=== PATIENT | male | born 1945 | race Caucasian/White ===

== ENCOUNTER → 2017-03-26 | Outpatient (REF) | payer MEDICARE ==
[~2017-03-26] MED LIST: AMLO10TA2 PO; ASPI1TAB PO; BENA20TA6 PO; DOXA1TAB49 PO; HYDR-3713 PO; PARO20TA3 PO; PRIL20CA9 PO; TRAZ50TA11 PO; ZYLO300T4 PO
[2017-03-26 12:38] LABS: MEAN CORPUSCULAR HEMOGLOBIN 32.8 pg (27.0-33.0); MEAN CORPUSCULAR HGB CONC 34.1 g/dl (32.0-36.5); MEAN CORPUSCULAR VOLUME 96.1 fl (80.0-96.0); RED CELL DISTRIBUTION WIDTH 13.1 % (11.5-14.5); WHITE BLOOD COUNT 4.6 K/mm3 (4.0-10.0)
[2017-03-26 13:05] LABS: ALBUMIN 3.9 GM/DL (3.2-5.2); ALBUMIN/GLOBULIN RATIO 1.18 (1.00-1.93); ALKALINE PHOSPHATASE 92 U/L (45-117); ALT/SGPT 50 U/L (12-78); ANION GAP 5 MEQ/L (8-16); AST/SGOT 45 U/L (15-37); BLOOD UREA NITROGEN 10 MG/DL (7-18); CALCIUM LEVEL 9.3 MG/DL (8.8-10.2); CARBON DIOXIDE LEVEL 32 MEQ/L (21-32); CHLORIDE LEVEL 101 MEQ/L (98-107); CHOLESTEROL LEVEL 209 MG/DL (<200); CREATININE FOR GFR 0.88 MG/DL (0.70-1.30); GLOMERULAR FILTRATION RATE > 60.0 (>42); GLUCOSE, FASTING 111 MG/DL (83-110); POTASSIUM SERUM 4.5 MEQ/L (3.5-5.1); SODIUM LEVEL 138 MEQ/L (136-145); TOTAL PROTEIN 7.2 GM/DL (6.4-8.2); TRIGLYCERIDES LEVEL 60 MG/DL (<150)
== END ==
LOC: M SFHCPLAZ 09:47
PROVIDERS: ATTEND Internal Medicine
DX: Z85.46 Personal history of malignant neoplasm of prostate (principal); E78.00 Pure hypercholesterolemia, unspecified; I10 Essential (primary) hypertension; R73.01 Impaired fasting glucose

== ENCOUNTER → 2017-06-01 | Outpatient (REF) | payer MEDICARE | LOC: M LAB REF 17:02 | PROVIDERS: ATTEND Surgery | DX: D04.5 Carcinoma in situ of skin of trunk (principal) ==

== ENCOUNTER → 2017-09-21 | Outpatient (REF) | payer MEDICARE ==
[2017-09-21 12:29] LABS: ALBUMIN 3.8 GM/DL (3.2-5.2); ALBUMIN/GLOBULIN RATIO 1.36 (1.00-1.93); ALKALINE PHOSPHATASE 74 U/L (45-117); ALT/SGPT 21 U/L (12-78); ANION GAP 7 MEQ/L (8-16); AST/SGOT 15 U/L (7-37); BILIRUBIN,TOTAL 0.6 MG/DL (0.2-1.0); BLOOD UREA NITROGEN 14 MG/DL (7-18); CALCIUM LEVEL 8.9 MG/DL (8.8-10.2); CARBON DIOXIDE LEVEL 31 MEQ/L (21-32); CHLORIDE LEVEL 102 MEQ/L (98-107); CREATININE FOR GFR 0.83 MG/DL (0.70-1.30); GLOMERULAR FILTRATION RATE > 60.0 (>42); GLUCOSE, FASTING 114 MG/DL (83-110); MAGNESIUM LEVEL 1.8 MG/DL (1.8-2.4); SODIUM LEVEL 140 MEQ/L (136-145); TOTAL PROTEIN 6.6 GM/DL (6.4-8.2); URIC ACID 4.5 MG/DL (3.5-7.2)
== END ==
LOC: M SFHCPLAZ 09:11
DX: I10 Essential (primary) hypertension (principal); F34.1 Dysthymic disorder; M10.9 Gout, unspecified
CPT/HCPCS: 83735

== ENCOUNTER → 2017-09-29 | Outpatient (REF) | payer MEDICARE ==
[2017-09-29 14:38] LABS: PROSTATIC SPECIFIC AG MONITOR < 0.01 NG/ML (< 4.0)
[2017-09-29 14:45] LABS: FOLATE 8.9 NG/ML (>5.4); VITAMIN B12 LEVEL 528 PG/ML (247-911)
[2017-09-29 14:59] LABS: ESTIMATED AVERAGE GLUCOSE 105 MG/DL (60-110); HEMOGLOBIN A1c 5.3 %
== END ==
LOC: M LABDRAW1 12:39
DX: R73.01 Impaired fasting glucose (principal); R68.89 Other general symptoms and signs; Z85.46 Personal history of malignant neoplasm of prostate
CPT/HCPCS: 82746

== ENCOUNTER → 2018-03-26 | Outpatient (REF) | payer MEDICARE ==
[2018-03-26 14:05] LABS: HEMATOCRIT 44.6 % (42.0-52.0); HEMOGLOBIN 15.7 g/dl (13.5-17.5); MEAN CORPUSCULAR HEMOGLOBIN 32.4 pg (27.0-33.0); MEAN CORPUSCULAR HGB CONC 35.2 g/dl (32.0-36.5); MEAN CORPUSCULAR VOLUME 92.1 fl (80.0-96.0); PLATELET COUNT, AUTOMATED 227 10^3/uL (150-450); RED BLOOD COUNT 4.84 10^6/uL (4.30-6.10); RED CELL DISTRIBUTION WIDTH 12.7 % (11.5-14.5); WHITE BLOOD COUNT 4.6 10^3/uL (4.0-10.0)
[2018-03-26 14:24] LABS: ESTIMATED AVERAGE GLUCOSE 108 MG/DL (60-110); HEMOGLOBIN A1c 5.4 %
[2018-03-26 14:43] LABS: ALBUMIN 3.8 GM/DL (3.2-5.2); ALBUMIN/GLOBULIN RATIO 1.23 (1.00-1.93); ALKALINE PHOSPHATASE 100 U/L (45-117); ALT/SGPT 26 U/L (12-78); ANION GAP 9 MEQ/L (8-16); AST/SGOT 16 U/L (7-37); BILIRUBIN,TOTAL 0.6 MG/DL (0.2-1.0); BLOOD UREA NITROGEN 13 MG/DL (7-18); CALCIUM LEVEL 8.5 MG/DL (8.8-10.2); CARBON DIOXIDE LEVEL 29 MEQ/L (21-32); CHLORIDE LEVEL 102 MEQ/L (98-107); CHOLESTEROL LEVEL 185 MG/DL (<200); CHOLESTEROL RISK RATIO 2.102 (<5); CREATININE FOR GFR 0.75 MG/DL (0.70-1.30); GLOMERULAR FILTRATION RATE > 60.0 (>42); GLUCOSE, FASTING 101 MG/DL (70-100); HDL CHOLESTEROL 88 MG/DL (>40); LDL CHOLESTEROL 85.6 MG/DL (<100); NON-HDL-C 97 MG/DL; POTASSIUM SERUM 4.1 MEQ/L (3.5-5.1); PROSTATIC SPECIFIC AG MONITOR < 0.01 NG/ML (< 4.0); SODIUM LEVEL 140 MEQ/L (136-145); TOTAL PROTEIN 6.9 GM/DL (6.4-8.2); TRIGLYCERIDES LEVEL 57 MG/DL (<150)
[2018-03-26 14:49] LABS: CREATININE, URINE 46.6 MG/DL; MAU/CREAT RATIO 12.8 MCG/MG (0.0-30.0)
== END ==
LOC: M SFHCPLAZ 10:38
DX: Z85.820 Personal history of malignant melanoma of skin (principal); I10 Essential (primary) hypertension; R73.01 Impaired fasting glucose; E78.00 Pure hypercholesterolemia, unspecified
CPT/HCPCS: 83735

== ENCOUNTER → 2018-06-10 | Outpatient (REF) | payer MEDICARE ==
[2018-06-10 17:38] LABS: CREATININE FOR GFR 0.77 MG/DL (0.70-1.30); GLOMERULAR FILTRATION RATE > 60.0 (>42)
[2018-06-10 17:38] LABS: BLOOD UREA NITROGEN 9 MG/DL (7-18)
== END ==
LOC: M LABDRAWP 13:43
DX: R31.9 Hematuria, unspecified (principal); C61 Malignant neoplasm of prostate
CPT/HCPCS: 82565

== ENCOUNTER → 2018-06-11 | Outpatient (CLI) | payer MEDICARE ==
[~2018-06-11] MED LIST changes: -AMLO10TA2 PO; -ASPI1TAB PO; -BENA20TA6 PO; -DOXA1TAB49 PO; -HYDR-3713 PO; +ISOVUE-370 76% 100ML VIAL (Q9967) As Ordered; -PARO20TA3 PO; -PRIL20CA9 PO; -TRAZ50TA11 PO; -ZYLO300T4 PO
== END ==
LOC: M RAD 07:21
DX: C61 Malignant neoplasm of prostate (principal); R31.9 Hematuria, unspecified; N28.1 Cyst of kidney, acquired
CPT/HCPCS: Q9967

== ENCOUNTER 2018-09-27 15:22 | Emergency (ER) | payer MEDICARE ==
[~2018-09-27] VITALS: Ht 182.9 cm; Wt 90.9 kg
[~2018-09-27 15:22] MED LIST changes: +AMLO10TA5 PO; +ASPI1TAB PO; +BENA20TA6 PO; +DOXA1TAB49 PO; +HYDR-3713 PO; -ISOVUE-370 76% 100ML VIAL (Q9967) As Ordered; +PARO20TA3 PO; +PRIL20CA9 PO; +TRAZ-160 PO; +ZYLO300T6 PO
[2018-09-27] MEDS ORDERED: cefTRIAXone SOD 2 GM in D5W MINI-BAG PLUS 50 ML IV ONE (16:15)
[2018-09-27] MEDS ORDERED: MORPHINE 4 MG/ML 1ML VIAL/SYRINGE (J2270) IV ONE (16:30)
[2018-09-27 16:38] LABS: BASO # 0.1 10^3/uL (0.0-0.2); BASO % 0.9 % (0.0-1.0); EOS # 0.2 10^3/uL (0.0-0.50); EOS % 2.5 % (0.0-3.0); HEMOGLOBIN 14.5 g/dl (13.5-17.5); LYMPH % 15.4 % (24.0-44.0); MEAN CORPUSCULAR HEMOGLOBIN 31.8 pg (27.0-33.0); MEAN CORPUSCULAR HGB CONC 36.3 g/dl (32.0-36.5); MEAN CORPUSCULAR VOLUME 87.7 fl (80.0-96.0); MONO # 1.1 10^3/uL (0.0-0.8); MONO % 17.2 % (0.0-5.0); NEUTROPHILS # 4.2 10^3/uL (1.8-7.7); NEUTROPHILS % 63.8 % (36.0-66.0); PLATELET COUNT, AUTOMATED 191 10^3/uL (150-450); RED BLOOD COUNT 4.56 10^6/uL (4.30-6.10); WHITE BLOOD COUNT 6.5 10^3/uL (4.0-10.0)
[2018-09-27 16:45] LABS: INR 0.96; PROTHROMBIN TIME 12.9 SECONDS (12.1-14.4)
--- NOTE | 2018-09-27 16:53 | REP ---
LEFT FINGERS, FOUR VIEWS: HISTORY: Chain saw injury of 5th digit. There is anterior and lateral dislocation of the distal phalange of the 5th digit with respect to the intermediate phalange. There is no definite fracture. A defect is present in the overlying soft tissue consistent with a laceration. IMPRESSION: Dislocation of the 5th distal phalange. Electronically Signed by Dallin Farrell MD 09/27/2018 05:02 P
[2018-09-27 16:59] LABS: ALBUMIN 3.8 GM/DL (3.2-5.2); ALT/SGPT 21 U/L (12-78); BILIRUBIN,DIRECT 0.2 MG/DL (0.0-0.2); BILIRUBIN,TOTAL 0.5 MG/DL (0.2-1.0); BLOOD UREA NITROGEN 11 MG/DL (7-18); CALCIUM LEVEL 8.8 MG/DL (8.8-10.2); CARBON DIOXIDE LEVEL 27 MEQ/L (21-32); CHLORIDE LEVEL 91 MEQ/L (98-107); CREATININE FOR GFR 0.72 MG/DL (0.70-1.30); ETHYL ALCOHOL (ETHANOL) 0.117 % (0.000-0.010); GLOMERULAR FILTRATION RATE > 60.0 (>42); GLUCOSE, FASTING 95 MG/DL (70-100); POTASSIUM SERUM 4.1 MEQ/L (3.5-5.1); SODIUM LEVEL 129 MEQ/L (136-145); TOTAL PROTEIN 7.1 GM/DL (6.4-8.2)
[2018-09-27] MEDS ORDERED: KEFL500C17 PO (17:48)
[2018-09-27 17:58] VITALS: BP 133/68
--- NOTE | 2018-09-27 18:45 | REP ---
LEFT FINGER, FOUR VIEWS: HISTORY: Postreduction. COMPARISON: 3:30 p.m. 09/27/2018. The patient is status-post reduction of a dislocation of the distal phalange of the 5th digit. There is no acute fracture or dislocation. IMPRESSION:The patient is status-post reduction of the dislocation of the 5th distal phalange. There is anatomic alignment. Electronically Signed by Dallin Farrell MD 09/27/2018 06:46 P
== END 2018-09-27 18:07 | disposition home or self-care (01) ==
LOC: M ED 15:22
DX: S61.217A Laceration without foreign body of left little finger without damage to nail, initial encounter (principal); S66.819A Strain of other specified muscles, fascia and tendons at wrist and hand level, unspecified hand, initial encounter
CPT/HCPCS: 73140; 80048; 80076; 85025; 85610; 85730; 96365; 96374; 99284; G0480; J0696; J2270

== ENCOUNTER → 2018-09-29 | Outpatient (REF) | payer MEDICARE ==
[~2018-09-29] MED LIST changes: +KEFL500C17 PO
[2018-09-29 13:38] LABS: HEMATOCRIT 42.1 % (42.0-52.0); HEMOGLOBIN 14.6 g/dl (13.5-17.5); MEAN CORPUSCULAR HEMOGLOBIN 31.1 pg (27.0-33.0); MEAN CORPUSCULAR HGB CONC 34.7 g/dl (32.0-36.5); MEAN CORPUSCULAR VOLUME 89.6 fl (80.0-96.0); PLATELET COUNT, AUTOMATED 190 10^3/uL (150-450); WHITE BLOOD COUNT 5.6 10^3/uL (4.0-10.0)
[2018-09-29 13:56] LABS: ALBUMIN 3.6 GM/DL (3.2-5.2); ALT/SGPT 17 U/L (12-78); BLOOD UREA NITROGEN 12 MG/DL (7-18); CALCIUM LEVEL 8.9 MG/DL (8.8-10.2); CARBON DIOXIDE LEVEL 31 MEQ/L (21-32); CHLORIDE LEVEL 100 MEQ/L (98-107); CREATININE FOR GFR 0.84 MG/DL (0.70-1.30); GLOMERULAR FILTRATION RATE > 60.0 (>42); GLUCOSE, FASTING 107 MG/DL (70-100); POTASSIUM SERUM 4.6 MEQ/L (3.5-5.1); SODIUM LEVEL 137 MEQ/L (136-145); TOTAL PROTEIN 6.6 GM/DL (6.4-8.2)
[2018-09-29 13:57] LABS: BILIRUBIN,TOTAL 0.8 MG/DL (0.2-1.0)
[2018-09-29 15:00] LABS: HEMOGLOBIN A1c 5.4 %
== END ==
LOC: M SFHCPLAZ 10:51
PROVIDERS: ATTEND Internal Medicine
DX: Z85.46 Personal history of malignant neoplasm of prostate (principal); Z85.820 Personal history of malignant melanoma of skin; I10 Essential (primary) hypertension; R73.01 Impaired fasting glucose

== ENCOUNTER → 2018-09-29 | Outpatient (CLI) | payer MEDICARE ==
--- NOTE | 2018-09-30 12:14 | ECGEPIP ---
Stationary ECG Study [facility] Test Date: 2018-09-29 Pat Name: MODESTA GERMAN Department: Room: - Gender: M Health Clinician: [facility] : 1945 Requested By: Jagdish Marquez Order Number: [id number] Reading MD: Joe Reyes Measurements Intervals [place] Rate: 61 P: 53 SD: 318 QRS: -63 QRSD: 124 T: 59 QT: 406 QTc: 412 Interpretive Statements SINUS RHYTHM WITH FIRST DEGREE AV BLOCK MARKED LEFT AXIS DEVIATION LEFT BUNDLE BRANCH BLOCK Deep inferior Q waves previously noted on 09-23-13 Electronically Signed On 09-30-2018 12:01:55 EST by Joe Reyes
== END ==
LOC: M EKG 11:50
PROVIDERS: ATTEND Orthopaedic Surgery
DX: Z01.818 Encounter for other preprocedural examination (principal); I10 Essential (primary) hypertension

== ENCOUNTER → 2019-04-07 | Outpatient (REF) | payer MEDICARE ==
[~2019-04-07] MED LIST changes: -ASPI1TAB PO; +ASPI81TA26 PO; -TRAZ-160 PO; +TRAZ-252 PO
[2019-04-07 13:21] LABS: HEMATOCRIT 44.1 % (42.0-52.0); HEMOGLOBIN 15.4 g/dl (13.5-17.5); MEAN CORPUSCULAR HEMOGLOBIN 32.6 pg (27.0-33.0); MEAN CORPUSCULAR HGB CONC 34.9 g/dl (32.0-36.5); MEAN CORPUSCULAR VOLUME 93.4 fl (80.0-96.0); PLATELET COUNT, AUTOMATED 213 10^3/uL (150-450); RED BLOOD COUNT 4.72 10^6/uL (4.30-6.10); WHITE BLOOD COUNT 4.7 10^3/uL (4.0-10.0)
[2019-04-07 13:31] LABS: ALBUMIN 3.9 GM/DL (3.2-5.2); ALT/SGPT 27 U/L (12-78); BILIRUBIN,TOTAL 0.5 MG/DL (0.2-1.0); BLOOD UREA NITROGEN 7 MG/DL (7-18); C REACTIVE PROTEIN QUANTITATIV 0.33 MG/DL (0.00-0.30); CALCIUM LEVEL 9.2 MG/DL (8.8-10.2); CARBON DIOXIDE LEVEL 29 MEQ/L (21-32); CHLORIDE LEVEL 99 MEQ/L (98-107); CHOLESTEROL LEVEL 178 MG/DL (<200); CHOLESTEROL RISK RATIO 1.424 (<5); CREATININE FOR GFR 0.71 MG/DL (0.70-1.30); GLOMERULAR FILTRATION RATE > 60.0 (>42); GLUCOSE, FASTING 85 MG/DL (70-100); HDL CHOLESTEROL 125 MG/DL (>40); LDL CHOLESTEROL 45 MG/DL (<100); MAGNESIUM LEVEL 2.1 MG/DL (1.8-2.4); NON-HDL-C 53 MG/DL; PROSTATIC SPECIFIC AG MONITOR < 0.01 NG/ML (< 4.00); SODIUM LEVEL 136 MEQ/L (136-145); TOTAL PROTEIN 6.8 GM/DL (6.4-8.2); TRIGLYCERIDES LEVEL 38 MG/DL (<150); URIC ACID 3.4 MG/DL (3.5-7.2)
[2019-04-07 13:44] LABS: HEMOGLOBIN A1c 5.6 %
[2019-04-07 14:02] LABS: CREATININE, URINE 51.3 MG/DL; MALB URINE SIEMENS 17.7 MG/L; MAU/CREAT RATIO 34.5 MCG/MG (0.0-30.0)
[2019-04-07 14:07] LABS: ERYTHROCYTE SEDIMENTATION RATE 2 mm/hr (0-20)
== END ==
LOC: M SFHCPLAZ 08:27
PROVIDERS: ATTEND Internal Medicine
DX: Z85.46 Personal history of malignant neoplasm of prostate (principal); Z85.820 Personal history of malignant melanoma of skin; I10 Essential (primary) hypertension; R73.01 Impaired fasting glucose; E78.00 Pure hypercholesterolemia, unspecified; M10.9 Gout, unspecified

== ENCOUNTER → 2019-05-26 | Outpatient (CLI) | payer MEDICARE ==
[~2019-05-26] MED LIST changes: +ALEV220T22 PO; +OMEP-218 PO
--- NOTE | 2019-06-04 01:32 | ECWPNPC ---
PATIENT NAME: MODESTA GERMAN : 1945 GENDER: MALE VISIT DATE: 05/26/2019 DISCHARGE DATE: 05/26/19 1604 VISIT LOCKED DATE TIME: PHYSICIAN: BUTCH HARTMANN MD RESOURCE: BUTCH HARTMANN MD REASON FOR APPOINTMENT 1. LOW BACK PAIN HISTORY OF PRESENT ILLNESS PAIN SCREENING: PATIENT HAS A COMPLAINT OF ACUTE OR CHRONIC PAIN :YES 73 YEAR OLD MALE PATIENT WITH A HISTORY OF CHRONIC LOW BACK PAIN. THE PATIENT DESCRIBES THE PAIN ACHING, SORE, TENDER AND CONTINUOUS WITH A PAIN SCORE OF 6/10-10 DEPENDING ON PHYSICAL ACTIVITY. PATIENT STATES HE HAD A LUMBAR FUSION MANY YEARS AGO FOR HIS BACK. THE PATIENT STATES HE ALSO HAS CONCERNS ABOUT PAIN IN HIS RIGHT SHOULDER AND LEFT HIP. THE PATIENT SAYS THE PAIN IS EFFECTING HIS DAILY ACTIVITIES SUCH COOKING, CLEANING AND SHOPPING. THE PATIENT STATES HE HAS BEEN FOLLOWED IN THE PAST BY [facility] FOR HIS PAIN. PATIENT DENIES UNEXPLAINABLE WEIGHT LOSS, FEVER, CHILLS, NEW CHANGES ON HIS URINARY OR BOWEL CONTROL. FALL RISK SCREENING: SCREENING :NO FALLS REPORTED IN THE LAST YEAR CURRENT MEDICATIONS UNKNOWN ASPIRIN 81 MG TABLET DELAYED RELEASE 1 TABLET ORALLY ONCE A DAY UNKNOWN INDOMETHACIN 25 MG CAPSULE 1 CAPSULE WITH FOOD OR MILK ORALLY EVERY 6 HOURS NEEDED FOR GOUT FLARE UNKNOWN OMEPRAZOLE 20 MG CAPSULE DELAYED RELEASE 2 CAPSULE ORALLY ONCE A DAY UNKNOWN GABAPENTIN 100 MG CAPSULE 2 CAPSULE ORALLY THREE TIMES A DAY UNKNOWN ALLOPURINOL 300 MG TABLET 1 TABLET ORALLY ONCE A DAY UNKNOWN DOXAZOSIN MESYLATE 8 MG TABLET 1/2 TABLET ORALLY ONCE A DAY UNKNOWN BENAZEPRIL-HYDROCHLOROTHIAZIDE 20-12.5 MG TABLET 1 TABLET ORALLY ONCE A DAY UNKNOWN AMLODIPINE BESYLATE 10 MG TABLET 1 TAB ORALLY ONCE A DAY UNKNOWN TRAZODONE HCL 150 MG TABLET 1 TABLET ORALLY ONCE A DAY AT BEDTIME UNKNOWN PAROXETINE HCL 20 MG TABLET 1 TABLET IN THE MORNING ORALLY ONCE A DAY UNKNOWN HYDROCODONE-ACETAMINOPHEN 5-325 MG TABLET 1 TABLET ORALLY EVERY 6 HRS NEEDED FOR PAIN. MDD=4 PAST MEDICAL HISTORY HYPERTENSION GASTROESOPHAGEAL REFLUX HYPERCHOLESTEROLEMIA OSTEOARTHRITIS PERSONAL HISTORY OF PROSTATE CANCER GOUT OTHER SPECIFIED CRYSTAL ARTHROPATHIES, UNSPECIFIED SITE LESION OF LUNG DYSPHAGIA ELEVATED FASTING GLUCOSE FATTY LIVER ALCOHOL DEPENDENCE PERSONAL HISTORY OF MALIGNANT MELANOMA OF SKIN DYSTHYMIA FORGETFULNESS ALLERGIES CORGARD: PT UNABLE TO RECALL - ALLERGY CELEBREX: PT UNABLE TO RECALL - ALLERGY DOXYCYCLINE CALCIUM: PT UNABLE TO RECALL - ALLERGY SURGICAL HISTORY SPINAL FUSION AGE 21 RIGHT SHOULDER SURGERY YEARS AGO RIGHT CARPAL TUNNEL RELEASE YEARS AGO TOTAL RIGHT KNEE REPLACEMENT 1998 RIGHT INGUINAL HERNIA REPAIR 09/1999 TOTAL LEFT KNEE REPLACEMENT, AND REVISED RIGHT KNEE 02/2002 COLONOSCOPY 09/2005 ROBOTIC PROSTATECTOMY 12/2010 UMBILICAL HERNIA REPAIR 08/2011 MELANOMA EXCISION ON RIGHT CHEEK 04/2014 SCC EXCISION LEFT NECK 07/2014 COLONOSCOPY 08/2016 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 10/01/2018 VENTRAL HERNIA REPAIR ROBOTICALLY 04/2019 FAMILY HISTORY FATHER: MOTHER: SIBLINGS: 3 BROTHER(S) , 1 SISTER(S) . NEGATIVE FOR PROSTATE CANCER OR ANY OTHER UROLOGIC DISEASE.FATHER OF CEREBRAL HEMORRHAGE AGE 65. MOTHER OF SUDDEN , HAD PMR AND HYPERTENSION. A BROTHER HAD A BENIGN BRAIN TUMOR REMOVED. TWO OTHER BROTHERS, A SISTER, AND TWO CHILDREN ARE ALIVE AND WELL. SOCIAL HISTORY GENERAL: TOBACCO USE ARE YOU A:NONSMOKER NEVER SMOKER HIV / HEP-C SCREENING HIV TEST OFFERED TO PATIENT:YES DATE OFFERED:03/31/2018 TEST ACCEPTED:NO HEP-C TEST OFFERED TO PATIENT:YES DATE OFFERED:03/31/2018 REASON:PATIENT DECLINED TEST ACCEPTED:NO REASON:PATIENT DECLINED BROCHURE PROVIDED TO PATIENTYES HOUSING: OWNS HOME. LANGUAGE SYRIAC. DOMESTIC VIOLENCE STATUS: DO YOU FEEL SAFE IN YOUR ENVIRONMENT?YES NEW PATIENT PAIN DIARY PATIENT DESCRIBES PAIN :ACHING, SORE FROM 0-10, WHAT LEVEL IS YOUR PAIN TODAY?6 PRECIPITATING FACTORS PAIN INCREASES WITH ACTIVITY ALLEVIATING FACTORS REPOSITIONING, MEDICATIONS REDUCE PAIN IMPACT ON FUNCTION REDUCES ACTIVITY LEVEL NAME OF PERSON DRIVING YOU HOME SELF IS THERE A CHANCE YOU COULD BE ?NO HAVE YOU BEEN SICK IN THE LAST WEEK (COLD, COUGH, FEVER, FLU, ETC)NO DO YOU TAKE ANY BLOOD THINNERS?YES ASA 81 MG EVERY 3 DAYS DO YOU HAVE ANY RASHES OR OPEN SORES?NO ANY CHANGE IN BOWEL OR BLADDER CONTROL?NO ARE YOU ALLERGIC TO SHELLFISH OR IV DYE?NO ARE YOU DIABETIC?NO DO YOU HAVE A PACEMAKER OR DEFIBRILLATOR?NO ANY NEW PROBLEMS WITH MEDICINES OR NEW ALLERGIESNO ANY NEW PATTERNS OF PAIN OR NUMBNESS?NO ANY CHANGE IN YOUR MEDICAL CONDITION?NO HAVE YOU FALLEN IN THE LAST 6 MONTHS?YES PT STATES THAT HE FELL WHILE AT HOME, NO INJURY FROM FALL. DO YOU USE ANY TYPE OF TOBACCO (SMOKE, SMOKELESS, CHEW, ETC.)YES YES, CHEWS TOBACCO ARE YOU ABUSED, NEGLECTED, OR IN AN UNSAFE ENVIRONMENT?NO DO YOU HAVE THOUGHTS OF HURTING YOURSELF OR SOMEONE ELSE?NO DO YOU NEED ANY PRESCRIPTIONS?NO DO YOU HAVE ANY OTHER QUESTIONS OR CONCERNS?NO BMI CARE GOAL FOLLOW-UP ABOVE NORMAL BMI FOLLOW-UPWEIGHT MONITORING RECREATIONAL DRUG USE DENIES. EXERCISE: DAILY. LEARNING BARRIERS / SPECIAL NEEDS CHANGE FROM LAST VISIT?NO BARRIERS TO LEARNING?NO HEARING IMPAIRED?NO VISION IMPAIRED?YES COGNITIVELY IMPAIRED?NO :CORRECTIVE LENSES READINESS TO LEARN?YES LEARNING PREFERENCES?NO LEARNING CAPABILITIES PRESENT?YES EMOTIONAL BARRIERS?NO SPECIAL DEVICES?NO TEST ENG NEEDED?NO PAIN CLINIC PFS, CLERGY, PUBLIC HEALTH REFERRALS PFS REFERRAL NEEDED?NO CLERGY REFERRAL NEEDED?NO PUBLIC HEALTH REFERRAL NEEDED?NO WAS THE PROVIDER NOTIFIED OF ANY PERTINENT INFO?YES HAS THE PATIENT BEEN EDUCATED REGARDING HIS/HER PLAN OF CARE?YES HAS THE PATIENT BEEN EDUCATED REGARDING PAIN, THE RISK FOR PAIN, THE IMPORTANCE OF EFFECTIVE PAIN MANAGEMENT, AND THE PAIN ASSESSMENT PROCESS?YES LATEX QUESTIONNAIRE LATEX ALLERGY : HAVE YOU EVER DEVELOPED ANY TYPE OF REACTION AFTER HANDLING LATEX PRODUCTS SUCH RUBBER GLOVES, CONDOMS, DIAPHRAGMS, BALLOONS, SOCKS, OR UNDERWEAR?NO LATEX ALLERGY : HAVE YOU EVER DEVELOPED ANY TYPE OF REACTION DURING OR AFTER DENTAL APPOINTMENT, VAGINAL/RECTAL EXAMINATION, SURGICAL PROCEDURE, OR ANY OTHER EXPOSURE?NO LATEX RISK : HAVE YOU EVER HAD ANY DIFFICULTY BREATHING OR HIVES AFTER EATING OR HANDLING ANY FRUITS, OR VEGETABLES; SUCH KIWI, BANANAS, STONE FRUITS, OR CHESTNUTSNO LATEX RISK : DO YOU HAVE A PREVIOUS PERSONAL HISTORY OF MORE THAN NINE SURGERIES, SPINA BIFIDA, OR REPEATED CATHERIZATIONS? NO LATEX RISK : ARE YOU FREQUENTLY EXPOSED TO LATEX PRODUCTS IN YOUR OCCUPATION?NO DATE ASKED : 05/26/2019 CAFFEINE NONE. ADVANCE DIRECTIVE ADVANCE DIRECTIVE DISCUSSED WITH PATIENT:YES PT STATES THAT HE HAS HCP FRANCISCO GERMAN [phone], LIVING WILL AND OUT OF HOSPITAL DNR AMISH NO SYNAGOGUE BELIEFS THAT WOULD IMPACT HEALTH CARE. MARITAL STATUS: . FATHER OF 2. 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 SEXUAL HX HAD SEX IN THE LAST 12 MONTHS (VAGINAL, ORAL, OR ANAL)?YES WITHWOMEN ONLY HAVE YOU EVER HAD AN STD?NO HOSPITALIZATION/MAJOR DIAGNOSTIC PROCEDURE SURGICAL RELATED REVIEW OF SYSTEMS REVIEWED BY: PROVIDER: BUTCH HARTMANN MD . CONSTITUTIONAL: ANY CHANGE IN YOUR MEDICAL CONDITION? NO . CHILLS NO . FEVER NO . INFECTION: DO YOU HAVE NEW INFECTIONS? NO . DO YOU HAVE HISTORY OF MRSA? NO . MUSCULOSKELETAL: ANY NEW PATTERNS OF PAIN OR NUMBNESS? YES PAIN IN BACK, LEFT HAND, RIGHT SHOULDER . SYTEMIC LUPUS NO . GASTROENTEROLOGY: ANY NEW CHANGE IN BOWEL CONTROL? NO . BARRETTS ESOPHAGUS NO . CIRRHOSIS NO . HEPATITIS NO . LIVER FAILURE NO . ACID REFLUX NO . UNEXPLAINED WEIGHT LOSS NO . GENITOURINARY: ANY NEW CHANGE IN BLADDER CONTROL? NO . IS THERE A CHANCE YOU COULD BE ? NO . HEMATOLOGY/LYMPH: DO YOU TAKE ANY BLOOD THINNERS? (FOR EXAMPLE- COUMADIN, PLAVIX, AGGRENOX, PLATEL, PRADAXA, OR XARELTO) NO . WHEN WAS YOUR LAST DOSE? DATE: TIME: . LOW PLATELET COUNT NO . SICKLE CELL DISEASE NO . VON WILLIEBRANDS NO . FACTOR V LEIDEN NO . THALLASEMIA NO . ANEMIA NO . EASY BRUISING NO . NEUROLOGY: HAVE YOU FALLEN IN THE PAST 12 MONTHS? =YES, PT STATES THAT HE FELL WHILE AT HOME, NO INJURY, NO REPORT TO ED . ANY NEW EXTREMITY NUMBNESS OR WEAKNESS? NO . HEAD INJURY NO . DEMENTIA NO . CEREBRAL PALSY NO . MULTIPLE SCLEROSIS NO . DIZZINESS NO . HEADACHE NO . STROKES NO . VERTIGO NO . CARDIOLOGY: DO YOU HAVE A PACEMAKER OR DEFIBRILLATOR? NO . ANGINA NO . HEART ATTACK NO . HEART SURGERY NO . CONGESTIVE HEART FAILURE/FLUID OVERLOAD NO . CHEST PAIN NO . HIGH BLOOD PRESSURE NO . IRREGULAR HEART BEAT NO . RESPIRATORY: HAVE YOU BEEN SICK IN THE PAST WEEK? NO . FEVER NO . FLU LIKE SYMPTOMS? NO . CPAP NO . BYPAP NO . ASTHMA NO . EMPHYSEMA NO . CHRONIC LUNG DISEASES NO . SHORTNESS OF BREATH ON EXERTION NO . COUGH NO . SNORING NO . INTEGUMENTARY: DO YOU HAVE ANY RASHES OR OPEN SORES? NO . ALLERGIC/IMMUNO: ARE YOU ALLERGIC TO IV DYE? NO . ANY NEW ALLERGIES? NO . PSYCHIATRIC: DO YOU HAVE THOUGHTS OF HURTING YOURSELF OR SOMEONE ELSE? NO . ARE YOU ABUSED, NEGLECTED, OR IN AN UNSAFE ENVIRONMENT? NO . ENDOCRINOLOGY: ARE YOU DIABETIC? NO . THYROID DISORDER NO . OTHER: DO YOU NEED ANY PRESCRIPTIONS? NO . IF YES, PLEASE LIST: ____ . ANY NEW PROBLEMS WITH YOUR MEDICATIONS? NO . WHEN DID YOU LAST EAT? ____ . WHEN DID YOU LAST DRINK? ____ . WHAT DID YOU LAST DRINK? ____ . NAME OF PERSON DRIVING YOU HOME? ____ . DO YOU HAVE ANY OTHER QUESTIONS OR CONCERNS NO . VITAL SIGNS WT 186.2 LBS, HT 72 IN, BMI 25.25 INDEX, BP 129/66 MM HG, HR 82 /MIN, RR 18 /MIN, TEMP 97.2 F, OXYGEN SAT % 96%, SAFE IN ENV? (Y/N) Y, NA INITIALS SC 14:15, REVIEWED BY: RICARDA. EXAMINATION GENERAL EXAMINATION: PATIENT IS ALERT O X 3 AND COOPERATIVE. LUNGS CLEAR, TO AUSCULTATION. HEART: NO MURMURS OR GALLOPS; FACIAL CRANIAL NERVES ARE GROSSLY NORMAL. GOOD SYMMETRY OF FACIAL MUSCLE MOVEMENT. NORMAL VISUAL VAZQUEZ. PATIENT IS ALERT O X 3 AND COOPERATIVE. PRESENCE OF BANDS OF TISSUE AND TRIGGER POINTS WITH RESTRICTION OF MOVEMENT OF THE LOW BACK AND THORACIC AREA. MRI OF THE THORACIC SPINE DONE 06/11/2016 SHOWS FACET CHANGES. ASSESSMENTS MYALGIA, OTHER SITE - M79.18 (PRIMARY) LOW BACK PAIN - M54.5 OTHER CHRONIC PAIN - G89.29 TREATMENT MYALGIA, OTHER SITE CLINICAL NOTES: WE DISCUSSED SEVERAL ISSUES WITH MR. GERMAN' PAIN MANAGEMENT CASE. DUE TO THE TRIGGER POINTS, BANDS OF TISSUE AND RESTRICTION OF MOVEMENT, I WOULD LIKE TO MORE FORWARD WITH A TRIGGER POINT INJECTION AT THIS TIME. WE DISCUSSED THE BENEFITS, RISKS AND ALTERNATIVES OF THE INJECTION AND THE PATIENT WOULD LIKE TO PROCEED. I AM ORDERING PHYSICAL THERAPY FOR 6 WEEKS TO HELP WITH THE BACK PAIN. I AM ORDERING THORACIC AND LUMBAR MRI'S FOR COMPARISON. I WILL ALSO ORDER BLOOD WORK TO BE DONE PRIOR TO THE MRI'S TO DETERMINE KIDNEY FUNCTION. I DISCUSSED WITH THE PATIENT'S PRIMACRY CARE PHYSICIAN, DR. KEVYN DIAZ, AND HE STATED THAT IT IS OKAY FOR THE PATIENT TO RECEIVE CONTRAST FOR THE MRI. PATIENT TO CALL ORTHOPEDIC OFFICE TO FOLLOW UP ON SHOULDER AND HIP PAIN. DEPENDING ON MRI RESULTS, WE MAY CONSIDER MORE INVASIVE INTERVENTION IN THE FUTURE. PATIENT WILL CALL TO SCHEDULE TRIGGER POINT INJECTION WHEN READY. INSTRUCTIONS WERE GIVEN, QUESTIONS WERE ANSWERED, PATIENT REPORTS UNDERSTANDING AND AGREES WITH PLAN. I, BORA ORELLANA, DOCUMENTED THE ABOVE INFORMATION ACTING A SCRIBE FOR DR. HARTMANN. I HAVE REVIEWED THE ABOVE DOCUMENT, WRITTEN BY BORA CAMACHO AND I VERIFY THAT IT IS ACCURATE. DEAR DR. KEVYN DIAZ MD: THANK YOU FOR YOUR KIND REFERRAL OF MODESTA GERMAN. IF YOU WANT TO DISCUSS HER/HIS CASE WITH ME PLEASE CALL ME AT THE PAIN CENTER AT [phone]. SINCERELY, BUTCH HARTMANN MD PAIN MEDICINE . OTHERS NOTES: PT EDUCATED REGARDING DISCHARGE INSTRUCTIONS. MD HARTMANN ORDERED BLOOOD WORK BUN/CREAT TO BE DONE FIRST, AFTER BLOOD WORK PT TO HAVE MRI THORACIC SPINE, MRI LUMBAR SPINE. MD HARTMANN ALSO GAVE ORDERS FOR EVAL AND TREAT PHYSICAL THERAPY. PT EDUCATED REGARDING IMPORTANCE OF HAVING BLOODWORK PRIOR TO MRI'S. PT ALSO EDUCATED THAT HE SHOULD HAVE MRI'S PRIOR TO TRIGGER POINT INJECTIONS. IF PT CHOOSES TO HAVE TRIGGER POINT INJECTIONS FIRST, THE PT WILL BE REQUIRED TO WAIT ONE WEEK BEFORE HAVING MRI'S. PT AND SPOUSE ACKNOWLEDGE UNDERSTANDING REGARDING BLOODWORK, MRI'S AND TRIGGER POINT INJECTIONS. . PROCEDURE CODES FA211 ESTABILISHED PATIENT [facility] FACILITY CHARGE [id number] CURRENT MEDS W/DOSAGES DOCUMENTED G8730 PAIN ASSESS POS TOOL F/U PLAN DOC DISPOSITION & COMMUNICATION FOLLOW UP REASON: PATIENT WILL CALL ELECTRONICALLY SIGNED BY BUTCH HARTMANN MD, MD ON 06/03/2019 AT 05:25 PM EDT DISCLAIMER : THIS IS A VISIT SUMMARY EXTRACTED FROM THE [employer] CHART. IT IS NOT A COPY OF THE [employer] PROGRESS NOTE. MTDD
== END ==
LOC: M PAIN 14:00
PROVIDERS: ATTEND Anesthesiology
DX: G89.29 Other chronic pain (principal); M79.18 Myalgia, other site; M54.5 Low back pain; I10 Essential (primary) hypertension; K21.9 Gastro-esophageal reflux disease without esophagitis; E78.00 Pure hypercholesterolemia, unspecified; M19.90 Unspecified osteoarthritis, unspecified site; M10.9 Gout, unspecified; R13.10 Dysphagia, unspecified; R73.01 Impaired fasting glucose; K76.0 Fatty (change of) liver, not elsewhere classified; F10.20 Alcohol dependence, uncomplicated; Z85.820 Personal history of malignant melanoma of skin; F34.1 Dysthymic disorder; Z85.46 Personal history of malignant neoplasm of prostate; Z79.82 Long term (current) use of aspirin; Z79.891 Long term (current) use of opiate analgesic; Z79.899 Other long term (current) drug therapy; Z88.8 Allergy status to other drugs, medicaments and biological substances

== ENCOUNTER → 2019-06-20 | Outpatient (CLI) | payer MEDICARE ==
[~2019-06-20] MED LIST changes: +CBD OIL SL; +TRAZ-186 PO
[2019-06-20 14:20] LABS: BLOOD UREA NITROGEN 10 MG/DL (7-18); CREATININE FOR GFR 0.82 MG/DL (0.70-1.30); GLOMERULAR FILTRATION RATE > 60.0 (>42)
== END ==
LOC: M LAB 11:58
PROVIDERS: ATTEND Anesthesiology
DX: Z01.812 Encounter for preprocedural laboratory examination (principal)

== ENCOUNTER → 2019-06-22 | Outpatient (CLI) | payer MEDICARE ==
[~2019-06-22] MED LIST changes: +BUPIVACAINE HCL 0.25% 10 ML VIAL As Ordered ONE; +BUPIVACAINE HCL 0.25% 30 ML VIAL As Ordered ONE; +TRIAMCINOLONE ACETONIDE SUSP 40 MG/ML VIAL (J3301) As Ordered ONE
--- NOTE | 2019-07-06 01:08 | ECWPNPC ---
PATIENT NAME: MODESTA GERMAN : 1945 GENDER: MALE VISIT DATE: 06/22/2019 DISCHARGE DATE: 06/22/19 1628 VISIT LOCKED DATE TIME: PHYSICIAN: BUTCH HARTMANN MD RESOURCE: BUTCH HARTMANN MD REASON FOR APPOINTMENT 1. TPI BILAT THORACIC, BILAT LUMBAR HISTORY OF PRESENT ILLNESS HISTORY OF PRESENT ILLNESS: PAIN THE PATIENT DESCRIBES THE PAIN... FALL RISK SCREENING: SCREENING :NO FALLS REPORTED IN THE LAST YEAR CURRENT MEDICATIONS TAKING DOXAZOSIN MESYLATE 8 MG TABLET 1/2 TABLET ORALLY ONCE A DAY, NOTES: 06/21/19 @2230 TAKING ASPIRIN 81 MG TABLET DELAYED RELEASE 1 TABLET ORALLY ONCE A DAY, NOTES: 2 DAYS AGO TAKING INDOMETHACIN 25 MG CAPSULE 1 CAPSULE WITH FOOD OR MILK ORALLY EVERY 6 HOURS NEEDED FOR GOUT FLARE, NOTES: NONE RECENTLY TAKING OMEPRAZOLE 20 MG CAPSULE DELAYED RELEASE 2 CAPSULE ORALLY ONCE A DAY, NOTES: 06/21/19@223 TAKING ALLOPURINOL 300 MG TABLET 1 TABLET ORALLY ONCE A DAY, NOTES: 0815 TAKING BENAZEPRIL-HYDROCHLOROTHIAZIDE 20-12.5 MG TABLET 1 TABLET ORALLY ONCE A DAY, NOTES: 2 DAYS AGO TAKING AMLODIPINE BESYLATE 10 MG TABLET 1 TAB ORALLY ONCE A DAY, NOTES: 0815 TAKING TRAZODONE HCL 150 MG TABLET 1 TABLET ORALLY ONCE A DAY AT BEDTIME, NOTES: 06/21/19@2230 TAKING PAROXETINE HCL 20 MG TABLET 1 TABLET IN THE MORNING ORALLY ONCE A DAY, NOTES: 0815 TAKING HYDROCODONE-ACETAMINOPHEN 5-325 MG TABLET 1 TABLET ORALLY EVERY 6 HRS NEEDED FOR PAIN. 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, UNSPECIFIED SITE LESION OF LUNG DYSPHAGIA ELEVATED FASTING GLUCOSE FATTY LIVER ALCOHOL DEPENDENCE PERSONAL HISTORY OF MALIGNANT MELANOMA OF SKIN DYSTHYMIA FORGETFULNESS ARTHRITIS LEFT HIP ALLERGIES CORGARD: PT UNABLE TO RECALL - ALLERGY CELEBREX: PT UNABLE TO RECALL - ALLERGY DOXYCYCLINE CALCIUM: PT UNABLE TO RECALL - ALLERGY SURGICAL HISTORY SPINAL FUSION AGE 21 RIGHT SHOULDER SURGERY YEARS AGO RIGHT CARPAL TUNNEL RELEASE YEARS AGO TOTAL RIGHT KNEE REPLACEMENT 1998 RIGHT INGUINAL HERNIA REPAIR 09/1999 TOTAL LEFT KNEE REPLACEMENT, AND REVISED RIGHT KNEE 02/2002 COLONOSCOPY 09/2005 ROBOTIC PROSTATECTOMY 12/2010 UMBILICAL HERNIA REPAIR 08/2011 MELANOMA EXCISION ON RIGHT CHEEK 04/2014 SCC EXCISION LEFT NECK 07/2014 COLONOSCOPY 08/2016 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 10/01/2018 VENTRAL HERNIA REPAIR ROBOTICALLY 04/2019 FAMILY HISTORY FATHER: MOTHER: SIBLINGS: 3 BROTHER(S) , 1 SISTER(S) . NEGATIVE FOR PROSTATE CANCER OR ANY OTHER UROLOGIC DISEASE.FATHER OF CEREBRAL HEMORRHAGE AGE 65. MOTHER OF SUDDEN , HAD PMR AND HYPERTENSION. A BROTHER HAD A BENIGN BRAIN TUMOR REMOVED. TWO OTHER BROTHERS, A SISTER, AND TWO CHILDREN ARE ALIVE AND WELL. SOCIAL HISTORY GENERAL: TOBACCO USE ARE YOU A:NONSMOKER NEVER SMOKER HIV / HEP-C SCREENING HIV TEST OFFERED TO PATIENT:YES DATE OFFERED:03/31/2018 TEST ACCEPTED:NO HEP-C TEST OFFERED TO PATIENT:YES DATE OFFERED:03/31/2018 REASON:PATIENT DECLINED TEST ACCEPTED:NO REASON:PATIENT DECLINED BROCHURE PROVIDED TO PATIENTYES HOUSING: OWNS HOME. LANGUAGE CENTRAL AFRICAN. DOMESTIC VIOLENCE STATUS: DO YOU FEEL SAFE IN YOUR ENVIRONMENT?YES NEW PATIENT PAIN DIARY PATIENT DESCRIBES PAIN :ACHING, SORE FROM 0-10, WHAT LEVEL IS YOUR PAIN TODAY?6 PRECIPITATING FACTORS PAIN INCREASES WITH ACTIVITY ALLEVIATING FACTORS REPOSITIONING, MEDICATIONS REDUCE PAIN IMPACT ON FUNCTION REDUCES ACTIVITY LEVEL NAME OF PERSON DRIVING YOU HOME SELF IS THERE A CHANCE YOU COULD BE ?NO HAVE YOU BEEN SICK IN THE LAST WEEK (COLD, COUGH, FEVER, FLU, ETC)NO DO YOU TAKE ANY BLOOD THINNERS?YES ASA 81 MG EVERY 3 DAYS DO YOU HAVE ANY RASHES OR OPEN SORES?NO ANY CHANGE IN BOWEL OR BLADDER CONTROL?NO ARE YOU ALLERGIC TO SHELLFISH OR IV DYE?NO ARE YOU DIABETIC?NO DO YOU HAVE A PACEMAKER OR DEFIBRILLATOR?NO ANY NEW PROBLEMS WITH MEDICINES OR NEW ALLERGIESNO ANY NEW PATTERNS OF PAIN OR NUMBNESS?NO ANY CHANGE IN YOUR MEDICAL CONDITION?NO HAVE YOU FALLEN IN THE LAST 6 MONTHS?YES PT STATES THAT HE FELL WHILE AT HOME, NO INJURY FROM FALL. DO YOU USE ANY TYPE OF TOBACCO (SMOKE, SMOKELESS, CHEW, ETC.)YES YES, CHEWS TOBACCO ARE YOU ABUSED, NEGLECTED, OR IN AN UNSAFE ENVIRONMENT?NO DO YOU HAVE THOUGHTS OF HURTING YOURSELF OR SOMEONE ELSE?NO DO YOU NEED ANY PRESCRIPTIONS?NO DO YOU HAVE ANY OTHER QUESTIONS OR CONCERNS?NO BMI CARE GOAL FOLLOW-UP ABOVE NORMAL BMI FOLLOW-UPWEIGHT MONITORING RECREATIONAL DRUG USE DENIES. EXERCISE: DAILY. LEARNING BARRIERS / SPECIAL NEEDS CHANGE FROM LAST VISIT?NO BARRIERS TO LEARNING?NO HEARING IMPAIRED?NO VISION IMPAIRED?YES COGNITIVELY IMPAIRED?NO :CORRECTIVE LENSES READINESS TO LEARN?YES LEARNING PREFERENCES?NO LEARNING CAPABILITIES PRESENT?YES EMOTIONAL BARRIERS?NO SPECIAL DEVICES?NO MANAGER HOTEL NEEDED?NO PAIN CLINIC PFS, CLERGY, PUBLIC HEALTH REFERRALS PFS REFERRAL NEEDED?NO CLERGY REFERRAL NEEDED?NO PUBLIC HEALTH REFERRAL NEEDED?NO WAS THE PROVIDER NOTIFIED OF ANY PERTINENT INFO?YES HAS THE PATIENT BEEN EDUCATED REGARDING HIS/HER PLAN OF CARE?YES HAS THE PATIENT BEEN EDUCATED REGARDING PAIN, THE RISK FOR PAIN, THE IMPORTANCE OF EFFECTIVE PAIN MANAGEMENT, AND THE PAIN ASSESSMENT PROCESS?YES LATEX QUESTIONNAIRE LATEX ALLERGY : HAVE YOU EVER DEVELOPED ANY TYPE OF REACTION AFTER HANDLING LATEX PRODUCTS SUCH RUBBER GLOVES, CONDOMS, DIAPHRAGMS, BALLOONS, SOCKS, OR UNDERWEAR?NO LATEX ALLERGY : HAVE YOU EVER DEVELOPED ANY TYPE OF REACTION DURING OR AFTER DENTAL APPOINTMENT, VAGINAL/RECTAL EXAMINATION, SURGICAL PROCEDURE, OR ANY OTHER EXPOSURE?NO LATEX RISK : HAVE YOU EVER HAD ANY DIFFICULTY BREATHING OR HIVES AFTER EATING OR HANDLING ANY FRUITS, OR VEGETABLES; SUCH KIWI, BANANAS, STONE FRUITS, OR CHESTNUTSNO LATEX RISK : DO YOU HAVE A PREVIOUS PERSONAL HISTORY OF MORE THAN NINE SURGERIES, SPINA BIFIDA, OR REPEATED CATHERIZATIONS? NO LATEX RISK : ARE YOU FREQUENTLY EXPOSED TO LATEX PRODUCTS IN YOUR OCCUPATION?NO DATE ASKED : 06/22/2019 CAFFEINE NONE. ADVANCE DIRECTIVE ADVANCE DIRECTIVE DISCUSSED WITH PATIENT:YES PT STATES THAT HE HAS HCP, LIVING WILL AND OUT OF HOSPITAL DNR [employer] NO CONGREGATIONAL BELIEFS THAT WOULD IMPACT HEALTH CARE. MARITAL STATUS: . FATHER OF 2. 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 SEXUAL HX HAD SEX IN THE LAST 12 MONTHS (VAGINAL, ORAL, OR ANAL)?YES WITHWOMEN ONLY HAVE YOU EVER HAD AN STD?NO HOSPITALIZATION/MAJOR DIAGNOSTIC PROCEDURE SURGICAL RELATED REVIEW OF SYSTEMS REVIEWED BY: PROVIDER: . CONSTITUTIONAL: ANY CHANGE IN YOUR MEDICAL CONDITION? YES, LEFT HIP ARTHRITIS . CHILLS NO . FEVER NO . INFECTION: DO YOU HAVE NEW INFECTIONS? NO . DO YOU HAVE HISTORY OF MRSA? NO . MUSCULOSKELETAL: ANY NEW PATTERNS OF PAIN OR NUMBNESS? NO . GASTROENTEROLOGY: ANY NEW CHANGE IN BOWEL CONTROL? NO . GENITOURINARY: ANY NEW CHANGE IN BLADDER CONTROL? NO . IS THERE A CHANCE YOU COULD BE ? NO . HEMATOLOGY/LYMPH: DO YOU TAKE ANY BLOOD THINNERS? (FOR EXAMPLE- COUMADIN, PLAVIX, AGGRENOX, PLATEL, PRADAXA, OR XARELTO) NO . WHEN WAS YOUR LAST DOSE? DATE: TIME: . NEUROLOGY: HAVE YOU FALLEN IN THE PAST 12 MONTHS? NO . ANY NEW EXTREMITY NUMBNESS OR WEAKNESS? NO . CARDIOLOGY: DO YOU HAVE A PACEMAKER OR DEFIBRILLATOR? NO . RESPIRATORY: HAVE YOU BEEN SICK IN THE PAST WEEK? NO . FEVER NO . FLU LIKE SYMPTOMS? NO . COUGH NO . INTEGUMENTARY: DO YOU HAVE ANY RASHES OR OPEN SORES? NO . ALLERGIC/IMMUNO: ARE YOU ALLERGIC TO IV DYE? NO . ANY NEW ALLERGIES? NO . PSYCHIATRIC: DO YOU HAVE THOUGHTS OF HURTING YOURSELF OR SOMEONE ELSE? NO . ARE YOU ABUSED, NEGLECTED, OR IN AN UNSAFE ENVIRONMENT? NO . ENDOCRINOLOGY: ARE YOU DIABETIC? NO . OTHER: DO YOU NEED ANY PRESCRIPTIONS? NO . IF YES, PLEASE LIST: ____ . ANY NEW PROBLEMS WITH YOUR MEDICATIONS? NO . WHEN DID YOU LAST EAT? ____06/21/19 . WHEN DID YOU LAST DRINK? ____1400 . WHAT DID YOU LAST DRINK? ____DIET SODA . NAME OF PERSON DRIVING YOU HOME? ____FRANCISCO GERMAN . DO YOU HAVE ANY OTHER QUESTIONS OR CONCERNS NO . VITAL SIGNS WT 185.4 LBS, HT 72 IN, BMI 25.14 INDEX, BP 132/65 MM HG, HR 69 /MIN, RR 18 /MIN, TEMP 97.4 F, OXYGEN SAT % 97%, SAFE IN ENV? (Y/N) YES, NA INITIALS SC 14:53, REVIEWED BY: VD. ASSESSMENTS MYALGIA, OTHER SITE - M79.18 (PRIMARY) PROCEDURES PN TRIGGER POINT INJECTION WITH STEROIDS PRE PROCEDURE DIAGNOSIS 1. MYALGIA 2. PAIN AT BILATERAL THORACIC AREA AND BILATERAL LOWER BACK AREA POST PROCEDURE DIAGNOSIS 1. MYALGIA 2. PAIN AT BILATERAL THORACIC AREA AND BILATERAL LOWER BACK AREA. PROCEDURE TRIGGER POINT INJECTION AT RIGHT AND LEFT THORACIC AREA AND RIGHT AND LEFT LOWER BACK AREA SURGEON DR. BUTCH HARTMANN BRANCH LEAD NONE ANESTHESIA LOCAL PRE PROCEDURE NOTE THE PATIENT HAS A HISTORY OF CHRONIC PAIN AT THE RIGHT AND LEFT THORACIC AREA AND RIGHT AND LEFT LOWER BACK AREA. I EVALUATED THE PATIENT AND REVIEWED THE CHART. THERE IS EVIDENCE OF BANDS OF TISSUE WITH RESTRICTION OF MOVEMENT AND PRESENCE OF TRIGGER POINT AT THE AFFECTED AREA. I WENT OVER THE RISKS, ALTERNATIVES, AND BENEFITS ASSOCIATED WITH THIS PROCEDURE. THE PATIENT WOULD LIKE TO PROCEED AND GIVES CONSENT TO PERFORM THE PROCEDURE. THE PATIENT DENIES UNEXPLAINABLE WEIGHT LOSS, FEVER, CHILLS, OR NEW CHANGES IN URINARY OR BOWEL CONTROL DESCRIPTION OF PROCEDURE THE PATIENT WAS BROUGHT TO THE PROCEDURE ROOM AND PLACED IN THE SITTING POSITION. THE AREA WAS CLEANED WITH ALCOHOL. THE PROCEDURE WAS DONE USING ASEPTIC STERILE TECHNIQUE. I CHECKED LATERALITY AND THE LEVEL WHERE THE PROCEDURE WAS GOING TO BE PERFORMED WITH THE PATIENT AND THE SUPPORTING STAFF AT THE MOMENT OF THE TIME OUT IN THE PROCEDURE ROOM. USING A 25-GAUGE NEEDLE, TRIGGER POINTS WERE INJECTED AT THE RIGHT AND LEFT THORACIC AREA AND RIGHT AND LEFT LOWER BACK AREA WITH A TOTAL OF 40 ML OF BUPIVACAINE 0.25% AND KENALOG 40 MG. THERE WAS NO EVIDENCE OF BLOOD, PARESTHESIA OR CEREBROSPINAL FLUID DURING THE PROCEDURE. THE PATIENT WAS SENT TO THE RECOVERY ROOM. THE PATIENT WAS MOVING THE EXTREMITIES AND DOING WELL. THERE WAS NO COMPLICATION DURING THE PROCEDURE POST PROCEDURE NOTE THE PATIENT WILL BE SEEN IN A FOLLOW UP IN THE NEXT FEW WEEKS. INSTRUCTIONS WERE GIVEN, QUESTIONS WERE ANSWERED, AND THE PATIENT EXPRESSED UNDERSTANDING AND AGREES WITH THE PLAN. I, BORA ORELLANA, DOCUMENTED THE ABOVE INFORMATION ACTING A SCRIBE FOR DR. HARTMANN. I HAVE REVIEWED THE ABOVE DOCUMENT, WRITTEN BY BORA CAMACHO AND I VERIFY THAT IT IS ACCURATE. PROCEDURE CODES 33180 INJECT TRIGGER POINTS 3/> DISPOSITION & COMMUNICATION FOLLOW UP 3 WEEKS ELECTRONICALLY SIGNED BY BUTCH HARTMANN MD, MD ON 07/05/2019 AT 05:39 PM EDT DISCLAIMER : THIS IS A VISIT SUMMARY EXTRACTED FROM THE [employer] CHART. IT IS NOT A COPY OF THE [employer] PROGRESS NOTE. AZUL
== END ==
LOC: M PAIN 14:30
PROVIDERS: ATTEND Anesthesiology
DX: M79.18 Myalgia, other site (principal); I10 Essential (primary) hypertension; K21.9 Gastro-esophageal reflux disease without esophagitis; E78.00 Pure hypercholesterolemia, unspecified; M19.90 Unspecified osteoarthritis, unspecified site; Z85.46 Personal history of malignant neoplasm of prostate; M10.9 Gout, unspecified; R13.10 Dysphagia, unspecified; R73.01 Impaired fasting glucose; K76.0 Fatty (change of) liver, not elsewhere classified; F10.20 Alcohol dependence, uncomplicated; Z85.820 Personal history of malignant melanoma of skin; F34.1 Dysthymic disorder; M16.12 Unilateral primary osteoarthritis, left hip; Z98.1 Arthrodesis status; Z96.653 Presence of artificial knee joint, bilateral; Z79.891 Long term (current) use of opiate analgesic; Z79.899 Other long term (current) drug therapy; R91.8 Other nonspecific abnormal finding of lung field; Z88.8 Allergy status to other drugs, medicaments and biological substances; Z88.1 Allergy status to other antibiotic agents

== ENCOUNTER → 2019-06-22 | Outpatient (CLI) | payer MEDICARE ==
[~2019-06-22] MED LIST changes: -BUPIVACAINE HCL 0.25% 10 ML VIAL As Ordered ONE; -BUPIVACAINE HCL 0.25% 30 ML VIAL As Ordered ONE; +PROHANCE 279.3MG/ML 15ML VIAL (A9576) As Ordered ONE; +PROHANCE 279.3MG/ML 5ML VIAL (A9576) As Ordered ONE; -TRIAMCINOLONE ACETONIDE SUSP 40 MG/ML VIAL (J3301) As Ordered ONE
--- NOTE | 2019-06-22 12:41 | REP ---
MRI T-SPINE WITHOUT CONTRAST: HISTORY: Thoracic pain. No comparison study. TECHNIQUE: Sagittal and axial T1- and T2-weighted scans are acquired in the usual fashion with and without fat saturation. Sequences include spin echo, turbo spin-echo, and STIR imaging sequences. MRI FINDINGS: Thoracic vertebral body heights are preserved. Alignment is normal. There are is a moderate pattern of right anterior discogenic spurring in the mid and lower thoracic spine. No thoracic disc protrusion is appreciated. No cord compressive lesion is seen. There is diffuse disc bulging and osteophytic ridging at the C7-T1 with minimal thecal sac compression. No cord compression is seen. No cord compressive lesion is seen. Thoracic cord is normal in coarse, caliber and signal intensity on T1- and T2-weighted scans. No foraminal lesion or extra vertebral abnormality is observed. IMPRESSION: Mild degenerative disc changes throughout the mid and lower thoracic spine. Degenerative disc disease at the cervical thoracic junction. No thoracic disc herniation or cord compressive lesion seen. Electronically Signed by Nicholas Xiao MD 06/22/2019 12:58 P
--- NOTE | 2019-06-22 13:04 | REP ---
MRI thoracic spine without and with IV contrast: History: Thoracic pain. Low back pain. Technique: Sagittal and axial T1 and T2-weighted scans are acquired in the usual fashion with and without fat saturation. Sequences include spin echo, turbo spin-echo, and STIR imaging sequences. Gadolinium enhancement dose is 16.8 mL of intravenous ProHance. MRI findings: Lumbar vertebral body heights are preserved. The tip of the conus medullaris is normal in position and appearance at L1. There is mild degenerative disc bulging at T12-L1. The L1-2 disc level is unremarkable. At L2-3, there is moderate diffuse disc bulging effacing the ventral subarachnoid space. No neural foraminal narrowing or significant central canal stenosis is seen. There is some mild ligamentum flavum and facet hypertrophy at L2-3. At L3-4, there is diffuse disc bulging and narrowing of the disc. No focal disc protrusion is seen. Mild ligamentum flavum and facet hypertrophy is present. At L4-5, there is a mild degenerative grade 1, 5 mm , spondylolisthesis due to degenerative disc disease and osteoarthritic facet disease. There is moderate right-sided neural foraminal narrowing due to these factors at L4-5. Mild left-sided neural foraminal narrowing is noted. There is advanced osteoarthritic facet hypertrophy. At L5-S1, there is advanced osteoarthritic facet hypertrophy bilaterally. The patient is status post L5-S1 laminectomy. No disc protrusion or spinal stenosis is seen. Posterior elements appear fused. Postcontrast imaging shows some enhancement associated with osteoarthritic facet hypertrophy at L2-3 bilaterally. This is mild. No other significant contrast enhancement is seen. Impression: Status post laminectomy and fusion L5-S1. Grade 1 5 mm degenerative L4-5 spondylolisthesis. Bilateral foraminal narrowing at L4-5, right more prominent than left. Diffuse disc bulging L2-3. Electronically Signed by Nicholas Xiao MD 06/22/2019 03:47 P
== END ==
LOC: M RAD 09:51
PROVIDERS: ATTEND Anesthesiology
DX: Z98.1 Arthrodesis status (principal); M51.26 Other intervertebral disc displacement, lumbar region; M51.25 Other intervertebral disc displacement, thoracolumbar region; M25.78 Osteophyte, vertebrae; M51.24 Other intervertebral disc displacement, thoracic region; M79.18 Myalgia, other site; I10 Essential (primary) hypertension; K21.9 Gastro-esophageal reflux disease without esophagitis; E78.00 Pure hypercholesterolemia, unspecified; Z85.46 Personal history of malignant neoplasm of prostate; M10.9 Gout, unspecified; R13.10 Dysphagia, unspecified; R73.01 Impaired fasting glucose; K76.0 Fatty (change of) liver, not elsewhere classified; F10.20 Alcohol dependence, uncomplicated; Z85.820 Personal history of malignant melanoma of skin; M16.12 Unilateral primary osteoarthritis, left hip; Z96.653 Presence of artificial knee joint, bilateral; Z79.891 Long term (current) use of opiate analgesic; Z79.899 Other long term (current) drug therapy; R91.8 Other nonspecific abnormal finding of lung field; Z88.8 Allergy status to other drugs, medicaments and biological substances; Z88.1 Allergy status to other antibiotic agents
CPT/HCPCS: 20553; 72146; 72158; A9576; J3301

== ENCOUNTER → 2019-07-06 | Outpatient (CLI) | payer MEDICARE ==
[~2019-07-06] MED LIST changes: -PROHANCE 279.3MG/ML 15ML VIAL (A9576) As Ordered ONE; -PROHANCE 279.3MG/ML 5ML VIAL (A9576) As Ordered ONE
--- NOTE | 2019-07-08 00:59 | ECWPNPC ---
PATIENT NAME: MODESTA GERMAN : 1945 GENDER: MALE VISIT DATE: 07/06/2019 DISCHARGE DATE: 07/06/19 1426 VISIT LOCKED DATE TIME: PHYSICIAN: RADHA HICKS RESOURCE: RADHA HICKS REASON FOR APPOINTMENT 1. POST PROC/MRI REVIEW HISTORY OF PRESENT ILLNESS HISTORY OF PRESENT ILLNESS: PAIN THE PATIENT DESCRIBES THE PAIN... 73-YEAR-OLD MALE IN FOR POST TPI FOLLOW-UP. HE FEELS THE PROCEDURE WORKED WELL OVERALL HE RATES HIS PAIN PREPROCEDURE AT A 8-10 OUT OF 10 AND POSTPROCEDURE AT A 0-2 OUT OF 10 AND STATES THAT IT CONTINUES TO WORK TODAY. FALL RISK SCREENING: SCREENING :NO FALLS REPORTED IN THE LAST YEAR CURRENT MEDICATIONS TAKING DOXAZOSIN MESYLATE 8 MG TABLET 1/2 TABLET ORALLY ONCE A DAY TAKING INDOMETHACIN 25 MG CAPSULE 1 CAPSULE WITH FOOD OR MILK ORALLY EVERY 6 HOURS NEEDED FOR GOUT FLARE TAKING OMEPRAZOLE 20 MG CAPSULE DELAYED RELEASE 2 CAPSULE ORALLY ONCE A DAY TAKING ALLOPURINOL 300 MG TABLET 1 TABLET ORALLY ONCE A DAY TAKING BENAZEPRIL-HYDROCHLOROTHIAZIDE 20-12.5 MG TABLET 1 TABLET ORALLY ONCE A DAY TAKING AMLODIPINE BESYLATE 10 MG TABLET 1 TAB ORALLY ONCE A DAY TAKING TRAZODONE HCL 150 MG TABLET 1 TABLET ORALLY ONCE A DAY AT BEDTIME TAKING PAROXETINE HCL 20 MG TABLET 1 TABLET IN THE MORNING ORALLY ONCE A DAY TAKING HYDROCODONE-ACETAMINOPHEN 5-325 MG TABLET 1 TABLET ORALLY EVERY 6 HRS NEEDED FOR PAIN. 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, UNSPECIFIED SITE LESION OF LUNG DYSPHAGIA ELEVATED FASTING GLUCOSE FATTY LIVER ALCOHOL DEPENDENCE PERSONAL HISTORY OF MALIGNANT MELANOMA OF SKIN DYSTHYMIA FORGETFULNESS ARTHRITIS LEFT HIP ALLERGIES CORGARD: PT UNABLE TO RECALL - ALLERGY CELEBREX: PT UNABLE TO RECALL - ALLERGY DOXYCYCLINE CALCIUM: PT UNABLE TO RECALL - ALLERGY SURGICAL HISTORY SPINAL FUSION AGE 21 RIGHT SHOULDER SURGERY YEARS AGO RIGHT CARPAL TUNNEL RELEASE YEARS AGO TOTAL RIGHT KNEE REPLACEMENT 1998 RIGHT INGUINAL HERNIA REPAIR 09/1999 TOTAL LEFT KNEE REPLACEMENT, AND REVISED RIGHT KNEE 02/2002 COLONOSCOPY 09/2005 ROBOTIC PROSTATECTOMY 12/2010 UMBILICAL HERNIA REPAIR 08/2011 MELANOMA EXCISION ON RIGHT CHEEK 04/2014 SCC EXCISION LEFT NECK 07/2014 COLONOSCOPY 08/2016 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 10/01/2018 VENTRAL HERNIA REPAIR ROBOTICALLY 04/2019 FAMILY HISTORY FATHER: MOTHER: SIBLINGS: 3 BROTHER(S) , 1 SISTER(S) . NEGATIVE FOR PROSTATE CANCER OR ANY OTHER UROLOGIC DISEASE.FATHER OF CEREBRAL HEMORRHAGE AGE 65. MOTHER OF SUDDEN , HAD PMR AND HYPERTENSION. A BROTHER HAD A BENIGN BRAIN TUMOR REMOVED. TWO OTHER BROTHERS, A SISTER, AND TWO CHILDREN ARE ALIVE AND WELL. SOCIAL HISTORY GENERAL: TOBACCO USE ARE YOU A:NONSMOKER NEVER SMOKER HIV / HEP-C SCREENING HIV TEST OFFERED TO PATIENT:YES DATE OFFERED:03/31/2018 TEST ACCEPTED:NO HEP-C TEST OFFERED TO PATIENT:YES DATE OFFERED:03/31/2018 REASON:PATIENT DECLINED TEST ACCEPTED:NO REASON:PATIENT DECLINED BROCHURE PROVIDED TO PATIENTYES HOUSING: OWNS HOME. LANGUAGE MONEGASQUE. DOMESTIC VIOLENCE STATUS: DO YOU FEEL SAFE IN YOUR ENVIRONMENT?YES NEW PATIENT PAIN DIARY PATIENT DESCRIBES PAIN :ACHING, SORE FROM 0-10, WHAT LEVEL IS YOUR PAIN TODAY?6 PRECIPITATING FACTORS PAIN INCREASES WITH ACTIVITY ALLEVIATING FACTORS REPOSITIONING, MEDICATIONS REDUCE PAIN IMPACT ON FUNCTION REDUCES ACTIVITY LEVEL NAME OF PERSON DRIVING YOU HOME SELF IS THERE A CHANCE YOU COULD BE ?NO HAVE YOU BEEN SICK IN THE LAST WEEK (COLD, COUGH, FEVER, FLU, ETC)NO DO YOU TAKE ANY BLOOD THINNERS?YES ASA 81 MG EVERY 3 DAYS DO YOU HAVE ANY RASHES OR OPEN SORES?NO ANY CHANGE IN BOWEL OR BLADDER CONTROL?NO ARE YOU ALLERGIC TO SHELLFISH OR IV DYE?NO ARE YOU DIABETIC?NO DO YOU HAVE A PACEMAKER OR DEFIBRILLATOR?NO ANY NEW PROBLEMS WITH MEDICINES OR NEW ALLERGIESNO ANY NEW PATTERNS OF PAIN OR NUMBNESS?NO ANY CHANGE IN YOUR MEDICAL CONDITION?NO HAVE YOU FALLEN IN THE LAST 6 MONTHS?YES PT STATES THAT HE FELL WHILE AT HOME, NO INJURY FROM FALL. DO YOU USE ANY TYPE OF TOBACCO (SMOKE, SMOKELESS, CHEW, ETC.)YES YES, CHEWS TOBACCO ARE YOU ABUSED, NEGLECTED, OR IN AN UNSAFE ENVIRONMENT?NO DO YOU HAVE THOUGHTS OF HURTING YOURSELF OR SOMEONE ELSE?NO DO YOU NEED ANY PRESCRIPTIONS?NO DO YOU HAVE ANY OTHER QUESTIONS OR CONCERNS?NO BMI CARE GOAL FOLLOW-UP ABOVE NORMAL BMI FOLLOW-UPWEIGHT MONITORING RECREATIONAL DRUG USE DENIES. EXERCISE: DAILY. 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 NEEDED?NO PAIN CLINIC PFS, CLERGY, PUBLIC HEALTH REFERRALS PFS REFERRAL NEEDED?NO CLERGY REFERRAL NEEDED?NO PUBLIC HEALTH REFERRAL NEEDED?NO WAS THE PROVIDER NOTIFIED OF ANY PERTINENT INFO?YES HAS THE PATIENT BEEN EDUCATED REGARDING HIS/HER PLAN OF CARE?YES HAS THE PATIENT BEEN EDUCATED REGARDING PAIN, THE RISK FOR PAIN, THE IMPORTANCE OF EFFECTIVE PAIN MANAGEMENT, AND THE PAIN ASSESSMENT PROCESS?YES LATEX QUESTIONNAIRE LATEX ALLERGY : HAVE YOU EVER DEVELOPED ANY TYPE OF REACTION AFTER HANDLING LATEX PRODUCTS SUCH RUBBER GLOVES, CONDOMS, DIAPHRAGMS, BALLOONS, SOCKS, OR UNDERWEAR?NO LATEX ALLERGY : HAVE YOU EVER DEVELOPED ANY TYPE OF REACTION DURING OR AFTER DENTAL APPOINTMENT, VAGINAL/RECTAL EXAMINATION, SURGICAL PROCEDURE, OR ANY OTHER EXPOSURE?NO DATE ASKED : 06/22/2019 LATEX RISK : HAVE YOU EVER HAD ANY DIFFICULTY BREATHING OR HIVES AFTER EATING OR HANDLING ANY FRUITS, OR VEGETABLES; SUCH KIWI, BANANAS, STONE FRUITS, OR CHESTNUTSNO LATEX RISK : DO YOU HAVE A PREVIOUS PERSONAL HISTORY OF MORE THAN NINE SURGERIES, SPINA BIFIDA, OR REPEATED CATHERIZATIONS? NO LATEX RISK : ARE YOU FREQUENTLY EXPOSED TO LATEX PRODUCTS IN YOUR OCCUPATION?NO CAFFEINE NONE. ADVANCE DIRECTIVE ADVANCE DIRECTIVE DISCUSSED WITH PATIENT:YES PT STATES THAT HE HAS HCP, LIVING WILL AND OUT OF HOSPITAL DNR [employer] NO YARSANI BELIEFS THAT WOULD IMPACT HEALTH CARE. MARITAL STATUS: . FATHER OF 2. 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 SEXUAL HX HAD SEX IN THE LAST 12 MONTHS (VAGINAL, ORAL, OR ANAL)?YES WITHWOMEN ONLY HAVE YOU EVER HAD AN STD?NO REVIEWED WITH PATIENT 07/06/19 1345 NLJ. HOSPITALIZATION/MAJOR DIAGNOSTIC PROCEDURE SURGICAL RELATED REVIEW OF SYSTEMS REVIEWED BY: PROVIDER: ANNA ROBLEDO . CONSTITUTIONAL: ANY CHANGE IN YOUR MEDICAL CONDITION? NO . CHILLS NO . FEVER NO . INFECTION: DO YOU HAVE NEW INFECTIONS? NO . DO YOU HAVE HISTORY OF MRSA? NO . MUSCULOSKELETAL: ANY NEW PATTERNS OF PAIN OR NUMBNESS? NO- STATES PAIN IN THE THORACIC PAIN AND LOWER BACK IS BETTER SINCE TPI, STATES HE CONTINUES TO FEEL RELIEF FROM PAIN . GASTROENTEROLOGY: ANY NEW CHANGE IN BOWEL CONTROL? NO . GENITOURINARY: ANY NEW CHANGE IN BLADDER CONTROL? NO . IS THERE A CHANCE YOU COULD BE ? NO . HEMATOLOGY/LYMPH: DO YOU TAKE ANY BLOOD THINNERS? (FOR EXAMPLE- COUMADIN, PLAVIX, AGGRENOX, PLATEL, PRADAXA, OR XARELTO) NO . WHEN WAS YOUR LAST DOSE? DATE: TIME: . NEUROLOGY: HAVE YOU FALLEN IN THE PAST 12 MONTHS? NO . ANY NEW EXTREMITY NUMBNESS OR WEAKNESS? NO . CARDIOLOGY: DO YOU HAVE A PACEMAKER OR DEFIBRILLATOR? NO . RESPIRATORY: HAVE YOU BEEN SICK IN THE PAST WEEK? NO . FEVER NO . FLU LIKE SYMPTOMS? NO . COUGH NO . INTEGUMENTARY: DO YOU HAVE ANY RASHES OR OPEN SORES? NO . ALLERGIC/IMMUNO: ARE YOU ALLERGIC TO IV DYE? NO . ANY NEW ALLERGIES? NO . PSYCHIATRIC: DO YOU HAVE THOUGHTS OF HURTING YOURSELF OR SOMEONE ELSE? NO . ARE YOU ABUSED, NEGLECTED, OR IN AN UNSAFE ENVIRONMENT? NO . ENDOCRINOLOGY: ARE YOU DIABETIC? NO . OTHER: DO YOU NEED ANY PRESCRIPTIONS? NO . IF YES, PLEASE LIST: ____ . ANY NEW PROBLEMS WITH YOUR MEDICATIONS? NO . WHEN DID YOU LAST EAT? ____ . WHEN DID YOU LAST DRINK? ____ . WHAT DID YOU LAST DRINK? ____ . NAME OF PERSON DRIVING YOU HOME? ____ . DO YOU HAVE ANY OTHER QUESTIONS OR CONCERNS NO . VITAL SIGNS WT 182 LBS, HT 72 IN, BMI 24.68 INDEX, BP 127/67 MM HG, HR 66 /MIN, RR 18 /MIN, TEMP 96.9 F, OXYGEN SAT % 97%, SAFE IN ENV? (Y/N) YES, NA INITIALS KS 13:49, REVIEWED BY: TANISHA. EXAMINATION GENERAL EXAMINATION: GENERALNO ACUTE DISTRESS, WELL NOURISHED AND HYDRATED. PSYCHAPPROPRIATE MOOD AND AFFECT . LUNGS:CLEAR TO AUSCULTATION BILATERALLY, NO WHEEZES, RHONCHI, RALES. HEART:NO MURMURS, REGULAR RATE AND RHYTHM. ASSESSMENTS MYALGIA, OTHER SITE - M79.18 (PRIMARY) TREATMENT MYALGIA, OTHER SITE CLINICAL NOTES: 73-YEAR-OLD MALE IN FOR POST TPI FOLLOW-UP. GIVEN PRESENTING SYMPTOMS AND RESULTS OF PHYSICAL EXAMINATION RECOMMENDED FOLLOW-UP IN 2 MONTHS. PATIENT HAS EXPRESSED UNDERSTANDING OF AND WAS IN AGREEMENT WITH TREATMENT PLAN. GIVEN TIME TO ASK QUESTIONS AND EXPRESS CONCERNS.. PROCEDURE CODES FA211 ESTABILISHED PATIENT [facility] CHAR[facility] DISPOSITION & COMMUNICATION FOLLOW UP 2 MONTHS (REASON: CHRONIC PAIN) ELECTRONICALLY SIGNED BY YUMIKO LINK ON 07/07/2019 AT 08:59 AM EDT DISCLAIMER : THIS IS A VISIT SUMMARY EXTRACTED FROM THE [employer] CHART. IT IS NOT A COPY OF THE [employer] PROGRESS NOTE. AZUL
== END ==
LOC: M PAIN 13:30
PROVIDERS: ATTEND Family Medicine
DX: M79.18 Myalgia, other site (principal); I10 Essential (primary) hypertension; K21.9 Gastro-esophageal reflux disease without esophagitis; E78.00 Pure hypercholesterolemia, unspecified; R73.01 Impaired fasting glucose; Z96.653 Presence of artificial knee joint, bilateral; Z88.1 Allergy status to other antibiotic agents; Z88.8 Allergy status to other drugs, medicaments and biological substances; Z79.899 Other long term (current) drug therapy

== ENCOUNTER 2019-07-12 05:37 | Day surgery (SDC) | payer MEDICARE ==
[~2019-07-12] VITALS: Ht 180.3 cm; Wt 81.2 kg
[2019-07-12] MEDS ORDERED: LR 1,000 ML IV ONE (06:00)
[2019-07-12] MEDS ORDERED: BUPIVACAINE HCL 0.25% 30 ML VIAL As Ordered ONE (06:59)
[2019-07-12] MEDS ORDERED: BUPIVACAINE LIPOSOME/PF 1.3% 20ML VIAL (13.3MG/ML)(EXPAREL)(C9290 PER1MG) As Ordered ONE (06:59)
[2019-07-12] MEDS ORDERED: PROPOFOL 200 MG/20 ML VIAL As Ordered ONE (07:17)
[2019-07-12] MEDS ORDERED: ROCURONIUM BROMIDE 50 MG/5 ML VIAL As Ordered ONE (07:17)
[2019-07-12] MEDS ORDERED: LIDOCAINE 2% INJ 100 MG/5 ML SDV (FOR ANES.) As Ordered ONE (07:17)
[2019-07-12] MEDS ORDERED: fentaNYL 250 MCG/5 ML INJECTION (J3010) As Ordered ONE (07:17)
[2019-07-12] MEDS ORDERED: MIDAZOLAM INJ 2 MG/2 ML VIAL (J2250) As Ordered ONE (07:18)
[2019-07-12] MEDS ORDERED: LACRILUBE (AKWA TEARS) OPHTH OINT 3.5 GM As Ordered ONE (07:51)
[2019-07-12] MEDS ORDERED: KETOROLAC 60 MG/2 ML VIAL (J1885) As Ordered ONE (08:39)
[2019-07-12] MEDS ORDERED: dexameTHASONE 4 MG/ML 1ML VIAL (J1100) As Ordered ONE (08:39)
[2019-07-12] MEDS ORDERED: ONDANSETRON 4MG/2ML VIAL (J2405) As Ordered ONE (08:39)
[2019-07-12] MEDS ORDERED: METOCLOPRAMIDE INJ 10MG/2ML VIAL (J2765) As Ordered ONE (08:39)
[2019-07-12] MEDS ORDERED: ACETAMINOPHEN 1000MG 100ML IV BTL (OFIRMEV) (J0131 PER 10MG) As Ordered ONE (08:51)
[2019-07-12] MEDS ORDERED: SUGAMMADEX SODIUM 500 MG/5 ML VIAL (BRIDION) As Ordered ONE (09:22)
[2019-07-12] MEDS ORDERED: LR 1,000 ML IV SCH (10:00)
[2019-07-12] MEDS ORDERED: fentaNYL 100 MCG/2 ML INJECTION (J3010) IV PRN (10:00)
[2019-07-12] MEDS ORDERED: METOCLOPRAMIDE INJ 10MG/2ML VIAL (J2765) IV PRN (10:00)
[2019-07-12] MEDS ORDERED: oxyCODONE 5MG TAB PO PRN (10:00)
[2019-07-12] MEDS ORDERED: ONDANSETRON 4MG/2ML VIAL (J2405) IV PRN (10:00)
[2019-07-12] MEDS ORDERED: MEPERIDINE INJ 25 MG/ML VIAL (J2175) IV PRN (10:00)
--- NOTE | 2019-07-12 10:51 | RO ---
DATE OF PROCEDURE: 07/12/2019 PREOPERATIVE DIAGNOSIS Incarcerated ventral incisional hernia. POSTOPERATIVE DIAGNOSES: 1. Incarcerated ventral incisional hernia. 2. Adhesions secondary to prior surgery. PROCEDURE PERFORMED: Robotic-assisted laparoscopic repair of incarcerated ventral incisional hernia with 9 cm Parietex patch and lysis of adhesions. SURGEON: Dr. Nelson Edwards OPTO MECHANICAL TECHNICIAN: ANESTHESIA: General. INDICATIONS FOR THE PROCEDURE: The patient is a 73-year-old man who has undergone several prior abdominal procedures. He had an umbilical hernia repaired with mesh. He had another epigastric hernia repaired with mesh as well. He has had a robotic prostatectomy. He has now developed an incarcerated hernia in the epigastrium just to the right of the midline. He is now for a robotic-assisted laparoscopic repair of this hernia. OPERATIVE PROCEDURE: The patient was brought to the operating room and placed on the table in a supine position. He was placed under general endotracheal anesthesia. The patient's abdomen was prepped and draped in a sterile fashion. 0.25% Marcaine was infiltrated at the trocar sites as needed. A short transverse left lateral mid abdominal incision was made. A Veress needle was inserted and after positive hanging drop test the abdomen was inflated with carbon dioxide gas. A 5 mm scope was placed through an 8 mm robotic port and this was advanced through the abdominal wall without difficulty. Inspection showed adhesions of the omentum to the anterior abdominal wall. There were two pieces of previously placed mesh that were identified on the anterior abdominal wall. Slightly lower in the abdomen surrounding the umbilical region was a piece of what appeared to be PROCEED mesh. Higher in the epigastrium was a smaller piece of mesh that had some bands of bluer fibers which appeared consistent with ULTRAPRO. The hernia for today's repair appeared to lie between these two pieces of mesh. Two additional 8 mm robotic ports were placed in the left upper quadrant and left lower quadrant. The patient was tilted slightly to a Trendelenburg position to level the abdomen. The robot was then brought into position and docked to the camera port. Targeting took place and the additional ports were then docked as well. Scissors were inserted through the left upper quadrant port and a bipolar cautery through the left lower quadrant port. I then moved to the control console to proceed with the robotic portion of the procedure. The adhesions were dissected off of the anterior abdominal wall primarily using cautery dissection. Several small bleeding points were controlled with the cautery. The patient was found to have a frond of omentum protruding up into the abdominal wall through his fascial defect. This was placed under tension and adhesions were lysed and the omentum was reduced back into the abdomen. The fascial defect was no more than 2 cm in diameter. Again, this seemed to lie between the PROCEED and the ULTRAPRO mesh superiorly. There appeared to be some fairly generalized weakening of the area around the umbilicus which was covered by the PROCEED. The new defect was slightly above this. I selected a 9 cm Parietex patch which would cover the current defect as well as extend inferiorly to cover the area of weakening at the prior repair. A 1-0 Stratafix suture was used to close the fascial defect transversely. The 9 cm mesh was then inserted and a 2-0 V-Loc suture was used to tack this over the center of the sutured fascial defects. This was placed eccentrically so that the mesh extended much further inferiorly to cover the weakened area of his prior repair and less so up above the new sutured defect. The V-Loc suture was then carried to the patient's left, tacking the mesh down and then worked circumferentially approximately half way around the mesh patch. A second suture was then placed and this was used to complete the circumferential suturing of the mesh and also across the mesh to tack this over the abdominal wall more securely. Inspection showed no evidence of any bleeding. I would note that the abdominal pressure was reduced to 8 mmHg prior to beginning the suturing of the fascial defect. The omentum was reinspected where it had been reduced and no significant bleeding points were identified. The robotic instruments were removed and the robot undocked. Moraima Buckner, who was serving as pier master assistant, then vented the abdomen and removed the ports and proceeded with closure of the skin incisions with buried Vicryl sutures. Small dressings were placed after Steri-Strips. The patient was awakened in the operating room, extubated and moved to the recovery room in stable condition. The mesh utilized was a 9 cm Parietex patch. This was reference code [id number] and lot number [id number].
[2019-07-12] MEDS ORDERED: NORCO, ANEXSIA 5/325MG TABLET (HYDROcodone/ACETAMINOPHEN) PO PRN (11:01)
[2019-07-12] MEDS ORDERED: ACETAMINOPHEN TAB 650MG DOSE (2X325MG) PO PRN (11:01)
[2019-07-12 11:50] VITALS: BP 135/62
--- NOTE | 2019-07-12 21:46 | ECGEPIP ---
[facility] Test Date: 2019-07-12 Pat Name: MODESTA GERMAN Department: Room: - Gender: Male Single Resource Boss: [facility] : 1945 Requested By: Darren Perez Order Number: [id number] Reading MD: Joe Mcrae Measurements Intervals [place] Rate: 57 P: VT: 0 QRS: -63 QRSD: 129 T: 55 QT: 491 QTc: 480 Interpretive Statements SINUS BRADYCARDIA WITH 2ND DEGREE AV BLOCK, MOBITZ TYPE I (WENCKEBACH) MARKED LEFT AXIS DEVIATION LEFT BUNDLE BRANCH BLOCK Second-degree AV block new compared with 09/29/2018 Clinical correlation advised Electronically Signed on 07-12-2019 21:46:39 EDT by Joe Mcrae
== END 2019-07-12 12:27 | disposition home or self-care (01) ==
LOC: M SDC 05:37
PROVIDERS: ATTEND Surgery
DX: K43.6 Other and unspecified ventral hernia with obstruction, without gangrene (principal); I10 Essential (primary) hypertension; K21.9 Gastro-esophageal reflux disease without esophagitis; M10.9 Gout, unspecified; M12.9 Arthropathy, unspecified; M54.9 Dorsalgia, unspecified; F32.9 Major depressive disorder, single episode, unspecified; G47.00 Insomnia, unspecified; R06.83 Snoring; T88.59XD Other complications of anesthesia, subsequent encounter; Z79.899 Other long term (current) drug therapy; Z72.0 Tobacco use; Z85.46 Personal history of malignant neoplasm of prostate; Z82.3 Family history of stroke; Z96.653 Presence of artificial knee joint, bilateral
CPT/HCPCS: 49653; 93005; C1781; J0131; J1100; J1885; J2250; J2405; J2765; J3010

== ENCOUNTER → 2019-10-11 | Outpatient (REF) | payer MEDICARE ==
[2019-10-11 13:01] LABS: HEMATOCRIT 41.4 % (42.0-52.0); HEMOGLOBIN 14.5 g/dl (13.5-17.5); MEAN CORPUSCULAR HEMOGLOBIN 32.3 pg (27.0-33.0); MEAN CORPUSCULAR VOLUME 92.2 fl (80.0-96.0); PLATELET COUNT, AUTOMATED 216 10^3/uL (150-450); RED BLOOD COUNT 4.49 10^6/uL (4.30-6.10); WHITE BLOOD COUNT 4.5 10^3/uL (4.0-10.0)
[2019-10-11 13:31] LABS: ALT/SGPT 20 U/L (12-78); BILIRUBIN,TOTAL 0.7 MG/DL (0.2-1.0); BLOOD UREA NITROGEN 12 MG/DL (7-18); CALCIUM LEVEL 8.9 MG/DL (8.8-10.2); CARBON DIOXIDE LEVEL 31 MEQ/L (21-32); CHLORIDE LEVEL 102 MEQ/L (98-107); CREATININE FOR GFR 0.78 MG/DL (0.70-1.30); GLOMERULAR FILTRATION RATE > 60.0 (>42); GLUCOSE, FASTING 108 MG/DL (70-100); POTASSIUM SERUM 4.1 MEQ/L (3.5-5.1); PROSTATIC SPECIFIC AG MONITOR < 0.01 NG/ML (< 4.00); SODIUM LEVEL 139 MEQ/L (136-145); TOTAL PROTEIN 6.9 GM/DL (6.4-8.2)
== END ==
LOC: M SFHCPLAZ 11:07
PROVIDERS: ATTEND Internal Medicine
DX: K21.9 Gastro-esophageal reflux disease without esophagitis (principal); I10 Essential (primary) hypertension; Z85.46 Personal history of malignant neoplasm of prostate

== ENCOUNTER → 2020-01-19 | Outpatient (CLI) | payer MEDICARE | LOC: M LABSMTC 12:48 | PROVIDERS: ATTEND Family Medicine | DX: Z20.828 Contact with and (suspected) exposure to other viral communicable diseases (principal) ==

== ENCOUNTER → 2020-06-14 | Outpatient (CLI) | payer MEDICARE ==
[~2020-06-14] MED LIST changes: -AMLO10TA5 PO; +AMLO1TAB25 PO
== END ==
LOC: M PLALAB 12:26
PROVIDERS: ATTEND Urology
DX: Z12.5 Encounter for screening for malignant neoplasm of prostate (principal); Z85.46 Personal history of malignant neoplasm of prostate
CPT/HCPCS: 36415; G0103

== ENCOUNTER → 2020-07-10 | Outpatient (CLI) | payer SELFPAY | LOC: M LABSMTC 09:50 | PROVIDERS: ATTEND Pediatrics | DX: Z20.828 Contact with and (suspected) exposure to other viral communicable diseases (principal) ==

== ENCOUNTER → 2020-08-04 | Outpatient (CLI) | payer SELFPAY | LOC: M LABSMTC 10:06 | PROVIDERS: ATTEND Pediatrics | DX: Z20.828 Contact with and (suspected) exposure to other viral communicable diseases (principal) ==

== ENCOUNTER → 2020-10-05 | Outpatient (CLI) | payer MEDICARE ==
[2020-10-05 13:18] LABS: BASO # 0.1 10^3/uL (0.0-0.2); BASO % 1.1 % (0.0-1.0); EOS # 0.2 10^3/uL (0.0-0.5); HEMATOCRIT 37.4 % (42.0-52.0); HEMOGLOBIN 12.8 g/dl (13.5-17.5); LYMPH # 1.3 10^3/uL (1.5-5.0); LYMPH % 16.8 % (24.0-44.0); MEAN CORPUSCULAR HEMOGLOBIN 31.3 pg (27.0-33.0); MEAN CORPUSCULAR HGB CONC 34.2 g/dl (32.0-36.5); MEAN CORPUSCULAR VOLUME 91.4 fl (80.0-96.0); MONO # 1.4 10^3/uL (0.0-0.8); MONO % 18.9 % (0.0-5.0); NEUTROPHILS # 4.6 10^3/uL (1.5-8.5); NEUTROPHILS % 60.9 % (36.0-66.0); PLATELET COUNT, AUTOMATED 259 10^3/uL (150-450); RED BLOOD COUNT 4.09 10^6/uL (4.30-6.10); WHITE BLOOD COUNT 7.6 10^3/uL (4.0-10.0)
[2020-10-05 13:34] LABS: ALBUMIN 3.3 GM/DL (3.2-5.2); ALT/SGPT 25 U/L (12-78); BILIRUBIN,TOTAL 0.4 MG/DL (0.2-1.0); BLOOD UREA NITROGEN 14 MG/DL (7-18); CALCIUM LEVEL 9.1 MG/DL (8.8-10.2); CARBON DIOXIDE LEVEL 30 MEQ/L (21-32); CHLORIDE LEVEL 101 MEQ/L (98-107); CHOLESTEROL LEVEL 158 MG/DL (<200); CHOLESTEROL RISK RATIO 1.595 (<5); CREATININE FOR GFR 0.84 MG/DL (0.70-1.30); GLOMERULAR FILTRATION RATE > 60.0 (>42); GLUCOSE, FASTING 138 MG/DL (70-100); HDL CHOLESTEROL 99 MG/DL (>40); LDL CHOLESTEROL 52 MG/DL (<100); MAGNESIUM LEVEL 1.9 MG/DL (1.8-2.4); NON-HDL-C 59 MG/DL; POTASSIUM SERUM 4.4 MEQ/L (3.5-5.1); PROSTATIC SPECIFIC AG MONITOR < 0.01 NG/ML (< 4.00); SODIUM LEVEL 139 MEQ/L (136-145); TOTAL PROTEIN 6.1 GM/DL (6.4-8.2); TRIGLYCERIDES LEVEL 36 MG/DL (<150)
== END ==
LOC: M LAB 12:15
PROVIDERS: ATTEND Internal Medicine
DX: I10 Essential (primary) hypertension (principal); Z85.46 Personal history of malignant neoplasm of prostate

== ENCOUNTER 2020-11-07 23:52 | Inpatient (IN) | payer MEDICARE ==
[~2020-11-07] VITALS: Ht 182.9 cm; Wt 88.0 kg
--- OUTSIDE RECORDS SUMMARY | 2020-11-07 23:59 | CCD ---
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 Sees dermatology provider every 6 months. Problem Hypertension I10 Active confirmed [id number] 3 On losartan, amlodipine and. He saw a rock splitter in Fall 2018. His benazepril and hydrochlorothiazide were replaced by losartan and his Cardura dose was reduced. Hydrochlorothiazide was stopped because of his history of gout. Has no endorgan complications. BP control today is acceptable. Amlodipine dose was increased to 10 mg daily as of 09/2016. He does monitor home readings also. Problem Lesion of lung R91.1 Active confirmed [address] of chest abnormal since 03/2010 has revealed multiple nodules. A CT was remarkable for nodules in 11/2010. Dr. Villegas reviewed and a PET scan was ordered. His insurance refused and should there be a problem, insurance company should be made responsible. Last CT scan in March 2012 and 03/2013 and showed stable lung lesions. He has been discharged from pulmonology followup. Problem Hard of hearing H91.90 Active confirmed 1513 8001 Referred to livestock yard attendant in September 2015 and he does have hearing loss. He has not been interested in obtaining hearing aids. Problem Elevated fasting glucose R73.01 Active confirmed 939200128 His fasting glucose was 85 with a hemoglobin A1c of 5.6% in March 2019, and FBS was 109 in 03/2020 with unavailable HgbA1c. His fasting glucose has been higher in the past, and a nonfasting glucose (he had soda an hour or 2 before the test) was 108 in September 2019 and 138 in September 2020. Problem Personal history of prostate cancer Z85.46 Acti ve confirmed [id number] Prostate cancer, diagnosed on basis of e levated PSA in October 2010, Rita score 6, treated with robotic prostatectomy and radiation therapy, with a PSA that was essentially undetectable in September 2020. Problem Alcohol dependence F10.20 Active confirmed 6 2833797 He was again advised to reduce his alcohol intake. Problem Fatty liver K76.0 Active confirmed [id number] 7 Has a history of liver function test abnormalities consistent with fatty liver. LFT's were elevated in February 2015, improved somewhat in August 2015 and February 2016, normal in August 2016, minimally elevated in March 2017, normal in September 2017, March 2018, September 2018, March 2019, September 2019, 03/2020, September 2020. He consumes a fair amount of beer and was told to reduce alcohol intake. Hepatitis serologies were negative in the past. Problem Dysphagia R13.10 Active confirmed 64336677 H ad a Schatzki's ring in 1998, 2009. Last EGD 2009. He has been on a PPI since. Problem Dysthymia F34.1 Active confirmed 42563316 H e has had a history of irritability and sleep disruption and now duloxetine (as of 03/2020) instead of Paxil, and trazodone have been of some benefit. Problem Hypercholesterolemia E78.00 Active confirmed 78516612 He has an elevated cholesterol but his HDL is very high. I suspect this is because he drinks too much alcohol. LDL is at target as of February 2015, February 2016, March 2017, March 2018, March 2019, 03/2020, September 2020. Problem Other chronic pain G89.29 Active confirmed 8 6671867 Problem Osteoarthritis M19.90 Active confirmed 39080 5001 Had bilateral TKR's. Walk or bicycle to tolerance. Has back issues also. On Vicodin occasionally, and [id number]-vuyvyhc NSAID therapy. He has taken gabapentin in the past. He has had pain clinic interventions for his back pain in Fall 2018, preceded by thoracic and lumbar MRI studies, and he only found transient benefit but also found the cost of these interventions to be prohibitive. He has seen the orthopedic back surgeon in April 2020 and of course of physical therapy was of marginal benefit. 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 He has seen cardiology, had an echocardiogram and has had medication adjustments but no pacemaker has been recommended. He has scheduled follow-ups with cardiology; he was most rcently seen in 09/2020 and another Holter monitor is scheduled for 11/2020. Problem Gastroesophageal reflux K21.9 Active confirmed 010103351 On Omeprazole therapy. Patient has controlled heartburn. Last endoscopy done Summer 2009. Problem Gout M10.9 Active confirmed 28306117 Uric acid controlled on medication (last uric acid level was less than 4 in March 2020). Takes Allopurinol. No flares on medication. Problem Forgetfulness R68.89 Active confirmed 725053 09 TSH was normal in September 2017. A B12 and folate level were normal in 2018. He has no overt evidence of dementia. Problem History of Lyme disease Z86.19 Active confirmed [id number] Lyme titers and followup were pursued in late 2011 to 09/2012. See note from ID specialist. Problem Gross hematuria R31.0 Active confirmed 1978 55395 Occurs intermittently and has been evaluated by urologist. Had a prior cystoscopy and most recently a CT in 05/2018. 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 Problem Myalgia, other site M79.18 Active confirmed 03250943 ALLERGIES Allergen (clinical drug ingredient) Drug/Non Drug Allergy do cumented on EMR Reaction Allergy Type Onset Date Status Doxycycline Calcium pt unable to recall Drug Allergy Active nadolol Corgard([facility] Code:[address]-79) pt unable to recall Drug A llergy Active celecoxib Celebrex([facility] Code:[address]-24) pt unable to recall Drug Allergy Active ENCOUNTERS from 1945 to 2020-10-17 Encounter Location Date Provider Diagnosis [address] [id number] [address] [place], 2021 Frank [place] Medicare annual wellness visit, subseque nt Z00.00 ; Hypertension I10 ; Gastroesophageal reflux K21.9 ; Hypercholesterolemia E78.00 ; Osteoarthritis M19.90 ; Personal history of prostate cancer Z85.46 ; Gout M10.9 ; Other specified crystal arthropathies, unspecified site M11.80 ; Elevated fasting glucose R73.01 ; Fatty liver K76.0 ; Alcohol dependence F10.20 ; Personal history of malignant melanoma of skin Z85.820 ; Dysthymia F34.1 ; Forgetfulness R68.89 ; 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 and Mild anemia D64.9 IMMUNIZATIONS Vaccine Route Administration Date Status Influenza (Pharmacy Given) Unknown Jun 20, 2019 Admin istered Influenza (Pharmacy Given) Unknown Jul 01, 2018 Admin istered Influenza (High Dose 65 & up) Unknown Jun 25, 2017 Ad ministered Influenza (High Dose 65 & up) Unknown Jul 03, 2016 Ad ministered Influenza (High Dose 65 & up) Unknown Jun 20, 2015 Ad ministered Zoster 0.65mL (Zostavax) Unknown Aug 30, 2012 Adminis tered Influenza (Pharmacy Given) Unknown Jun 25, 2020 Admin istered Pneumococcal Adult 0.5mL (Pneumovax 23) Unknown Sep 14, 2009 Administered TDAP Unknown Sep 14, 2009 Administered Pneumococcal 0.5mL (Prevnar 13) IM Intramuscular Sep 17, 2016 Administered SOCIAL HISTORY Tobacco Use: Social History Observation Description Date Details (start date - stop date) Never Smoker Sex Assigned At : Social History Observation Description Sex Assigned At Unknown Audit Question Answer Notes Interpretation: Alcohol Education Total Score: 6 Domestic Violence: Question Answer Notes Status: Sexual Hx: Question Answer Notes Had sex in the last 12 months (vaginal, oral, or anal)? No Have you ever had an STD? No Drug and Alcohol Question Answer Notes Total Score: 0 Interpretation: No problems reported BMI Care Goal Follow-Up Question Answer Notes Above Normal BMI Follow-Up Weight monitoring Tobacco Use: Question Answer Notes Are you a: never smoker never smoker REASON FOR REFERRAL No Information VITAL SIGNS Weight 199.0 lbs Sep, Height 72 in Sep, BMI 26.99 kg/m2 Sep, Heart Rate 79 /min Sep, Respiratory Rate 18 /min Sep, Temperature 97.8 degrees Fahrenheit Sep, Oximetry 97% Sep, Blood pressure systolic 112 mm Hg Sep, Blood pressure diastolic 62 mm Hg Sep, MEDICATIONS Medication SIG (Take, Route, Frequency, Duration) Notes Start Da te End Date Status TraZODone HCl 150 MG 1 tablet Orally Once a day at bedtime for 90 Active Indomethacin 25 mg 1 capsule with food or milk Orally Every 6 hours as needed for gout flare for 30 day(s) Sep, Act kaylan Allopurinol 300 MG 1 tablet Orally Once a day for 90 Active Doxazosin Mesylate 4 MG 1/2 tablet Orally Once a day for 90 days Active AmLODIPine Besylate 10 mg 1 tab Orally Once a day for 90 days Active Hydrocodone-Acetaminophen 5-325 MG 1 tablet Orally, I- Stop #[id number] every 6 hrs as needed for pain. MDD=4 for 30 day(s) Aug, Active Omeprazole 20 mg 2 capsule Orally Once a day for 90 Active Duloxetine HCl 30 MG 1 capsule Orally Once a day for 90 days Active Losartan Potassium 100 MG 1 tablet Orally Once a day for 90 days Active PROCEDURES No Information RESULTS No Results REASON FOR VISIT Annual wellness exam with labs to review MEDICAL (GENERAL) HISTORY Type Description Date Medical History Hypertension Medical History Gastroesophageal reflux Medical History Hypercholesterolemia Medical History Osteoarthritis Medical History Personal history of prostate cancer Medical History Gout Medical History Other specified crystal arthropathies, u nspecified site Medical History Lesion of lung Medical History Dysphagia Medical History Elevated fasting glucose Medical History Fatty liver Medical History Alcohol dependence Medical History Personal history of malignant melanoma o f skin Medical History Dysthymia Medical History Forgetfulness Medical History arthritis left hip Surgical History spinal fusion age 21 Surgical History right shoulder surgery Years ago Surgical History right carpal tunnel release Years ago Surgical History total right knee replacement 1998 Surgical History right inguinal hernia repair 09/1999 Surgical History total left knee replacement, and revised right knee 02/2002 Surgical History colonoscopy 09/2005 Surgical History robotic prostatectomy 12/2010 Surgical History umbilical hernia repair 08/2011 Surgical History melanoma excision on right cheek 04/2014 Surgical History SCC excision left neck 07/2014 Surgical History Colonoscopy 08/2016 Surgical History 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 10/01/2018 Surgical History Ventral hernia repair robotically 04/2019 Hospitalization History surgical related Goals Section No Information Health Concerns No Information MEDICAL EQUIPMENT No Information MENTAL STATUS No Information FUNCTIONAL STATUS No Information ASSESSMENTS Encounter Date Diagnosis Assessment Notes Treatment Notes Treatm ent Clinical Notes Sep, Medicare annual wellness visit, subsequent (ICD- 10 - Z00.00) Sep, Hypertension (ICD-10 - I10) On losartan, amlodipine and. He saw a rock splitter in Fall 2018. His benazepril and hydrochlorothiazide were replaced by losartan and his Cardura dose was reduced. Hydrochlorothiazide was stopped because of his history of gout. Has no endorgan complications. BP control today is acceptable. Amlodipine dose was increased to 10 mg daily as of 09/2016. He does monitor home readings also. Sep, Gastroesophageal reflux (ICD-10 - K21.9) On Omeprazole therapy. Patient has controlled heartburn. Last endoscopy done Summer 2009. Sep, Hypercholesterolemia (ICD-10 - E78.00) H e has an elevated cholesterol but his HDL is very high. I suspect this is because he drinks too much alcohol. LDL is at target as of February 2015, February 2016, March 2017, March 2018, March 2019, 03/2020, September 2020. Sep, Osteoarthritis (ICD-10 - M19.90) Had monica ateral TKR's. Walk or bicycle to tolerance. Has back issues also. On Vicodin occasionally, and havh-crk-uonxtpn NSAID therapy. He has taken gabapentin in the past. He has had pain clinic interventions for his back pain in Fall 2018, preceded by thoracic and lumbar MRI studies, and he only found transient benefit but also found the cost of these interventions to be prohibitive. He has seen the orthopedic back surgeon in April 2020 and of course of physical therapy was of marginal benefit. Sep, Personal history of prostate cancer (ICD -10 - Z85.46) Prostate cancer, diagnosed on basis of elevated PSA in October 2010, Rita score 6, treated with robotic prostatectomy and radiation therapy, with a PSA that was essentially undetectable in September 2020. Sep, Gout (ICD-10 - M10.9) Uric acid controll ed on medication (last uric acid level was less than 4 in March 2020). Takes Allopurinol. No flares on medication. Sep, Other specified crystal arth ropathies, unspecified site (ICD-10 - M11.80) He has calcium pyrophosphate deposition disease. Sep, Elevated fasting glucose (ICD-10 - R73.0 1) His fasting glucose was 85 with a hemoglobin A1c of 5.6% in March 2019, and FBS was 109 in 03/2020 with unavailable HgbA1c. His fasting glucose has been higher in the past, and a nonfasting glucose (he had soda an hour or 2 before the test) was 108 in September 2019 and 138 in September 2020. Sep, Fatty liver (ICD-10 - K76.0) Has a histo ry of liver function test abnormalities consistent with fatty liver. LFT's were elevated in February 2015, improved somewhat in August 2015 and February 2016, normal in August 2016, minimally elevated in March 2017, normal in September 2017, March 2018, September 2018, March 2019, September 2019, 03/2020, September 2020. He consumes a fair amount of beer and was told to reduce alcohol intake. Hepatitis serologies were negative in the past. Sep, Alcohol dependence (ICD-10 - F10.20) He was again advised to reduce his alcohol intake. Sep, Personal history of malignant melanoma o f skin (ICD-10 - Z85.820) Malignant melanoma in situ of the right cheek was resected in 04/2014. Sees dermatology provider every 6 months. Sep, Dysthymia (ICD-10 - F34.1) He has had a history of irritability and sleep disruption and now duloxetine (as of 03/2020) instead of Paxil, and trazodone have been of some benefit. Sep, Forgetfulness (ICD-10 - R68.89) TSH was normal in September 2017. A B12 and folate level were normal in 2018. He has no overt evidence of dementia. Sep, Wenckebach phenomenon (ICD-10 - I44.1) A s part of this preoperative evaluation for his ventral hernia repair in Fall 2018, he had Wenckebach phenomenon noted on EKG, as well as some 2:1 second-degree AV block on a 48 hour Holter monitor subsequently, July 2018. He has seen cardiology, had an echocardiogram and has had medication adjustments but no pacemaker has been recommended. He has scheduled follow-ups with cardiology; he was most rcently seen in 09/2020 and another Holter monitor is scheduled for 11/2020. Sep, Mild anemia (ICD-10 - D64.9) He has a mi ld anemia because he donated blood recently. He had an elevated monocyte count on an automated differential which does not concern me by concerns his significantly. He will have another CBC in a month. PLAN OF TREATMENT Medication Medication Name Sig Start Date Stop Date TraZODone HCl 150 MG 1 tablet Orally Once a day at bedtime for 9 0 Omeprazole 20 mg 2 capsule Orally Once a day for 90 Doxazosin Mesylate 4 MG 1/2 tablet Orally Once a day for 90 days Duloxetine HCl 30 MG 1 capsule Orally Once a day for 90 days Losartan Potassium 100 MG 1 tablet Orally Once a day for 90 days Allopurinol 300 MG 1 tablet Orally Once a day for 90 AmLODIPine Besylate 10 mg 1 tab Orally Once a day for 90 days Future Test Test Name Order Date TSH [id number] Comprehensive Metabolic Profile (CMP) [id number] MAGNESIUM LEVEL [id number] CBC with Differential [id number] CBC with Differential [id number] Next Appt Details 6 Months Reason: Provider Name:Sergio Cortez, 2021-04-10 10 :30:00 AM, [address] [place], [address], Insurance Providers Payer Name Payer Address Payer Phone Insured Name Patient Relati onship to Insured Coverage Start Date Coverage End Date MEDICARE COMPLETE [facility] [address] [address] [facility] [phone] MODESTA GERMAN self
--- OUTSIDE RECORDS SUMMARY | 2020-11-07 23:59 | CCD | Continuity of Care Document ---
Author Author Darrell [facility] Organization Unknown Address [address] [place] [address], [address] [place] [address] Phone [phone] Care Team Providers Care Commercial Loan Specialist Name Role Phone Sergio Cortez MD AUTM [phone] LIZETH Otoole MD AUTM [phone] Ag Villareal MD AUTM [phone] Nelson Edwards MD AUTM [phone] Problems Active Problems Provider Date Electrocardiogram abnormal Joe Mcrae MD Onset: 07/25 Left bundle branch block Joe Mcrae MD Onset: 019 Atrioventricular block, second degree Joe Mcrae MD O nset: 07/25/2019 Essential hypertension Joe Mcrae MD Onset: 9 Preoperative cardiovascular examination Joe Mcrae MD Onset: 07/25/2019 Heart murmur Joe Mcrae MD Onset: 07/25/2019 Social History Type Date Description Comments Sex Unknown Smokeless Tobacco Current Smokeless Tobacco User , Uses Occasionally ETOH Use consumes 4-5 beers per day Tobacco Use Start: Unknown Patient has never smoked Smoking Status Reviewed: 10/10/20 Patient has never smoked Exercise Type/Frequency Does yardwork 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 Exercise Type/Frequency Does gardening 3 times a week Exercise Type/Frequency Plays golf sporadically Exercise Limitations Joint Pain Exercise Limitations Back Pain Allergies, Adverse Reactions, Alerts Description No Known Drug Allergies Medications Active Medications SIG Qnty Indications Ordering Provide r Date Duloxetine HCL 30mg Caps DR Jimenez 1 by mouth every day Unknown 10/09/2020 Doxazosin Mesylate 2mg Tablets 1 tab by mouth every day every night 90tabs I10 Joe Mcrae MD 09/02/2019 Losartan Potassium 100mg Tablets Take 1 Tablet By Mouth AT Bedtime 30tabs I10 Joe Mcrae MD 07/25/[address] 1 by mouth every day Unknown 07/24/2019 Allopurinol 300mg Tablets 1 by mouth every day Unknown 07/24/2019 Trazodone HCL 50mg Tablets 1 by mouth every night at bedtime Unknown 9 Amlodipine Besylate 10mg Tablets Take One Tablet By Mouth Every Day 90tabs I10 Joe Mcrae MD 1 09/23/2018 Paroxetine HCL 20mg Tablets 1 by mouth every day Unknown 07/24/2019 Hydrocodone-Acetaminophen 5-325mg Tablets 1/2 by mouth every 6 hours as needed Unknown 07/24/2019 Aleve 220mg Capsules 1 tab po twice a day Unknown 07/24/2019 Immunizations Description No Information Available Vital Signs Date Vital Result Comment 10/10/2020 9:04am Weight 196.00 lb Height 71.5 inches 5'11.50" BMI (Body Mass Index) 27.0 kg/m2 Heart Rate 81 /min BP Systolic Sitting 146 mmHg Omron, adult cuff/Ra BP Diastolic Sitting 66 mmHg Omron, adult cuff/R a 09/02/2019 9:42am Weight 191.00 lb Height 71.5 inches 5'11.50" BMI (Body Mass Index) 26.3 kg/m2 Heart Rate 67 /min BP Systolic Sitting 152 mmHg omron adult cuff,LA BP Diastolic Sitting 69 mmHg omron adult cuff,LA Results Test Acquired Date Facility Test Result H/L Range Note CMP 10/05/2020 [facility] Albumin Serum/Plasma 3.3 Alt - SGPT 25 Calcium Ser/Plasma Mass/Vol 9.1 Carbon Dioxide Ser/Plasm 30 Chloride Serum/Plasma 101 Alkaline Phosphatase 83 Potassium 4.4 Protein Total 6.1 Sodium 139 Ast - Sgot 14 BUN - Urea Nitrogen 14 Glucose 138 Creatinine For GFR 0.84 Laboratory test finding 10/05/2020 [facility] Magnesium Level 1.9 CBC without Differential 10/05/2020 [facility] White Blood Count 7.6 Red Blood Count 4.09 Platelets 259 Hemoglobin 12.8 Hematocrit 37.4 Lipid Profile/Cardiac Risk Pro 10/05/2020 [facility] Triglycerides 36 Cholesterol 158 HDL 99 LDL Cholesterol 52 Chol/HDL Ratio 1.595 Procedures Date Code Description Status 10/10/2020 76679 ECG 12-Lead Completed Medical Devices Description No Information Available Encounters Type Date Location Provider Dx Diagnosis Office Visit 10/10/2020 9:00a Main Office Joe Mcrae MD I44.1 Atrioventricular block, second degree R94.31 Abnormal electrocardiogram [ ECG] [EKG] I44.7 Left bundle-branch block, un specified I10 Essential (primary) hyperten anna Assessments Date Code Description Provider 10/10/2020 I44.1 Atrioventricular block, second d egree Joe Mcrae MD 10/10/2020 R94.31 Abnormal electrocardiogram [ECG] [EKG] Joe Mcrae MD 10/10/2020 I44.7 Left bundle-branch block, unspec ified Joe Mcrae MD 10/10/2020 I10 Essential (primary) hypertension Joe Mcrae MD Plan of Treatment Future Appointment(s):* 04/10/2021 9:30 am - Joe Mcrae MD at Main Office * 11/21/2020 2:30 pm - Holter/Event/Telemetry at Main Office 10/10/2020 - Joe Mcrae MD* I44.1 Atrioventricular block, second degree* New Orders:* Holter Monitor, Scheduled: 11/21/20 * Recommendations:* Further evaluation with a 24-hour Holter monitor. Avoid use of negative dromotropic agents. * R94.31 Abnormal electrocardiogram [ECG] [EKG] * I44.7 Left bundle-branch block, unspecified * I10 Essential (primary) hypertension* Recommendations:* Avoid Alcohol: The association between excess alcohol intake and systemic hypertension was brought to the patient's attention. Furthermore, alcohol is associated with an increased risk of cancer. Patient was strongly encouraged to avoid c onsuming alcohol. Continue losartan, amlodipine, doxazosin at the current dosages. * All * Follow up:* Follow-up in [address] Mcrae. Functional Status Functional Condition Comment Date Status Independent with all ADL's Activ e Mental Status Description No Information Available Referrals Description No Information Available
--- OUTSIDE RECORDS SUMMARY | 2020-11-07 23:59 | CCD | Continuity of Care Document ---
Author Author Darrell MCRAE MD Organization Unknown Address [address] [place] [address], [place] [address] Phone [phone] Care Team Providers Care Paralegal Legal Secretary Name Role Phone Sergio Cortez MD AUTM [phone] LIZETH Otoole MD AUTM [phone] Ag Villareal MD AUTM [phone] Nelson Edwards MD AUTM [phone] Problems Active Problems Provider Date Electrocardiogram abnormal [...] r Date Duloxetine HCL 30mg Caps DR Part 1 by mouth every day Unknown 10/09/2020 [...] 1.595 Procedures Date Code Description Status 10/10/2020 51730 ECG 12-Lead Completed Medical Devices Description No [...] bundle-branch block, unspecified * I10 Essential (primary) hypertension * All * Follow up:* Follow-up in [address] Mcrae. Functional Status Functional Condition Comment Date Status Independent with all ADL's Activ e Mental Status Description No Information Available Referrals Description No Information Available
--- OUTSIDE RECORDS SUMMARY | 2020-11-08 | CCD ---
Author Author [facility] Organization [facility] Address Unknown Phone Unavailable Care Team Providers Care Coal Handling Supervisor Name Role Phone NAYANOL, Karson HERNANDEZ MD Unavailable Unavailable ANTECOL, Karson HERNANDEZ MD Unavailable Unavailable ANTECOL, Karson HERNANDEZ MD Unavailable Unavailable ANTECOL, Karson HERNANDEZ MD Unavailable Unavailable ANTECOL, Karson HERNANDEZ MD Unavailable Unavailable ANTECOL, Karson EHRNANDEZ MD Unavailable Unavailable ANTECOL, Karson HERNANDEZ MD Unavailable Unavailable ANTECOL, Karson HERNANDEZ MD Unavailable Unavailable ANTECOL, Karson HERNANDEZ MD Unavailable Unavailable ANTECOL, Kasron HERNANDEZ MD Unavailable Unavailable ANTECOL, Karson HERNANDEZ MD Unavailable Unavailable ANTECOL, Karson HERNANDEZ MD Unavailable Unavailable ANTECOL, Karson HERNANDEZ MD Unavailable Unavailable ANTECOL, Karson HERNANDEZ MD Unavailable Unavailable ANTECOL, Karson HERNANDEZ MD Unavailable Unavailable ANTECOL, Karson HERNANDEZ MD Unavailable Unavailable ANTECOL, Karson HERNANDEZ MD Unavailable Unavailable ANTECOL, Karson HERNANDEZ MD Unavailable Unavailable ANTECOL, Karson HERNANDEZ MD Unavailable Unavailable ANTECOLKarson MD Unavailable Unavailable ANTECOL, Karson HERNANDEZ MD Unavailable Unavailable ANTECOL, Karson HERNANDEZ MD Unavailable Unavailable ANTECOL, Karson HERNANDEZ MD Unavailable Unavailable ANTECOL, Karson HERNANDEZ MD Unavailable Unavailable ANTECOLKarson MD Unavailable Unavailable ANTECOLKarson MD Unavailable Unavailable ANTECOLKarson MD Unavailable Unavailable ANTECOLKarson MD Unavailable Unavailable ANTECOLKarson MD Unavailable Unavailable ANTECOL, Karson HERNANDEZ MD Unavailable Unavailable ANTECOL, Karson HERNANDEZ MD Unavailable Unavailable ANTECOL, Karson HERNANDEZ MD Unavailable Unavailable ANTECOL, Karson HERNANDEZ MD Unavailable Unavailable ANTECOLKarson MD Unavailable Unavailable ANTECOL, Karson HERNANDEZ MD Unavailable Unavailable ANTECOL, Karson HERNANDEZ MD Unavailable Unavailable ANTECOLKarson MD Unavailable Unavailable ANTECOL, Karson HERNANDEZ MD Unavailable Unavailable ANTECOL, Karson HERNANDEZ MD Unavailable Unavailable ANTECOL, Karson HERNANDEZ MD Unavailable Unavailable ANTECOL, Karson HERNANDEZ MD Unavailable Unavailable ANTECOLKarson MD Unavailable Unavailable ANTECOL, Karson HERNANDEZ MD Unavailable Unavailable ANTECOLKarson MD Unavailable Unavailable ANTECOL, Karson HERNANDEZ MD Unavailable Unavailable ANTECOLKarson MD Unavailable Unavailable ANTECOLKarson MD Unavailable Unavailable ANTECOL, Karson HERNANDEZ MD Unavailable Unavailable ANTECOLKarson MD Unavailable Unavailable ANTECOLKarson MD Unavailable Unavailable ANTECOL, Karson HERNANDEZ MD Unavailable Unavailable ANTECOL, Karson HERNANDEZ MD Unavailable Unavailable ANTECOL, Karson HERNANDEZ MD Unavailable Unavailable ANTECOL, Karson HERNANDEZ MD Unavailable Unavailable ANTECOLKarson MD Unavailable Unavailable ANTECOLKarson MD Unavailable Unavailable Otoole, N Po MD Unavailable Unavailable Otoole, N Po MD Unavailable Unavailable Otoole, N Po MD Unavailable Unavailable Otoole, N Po MD Unavailable Unavailable Otoole, N Po MD Unavailable Unavailable Otoole, N Po MD Unavailable Unavailable Otoole, N Po MD Unavailable Unavailable Otoole, N Po MD Unavailable Unavailable Otoole, N Po MD Unavailable Unavailable Otoole, N Po MD Unavailable Unavailable Otoole, N Po MD Unavailable Unavailable Otoole, N Po MD Unavailable Unavailable Otoole, N Po MD Unavailable Unavailable Otoole, N Po MD Unavailable Unavailable Otoole, N Po MD Unavailable Unavailable Otoole, N Po MD Unavailable Unavailable Otoole, N Po MD Unavailable Unavailable Otoole, N Po MD Unavailable Unavailable Otoole, N Po MD Unavailable Unavailable Otoole, N Po MD Unavailable Unavailable Otoole, N Po MD Unavailable Unavailable Otoole, N Po MD Unavailable Unavailable Otoole, N Po MD Unavailable Unavailable Otoole, N Po MD Unavailable Unavailable Otoole, N Po MD Unavailable Unavailable Otoole, N Po MD Unavailable Unavailable Otoole, N Po MD Unavailable Unavailable Otoole, N Po MD Unavailable Unavailable Otoole, N Po MD Unavailable Unavailable Otoole, N Po MD Unavailable Unavailable Otoole, N Po MD Unavailable Unavailable Otoole, N Po MD Unavailable Unavailable Otoole, N Po MD Unavailable Unavailable Otoole, N Po MD Unavailable Unavailable Otoole, N Po MD Unavailable Unavailable Otoole, N Po MD Unavailable Unavailable Otoole, N Po MD Unavailable Unavailable Otoole, N Po MD Unavailable Unavailable Otoole, N Po MD Unavailable Unavailable Otoole, N Po MD Unavailable Unavailable Otoole, N Po MD Unavailable Unavailable Otoole, N Po MD Unavailable Unavailable Otoole, N Po MD Unavailable Unavailable Otoole, N Po MD Unavailable Unavailable Otoole, N Po MD Unavailable Unavailable Otoole, N Po MD Unavailable Unavailable Otoole, N Po MD Unavailable Unavailable Otoole, N Po MD Unavailable Unavailable Otoole, N Po MD Unavailable Unavailable Otoole, N Po MD Unavailable Unavailable Otoole, N Po MD Unavailable Unavailable Otoole, N Po MD Unavailable Unavailable Otoole, N Po MD Unavailable Unavailable Otoole, N Po MD Unavailable Unavailable Otoole, N Po MD Unavailable Unavailable Otoole, N Po MD Unavailable Unavailable Otoole, N Po MD Unavailable Unavailable Otoole, N Po MD Unavailable Unavailable Otoole, N Po MD Unavailable Unavailable Otoole, N Po MD Unavailable Unavailable Otoole, N Po MD Unavailable Unavailable Otoole, N Po MD Unavailable Unavailable Otoole, N Po MD Unavailable Unavailable Otoole, N Po MD Unavailable Unavailable Otoole, N Po MD Unavailable Unavailable Otoole, N Po MD Unavailable Unavailable Otoole, N Po MD Unavailable Unavailable Otoole, N Po MD Unavailable Unavailable Otoole, N Po MD Unavailable Unavailable Otoole, N Po MD Unavailable Unavailable Otoole, N Po MD Unavailable Unavailable Otoole, N Po MD Unavailable Unavailable Otoole, N Po MD Unavailable Unavailable Otoole, N Po MD Unavailable Unavailable Otoole, N Po MD Unavailable Unavailable Otoole, N Po MD Unavailable Unavailable Otoole, N Po MD Unavailable Unavailable Otoole, N Po MD Unavailable Unavailable Otoole, N Po MD Unavailable Unavailable Otoole, N Po MD Unavailable Unavailable Otoole, N Po MD Unavailable Unavailable Otoole, N Po MD Unavailable Unavailable Otoole, N Po MD Unavailable Unavailable Otoole, N Po MD Unavailable Unavailable Otoole, N Po MD Unavailable Unavailable Otoole, N Po MD Unavailable Unavailable Otoole, N Po MD Unavailable Unavailable Otoole, N Po MD Unavailable Unavailable Otoole, N Po MD Unavailable Unavailable Otoole, N Po MD Unavailable Unavailable Otoole, N Po MD Unavailable Unavailable Otoole, N Po MD Unavailable Unavailable Otoole, N Po MD Unavailable Unavailable Otoole, N Po MD Unavailable Unavailable Otoole, N Po MD Unavailable Unavailable Otoole, N Po MD Unavailable Unavailable Otoole, N Po MD Unavailable Unavailable Tosha Villareal MD Unavailable Unavailable Tosha Villareal MD Unavailable Unavailable Tosha Villareal MD Unavailable Unavailable Tosha Villareal MD Unavailable Unavailable Tosha Villareal MD Unavailable Unavailable Tosha Villareal MD Unavailable Unavailable Tosha Villareal MD Unavailable Unavailable Tosha Villareal MD Unavailable Unavailable Tosha Villareal MD Unavailable Unavailable Tosha Villareal MD Unavailable Unavailable Tosha Villareal MD Unavailable Unavailable Tosha Villareal MD Unavailable Unavailable Tosha Villareal MD Unavailable Unavailable Tosha Villareal MD Unavailable Unavailable Tosha Villareal MD Unavailable Unavailable Tosha Villareal MD Unavailable Unavailable Tosha Villareal MD Unavailable Unavailable Tosha Villareal MD Unavailable Unavailable Tosha Villareal MD Unavailable Unavailable Tosha Villareal MD Unavailable Unavailable Tosha Villareal MD Unavailable Unavailable Tosha Villareal MD Unavailable Unavailable Tosha Villareal MD Unavailable Unavailable Tosha Villareal MD Unavailable Unavailable Tosha Villareal MD Unavailable Unavailable Tosha Villareal MD Unavailable Unavailable Tosha Villareal MD Unavailable Unavailable Dionna, Tosha Luong MD Unavailable Unavailable Nikam, Tosha Luong MD Unavailable Unavailable Dionna, Tosha Luong MD Unavailable Unavailable Tosha Villareal MD Unavailable Unavailable Dionna, Tosha Luong MD Unavailable Unavailable NikamTosha MD Unavailable Unavailable Dionna, Tosha Luong MD Unavailable Unavailable Dionna, Tosha Luong MD Unavailable Unavailable Dionna, Tosha Luong MD Unavailable Unavailable Dionna, Tosha Luong MD Unavailable Unavailable Dionna, Tosha Luong MD Unavailable Unavailable Dionna, Tosha Luong MD Unavailable Unavailable Tosha Villareal MD Unavailable Unavailable Vanjhonam, Tosha Luong MD Unavailable Unavailable NikamTosha MD Unavailable Unavailable Otoole, N Po MD Unavailable Unavailable Otoole, N Po MD Unavailable Unavailable Otoole, N Po MD Unavailable Unavailable Otoole, N Po MD Unavailable Unavailable Otoole, N Po MD Unavailable Unavailable Otoole, N Po MD Unavailable Unavailable Otoole, N Po MD Unavailable Unavailable Otoole, N Po MD Unavailable Unavailable Otoole, N Po MD Unavailable Unavailable Otoole, N Po MD Unavailable Unavailable Otoole, N Po MD Unavailable Unavailable Otoole, N Po MD Unavailable Unavailable Otoole, N Po MD Unavailable Unavailable Otoole, N Po MD Unavailable Unavailable Otoole, N Po MD Unavailable Unavailable Otoole, N Po MD Unavailable Unavailable Otoole, N Po MD Unavailable Unavailable Otoole, N Po MD Unavailable Unavailable Otoole, N Po MD Unavailable Unavailable Otoole, N Po MD Unavailable Unavailable Otoole, N Po MD Unavailable Unavailable Otoole, N Po MD Unavailable Unavailable Otoole, N Po MD Unavailable Unavailable Otoole, N Po MD Unavailable Unavailable Otoole, N Po MD Unavailable Unavailable Otoole, N Po MD Unavailable Unavailable Otoole, N Po MD Unavailable Unavailable Otoole, N Po MD Unavailable Unavailable Otoole, N Po MD Unavailable Unavailable Otoole, N Po MD Unavailable Unavailable Otoole, N Po MD Unavailable Unavailable Otoole, N Po MD Unavailable Unavailable Otoole, N Po MD Unavailable Unavailable Otoole, N Po MD Unavailable Unavailable Otoole, N Po MD Unavailable Unavailable Otoole, N Po MD Unavailable Unavailable Otoole, N Po MD Unavailable Unavailable Otoole, N Po MD Unavailable Unavailable Otoole, N Po MD Unavailable Unavailable Otoole, N Po MD Unavailable Unavailable Otoole, N Po MD Unavailable Unavailable Otoole, N Po MD Unavailable Unavailable Otoole, N Po MD Unavailable Unavailable Otoole, N Po MD Unavailable Unavailable Otoole, N Po MD Unavailable Unavailable Otoole, N Po MD Unavailable Unavailable Otoole, N Po MD Unavailable Unavailable Otoole, N Po MD Unavailable Unavailable Otoole, N Po MD Unavailable Unavailable Otoole, N Po MD Unavailable Unavailable Otoole, N Po MD Unavailable Unavailable Otoole, N Po MD Unavailable Unavailable Otoole, N Po MD Unavailable Unavailable Otoole, N Po MD Unavailable Unavailable Otoole, N Po MD Unavailable Unavailable Otoole, N Po MD Unavailable Unavailable Otoole, N Po MD Unavailable Unavailable Otoole, N Po MD Unavailable Unavailable Otoole, N Po MD Unavailable Unavailable Otoole, N Po MD Unavailable Unavailable Otoole, N Po MD Unavailable Unavailable Otoole, N Po MD Unavailable Unavailable Otoole, N Po MD Unavailable Unavailable Otoole, N Po MD Unavailable Unavailable Otoole, N Po MD Unavailable Unavailable Otoole, N Po MD Unavailable Unavailable Otoole, N Po MD Unavailable Unavailable Otoole, N Po MD Unavailable Unavailable Otoole, N Po MD Unavailable Unavailable Otoole, N Po MD Unavailable Unavailable Otoole, N Po MD Unavailable Unavailable Otoole, N Po MD Unavailable Unavailable Otoole, N Po MD Unavailable Unavailable Otoole, N Po MD Unavailable Unavailable Otoole, N Po MD Unavailable Unavailable Otoole, N Po MD Unavailable Unavailable Otoole, N Po MD Unavailable Unavailable Otoole, N Po MD Unavailable Unavailable Otoole, N Po MD Unavailable Unavailable Otoole, N Po MD Unavailable Unavailable Otoole, N Po MD Unavailable Unavailable Otoole, N Po MD Unavailable Unavailable Otoole, N Po MD Unavailable Unavailable Otoole, N Po MD Unavailable Unavailable Otoole, N Po MD Unavailable Unavailable Otoole, N Po MD Unavailable Unavailable Otoole, N Po MD Unavailable Unavailable Otoole, N Po MD Unavailable Unavailable Otoole, N Po MD Unavailable Unavailable Otoole, N Po MD Unavailable Unavailable Otoole, N Po MD Unavailable Unavailable Otoole, N Po MD Unavailable Unavailable Otoole, N Po MD Unavailable Unavailable Otoole, N Po MD Unavailable Unavailable Otoole, N Po MD Unavailable Unavailable Otoole, N Po MD Unavailable Unavailable Otoole, N Po MD Unavailable Unavailable Roby Potts MD Unavailable Unavailable Roby Potts MD Unavailable Unavailable Roby Potts MD Unavailable Unavailable Roby Potts MD Unavailable Unavailable Roby Potts MD Unavailable Unavailable Roby Potts MD Unavailable Unavailable Roby Potts MD Unavailable Unavailable Roby Potts MD Unavailable Unavailable Roby Potts MD Unavailable Unavailable Roby Potts MD Unavailable Unavailable Roby Potts MD Unavailable Unavailable Potts, L Ryan MD Unavailable Unavailable Potts, L Ryan MD Unavailable Unavailable Potts, L Ryan MD Unavailable Unavailable Potts, L Ryan MD Unavailable Unavailable Potts, L Ryan MD Unavailable Unavailable Potts, L Ryan MD Unavailable Unavailable Potts, L Ryan MD Unavailable Unavailable Potts, L Ryan MD Unavailable Unavailable Potts, L Ryan MD Unavailable Unavailable Potts, L Ryan MD Unavailable Unavailable Potts, L Ryan MD Unavailable Unavailable Potts, L Ryan MD Unavailable Unavailable Potts, L Ryan MD Unavailable Unavailable Potts, L Ryan MD Unavailable Unavailable Potts, L Ryan MD Unavailable Unavailable Potts, L Ryan MD Unavailable Unavailable Potts, L Ryan MD Unavailable Unavailable Potts, L Ryan MD Unavailable Unavailable Potts, L Ryan MD Unavailable Unavailable Potts, L Ryan MD Unavailable Unavailable Potts, L Ryan MD Unavailable Unavailable Potts, L Ryan MD Unavailable Unavailable Potts, L Ryan MD Unavailable Unavailable Potts, L Ryan MD Unavailable Unavailable Potts, L Ryan MD Unavailable Unavailable Potts, L Ryan MD Unavailable Unavailable Potts, L Ryan MD Unavailable Unavailable Potts, L Ryan MD Unavailable Unavailable Potts, L Ryan MD Unavailable Unavailable Potts, L Ryan MD Unavailable Unavailable Potts, L Ryan MD Unavailable Unavailable Potts, L Ryan MD Unavailable Unavailable Potts, L Ryan MD Unavailable Unavailable Potts, L Ryan MD Unavailable Unavailable Potts, L Ryan MD Unavailable Unavailable Potts, L Ryan MD Unavailable Unavailable Potts, L Ryan MD Unavailable Unavailable Re-disclosure Warning The records that you are about to access may contain information from federally-assisted alcohol or drug abuse programs. If such information is present, then the following federally mandated warning applies: This information has been disclosed to you from records protected by federal confidentiality rules (42 CFR part 2). The federal rules prohibit you from making any further disclosure of this information unless further disclosure is expressly permitted by the written consent of the person to whom it pertains or as otherwise permitted by 42 CFR part 2. A general authorization for the release of medical or other information is NOT sufficient for this purpose. The Federal rules restrict any use of the information to criminally investigate or prosecute any alcohol or drug abuse patient.The records that you are about to access may contain highly sensitive health information, the redisclosure of which is protected by Article 27-F of the [facility] Public Health law. If you continue you may have access to information: Regarding HIV / AIDS; Provided by facilities licensed or operated by the [facility] Office of Mental Health; or Provided by the [facility] Office for People With Developmental Disabilities. If such information is present, then the following [facility] mandated warning applies: This information has been disclosed to you from confidential records which are protected by state law. State law prohibits you from making any further disclosure of this information without the specific written consent of the person to whom it pertains, or as otherwise permitted by law. Any unauthorized further disclosure in violation of state law may result in a fine or correction sentence or both. A general authorization for the release of medical or other information is NOT sufficient authorization for further disc losure. Family History Family Member Name Family Member Gender Family Member Status Date o f Status Description Data Source(s) Unknown Unknown Problem [facility] ([facility]) 3 BROTHERS Unknown Male Problem [facility] ([facility]) Unknown Male Problem [facility] ([facility]) Unknown Male Problem [facility] ([facility]) Unknown Male Problem [facility] ([facility] ) Encounters Encounter Providers Location Date Indications Data Source(s ) Outpatient Attender: DAVID SANCHEZ MD Main Office 10/10/2020 08:00:00 AM EST [facility] ([facility]) [place] [address] [facility] [address] 10/10/2020 12:00:00 AM EST eCW1 ([facility]) Unknown [address] [facility] [place] [address] 08/28/2020 12:00:00 AM EST eCW1 ([facility]) [place] [address] [facility] [place] [address] 08/27/2020 12:00:00 AM EST eCW1 ([facility]) Outpatient Attender: Tosha Villareal MD Physical Therap y 08/16/2020 07:30:00 AM EST [facility] ([facility]) [place] [address] [facility] [place] [address] 06/25/2020 12:00:00 AM EDT eCW1 ([facility]) Outpatient Attender: Robert Otoole MD [facility] 06/20 10:40:00 AM EDT [facility] [place] [address] [facility] [address] 06/13/2020 12:00:00 AM EDT eCW1 ([facility]) Outpatient Attender: Ryan Potts MD Physical Therapy 04/24/2020 1 0:30:00 AM EDT [facility] ([facility] ) [place] [address] [facility] [address] 03/27/2020 12:00:00 AM EDT eCW1 ([facility]) Outpatient Attender: Robert [facility] 03/02 11:50:00 AM EDT [facility] Outpatient Referrer: Robert Otoole MD 02/28/2020 09:50:00 AM EDT [facility] Outpatient Referrer: Robert Otoole MD 02/28/2020 09:50:00 AM EDT [facility] Outpatient Referrer: Robert Otoole MD 02/17/2020 10:28:00 AM EDT [facility] Outpatient Referrer: Robert Otoole MD 02/15/2020 04:02:00 PM EDT [facility] Outpatient Attender: Robert Coleman/ [facility] 02/14 02:30:00 PM EDT [facility] ([facility] [place] [address] [facility] [address] 10/11/2019 12:00:00 AM EST eCW1 ([facility]) Immunizations Vaccine Date Status Description Data Source(s) INFLUENZA VIRUS VACCINE QUADRIVAL SPLIT 2020-(65 YR UP)/PF 06/28/2020 12:00:00 AM EDT completed [facility] IIV3. This is one of two codes replacing CVX 15, which is being retired. 06/25/2020 03:39:00 PM EDT completed eCW1 ([facility]) Medications Medication Brand Name Start Date Product Form Dose Route Admi nistrative Instructions Pharmacy Instructions Status Indications Reaction Description Data Source(s) 100 mg 10/11/2020 12:00:00 AM EST tablet 90 TAKE ONE TABLET BY MOUTH EVERY DAY TAKE ONE TABLET BY MOUTH EVERY DAY SOLD: 10/16/2020 [facility] 30 mg 10/11/2020 12:00:00 AM EST capsule,delayed release (DR/EC) 90 TAKE ONE CAPSULE BY MOUTH EVERY DAY TAKE ONE CAPSULE BY MOUTH EVERY DAY SOLD: 10/16/2020 [facility] 4 mg 10/11/2020 12:00:00 AM EST tablet 45 TAKE 1/2 TABLET BY MOUTH ONCE DAILY TAKE 1/2 TABLET BY MOUTH ONCE DAILY SOLD: 10/16/2020 [facility] duloxetine 30 MG Delayed Release Oral Capsule Duloxetine HCL 10/09/2020 12:00:00 AM EST ORAL active [facility] 10 mg 09/10/2020 12:00:00 AM EST tablet 90 TAKE ONE TABLET BY MOUTH EVERY DAY TAKE ONE TABLET BY MOUTH EVERY DAY SOLD: 09/10/2020 [facility] 5-325 mg 08/28/2020 12:00:00 AM EST tablet 120 TAKE ONE TABLET BY MOUTH EVERY 6 HOURS NEEDED FOR PAIN , MAXIMUM DAILY DOSE = 4 TABLETS TAKE ONE TABLET BY MOUTH EVERY 6 HOURS NEEDED FOR PAIN , MAXIMUM DAILY DOSE = 4 TABLETS SOLD: 08/29/2020 [facility] Acetaminophen 325 MG / Hydrocodone Coleman trate 5 MG Oral Tablet Hydrocodone- Acetaminophen 5-325 MG Hydrocodone-Acetaminophen 5-325 MG 08/27/2020 12:00:00 AM EST 1.0 {tablet} active Hydrocodone -Acetaminophen 5-325 MG eCW1 ([facility]) Acetaminophen 325 MG / Hydrocodone Coleman trate 5 MG Oral Tablet Hydrocodone- Acetaminophen 5-325 MG Hydrocodone-Acetaminophen 5-325 MG 08/27/2020 12:00:00 AM EST 1.0 {tablet} active Hydrocodone -Acetaminophen 5-325 MG eCW1 ([facility]) Acetaminophen 325 MG / Hydrocodone Coleman trate 5 MG Oral Tablet Hydrocodone- Acetaminophen 5-325 MG Hydrocodone-Acetaminophen 5-325 MG 08/27/2020 12:00:00 AM EST 1.0 {tablet} active Hydrocodone -Acetaminophen 5-325 MG eCW1 ([facility]) 100 mg 08/01/2020 12:00:00 AM EST tablet 90 TAKE ONE TABLET BY MOUTH EVERY DAY AT BEDTIME TAKE ONE TABLET BY MOUTH EVERY DAY AT BEDTIME SOLD: 08/02/2020 [facility] 150 mg 07/09/2020 12:00:00 AM EDT tablet 90 TAKE ONE TABLET BY MOUTH EVERY DAY AT BEDTIME TAKE ONE TABLET BY MOUTH EVERY DAY AT BEDTIME SOLD: 07/10/2020 [facility] 150 mg 07/09/2020 12:00:00 AM EDT tablet 90 TAKE ONE TABLET BY MOUTH EVERY DAY AT BEDTIME TAKE ONE TABLET BY MOUTH EVERY DAY AT BEDTIME SOLD: 10/10/2020 [facility] 20 mg 06/14/2020 12:00:00 AM EDT capsule,delayed release (DR/EC) 180 TAKE TWO CAPSULES BY MOUTH EVERY DAY TAKE TWO CAPSULES BY MOUTH EVERY DAY SOLD: 09/10/2020 [facility] 20 mg 06/14/2020 12:00:00 AM EDT capsule,delayed release (DR/EC) 180 TAKE TWO CAPSULES BY MOUTH EVERY DAY TAKE TWO CAPSULES BY MOUTH EVERY DAY SOLD: 06/17/2020 [facility] 300 mg 06/05/2020 12:00:00 AM EDT tablet 90 TAKE ONE TABLET BY MOUTH EVERY DAY TAKE ONE TABLET BY MOUTH EVERY DAY SOLD: 08/24/2020 [facility] 300 mg 06/05/2020 12:00:00 AM EDT tablet 90 TAKE ONE TABLET BY MOUTH EVERY DAY TAKE ONE TABLET BY MOUTH EVERY DAY SOLD: 06/06/2020 [facility] 30 mg 04/12/2020 12:00:00 AM EDT capsule,delayed release (DR/EC) 30 TAKE ONE CAPSULE BY MOUTH EVERY DAY TAKE ONE CAPSULE BY MOUTH EVERY DAY SOLD: 08/13/2020 [facility] 30 mg 04/12/2020 12:00:00 AM EDT capsule,delayed release (DR/EC) 30 TAKE ONE CAPSULE BY MOUTH EVERY DAY TAKE ONE CAPSULE BY MOUTH EVERY DAY SOLD: 09/10/2020 [facility] 30 mg 04/12/2020 12:00:00 AM EDT capsule,delayed release (DR/EC) 30 TAKE ONE CAPSULE BY MOUTH EVERY DAY TAKE ONE CAPSULE BY MOUTH EVERY DAY SOLD: 07/10/2020 [facility] 30 mg 04/12/2020 12:00:00 AM EDT capsule,delayed release (DR/EC) 30 TAKE ONE CAPSULE BY MOUTH EVERY DAY TAKE ONE CAPSULE BY MOUTH EVERY DAY SOLD: 04/16/2020 [facility] 30 mg 04/12/2020 12:00:00 AM EDT capsule,delayed release (DR/EC) 30 TAKE ONE CAPSULE BY MOUTH EVERY DAY TAKE ONE CAPSULE BY MOUTH EVERY DAY SOLD: 05/17/2020 [facility] 30 mg 04/12/2020 12:00:00 AM EDT capsule,delayed release (DR/EC) 30 TAKE ONE CAPSULE BY MOUTH EVERY DAY TAKE ONE CAPSULE BY MOUTH EVERY DAY SOLD: 06/13/2020 [facility] Acetaminophen 325 MG / Hydrocodone Coleman trate 5 MG Oral Tablet Hydrocodone- Acetaminophen 5-325 MG Hydrocodone-Acetaminophen 5-325 MG 03/27/2020 12:00:00 AM EDT 1.0 {tablet} active Hydrocodone -Acetaminophen 5-325 MG [facility]CW1 ([facility] [place]) 5-325 mg 03/27/2020 12:00:00 AM EDT tablet 120 TAKE ONE TABLET BY MOUTH EVERY 6 HOURS NEEDED FOR PAIN , MAXIMUM DAILY DOSE = 4 TABLETS TAKE ONE TABLET BY MOUTH EVERY 6 HOURS NEEDED FOR PAIN , MAXIMUM DAILY DOSE = 4 TABLETS SOLD: 03/29/2020 [facility] Acetaminophen 325 MG / Hydrocodone Coleman trate 5 MG Oral Tablet Hydrocodone- Acetaminophen 5-325 MG Hydrocodone-Acetaminophen 5-325 MG 03/27/2020 12:00:00 AM EDT 1.0 {tablet} active Hydrocodone -Acetaminophen 5-325 MG eCW1 ([facility] [place]) Acetaminophen 325 MG / Hydrocodone Coleman trate 5 MG Oral Tablet Hydrocodone- Acetaminophen 5-325 MG Hydrocodone-Acetaminophen 5-325 MG 03/27/2020 12:00:00 AM EDT 1.0 {tablet} active Hydrocodone -Acetaminophen 5-325 MG eCW1 ([facility] [place]) 5-325 mg 03/20/2020 12:00:00 AM EDT tablet 28 TAKE ONE TABLET BY MOUTH EVERY 6 HOURS NEEDED FOR PAIN , MAXIMUM DAILY DOSE = 4 TABLETS TAKE ONE TABLET BY MOUTH EVERY 6 HOURS NEEDED FOR PAIN , MAXIMUM DAILY DOSE = 4 TABLETS SOLD: 03/22/2020 [facility] C[facility]floxacin 250 MG Oral Tablet [Cipro] Cipro 03/02/2020 12:00: 00 AM EDT ORAL completed [facility] ([facility] [place]) 300 mg 03/01/2020 12:00:00 AM EDT tablet 90 TAKE ONE TABLET BY MOUTH ONCE DAILY TAKE ONE TABLET BY MOUTH ONCE DAILY SOLD: 03/01/2020 [facility] Doxazosin 2 MG Oral Tablet DOXAZOSIN MESYLATE 09/08/2019 12:00:00 A M EST tablet 90 TAKE ONE TABLET BY MOUTH EVERY NIGHT TAKE ONE TA BLET BY MOUTH EVERY NIGHT SOLD: 09/12/2019 [facility] 2 mg 09/08/2019 12:00:00 AM EST tablet 90 TAKE ONE TABLET BY MOUTH EVERY NIGHT TAKE ONE TABLET BY MOUTH EVERY NIGHT SOLD: 07/10/2020 [facility] 2 mg 09/08/2019 12:00:00 AM EST tablet 90 TAKE ONE TABLET BY MOUTH EVERY NIGHT TAKE ONE TABLET BY MOUTH EVERY NIGHT SOLD: 03/29/2020 [facility] 2 mg 09/08/2019 12:00:00 AM EST tablet 90 TAKE ONE TABLET BY MOUTH EVERY NIGHT TAKE ONE TABLET BY MOUTH EVERY NIGHT SOLD: 01/21/2020 [facility] 10 mg 09/02/2019 12:00:00 AM EST tablet 90 TAKE ONE TABLET BY MOUTH EVERY DAY TAKE ONE TABLET BY MOUTH EVERY DAY SOLD: 09/12/2019 [facility] 10 mg 09/02/2019 12:00:00 AM EST tablet 90 TAKE ONE TABLET BY MOUTH EVERY DAY TAKE ONE TABLET BY MOUTH EVERY DAY SOLD: 07/02/2020 [facility] 10 mg 09/02/2019 12:00:00 AM EST tablet 90 TAKE ONE TABLET BY MOUTH EVERY DAY TAKE ONE TABLET BY MOUTH EVERY DAY SOLD: 03/22/2020 [facility] 100 mg 07/25/2019 12:00:00 AM EST tablet 30 TAKE ONE TABLET BY MOUTH AT BEDTIME TAKE ONE TABLET BY MOUTH AT BEDTIME SOLD: 03/01/2020 [facility] 100 mg 07/25/2019 12:00:00 AM EST tablet 30 TAKE ONE TABLET BY MOUTH AT BEDTIME TAKE ONE TABLET BY MOUTH AT BEDTIME SOLD: 10/03/2019 [facility] 100 mg 07/25/2019 12:00:00 AM EST tablet 30 TAKE ONE TABLET BY MOUTH AT BEDTIME TAKE ONE TABLET BY MOUTH AT BEDTIME SOLD: 07/02/2020 [facility] 100 mg 07/25/2019 12:00:00 AM EST tablet 30 TAKE ONE TABLET BY MOUTH AT BEDTIME TAKE ONE TABLET BY MOUTH AT BEDTIME SOLD: 05/06/2020 [facility] 100 mg 07/25/2019 12:00:00 AM EST tablet 30 TAKE ONE TABLET BY MOUTH AT BEDTIME TAKE ONE TABLET BY MOUTH AT BEDTIME SOLD: 03/22/2020 [facility] 100 mg 07/25/2019 12:00:00 AM EST tablet 30 TAKE ONE TABLET BY MOUTH AT BEDTIME TAKE ONE TABLET BY MOUTH AT BEDTIME SOLD: 06/02/2020 [facility] 20 mg 06/20/2019 12:00:00 AM EDT capsule,delayed release (DR/EC) 180 TAKE TWO CAPSULES BY MOUTH EVERY DAY TAKE TWO CAPSULES BY MOUTH EVERY DAY SOLD: 09/17/2019 [facility] 20 mg 06/20/2019 12:00:00 AM EDT capsule,delayed release (DR/EC) 180 TAKE TWO CAPSULES BY MOUTH EVERY DAY TAKE TWO CAPSULES BY MOUTH EVERY DAY SOLD: 03/22/2020 [facility] 20 mg 05/28/2019 12:00:00 AM EDT tablet 90 TAKE ONE TABLET BY MOUTH EVERY MORNING TAKE ONE TABLET BY MOUTH EVERY MORNING SOLD: 03/01/2020 [facility] 150 mg 04/14/2019 12:00:00 AM EDT tablet 90 TAKE ONE TABLET BY MOUTH AT BEDTIME TAKE ONE TABLET BY MOUTH AT BEDTIME SOLD: 03/01/2020 [facility] Insurance Providers Payer name Policy type / Coverage type Policy ID Covered green party ID Covered green party's relationship to toribio Policy [place] Plan Information MEDICARE COMPLETE [id number] SP [id number] MEDICARE COMPLETE [id number] SP [id number] SELF PAY ONLY [id number] SP [id number] SELF PAY ONLY [id number] SP [id number] MEDICARE COMPLETE-UHC O [id number] S [id number] MEDICARE COMPLETE [id number] SP [id number] MEDICARE COMPLETE-UHC O [id number] S [id number] MEDICARE COMPLETE [id number] SP [id number] ANS-Medicare Part B [id number] ANSI-Medicare Part B [id number] Unitedhealthcare Medicare Commercial [id number] Self [id number] ANS-Medicare Part B [id number] ANSI-Medicare Part B [id number] MEDICARE COMPLETE G [id number] Self [id number] ANSI-Medicare Part B [id number] ANSI-Medicare Part B [id number] ANSI-Medicare Part B [id number] UHC UNITED MEDICARE COMPLETE G [id number] Self [id number] ANSI-Medicare Part B [id number] ANSI-Medicare Part B [id number] Secure Horizon Commercial [id number] Self [id number] [facility] Medicare Solutions Commercial [id number] Self [id number] [employer] Medigap Part B [id number] Self [id number] [employer] [place] Workers Compensation [id number] Self [id number] [employer] Insurance Medigap Part B [id number] Self [id number] [facility] ([facility]) Medigap Part B [id number] Self [id number] [employer] ([place]) Workers Compensation [id number] Self [id number] [employer] Medigap Part B [id number] Self [id number] [employer] Ins ([place]) Workers Compensation Self MEDICARE COMPLETE [id number] SP [id number] [facility] [employer] Commercial Self Secure Horizon Commercial Self Unitedhealthcare Medicare Commercial [id number] Self [id number] Aetna Insurance Medigap Part B Self [employer] Medigap Part B Self [employer] ([facility]) Commercial [id number] Self [id number] MEDICARE COMPLETE-[facility] O [id number] S [id number] [facility] Medicare Solutions Commercial Self [facility] P [id number] S [id number] Problems, Conditions, and Diagnoses Code Display Name Description Problem Type Effective Dates Data Source(s) 326956468 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 Problem 06/20/2020 12:00:00 AM EDT [facility] ([facility]) [id number] Urge incontinence of urine Urge incontinence of urine Problem 06/20/2020 12:00:00 AM EDT [facility] ([facility]) Ventral hernia without obstruction or ga ngrene Ventral hernia without obstruction or gangrene Problem 02/15/2020 12:00:00 AM EDT [facility] ([facility] [place]) I44.1 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: 00:00 AM EST eCW1 ([facility] [place]) Surgeries/Procedures Procedure Description Date Indications Data Source(s) ECG ROUTINE ECG W/LEAST 12 LDS W/I&R 10/10/2020 12:00: 00 AM EST [facility] ([facility]) RADIOLOGIC EXAMINATION KNEE 3 VIEWS 08/16/2020 12:00:0 0 AM EST [facility] ([facility] ) RADIOLOGIC EXAMINATION KNEE 3 VIEWS 08/16/2020 12:00:0 0 AM EST [facility] ([facility] ) THERAPEUTIC PX 1/> AREAS EACH 15 MIN EXERCISES 12:00:00 AM EDT [facility] ([facility] ) MANUAL THERAPY TQS 1/> REGIONS EACH 15 MINUTES 12:00:00 AM EDT [facility] ([facility]) THERAPEUTIC PX 1/> AREAS EACH 15 MIN EXERCISES 12:00:00 AM EDT [facility] ([facility] ) MANUAL THERAPY TQS 1/> REGIONS EACH 15 MINUTES 12:00:00 AM EDT [facility] ([facility]) THERAPEUTIC PX 1/> AREAS EACH 15 MIN EXERCISES 12:00:00 AM EDT [facility] ([facility] ) MANUAL THERAPY TQS 1/> REGIONS EACH 15 MINUTES 12:00:00 AM EDT [facility] ([facility] ) THERAPEUTIC PX 1/> AREAS EACH 15 MIN EXERCISES 12:00:00 AM EDT [facility] ([facility]) THERAPEUTIC PX 1/> AREAS EACH 15 MIN EXERCISES 12:00:00 AM EDT [facility] ([facility] ) THERAPEUTIC PX 1/> AREAS EACH 15 MIN EXERCISES 12:00:00 AM EDT [facility] ([facility] ) MANUAL THERAPY TQS 1/> REGIONS EACH 15 MINUTES 12:00:00 AM EDT [facility] ([facility] ) THERAPEUTIC PX 1/> AREAS EACH 15 MIN EXERCISES 12:00:00 AM EDT [facility] ([facility]) THERAPEUTIC PX 1/> AREAS EACH 15 MIN EXERCISES 12:00:00 AM EDT [facility] ([facility] ) MANUAL THERAPY TQS 1/> REGIONS EACH 15 MINUTES 12:00:00 AM EDT [facility] ([facility] ) THERAPEUTIC PX 1/> AREAS EACH 15 MIN EXERCISES 12:00:00 AM EDT [facility] ([facility] ) Physical Therapy Eval - Low Complexity 05/04/2020 12:0 0:00 AM EDT [facility] ([facility] ) X-Ray Spine Lumbosacral Complete Inc Bending Views Min Of 6 04/24/2020 12:00:00 AM EDT [facility] ([facility] ) CYSTOURETHROSCOPY 03/02/2020 12:00:00 AM EDT [facility] ([facility]) ELIZABET POST-VOIDING RESIDUAL URINE&/BLDR CAP 02/15/2020 12:00:00 AM EDT [facility] ([facility]) Results ID Date Data Source [id number] 10/05/2020 09:24:00 AM EST [facility] ([facility]) Name Value Range Interpretation Code Description Data Mariel rce(s) Supporting Document(s) Cholesterol 158 [facility] ([facility]) Triglycerides 36 [facility] ([facility]) HDL 99 [facility] ([facility]) Cholesterol in LDL [Mass/volume] in Serum or Plasma by calculation 52 [facility] ([facility]) Chol/HDL Ratio 1.595 [facility] ([facility]) ID Date Data Source [id number] 10/05/2020 09:24:00 AM EST [facility] ([facility]) Name Value Range Interpretation Code Description Data Mariel rce(s) Supporting Document(s) White Blood Count 7.6 [facility] ([facility]) Hemoglobin 12.8 [facility] ([facility]) Red Blood Count 4.09 [facility] ([facility]) Platelets 259 [facility] Hematocrit 37.4 [facility] ([facility]) ID Date Data Source [id number] 10/05/2020 09:24:00 AM EST [facility] ([facility]) Name Value Range Interpretation Code Description Data Mariel rce(s) Supporting Document(s) Magnesium Level 1.9 [facility] ([facility]) ID Date Data Source [id number] 10/05/2020 09:24:00 AM EST [facility] ([facility]) Name Value Range Interpretation Code Description Data Mariel rce(s) Supporting Document(s) Albumin [Mass/volume] in Serum or Plasma 3.3 [facility] ([facility]) Calcium [Mass/volume] in Serum or Plasma 9.1 [facility] ([facility]) Alanine aminotransferase [Enzymatic activity/volume] in Serum or Pl asma 25 [facility] ([facility]) Chloride [Moles/volume] in Serum or Plasma 101 [facility] ([facility]) Alkaline phosphatase [Enzymatic activity/volume] in Serum or Plasma 8 3 [facility] ([facility]) Carbon dioxide, total [Moles/volume] in Serum or Plasma 30 [facility] ([facility]) Sodium 139 [facility] Potassium [Moles/volume] in Serum or Plasma 4.4 [facility] ([facility]) Protein [Mass/volume] in Serum or Plasma 6.1 [facility] ([facility]) Aspartate aminotransferase [Enzymatic activity/volume] in Serum or Plasma 14 [facility] ([facility]) Urea nitrogen [Mass/volume] in Serum or Plasma 14 [facility] ([facility]) Glucose 138 [facility] ([facility]) Creatinine For GFR 0.84 [facility] ([facility]) ID Date Data Source [id number] 08/04/2020 12:00:00 AM EST [facility] Name Value Range Interpretation Code Description Data Mariel rce(s) Supporting Document(s) nCoV RNA XXX CYNTHIA+probe-Imp [facility] This lab was ordered by [facility] and reported by [employer] ID Date Data Source [id number] 07/10/2020 12:00:00 AM EDT [facility] Name Value Range Interpretation Code Description Data Mariel rce(s) Supporting Document(s) nCoV RNA XXX CYNTHIA+probe-Imp [facility] and reported by [employer] ID Date Data Source [id number] 06/20/2020 10:53:00 AM EDT [facility] ([facility]) Name Value Range Interpretation Code Description Data Mariel rce(s) Supporting Document(s) Protein [Presence] in Urine by Test strip Laboratory test result [facility] ([facility]) Glucose [Presence] in Urine Laboratory test result [facility] ([facility]) Ua Nitrite Laboratory test result [facility] ([facility]) Ua Leuko Laboratory test result [facility] ([facility]) Blood [Presence] in Urine by Visual Laboratory test result [facility] ([facility]) Ketones [Presence] in Urine by Test strip Laboratory test result [facility] ([facility]) Clarity of Urine Laboratory test result [facility] ([facility]) Color of Urine Laboratory test result [facility] ([facility]) Bilirubin.total [Presence] in Urine by Test strip Laboratory test res ult [facility] ([facility]) Ua Specific [place] 1.025 1.003-1.030 [facility] ([facility]) pH of Urine by Test strip 6.5 5.0-7.5 [facility] ([facility]) Urobilinogen [Mass/volume] in Urine by Test strip 0.2 E.U./dL 0.0-1.0 [facility] ([facility]) ID Date Data Source [id number] 06/14/2020 09:08:00 AM EDT [facility] ([facility]) Name Value Range Interpretation Code Description Data Mariel rce(s) Supporting Document(s) Prostate specific Ag [Mass/volume] in Serum or Plasma Laboratory test result [facility] ([facility]) ID Date Data Source [id number] 03/02/2020 02:46:00 PM EDT [facility] ([facility]) Name Value Range Interpretation Code Description Data Mariel rce(s) Supporting Document(s) Specimen Adequacy Laboratory test result [facility] ([facility]) Satisfactory for evaluation. Clinical History Laboratory test result [facility] ([facility]) R31.0 Gross Description Laboratory test result [facility] ([facility]) Received in a specimen container, labele d with the patients name and , is Clear Yellow fluid consistent with urine, measuring approximately 80 ml. Microscopic Description Laboratory test result [facility] ([facility]) BodySite Laboratory test result [facility] ([facility]) Voided - Clean Catch CPTCode 04340 [facility] ([facility]) [id number] Laboratory test result [facility] ([facility]) Final Diagnosis Laboratory test result [facility] ([facility]) NEGATIVE FOR HIGH-GRADE UROTHELIAL CARCI NOMA. PDF Report Laboratory test result [facility] ([facility]) ID Date Data Source [id number] 03/02/2020 02:46:00 PM EDT [facility] ([facility]) Name Value Range Interpretation Code Description Data Mariel rce(s) Supporting Document(s) Cytology report of Urine Cyto stain Laboratory test result [facility] ([facility]) ID Date Data Source [id number] 03/02/2020 12:03:00 PM EDT [facility] ([facility]) Name Value Range Interpretation Code Description Data Mariel rce(s) Supporting Document(s) Glucose [Presence] in Urine Laboratory test result [facility] ([facility]) Protein [Presence] in Urine by Test strip Laboratory test result [facility] ([facility]) Ua Leuko Laboratory test result [facility] ([facility]) Ua Nitrite Laboratory test result [facility] ([facility]) Ketones [Presence] in Urine by Test strip Laboratory test result [facility] ([facility]) Blood [Presence] in Urine by Visual Laboratory test result [facility] ([facility]) Color of Urine Laboratory test result [facility] ([facility] [place]) Clarity of Urine Laboratory test result [facility] ([facility] [place]) Ua Specific [place] 1.025 1.003-1.030 [facility] NT ([facility]) Urobilinogen [Mass/volume] in Urine by Test strip 0.2 E.U./dL 0.0-1.0 [facility] ([facility]) pH of Urine by Test strip 5.5 5.0-7.5 [facility] ([facility]) Bilirubin.total [Presence] in Urine by Test strip Laboratory test res ult [facility] ([facility]) ID Date Data Source [id number] 02/28/2020 12:00:00 AM EDT [facility] Robert Otoole MD Patient Name: MODESTA [id number] Date of : 1945[place] [id number] Date of Exam: 02/28/2020PH#: Fax: [phone] EXAM: CT ABDOMEN & PELVIS WITHOUT&WITH CONTRASTCLINICAL INFORMATION: Gross hematuria.Low dose [address] scanning of the abdomen and pelvis wasobtained before and after the administration of intravenous contrast using3 mm increments and reconstructed in both sagittal and coronal scan planes. Immediate and delayed post contrast enhanced imaging was obtained throughthe abdomen. 75 cc of Optiray 350 was administered intravenously.Priors, multiples, the latest 06/11/2018.There are chronic lung base changes, status quo. There are no pleural orpericardial effusions.The pre-contrast enhanced portion of the examination shows hepatic andsplenic densities to be within normal limits. In the left kidney, there isan unchanged round low density structure; again, having water density HUreadings. No choleliths have developed. There are no nephroliths. Thereare no urinary bladder calcifications. The urinary bladder is incompletelydistended.The contrast enhanced portion of the examination shows the liver,gallbladder, spleen, pancreas, adrenal glands, and kidneys to be unchanged. The abdominal aorta and paraaortic regions are unchanged. Theintraabdominal and intrapelvic bowel loops and the mesenteries areessentially unchanged. There is mild sigmoid colon diverticulosis. Nofree fluid or free air is seen in the abdomen or pelvis. There is noevidence of an intraabdominal or intrapelvic mass or adenopathy. Note isagain made of potential diffuse thickening of the presley of the urinarybladder which is incompletely distended. Delayed through the pelvis showssome opacification of the urinary bladder without a perceptible luminalfilling defect.Further delayed imaging with CT urography with further delayed imagingthrough the urinary bladder shows complete contrast opacification of theurinary bladder with evidence of diffuse wall thickening. Areas ofincomplete opacification is seen involving both ureters without evidence ofa perceptible filling defect. There is no evidence of hydronephrosis.Bone window technique throughout the exam shows no significant change inthe appearance of the osseous structures. Chronic, hip, spinal andsacroiliac joint degenerative changes are noted, status quo.IMPRESSION:1. There is diffuse urinary bladder wall thickening, the etiology of whichis uncertain.2. Unchanged Bosniak Class I simple left renal cyst.Accredited by the [employer] [employer] in [place].LIZ Montiel/Meenakshi russell for referring MODESTA GERMAN to our office.Electronically Signed - LANDON LEGGETT DO 02/29/20 13:25 Name Value Range Interpretation Code Description Data Mariel rce(s) Supporting Document(s) ID Date Data Source [id number] 02/15/2020 03:49:00 PM EDT [facility] ([facility] Name Value Range Interpretation Code Description Data Mariel rce(s) Supporting Document(s) Clinical History Laboratory test result [facility] ([facility]) R31.0 Specimen Adequacy Laboratory test result [facility] ([facility]) Satisfactory for evaluation. BodySite Laboratory test result [facility] ([facility]) Voided - Clean Catch Final Diagnosis Laboratory test result [facility] ([facility]) NEGATIVE FOR HIGH-GRADE UROTHELIAL CARCI NOMA. Gross Description Laboratory test result [facility] ([facility]) Received in a specimen container, labele d with the patients name and , is Cloudy Yellow fluid consistent with urine, measuring approximately 60 ml. Microscopic Description Laboratory test result [facility] ([facility]) PDF Report Laboratory test result [facility] ([facility]) [id number] Laboratory test result [facility] ([facility]) CPTCode 75045 [facility] ([facility] [place] ID Date Data Source [id number] 02/15/2020 03:06:00 PM EDT [facility] ([facility]) Name Value Range Interpretation Code Description Data Mariel rce(s) Supporting Document(s) Glucose [Mass/volume] in Serum or Plasma 91.0 mg/dL 70.0-99.0 [facility] ([facility]) Creatinine [Mass/volume] in Serum or Plasma 0.96 mg/dL 0.72-1.25 [facility] ([facility]) Carbon dioxide, total [Moles/volume] in Serum or Plasma 26.0 mmol/L 22.0-31.0 [facility] ([facility]) BUN/Creat Ratio 10.4 [facility] ([facility]) Calcium [Mass/volume] in Serum or Plasma 9.1 mg/dL 8.4-10.2 [facility] ([facility]) Urea nitrogen [Mass/volume] in Serum or Plasma 10.0 mg/dL 7.0-24.0 [facility] ([facility]) K 4.4 mmol/L 3.6-5.2 [facility] ([facility]) Sodium [Moles/volume] in Serum or Plasma 140.0 mmol/L 136.0-145.0 [facility] ([facility]) Anion gap in Serum or Plasma 16.4 [facility] ([facility]) Chloride [Moles/volume] in Serum or Plasma 102.0 mmol/L 98.0-108.0 [facility] ([facility]) eGFR - Descent 90.1 [facility] ([facility]) eGFR -- Non- Descent 74.4 [facility] ([facility]) ID Date Data Source [id number] 02/15/2020 03:06:00 PM EDT [facility] ([facility]) Name Value Range Interpretation Code Description Data Mariel rce(s) Supporting Document(s) WBC 7.3 X10*3/uL 4.1-11.0 [facility] ([facility] [facility]) RBC 4.4 x10*6/Ul 4.6-6.1 MEDENT (Associate d Lan Manager [facility]) Hemoglobin [Mass/volume] in Blood 14.0 g/dL 13.5-18.0 MEDENT (Associated Lan Manager [facility]) Hematocrit [Volume Fraction] of Blood by Automated count 42.7 % 4 1.0-53.0 MEDENT (Associated [employer] [facility]) MCV 96.9 fL 79.9-95.1 MEDENT (Associated edical Professionals [facility]) MCHC 32.9 g/dL 32.0-36.0 MEDENT ([facility]ated [facility] [employer]ession[employer] [facility]) RDW 13.4 % 10.5-14.5 MEDENT ([facility] edical Professionals [facility]) MCH 31.8 pg 27.0-32.0 MEDENT ([facility]ated ed[employer]ession[employer] [facility]) %N 64.1 % 35.0-75.0 MEDENT (Associated ed[employer]ession[employer] [facility]) MPV 6.7 fL 7.1-10.7 MEDENT ([facility]ated [facility] [employer]ession[employer] [facility]) PLT 221.4 10*3/uL 150.0-450.0 MEDENT ([facility] [place]) %L 18.7 % 16.0-52.0 MEDENT ([facility]ated [facility] [employer]ession[facility]) %E 1.8 % 0.0-5.0 MEDENT ([facility] [employer] [facility]) %M 13.8 % 0.0-8.0 MEDENT ([facility] [employer] [facility]) [place] 4.7 10*3/uL 1.8-7.7 MEDENT (Associated [employer] [facility]) %B 1.6 % 0.0-4.0 MEDENT ([facility]ated [facility] [employer] [facility]) Lym 1.4 10*3/uL 1.2-4.8 MEDENT ([facility]ated [employer] [facility]) Eos 0.1 10*3/uL 0.0-0.4 MEDENT (Associated [employer] [facility]) [place] 1.0 10*3/uL 0.0-0.8 MEDENT (Associated [employer] [facility]) Baso 0.1 10*3/uL 0.0-0.2 MEDENT (Associated [employer] [facility]) ID Date Data Source [id number] 02/15/2020 02:35:00 PM EDT MEDENT (Assoc iated Lan [facility]) Name Value Range Interpretation Code Description Data Mariel rce(s) Supporting Document(s) Protein [Presence] in Urine by Test strip Laboratory test result MEDENT ([facility] [employer] [facility]) Glucose [Presence] in Urine Laboratory test result MEDENT ([facility] [employer] [facility]) Ua Nitrite Laboratory test result ME DENT ([facility]ated [facility] [employer] [facility]) Color of Urine Laboratory test result MEDENT ([facility]ated [employer] [facility]) Blood [Presence] in Urine by Visual Laboratory test result MEDENT (Associated [employer] [facility]) Ua Leuko Laboratory test result ME DENT ([facility]ated [employer] [facility]) Ketones [Presence] in Urine by Test strip Laboratory test result MEDENT (Associated [employer] [facility]) Clarity of Urine Laboratory test result MEDENT (Associated [employer] [facility]) Ua Specific [place] 1.020 1.003-1.030 MEDE NT (Associated [employer] [facility]) Bilirubin.total [Presence] in Urine by Test strip Laboratory test res ult [facility] ([facility] [place]) pH of Urine by Test strip 5.5 5.0-7.5 MED[facility] ([facility] [place]) Urobilinogen [Mass/volume] in Urine by Test strip 0.2 E.U./dL 0.0-1.0 [facility] ([facility] [place]) ID Date Data Source [id number] 01/19/2020 12:55:00 PM EDT [facility] Name Value Range Interpretation Code Description Data Mariel rce(s) Supporting Document(s) SARS CORONAVIRUS 2 RNA [facility] This lab was ordered by [facility] and reported by [facility]. Procedure Social History Code Duration Value Status Description Data Source(s ) Smoking 10/10/2020 12:00:00 AM EST Never Smoker completed Never S moker eCW1 ([facility]) Smoking 10/10/2020 12:00:00 AM EST Patient has never smoked co mpleted Patient has never smoked MEDENT ([facility]) Smoking 06/20/2020 12:00:00 AM EDT chewed for 5-6 years/quit 2 005 completed chewed for 5-6 years/quit 2004 [facility] ([facility] [place]) Smoking 06/20/2020 12:00:00 AM EDT Former Cigarette Smoker com pleted Former Cigarette Smoker [facility] ([facility] [place]) Smoking 10/11/2019 12:00:00 AM EST Never Smoker completed Never S moker eCW1 ([facility]) Smoking 10/11/2019 12:00:00 AM EST Never Smoker completed Never S moker eCW1 ([facility]) Smoking 10/11/2019 12:00:00 AM EST Never Smoker completed Never S moker eCW1 ([facility]) Smoking 10/11/2019 12:00:00 AM EST Never Smoker completed Never S moker eCW1 ([facility]) Smoking 10/11/2019 12:00:00 AM EST Never Smoker completed Never S moker eCW1 ([facility]) Vital Signs ID Date Data Source UNK Name Value Range Interpretation Code Description Data Source(s) Diastolic blood pressure 62 mm[Hg] 62 mm[Hg] eCW1 ([facility]) Systolic blood pressure 112 mm[Hg] 112 mm[Hg] e CW1 ([facility]) Body temperature 97.8 [degF] 97.8 [degF] eCW1 ( [facility]) Respiratory rate 18 /min 18 /min eCW1 ([facility]) Heart rate 79 /min 79 /min eCW1 ([facility]) Body mass index (BMI) [Ratio] 26.99 kg/m2 26.99 kg/m2 eCW1 ([facility]) Body height 72 [in_i] 72 [in_i] eCW1 ([facility]) Body weight 199.0 [lb_av] 199.0 [lb_av] eCW1 ([facility]) Diastolic blood pressure--sitting 66 mm[Hg] 66 mm[Hg] MEDENT ([facility]) [place], adult cuff/Ra Systolic blood pressure--sitting 146 mm[Hg] 146 mm[Hg] MEDENT ([facility]) [place], adult cuff/Ra Heart rate 81 /min 81 /min MED[facility] ([facility]) Body mass index (BMI) [Ratio] 27.0 kg/m2 27.0 k g/m2 MEDENT ([facility]) Body height 71.5 [in_i] 71.5 [in_i] [facility] ([facility]) 5'11.50" Body weight 196.00 [lb_av] 196.00 [lb_av] MEDEN T ([facility]) Body mass index (BMI) [Ratio] 27.1 kg/m2 27.1 k g/m2 MEDENT ([facility] ) Body weight 194.19 [lb_av] 194.19 [lb_av] MEDEN T ([facility]) Body height 71 [in_i] 71 [in_i] MEDENT ([facility]) 5'11" Body temperature 96.8 [degF] 96.8 [degF] MEDENT ([facility] ) Body mass index (BMI) [Ratio] 26.2 kg/m2 26.2 k g/m2 MEDENT ([facility]) Body weight 185.00 [lb_av] 185.00 [lb_av] MEDEN T ([facility]) Body height 70.5 [in_i] 70.5 [in_i] MEDENT ([facility]) 5'10.50" Body temperature 97.5 [degF] 97.5 [degF] MEDENT ([facility]) Body temperature 97.8 [degF] 97.8 [degF] [facility] ([facility] [place]) Heart rate 73 /min 73 /min [facility] ([facility] [place]) Diastolic blood pressure 86 mm[Hg] 86 mm[Hg] [facility] ([facility] [place]) Systolic blood pressure 169 mm[Hg] 169 mm[Hg] M EDANTON ([facility] [place]) Body mass index (BMI) [Ratio] 27.1 kg/m2 27.1 k g/m2 MED[facility] ([facility] [place]) Body weight 90.720 kg 90.720 kg MED[facility] ([facility] [place]) Body weight 200.00 [lb_av] 200.00 [lb_av] MEDEN T ([facility] [place]) Body height 72 [in_i] 72 [in_i] MEDENT ([facility] [place]) 6'0" Body height 72 [in_i] 72 [in_i] MEDENT ([facility] [place]) 6'0" Body temperature 97.7 [degF] 97.7 [degF] MEDENT ([facility] [place]) Heart rate 72 /min 72 /min MED[facility] ([facility] [place]) Diastolic blood pressure 84 mm[Hg] 84 mm[Hg] [facility] ([facility] [place]) Systolic blood pressure 141 mm[Hg] 141 mm[Hg] M EDENT ([facility] [place]) Patient Treatment Plan of Care Planned Activity Planned Date Details Description Data Source (s) Acetaminophen 325 MG / Hydrocodone Bitartrate 5 MG Ora l Tablet 08/27/2020 12:00:00 AM EST eCW1 ([facility]) Acetaminophen 325 MG / Hydrocodone Bitartrate 5 MG Ora l Tablet 08/27/2020 12:00:00 AM EST eCW1 ([facility]) Acetaminophen 325 MG / Hydrocodone Bitartrate 5 MG Ora l Tablet 03/27/2020 12:00:00 AM EDT eCW1 ([facility]) Acetaminophen 325 MG / Hydrocodone Bitartrate 5 MG Ora l Tablet 03/27/2020 12:00:00 AM EDT eCW1 ([facility]) Acetaminophen 325 MG / Hydrocodone Bitartrate 5 MG Ora l Tablet 03/27/2020 12:00:00 AM EDT eCW1 ([facility])
--- OUTSIDE RECORDS SUMMARY | 2020-11-08 | CCD ---
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 Sees dermatology provider every 6 months. Problem Hypertension I10 Active 20971589 On benazep ril, amlodipine, HCTZ and Cardura (Lotrel was refused by his insurance company despite the fact that it is generic) until he saw a server developer in Fall 2018. His benazepril and hydrochlorothiazide were replaced by losartan and his Cardura dose was reduced. Hydrochlorothiazide was stopped because of his history of gout. Has no endorgan complications. BP control today is acceptable. Amlodipine dose was increased to 10 mg daily as of 09/2016. He does monitor home readings also. Problem Lesion of lung R91.[address] of c hest abnormal since 03/2010 has revealed multiple nodules. [...] followup. 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 He has not been interested in obtaining hearing aids. Problem Elevated fasting glucose R73.01 Active 0159580 07 His fasting glucose was 85 with a hemoglobin A1c of 5.6% in March 2019, and FBS was 109 in 03/2020 with unavailable HgbA1c. His fasting glucose has been higher in the past, and a nonfasting glucose (he had soda an hour or 2 before the test) was 108 in September 2019. Problem Personal history of prostate cancer Z85.46 Acti ve 738688001 Prostate cancer, diagnosed on basis of elevated PSA in October 2010, Rita score 6, treated with robotic prostatectomy and radiation therapy, with a PSA that was essentially undetectable in March 2020. Problem Alcohol dependence F10.20 Active 21060143 He w as again advised to reduce his alcohol intake. Problem Fatty liver K76.0 Active 715191176 Has a hist ory of liver function test abnormalities consistent with fatty liver. LFT's were elevated in February 2015, improved somewhat in August 2015 and February 2016, normal in August 2016, minimally elevated in March 2017, normal in September 2017, March 2018, September 2018, March 2019, September 2019, 03/2020. He consumes a fair amount of beer and was told to reduce alcohol intake. Hepatitis serologies were negative in the past. Problem Dysphagia R13.10 Active 13971762 Had a Schatzk i's ring in 1998, 2009. Last EGD 2009. He has been on a PPI since. Problem Dysthymia F34.1 Active 14003099 He has had a history of irritability and sleep disruption and Paxil and trazodone have been of some benefit. I did increase his dose of trazodone as of September 2016 to improve his sleep pattern. Problem Hypercholesterolemia E78.00 Active 59527765 He has an elevated cholesterol but his HDL is very high. I suspect this is because he drinks too much alcohol. LDL is at target as of February 2015, February 2016, March 2017, March 2018, March 2019, 03/2020. Problem Other chronic pain G89.29 Active 57716321 Problem Osteoarthritis M19.90 Active 028938699 Had monica ateral TKR's. Walk or bicycle to tolerance. Has back issues also. On Vicodin occasionally, and [id number] NSAID therapy. He has taken gabapentin in the past. He has had pain clinic interventions for his back pain in Fall 2018, proceeded by thoracic and lumbar MRI studies, and he only found transient benefit but also found the cost of these interventions to be prohibitive. 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 He has seen cardiology, had an echocardiogram and has had medication adjustments but no pacemaker has been recommended. He has scheduled follow-ups with cardiology. Problem Gastroesophageal reflux K21.9 Active 40854785 4 On Omeprazole therapy. Patient has controlled heartburn. Last endoscopy done Summer 2009. Problem Gout M10.9 Active 01963988 Uric acid contr olled on medication (last uric acid level was less than 4 in March 2020). Takes Allopurinol. No flares on medication. Problem Forgetfulness R68.89 Active 15504770 TSH was n ormal in September 2017. A B12 and folate level were normal in 2017. He has no overt evidence of dementia. Problem History of Lyme disease Z86.19 Active 90853459 7 Lyme titers and followup were pursued in late 2011 to 09/2012. See note from ID specialist. Problem Gross hematuria R31.0 Active 166487607 Occurs intermittently and has been evaluated by urologist. Had a prior cystoscopy and most recently a CT in 05/2018. 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 Problem Myalgia, other site M79.18 Active 46201147 ALLERGIES Allergen (clinical drug ingredient) Drug/Non Drug Allergy do cumented on EMR Reaction Allergy Type Onset Date Status Doxycycline Calcium pt unable to recall Drug Allergy Active nadolol Corgard([facility] Code:[address]-68) pt unable to recall Drug A llergy Active celecoxib Celebrex([place] Code:[address]-39) pt unable to recall Drug Allergy Active ENCOUNTERS from 1945 to 2020-08-27 Encounter Location Date Provider Diagnosis [address] [address] Aug, Sergio Diego Osteoarthritis M19.90 IMMUNIZATIONS Vaccine Route Administration Date Status Influenza [...] (Zostavax) Unknown Aug 30, 2012 Adminis tered Pneumococcal Adult 0.5mL (Pneumovax 23) Unknown Sep 14, 2009 Administered TDAP Unknown Sep 14, 2009 Administered Pneumococcal 0.5mL (Prevnar 13) IM Intramuscular Sep 17, 2016 Administered SOCIAL HISTORY Tobacco Use: Social History Observation Description Date Details (start date - stop date) Never Smoker Sex Assigned At : Social History Observation Description Sex Assigned At Unknown Audit Question Answer Notes Total Score: 6 Interpretation: Alcohol Education Domestic Violence: Question Answer Notes Status: Sexual Hx: Question Answer Notes Had sex in the last 12 months (vaginal, oral, or anal)? Yes Have you ever had an STD? No with Women only Drug and Alcohol Question Answer Notes Total Score: 0 Interpretation: No problems reported BMI Care Goal Follow-Up Question Answer Notes Above Normal BMI Follow-Up Weight monitoring Tobacco Use: Question Answer Notes Are you a: never smoker never smoker REASON FOR REFERRAL No Information VITAL SIGNS No information MEDICATIONS Medication SIG (Take, Route, Frequency, Duration) Notes Start Da te End Date Status Indomethacin 25 mg 1 capsule with food or milk Orally Every 6 hours as needed for gout flare for 30 day(s) Sep, Act kaylan Doxazosin Mesylate 4 MG 1/2 tablet Orally Once a day Active Aspirin 81 MG 1 tablet Orally Once a day for 30 day(s) Active Losartan Potassium 100 MG 1 tablet Orally Once a day for 30 day(s) Active Hydrocodone-Acetaminophen 5-325 MG 1 tablet Orally, I- Stop #[id number] every 6 hrs as needed for pain. MDD=4 for 30 day(s) Aug, Active TraZODone HCl 150 MG 1 tablet Orally Once a day at bedtime for 90 Active Allopurinol 300 MG 1 tablet Orally Once a day for 90 Active AmLODIPine Besylate 10 mg 1 tab Orally Once a day for 90 days Active Omeprazole 20 mg 2 capsule Orally Once a day for 90 Active Paroxetine HCl 20 mg 1 tablet in the morning Orally Once a day for 90 days Active PROCEDURES No Information RESULTS No Results REASON FOR VISIT refill-hydrocodone MEDICAL (GENERAL) HISTORY Type Description Date Medical [...] Notes Treatment Notes Treatm ent Clinical Notes Aug, Osteoarthritis (ICD-10 - M19.90) PLAN OF TREATMENT Medication Medication Name Sig Start Date Stop Date Omeprazole 20 mg 2 capsule Orally Once a day for 90 Allopurinol 300 MG 1 tablet Orally Once a day for 90 TraZODone HCl 150 MG 1 tablet Orally Once a day at bedtime for 9 0 Hydrocodone-Acetaminophen 5-325 MG 1 tablet Orally, I- Stop #[id number] every 6 hrs as needed for pain. MDD=4 for 30 day(s) Aug, Next Appt Details Provider Name:Sergio Cortez, 2020-10-10 03 :30:00 PM, [address] [place], [address], Insurance Providers Payer Name Payer Address Payer Phone Insured Name Patient Relati onship to Insured Coverage Start Date Coverage End Date MEDICARE COMPLETE [facility] [address] [address] [facility] [id number] MODESTA GERMAN self
--- OUTSIDE RECORDS SUMMARY | 2020-11-08 | CCD | Continuity of Care Document ---
Author Author Darrell VILLAREAL MD Organization Unknown Address [address] [facility], [address] [address] Phone [phone] Problems Active Problems Provider Date Electrocardiogram abnormal Onset: 2018 Essential hypertension Onset: 07/25/2019 Heart murmur Onset: 07/25/2019 Left bundle branch block Onset: 07/25/20 19 Preoperative cardiovascular examination Onset: 07/25/2019 Social History Type Date Description Comments Sex Unknown ETOH Use Currently consumes alcohol daily ETOH Use Currently consumes alcohol daily Tobacco Use Start: Unknown End: Unknown Patient is a former smoker Tobacco Use Start: Unknown End: Unknown Patient is a former smoker Allergies, Adverse Reactions, Alerts Description No Known Drug Allergies Medications Active Medications SIG Qnty Indications Ordering Provide r Date Doxazosin Mesylate 2mg Tablets 1 tab by mouth every day every night 90tabs I10 Joe Mcrae MD 09/02/2019 Doxazosin Mesylate 4mg Tablets 0.5 by mouth every day 30tabs I10 Joe Mcrae MD 07/25/2019 Losartan Potassium 100mg Tablets 1 by mouth every night at bedtime 30tabs I10 Joe Mcrae M D 07/25/[address] 1 by mouth every day Unknown 07/24/2019 Allopurinol 300mg Tablets 1 by mouth every day Unknown 07/24/2019 Trazodone HCL 50mg Tablets 1 by mouth every night at bedtime Unknown 9 Amlodipine Besylate 10mg Tablets 1 by mouth every day Unknown 07/24/2019 Paroxetine HCL 20mg Tablets 1 by mouth every day Unknown 07/24/2019 Hydrocodone-Acetaminophen 5-325mg Tablets 1/2 by mouth every 6 hours as needed Unknown 07/24/2019 Aleve 220mg Capsules 1 tab po twice a day Unknown 07/24/2019 Lidocaine 5% Ointment apply quarter size ointment to back up to three times a day 1units Wes Santiago MD 04/29/2016 Keflex 500mg Capsules 4 tabs 1 hour prior to dental procedure 4caps Tino Reid MD 02/10/20 Allopurinol 100mg Tablets 1 by mouth every day Unknown Aspirin 81mg Chewtabs Unknown Lotrel Capsules Unknown Trazodone HCL Tablets at at bedtime Unknown Vicodin Tablets 1/2 pill as needed Unknown Doxazosin Mesylate Tablets Unknown Hydrocodone 5-300mg Tablets sig 1 by mouth q4-6hrs prn/pain Unknown Aspir-[address] ever y day Unknown Paroxetine HCL 20mg Tablets Unknown Benazepril HCL 20mg Tablets Unknown Amlodipine Besylate 10mg Tablets 1 by mouth every day Unknown Immunizations Description No Information Available Vital Signs Date Vital Result Comment 08/16/2020 9:01am Body Temperature 96.8 F Height 71 inches 5'11" Weight 194.19 lb BMI (Body Mass Index) 27.1 kg/m2 04/24/2020 12:21pm Body Temperature 97.5 F Height 70.5 inches 5'10.50" Weight 185.00 lb BMI (Body Mass Index) 26.2 kg/m2 Results Description No Information Available Procedures Date Code Description Status 08/16/2020 20020 X-Ray Knee Ap & Lateral W/Obliqu es Three Views Completed 08/16/2020 28876 X-Ray Knee Ap & Lateral W/Obliqu es Three Views Completed 06/19/2020 53607 Manual Therapy Each 15 Minutes C ompleted 06/19/2020 26777 Therapeutic Procedure, Each 15 M inutes Completed 06/14/2020 51315 Manual Therapy Each 15 Minutes C ompleted 06/14/2020 56981 Therapeutic Procedure, Each 15 M inutes Completed 06/11/2020 66243 Manual Therapy Each 15 Minutes C ompleted 06/11/2020 02424 Therapeutic Procedure, Each 15 M inutes Completed 06/07/2020 21723 Therapeutic Procedure, Each 15 M inutes Completed 06/04/2020 78621 Therapeutic Procedure, Each 15 M inutes Completed 05/28/2020 27369 Manual Therapy Each 15 Minutes C ompleted 05/28/2020 20902 Therapeutic Procedure, Each 15 M inutes Completed 05/23/2020 82594 Therapeutic Procedure, Each 15 M inutes Completed 05/14/2020 85044 Manual Therapy Each 15 Minutes C ompleted 05/14/2020 63824 Therapeutic Procedure, Each 15 M inutes Completed 05/09/2020 14706 Therapeutic Procedure, Each 15 M inutes Completed 05/04/2020 31039 Physical Therapy Eval - Low Comp lexity Completed 04/24/2020 29470 X-Ray Spine Lumbosacral Complete Inc Bending Views Min Of 6 Completed Medical Devices Description No Information Available Encounters Type Date Location Provider Dx Diagnosis Office Visit 08/16/2020 8:30a Anca Villareal MD Z4 7.1 Aftercare following joint replacement surgery Z96.653 Presence of artificial knee joint, bilateral Office Visit 04/24/2020 10:30a Anca Potts MD M43.16 Spondylolisthesis, lumbar region M51.36 Other intervertebral disc de generation, lumbar region 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 06/19/2020 M54.5 Low back pain Kvngdanii Guardado P .T. 06/14/2020 M43.16 Spondylolisthesis, lumbar region Kvng Guardado P.T. 06/14/2020 M54.5 Low back pain Kvng Guardado P .T. 06/11/2020 M43.16 Spondylolisthesis, lumbar region Kvng Guardado P.T. 06/11/2020 M54.5 Low back pain Kvng Rae Guardado P .T. 06/07/2020 M43.16 Spondylolisthesis, lumbar region Shauna Nava, DIRECTOR OF OUTREACH 06/07/2020 M54.5 Low back pain Shauna Nava, DIRECTOR OF OUTREACH 06/04/2020 M43.16 Spondylolisthesis, lumbar region Shauna Nava, DIRECTOR OF OUTREACH 06/04/2020 M54.5 Low back pain Shauna Nava, DIRECTOR OF OUTREACH 05/28/2020 M43.16 Spondylolisthesis, lumbar region Anai Scee P.T.A. 05/28/2020 M54.5 Low back pain Anai Scee P.T .A. 05/23/2020 M43.16 Spondylolisthesis, lumbar region Shauna Nava, DIRECTOR OF OUTREACH 05/23/2020 M54.5 Low back pain Shauna Nava, DIRECTOR OF OUTREACH 05/14/2020 M43.16 Spondylolisthesis, lumbar region Kvng MarquezCruz Cook P.T. 05/14/2020 M54.5 Low back pain Kvng MarquezCruz Cook P .T. 05/09/2020 M43.16 Spondylolisthesis, lumbar region Anai Scee P.T.A. 05/09/2020 M54.5 Low back pain Anai Scee P.T .A. 05/04/2020 M43.16 Spondylolisthesis, lumbar region Kvng MarquezCruz Cook P.T. 05/04/2020 M54.5 Low back pain Kvng MarquezCruz Cook P .T. 04/24/2020 M43.16 Spondylolisthesis, lumbar region Ryan Potts MD 04/24/2020 M51.36 Other intervertebral disc degene ration, lumbar region Ryan Potts MD 04/24/2020 M16.0 Bilateral primary osteoarthritis of hip Ryan Potts MD Plan of Treatment 08/16/2020 - Bianca Villareal MD* Z47.1 Aftercare following joint replacement surgery * Z96.653 Presence of artificial knee joint, bilateral* Follow up:* 2 years monica knee recheck with [facility] Functional Status Description No Information Available Mental Status Description No Information Available Referrals Refer to Dr Reason for Referral Status Appt Date Tony العلي Pac PT - 39 ADDITIONAL VISITS FO R LS TO TOTAL MAX OF 40 PER YR. SS Created [address] [place] [address] [address] [place] [address] [phone] Tony العلي Pac Physical therapy evaluation authorization [id number] [facility] 07/18/20 FOR Low back. Patient coming here, passed to PT Dept. AC Created [address] [facility] [address] [place] [address] [phone]
--- OUTSIDE RECORDS SUMMARY | 2020-11-08 | CCD ---
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 Sees dermatology provider every 6 months. Problem Hypertension I10 Active 83858349 On benazep ril, amlodipine, HCTZ and Cardura (Lotrel was refused by his insurance company despite the fact that it is generic) until he saw a pulmonary nurse practitioner in Fall 2018. His benazepril and hydrochlorothiazide were replaced by losartan and his Cardura dose was reduced. Hydrochlorothiazide was stopped because of his history of gout. Has no endorgan complications. BP control today is acceptable. Amlodipine dose was increased to 10 mg daily as of 09/2016. He does monitor home readings also. Problem Lesion of lung R91.[address] of c hest abnormal since 03/2010 [...] followup. 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 He has not been interested in obtaining hearing aids. Problem Elevated fasting glucose R73.01 Active 2120494 07 His fasting glucose was 85 with a hemoglobin A1c of 5.6% in March 2019, and FBS was 109 in 03/2020 with unavailable HgbA1c. His fasting glucose has been higher in the past, and a nonfasting glucose (he had soda an hour or 2 before the test) was 108 in September 2019. Problem Personal history of prostate cancer Z85.46 Acti ve 454257838 Prostate cancer, diagnosed on basis of elevated PSA in October 2010, Rita score 6, treated with robotic prostatectomy and radiation therapy, with a PSA that was essentially undetectable in March 2020. Problem Alcohol dependence F10.20 Active 13978583 He w as again advised to reduce his alcohol intake. Problem Fatty liver K76.0 Active 910119166 Has a hist ory of liver function [...] in the past. Problem Dysphagia R13.10 Active 45423302 Had a Schatzk i's ring in 1998, 2009. Last EGD 2009. He has been on a PPI since. Problem Dysthymia F34.1 Active 56980358 He has had a history of irritability and sleep disruption and Paxil and trazodone have been of some benefit. I did increase his dose of trazodone as of September 2016 to improve his sleep pattern. Problem Hypercholesterolemia E78.00 Active 59123690 He has an elevated cholesterol but his HDL is very high. I suspect this is because he drinks too much alcohol. LDL is at target as of February 2015, February 2016, March 2017, March 2018, March 2019, 03/2020. Problem Other chronic pain G89.29 Active 18970547 Problem Osteoarthritis M19.90 Active 214687813 Had monica ateral TKR's. Walk or bicycle to tolerance. Has back issues also. On Vicodin occasionally, and [id number] NSAID therapy. He has taken gabapentin in the past. He has had pain clinic interventions for his back pain in Fall 2018, proceeded by thoracic and lumbar MRI studies, and he only found transient benefit but also found the cost of these interventions to be prohibitive. 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 Problem Gastroesophageal reflux K21.9 Active 35787417 4 On Omeprazole therapy. Patient has controlled heartburn. Last endoscopy done Summer 2009. Problem Gout M10.9 Active 78035570 Uric acid contr olled on medication (last uric acid level was less than 4 in March 2020). Takes Allopurinol. No flares on medication. Problem Forgetfulness R68.89 Active 30655272 TSH was n ormal in September 2017. A B12 and folate level were normal in 2017. He has no overt evidence of dementia. Problem History of Lyme disease Z86.19 Active 35796299 7 Lyme titers and followup were pursued in late 2011 to 09/2012. See note from ID specialist. Problem Gross hematuria R31.0 Active 862528445 Occurs intermittently and has been evaluated by urologist. Had a prior cystoscopy and most recently a CT in 05/2018. 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 Problem Myalgia, other site M79.18 Active 16952685 ALLERGIES Allergen (clinical drug ingredient) Drug/Non Drug Allergy do cumented on EMR Reaction Allergy Type Onset Date Status Doxycycline Calcium pt unable to recall Drug Allergy Active nadolol Corgard([facility] Code:[address]-54) pt unable to recall Drug A llergy Active celecoxib Celebrex([place] Code:[address]-47) pt unable to recall Drug Allergy Active ENCOUNTERS from 1945 to 2020-08-28 Encounter Location Date Provider Diagnosis [address] [address] [facility]ine Route Administration Date Status Influenza (Pharmacy [...] 5-325 MG 1 tablet Orally, I- Stop #[id number] every 6 hrs as needed for pain. [...] Information RESULTS No Results REASON FOR VISIT PA hydrocodone-acetaminohen 5-325mg tab MEDICAL (GENERAL) HISTORY Type Description Date Medical [...] No Information FUNCTIONAL STATUS No Information ASSESSMENTS No Information PLAN OF TREATMENT Medication Medication Name Sig Start Date Stop Date Omeprazole 20 mg 2 capsule Orally Once a day for 90 Allopurinol 300 MG 1 tablet Orally Once a day for 90 TraZODone HCl 150 MG 1 tablet Orally Once a day at bedtime for 9 0 Hydrocodone-Acetaminophen 5-325 MG 1 tablet Orally, I- Stop #[id number] every 6 hrs as needed for pain. MDD=4 for 30 day(s) Aug, Next Appt Details Provider Name:Sergio Cortez, 2020-10-10 03 :30:00 PM, [address] [place], [address], Insurance Providers Payer Name Payer Address Payer Phone Insured Name Patient Relati onship to Insured Coverage Start Date Coverage End Date MEDICARE COMPLETE [facility] [address] [address] [facility] [id number] MODESTA GERMAN
[2020-11-08] MEDS ORDERED: DULO1CAP5 (00:06)
[2020-11-08] MEDS ORDERED: LOSA100T50 (00:06)
[2020-11-08] MEDS ORDERED: MORPHINE 4 MG/ML 1ML VIAL/SYRINGE (J2270) IV ONE (01:00)
[2020-11-08] MEDS ORDERED: ONDANSETRON 4MG/2ML VIAL IV ONE (01:00)
[2020-11-08 01:08] LABS: BASO % 0.2 % (0.0-1.0); HEMATOCRIT 42.1 % (42.0-52.0); HEMOGLOBIN 13.9 g/dl (13.5-17.5); LYMPH # 0.4 10^3/uL (1.5-5.0); LYMPH % 2.4 % (24.0-44.0); MEAN CORPUSCULAR HEMOGLOBIN 29.6 pg (27.0-33.0); MEAN CORPUSCULAR VOLUME 89.8 fl (80.0-96.0); MONO # 1.4 10^3/uL (0.0-0.8); MONO % 8.2 % (2.0-8.0); NEUTROPHILS # 14.8 10^3/uL (1.5-8.5); NEUTROPHILS % 88.7 % (36.0-66.0); PLATELET COUNT, AUTOMATED 297 10^3/uL (150-450); RED BLOOD COUNT 4.69 10^6/uL (4.30-6.10); WHITE BLOOD COUNT 16.6 10^3/uL (4.0-10.0)
[2020-11-08 01:17] LABS: INR 0.94; PROTHROMBIN TIME 12.8 SECONDS (12.5-14.3)
[2020-11-08 01:18] LABS: PARTIAL THROMBOPLASTIN TIME 29.2 SECONDS (24.2-38.5)
--- NOTE | 2020-11-08 01:18 | REPVR ---
PROCEDURE INFORMATION: Exam: XR Chest, 1 View Exam date and time: 11/08/2020 12:18 AM Age: 75 years old Clinical indication: Other: Ap; Additional info: Abdominal pain TECHNIQUE: Imaging protocol: XR of the chest Views: 1 view. COMPARISON: No relevant prior studies available. FINDINGS: Lungs: Unremarkable. No consolidation. Pleural spaces: Unremarkable. No pleural effusion. No pneumothorax. Heart/Mediastinum: Unremarkable. No cardiomegaly. Bones/joints: Unremarkable. IMPRESSION: No acute findings. Electronically signed by: Konrad Krishna On 11/08/2020 01:19:29 AM
[2020-11-08] MEDS ORDERED: ISOVUE-370 76% 100ML VIAL As Ordered ONE (01:25)
--- OUTSIDE RECORDS SUMMARY | 2020-11-08 01:25 | CCD ---
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 If you continue you may have access to information: Regarding HIV / AIDS; Provided by facilities licensed or operated by the [facility] Office of Mental Health; or Provided by the [facility] Office for People With Developmental Disabilities. If such information is present, then the following [facility] mandated warning applies: This information has [...] Description Data Source(s) Unknown Unknown Problem MEDENT ([facility]) 3 BROTHERS Unknown Male Problem MEDENT ([facility]) Unknown Male Problem MEDENT ([facility]) Unknown Male Problem MED[facility] ([facility]) Unknown Male Problem MEDENT ([facility] ) Encounters Encounter Providers Location Date Indications Data Source(s ) Outpatient Attender: DAVID SANCHEZ MD Main Office 10/10/2020 08:00:00 AM EST [facility] ([facility]) Out[place] [address] [facility] [address] 10/10/2020 12:00:00 AM EST eCW1 ([facility]) Unknown [address] [facility] [place] [address] 08/28/2020 12:00:00 AM EST eCW1 ([facility]) Unknown [address] [facility] [place] [address] 08/27/2020 12:00:00 AM EST eCW1 ([facility]) Outpatient Attender: Tosha Villareal MD Physical Therap y 08/16/2020 07:30:00 AM EST MEDENT ([facility]) Unknown [address] [facility] [place] [address] 06/25/2020 12:00:00 AM EDT eCW1 ([facility]) Outpatient Attender: Robert Otoole MD [place] 06/20 10:40:00 AM EDT [facility] Unknown [address] [facility] [address] 06/13/2020 12:00:00 AM EDT eCW1 ([facility]) Outpatient Attender: Ryan Potts MD Physical Therapy 04/24/2020 1 0:30:00 AM EDT MED[facility] ([facility] ) [place] [address] [facility] [address] 03/27/2020 12:00:00 AM EDT eCW1 ([facility]) Outpatient Attender: Robert Coleman[facility] 03/02 11:50:00 AM EDT MED[facility] ([facility]) Outpatient Referrer: Robert Otoole MD 02/28/2020 09:50:00 AM EDT [facility] Outpatient Referrer: Robert Otoole MD 02/28/2020 09:50:00 AM EDT [facility] Outpatient Referrer: Robert Otoole MD 02/17/2020 10:28:00 AM EDT [facility] Outpatient Referrer: Robert Otoole MD 02/15/2020 04:02:00 PM EDT [facility] Outpatient Attender: Robert Coleman/ [facility] 02/14 02:30:00 PM EDT MEDENT ([facility] [place] [address] [facility] [address] 10/11/2019 12:00:00 AM EST eCW1 ([facility]) Immunizations Vaccine Date Status Description Data Source(s) INFLUENZA VIRUS VACCINE QUADRIVAL SPLIT 2020-(65 YR UP)/PF 06/28/2020 12:00:00 AM EDT completed [facility] IIV3. This is one of two codes replacing CVX 15, which is being retired. 06/25/2020 03:39:00 PM EDT completed eCW1 ([facility]) Medications Medication Brand Name Start Date Product [...] 12:00:00 AM EST ORAL active [facility] ([facility]) 10 mg 09/10/2020 12:00:00 AM EST tablet [...] {tablet} active Hydrocodone -Acetaminophen 5-325 MG eCW1 ([facility]) Acetaminophen 325 MG / Hydrocodone Coleman trate 5 MG Oral Tablet Hydrocodone- Acetaminophen 5-325 MG Hydrocodone-Acetaminophen 5-325 MG 08/27/2020 12:00:00 AM EST 1.0 {tablet} active Hydrocodone -Acetaminophen 5-325 MG eCW1 ([facility]) Acetaminophen 325 MG / Hydrocodone Coleman trate 5 MG Oral Tablet Hydrocodone- Acetaminophen 5-325 MG Hydrocodone-Acetaminophen 5-325 MG 08/27/2020 12:00:00 AM EST 1.0 {tablet} active Hydrocodone -Acetaminophen 5-325 MG eCW1 ([facility]) 100 mg 08/01/2020 12:00:00 AM EST tablet [...] {tablet} active Hydrocodone -Acetaminophen 5-325 MG eCW1 ([facility]) 5-325 mg 03/27/2020 12:00:00 AM EDT tablet [...] {tablet} active Hydrocodone -Acetaminophen 5-325 MG eCW1 ([facility]) Acetaminophen 325 MG / Hydrocodone Coleman trate 5 MG Oral Tablet Hydrocodone- Acetaminophen 5-325 MG Hydrocodone-Acetaminophen 5-325 MG 03/27/2020 12:00:00 AM EDT 1.0 {tablet} active Hydrocodone -Acetaminophen 5-325 MG eCW1 ([facility]) 5-325 mg 03/20/2020 12:00:00 AM EDT tablet 28 TAKE ONE TABLET BY MOUTH EVERY 6 HOURS NEEDED FOR PAIN , MAXIMUM DAILY DOSE = 4 TABLETS TAKE ONE TABLET BY MOUTH EVERY 6 HOURS NEEDED FOR PAIN , MAXIMUM DAILY DOSE = 4 TABLETS SOLD: 03/22/2020 [facility] Ciprofloxacin 250 MG Oral Tablet [Cipro] Cipro 03/02/2020 12:00: 00 AM EDT ORAL completed [facility] ([facility] [place]) 300 mg 03/01/2020 12:00:00 AM EDT tablet [...] type / Coverage type Policy ID Covered democrat ID Covered democrat's relationship to toribio Policy Tor[place]io Plan Information MEDICARE COMPLETE [id number] SP [id number] MEDICARE COMPLETE [id number] SP [id number] SELF PAY ONLY [id number] SP [id number] SELF PAY ONLY [id number] SP [id number] MEDICARE COMPLETE-UHC O [id number] S [id number] MEDICARE COMPLETE [id number] SP [id number] MEDICARE COMPLETE-UHC O [id number] S [id number] MEDICARE COMPLETE [id number] SP [id number] ANS-Medicare Part B [id number] ANSI-Medicare Part B [id number] Unitedhealthcare Medicare Commercial [id number] Self [id number] ANS-Medicare Part B [id number] ANSI-Medicare Part B [id number] [facility] MEDICARE COMPLETE G [id number] Self [id number] ANSI-Medicare Part B [id number] ANSI-Medicare Part B [id number] ANSI-Medicare Part B [id number] UNITED MEDICARE COMPLETE G [id number] Self [id number] ANSI-Medicare Part B [id number] ANSI-Medicare Part B [id number] Secure Horizon Commercial [id number] Self [id number] [facility] Medicare Solutions Commercial [id number] Self [id number] Tod[employer] Medigap Part B [id number] Self [id number] Travelers ([place]) Workers Compensation [id number] Self [id number] Aetna Insurance Medigap Part B [id number] Self [id number] [facility] ([facility]) Medigap Part B [id number] Self [id number] Travelers Ins ([place]) Workers Compensation [id number] Self [id number] [employer] Medigap Part B [id number] Self [id number] Travelers Ins ([place]) Workers Compensation Self MEDICARE COMPLETE [id number] SP [id number] [facility] MCR Solutions-Advant[employer] Commercial Self Secure Horizon Commercial Self Unitedhealthcare Medicare Commercial [id number] Self [id number] Aetna Insurance Medigap Part B Self Todays Options Medigap Part B Self [employer] ([facility]) Commercial [id number] Self [id number] MEDICARE COMPLETE-[facility] O [id number] S [id number] 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 Problem 06/20/2020 12:00:00 AM EDT [facility] ([facility]) [id number] Urge incontinence of urine Urge incontinence of urine Problem 06/20/2020 12:00:00 AM EDT [facility] ([facility]) Ventral hernia without obstruction or ga ngrene Ventral hernia without obstruction or gangrene Problem 02/15/2020 12:00:00 AM EDT [facility] ([facility] [place]) I44.1 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) RADIOLOGIC EXAMINATION KNEE 3 VIEWS 08/16/2020 12:00:0 0 AM EST MEDENT ([facility] ) RADIOLOGIC EXAMINATION KNEE 3 VIEWS 08/16/2020 12:00:0 0 AM EST MEDENT ([facility] ) THERAPEUTIC PX 1/> AREAS EACH 15 MIN EXERCISES 12:00:00 AM EDT MEDENT ([facility] ) MANUAL THERAPY TQS 1/> REGIONS EACH 15 MINUTES 12:00:00 AM EDT MEDENT ([facility]) THERAPEUTIC PX 1/> AREAS EACH 15 MIN EXERCISES 12:00:00 AM EDT MEDENT ([facility] ) MANUAL THERAPY TQS 1/> REGIONS EACH 15 MINUTES 12:00:00 AM EDT [facility] ([facility]) THERAPEUTIC PX 1/> AREAS EACH 15 MIN EXERCISES 12:00:00 AM EDT MED[facility] ([facility] ) MANUAL THERAPY TQS 1/> REGIONS EACH 15 MINUTES 12:00:00 AM EDT MED[facility] ([facility] ) THERAPEUTIC PX 1/> AREAS EACH 15 MIN EXERCISES 12:00:00 AM EDT [facility] ([facility]) THERAPEUTIC PX 1/> AREAS EACH 15 MIN EXERCISES 12:00:00 AM EDT MED[facility] ([facility] ) THERAPEUTIC PX 1/> AREAS EACH 15 MIN EXERCISES 12:00:00 AM EDT MED[facility] ([facility] ) MANUAL THERAPY TQS 1/> REGIONS EACH 15 MINUTES 12:00:00 AM EDT MED[facility] ([facility] ) THERAPEUTIC PX 1/> AREAS EACH 15 MIN EXERCISES 12:00:00 AM EDT MED[facility] ([facility]) THERAPEUTIC PX 1/> AREAS EACH 15 MIN EXERCISES 12:00:00 AM EDT MED[facility] ([facility] ) MANUAL THERAPY TQS 1/> REGIONS EACH 15 MINUTES 12:00:00 AM EDT MED[facility] ([facility] ) THERAPEUTIC PX 1/> AREAS EACH 15 MIN EXERCISES 12:00:00 AM EDT MEDENT ([facility] ) Physical Therapy Eval - Low Complexity 05/04/2020 12:0 0:00 AM EDT MEDENT ([facility] ) X-Ray Spine Lumbosacral Complete Inc Bending Views Min Of 6 04/24/2020 12:00:00 AM EDT MED[facility] ([facility] ) CYSTOURETHROSCOPY 03/02/2020 12:00:00 AM EDT [facility] ([facility]) ELIZABET POST-VOIDING RESIDUAL URINE&/BLDR CAP 02/15/2020 12:00:00 AM EDT MEDENT ([facility]) Results ID Date Data Source [id number] 10/05/2020 09:24:00 AM EST MEDENT ([facility]) Name Value Range Interpretation Code Description Data Mariel rce(s) Supporting Document(s) Cholesterol 158 MEDENT ([facility]) Triglycerides 36 [facility] ([facility]) HDL 99 MEDENT ([facility]) Cholesterol in LDL [Mass/volume] in Serum or Plasma by calculation 52 MEDENT ([facility]) Chol/HDL Ratio 1.595 MEDENT ([facility]) ID Date Data Source [id number] 10/05/2020 09:24:00 AM EST MEDENT ([facility]) Name Value Range Interpretation Code Description Data Mariel rce(s) Supporting Document(s) White Blood Count 7.6 MED[facility] ([facility]) Hemoglobin 12.8 MED[facility] ([facility]) Red Blood Count 4.09 MEDENT ([facility]io [facility]) Platelets 259 [facility] Hematocrit 37.4 MEDENT ([facility]) ID Date Data Source [id number] 10/05/2020 09:24:00 AM EST MEDENT ([facility]) Name Value Range Interpretation Code Description Data Mariel rce(s) Supporting Document(s) Magnesium Level 1.9 MEDENT ([facility]) ID Date Data Source [id number] 10/05/2020 09:24:00 AM EST MEDENT ([facility]) Name Value Range Interpretation Code Description Data Mariel rce(s) Supporting Document(s) Albumin [Mass/volume] in Serum or Plasma 3.3 MEDENT ([facility]) Calcium [Mass/volume] in Serum or Plasma 9.1 MED[facility] ([facility]) Alanine aminotransferase [Enzymatic activity/volume] in Serum or Pl asma 25 MEDENT ([facility]) Chloride [Moles/volume] in Serum or Plasma 101 MEDENT ([facility]) Alkaline phosphatase [Enzymatic activity/volume] in Serum or Plasma 8 3 MED[facility] ([facility]) Carbon dioxide, total [Moles/volume] in Serum or Plasma 30 MED[facility] ([facility]) Sodium 139 [facility] ([facility]) Potassium [Moles/volume] in Serum or Plasma 4.4 MEDENT ([facility]) Protein [Mass/volume] in Serum or Plasma 6.1 MED[facility] ([facility]) Aspartate aminotransferase [Enzymatic activity/volume] in Serum or Plasma 14 MED[facility] ([facility]) Urea nitrogen [Mass/volume] in Serum or Plasma 14 MEDENT ([facility]) Glucose 138 MED[facility] ([facility]) Creatinine For GFR 0.84 MEDENT (Car [facility]) ID Date Data Source [id number] 08/04/2020 12:00:00 AM EST [facility] Name Value Range Interpretation Code Description Data Mariel rce(s) Supporting Document(s) nCoV RNA XXX CYNTHIA+probe-Imp [facility] This lab was ordered by [facility] and reported by [employer] ID Date Data Source [id number] 07/10/2020 12:00:00 AM EDT [facility] Name Value Range Interpretation Code Description Data Mariel rce(s) Supporting Document(s) nCoV RNA XXX CYNTHIA+probe-Imp [facility] and reported by [employer] ID Date Data Source [id number] 06/20/2020 10:53:00 AM EDT [facility] ([facility]) Name Value Range Interpretation Code Description Data Mariel rce(s) Supporting Document(s) Protein [Presence] in Urine by Test strip Laboratory test result [facility] ([facility]) Glucose [Presence] in Urine Laboratory test result [facility] ([facility]) Ua Nitrite Laboratory test result [facility] ([facility]) Ua Leuko Laboratory test result [facility] ([facility]) Blood [Presence] in Urine by Visual Laboratory test result [facility] ([facility]) Ketones [Presence] in Urine by Test strip Laboratory test result [facility] ([facility]) Clarity of Urine Laboratory test result [facility] ([facility]) Color of Urine Laboratory test result [facility] ([facility]) Bilirubin.total [Presence] in Urine by Test strip Laboratory test res ult [facility] ([facility]) Ua Specific [place] 1.025 1.003-1.030 MEDE NT ([facility]) pH of Urine by Test strip 6.5 5.0-7.5 [facility] ([facility]) Urobilinogen [Mass/volume] in Urine by Test strip 0.2 E.U./dL 0.0-1.0 [facility] ([facility]) ID Date Data Source [id number] 06/14/2020 09:08:00 AM EDT [facility] ([facility]) Name Value Range Interpretation Code Description Data Mariel rce(s) Supporting Document(s) Prostate specific Ag [Mass/volume] in Serum or Plasma Laboratory test result [facility] ([facility]) ID Date Data Source [id number] 03/02/2020 02:46:00 PM EDT MED[facility] ([facility]) Name Value Range Interpretation Code Description Data Mariel rce(s) Supporting Document(s) Specimen Adequacy Laboratory test result [facility] ([facility]) Satisfactory for evaluation. Clinical History Laboratory test result [facility] ([facility]) R31.0 Gross Description Laboratory test result [facility] ([facility]) Received in a specimen container, labele d with the patients name and , is Clear Yellow fluid consistent with urine, measuring approximately 80 ml. Microscopic Description Laboratory test result [facility] ([facility]) BodySite Laboratory test result [facility] ([facility]) Voided - Clean Catch CPTCode 15695 [facility] ([facility]) [id number] Laboratory test result [facility] ([facility]) Final Diagnosis Laboratory test result [facility] ([facility]) NEGATIVE FOR HIGH-GRADE UROTHELIAL CARCI NOMA. PDF Report Laboratory test result [facility] ([facility]) ID Date Data Source [id number] 03/02/2020 02:46:00 PM EDT MED[facility] ([facility]) Name Value Range Interpretation Code Description Data Mariel rce(s) Supporting Document(s) Cytology report of Urine Cyto stain Laboratory test result [facility] ([facility]) ID Date Data Source [id number] 03/02/2020 12:03:00 PM EDT [facility] ([facility]) Name Value Range Interpretation Code Description Data Mariel rce(s) Supporting Document(s) Glucose [Presence] in Urine Laboratory test result [facility] ([facility]) Protein [Presence] in Urine by Test strip Laboratory test result [facility] ([facility]) Ua Leuko Laboratory test result [facility] ([facility]) Ua Nitrite Laboratory test result [facility] ([facility]) Ketones [Presence] in Urine by Test strip Laboratory test result [facility] ([facility]) Blood [Presence] in Urine by Visual Laboratory test result [facility] ([facility]) Color of Urine Laboratory test result [facility] ([facility] [place]) Clarity of Urine Laboratory test result [facility] ([facility]) Ua Specific [place] 1.025 1.003-1.030 MEDE NT ([facility]) Urobilinogen [Mass/volume] in Urine by Test strip 0.2 E.U./dL 0.0-1.0 [facility] ([facility]) pH of Urine by Test strip 5.5 5.0-7.5 [facility] ([facility] [place]) Bilirubin.total [Presence] in Urine by Test strip Laboratory test res ult [facility] ([facility]) ID Date Data Source [id number] 02/28/2020 12:00:00 AM EDT [facility] Robert Otoole MD Patient Name: MODESTA [id number] Date of : 1945[place] [id number] Date of Exam: 02/28/2020PH#: Fax: [phone] EXAM: [...] I simple left renal cyst.Accredited by the [employer] in [place].LIZ Montiel/Meenakshi russell for referring MODESTA GERMAN to our office.Electronically Signed - LANDON LEGGETT DO 02/29/20 13:25 Name Value Range Interpretation Code Description Data Mariel rce(s) Supporting Document(s) ID Date Data Source [id number] 02/15/2020 03:49:00 PM EDT [facility] ([facility]) Name Value Range Interpretation Code Description Data Mariel rce(s) Supporting Document(s) Clinical History Laboratory test result [facility] ([facility]) R31.0 Specimen Adequacy Laboratory test result [facility] ([facility]) Satisfactory for evaluation. BodySite Laboratory test result [facility] ([facility]) Voided - Clean Catch Final Diagnosis Laboratory test result [facility] ([facility]) NEGATIVE FOR HIGH-GRADE UROTHELIAL CARCI NOMA. Gross Description Laboratory test result [facility] ([facility]) Received in a specimen container, labele d with the patients name and , is Cloudy Yellow fluid consistent with urine, measuring approximately 60 ml. Microscopic Description Laboratory test result [facility] ([facility]) PDF Report Laboratory test result [facility] ([facility]) [id number] Laboratory test result [facility] ([facility]) CPTCode 64435 [facility] [place]) ID Date Data Source [id number] 02/15/2020 03:06:00 PM EDT [facility] ([facility]) Name Value Range Interpretation Code Description Data Mariel rce(s) Supporting Document(s) Glucose [Mass/volume] in Serum or Plasma 91.0 mg/dL 70.0-99.0 [facility] ([facility]) Creatinine [Mass/volume] in Serum or Plasma 0.96 mg/dL 0.72-1.25 [facility] ([facility]) Carbon dioxide, total [Moles/volume] in Serum or Plasma 26.0 mmol/L 22.0-31.0 [facility] ([facility]) BUN/Creat Ratio 10.4 MEDENT (Associ [facility]ed [facility]) Calcium [Mass/volume] in Serum or Plasma 9.1 mg/dL 8.4-10.2 [facility] ([facility]) Urea nitrogen [Mass/volume] in Serum or Plasma 10.0 mg/dL 7.0-24.0 [facility] ([facility]) K 4.4 mmol/L 3.6-5.2 [facility] ([facility]) Sodium [Moles/volume] in Serum or Plasma 140.0 mmol/L 136.0-145.0 [facility] ([facility]) Anion gap in Serum or Plasma 16.4 [facility] ([facility]) Chloride [Moles/volume] in Serum or Plasma 102.0 mmol/L 98.0-108.0 [facility] ([facility]) eGFR - Descent 90.1 [facility] ([facility]) eGFR -- Non- Descent 74.4 [facility] ([facility]) ID Date Data Source [id number] 02/15/2020 03:06:00 PM EDT [facility] ([facility]) Name Value Range Interpretation Code Description Data Mariel rce(s) Supporting Document(s) WBC 7.3 X10*3/uL 4.1-11.0 [facility] ([facility] d [facility]) RBC 4.4 x10*6/Ul 4.6-6.1 [facility] ([facility]) Hemoglobin [Mass/volume] in Blood 14.0 g/dL 13.5-18.0 [facility] ([facility]) Hematocrit [Volume Fraction] of Blood by Automated count 42.7 % 4 1.0-53.0 [facility] ([facility]) MCV 96.9 fL 79.9-95.1 [facility] ([facility]) MCHC 32.9 g/dL 32.0-36.0 [facility] ([facility]) RDW 13.4 % 10.5-14.5 [facility] ([place] [facility]) MCH 31.8 pg 27.0-32.0 [facility] ([facility]) %N 64.1 % 35.0-75.0 [facility] ([facility]) MPV 6.7 fL 7.1-10.7 [facility] ([facility]) PLT 221.4 10*3/uL 150.0-450.0 [facility] ([facility] [place]) %L 18.7 % 16.0-52.0 [facility] ([facility]) %E 1.8 % 0.0-5.0 [facility] ([facility]) %M 13.8 % 0.0-8.0 [facility] ([facility]) Siddharth 4.7 10*3/uL 1.8-7.7 [facility] ([facility]) %B 1.6 % 0.0-4.0 [facility] ([facility]) Lym 1.4 10*3/uL 1.2-4.8 [facility] ([facility]) Eos 0.1 10*3/uL 0.0-0.4 [facility] ([facility]) [place] 1.0 10*3/uL 0.0-0.8 [facility] ([facility]) Baso 0.1 10*3/uL 0.0-0.2 [facility] ([facility]) ID Date Data Source [id number] 02/15/2020 02:35:00 PM EDT [facility] ([facility]) Name Value Range Interpretation Code Description Data Mariel rce(s) Supporting Document(s) Protein [Presence] in Urine by Test strip Laboratory test result [facility] ([facility]) Glucose [Presence] in Urine Laboratory test result [facility] ([facility]) Ua Nitrite Laboratory test result ME DENT ([facility]) Color of Urine Laboratory test result [facility] ([facility]) Blood [Presence] in Urine by Visual Laboratory test result [facility] ([facility]) Ua Leuko Laboratory test result ME DENT ([facility]) Ketones [Presence] in Urine by Test strip Laboratory test result [facility] ([facility]) Clarity of Urine Laboratory test result [facility] ([facility]) Ua Specific [place] 1.020 1.003-1.030 MEDE NT ([facility]) Bilirubin.total [Presence] in Urine by Test strip Laboratory test res ult [facility] ([facility] [place]) pH of Urine by Test strip 5.5 5.0-7.5 [facility] ([facility] [place]) Urobilinogen [Mass/volume] in Urine by Test strip 0.2 E.U./dL 0.0-1.0 [facility] ([facility] [place]) ID Date Data Source [id number] 01/19/2020 12:55:00 PM EDT [facility] Name Value Range Interpretation Code Description Data Mariel rce(s) Supporting Document(s) SARS CORONAVIRUS 2 RNA [facility] This lab was ordered by [facility] and reported by [facility]. Procedure Social History Code Duration Value Status Description Data Source(s ) Smoking 10/10/2020 12:00:00 AM EST Never Smoker completed Never S moker eCW1 (Formerly [facility]) Smoking 10/10/2020 12:00:00 AM EST Patient has never smoked co mpleted Patient has never smoked [facility] ([facility]) Smoking 06/20/2020 12:00:00 AM EDT chewed for 5-6 years/quit 2 005 completed chewed for 5-6 years/quit 2004 [facility] ([facility]) Smoking 06/20/2020 12:00:00 AM EDT Former Cigarette Smoker com pleted Former Cigarette Smoker [facility] ([facility]) Smoking 10/11/2019 12:00:00 AM EST Never Smoker completed Never S moker eCW1 (Formerly [facility]) Smoking 10/11/2019 12:00:00 AM EST Never Smoker completed Never S moker eCW1 (Formerly [facility]) Smoking 10/11/2019 12:00:00 AM EST Never Smoker completed Never S moker eCW1 (Formerly [facility]) Smoking 10/11/2019 12:00:00 AM EST Never Smoker completed Never S moker eCW1 (Formerly [facility]) Smoking 10/11/2019 12:00:00 AM EST Never Smoker completed Never S moker eCW1 (Formerly [facility]) Vital Signs ID Date Data Source [id number] Name Value Range Interpretation Code Description Data Source(s) Diastolic blood pressure 62 mm[Hg] 62 mm[Hg] eCW1 (Formerly [facility]) Systolic blood pressure 112 mm[Hg] 112 mm[Hg] e CW1 (Formerly [facility]) Body temperature 97.8 [degF] 97.8 [degF] eCW1 ( Formerly [facility]) Respiratory rate 18 /min 18 /min eCW1 (Count includes the [facility]) Heart rate 79 /min 79 /min eCW1 ([facility]) Body mass index (BMI) [Ratio] 26.99 kg/m2 26.99 kg/m2 eCW1 (Formerly [facility]) Body height 72 [in_i] 72 [in_i] eCW1 ([facility]) Body weight 199.0 [lb_av] 199.0 [lb_av] eCW1 ([facility]) Diastolic blood pressure--sitting 66 mm[Hg] 66 mm[Hg] [facility] ([facility]) [place], adult cuff/Ra Systolic blood pressure--sitting 146 mm[Hg] 146 mm[Hg] MED[facility] ([facility]) [place], adult cuff/Ra Heart rate 81 /min 81 /min [facility] ([facility]) Body mass index (BMI) [Ratio] 27.0 kg/m2 27.0 k g/m2 [facility] ([facility]) Body height 71.5 [in_i] 71.5 [in_i] [facility] ([facility]) 5'11.50" Body weight 196.00 [lb_av] 196.00 [lb_av] MEDEN T ([facility]) Body mass index (BMI) [Ratio] 27.1 kg/m2 27.1 k g/m2 MED[facility] ([facility] ) Body weight 194.19 [lb_av] 194.19 [lb_av] MEDEN T ([facility]) Body height 71 [in_i] 71 [in_i] [facility] ([facility]) 5'11" Body temperature 96.8 [degF] 96.8 [degF] [facility] ([facility] ) Body mass index (BMI) [Ratio] 26.2 kg/m2 26.2 k g/m2 [facility] ([facility]) Body weight 185.00 [lb_av] 185.00 [lb_av] MEDEN T ([facility]) Body height 70.5 [in_i] 70.5 [in_i] [facility] ([facility]) 5'10.50" Body temperature 97.5 [degF] 97.5 [degF] [facility] ([facility]) Body temperature 97.8 [degF] 97.8 [degF] [facility] ([facility]) Heart rate 73 /min 73 /min [facility] ([facility] [place]) Diastolic blood pressure 86 mm[Hg] 86 mm[Hg] [facility] ([facility] [place]) Systolic blood pressure 169 mm[Hg] 169 mm[Hg] M EDANTON ([facility] [place]) Body mass index (BMI) [Ratio] 27.1 kg/m2 27.1 k g/m2 [facility] ([facility] [place]) Body weight 90.720 kg 90.720 kg [facility] ([facility] [place]) Body weight 200.00 [lb_av] 200.00 [lb_av] MEDEN T ([facility] [place]) Body height 72 [in_i] 72 [in_i] [facility] ([facility] [place]) 6'0" Body height 72 [in_i] 72 [in_i] [facility] ([facility] [place]) 6'0" Body temperature 97.7 [degF] 97.7 [degF] [facility] ([facility] [place]) Heart rate 72 /min 72 /min [facility] ([facility] [place]) Diastolic blood pressure 84 mm[Hg] 84 mm[Hg] [facility] ([facility] [place]) Systolic blood pressure 141 mm[Hg] 141 mm[Hg] M EDENT ([facility] [place]) Patient Treatment Plan of Care Planned Activity Planned Date Details Description Data Source (s) Acetaminophen 325 MG / Hydrocodone Bitartrate 5 MG Ora l Tablet 08/27/2020 12:00:00 AM EST eCW1 ([facility]) Acetaminophen 325 MG / Hydrocodone Bitartrate 5 MG Ora l Tablet 08/27/2020 12:00:00 AM EST eCW1 ([facility]) Acetaminophen 325 MG / Hydrocodone Bitartrate 5 MG Ora l Tablet 03/27/2020 12:00:00 AM EDT eCW1 ([facility]) Acetaminophen 325 MG / Hydrocodone Bitartrate 5 MG Ora l Tablet 03/27/2020 12:00:00 AM EDT eCW1 ([facility]) Acetaminophen 325 MG / Hydrocodone Bitartrate 5 MG Ora l Tablet 03/27/2020 12:00:00 AM EDT eCW1 ([facility])
[2020-11-08 01:34] LABS: ALBUMIN 3.5 GM/DL (3.2-5.2); ALT/SGPT 29 U/L (12-78); BILIRUBIN,DIRECT 0.3 MG/DL (0.0-0.2); BILIRUBIN,TOTAL 0.8 MG/DL (0.2-1.0); BLOOD UREA NITROGEN 21 MG/DL (7-18); CALCIUM LEVEL 9.3 MG/DL (8.8-10.2); CARBON DIOXIDE LEVEL 27 MEQ/L (21-32); CHLORIDE LEVEL 98 MEQ/L (98-107); CK-MB VALUE MASS 2.6 NG/ML (<3.6); CPK CREATINE PHOSPHOKINASE 78 U/L (39-308); CREATININE FOR GFR 1.05 MG/DL (0.70-1.30); GLOMERULAR FILTRATION RATE > 60.0 (>42); GLUCOSE, FASTING 225 MG/DL (70-100); LIPASE 91 U/L (73-393); MB/CK RELATIVE INDEX 3.33 (< OR =4); POTASSIUM SERUM 3.9 MEQ/L (3.5-5.1); SODIUM LEVEL 134 MEQ/L (136-145); TOTAL PROTEIN 6.8 GM/DL (6.4-8.2); TROPONIN I < 0.02 NG/ML (< 0.10)
--- NOTE | 2020-11-08 01:58 | REPVR ---
PROCEDURE INFORMATION: Exam: CT Abdomen And Pelvis With Contrast Exam date and time: 11/08/2020 12:56 AM Age: 75 years old Clinical indication: Abdominal pain; Generalized; Additional info: Rule out small bowel obstruction TECHNIQUE: Imaging protocol: Computed tomography of the abdomen and pelvis with contrast. Radiation optimization: All CT scans at this facility use at least one of these dose optimization techniques: automated exposure control; mA and/or kV adjustment per patient size (includes targeted exams where dose is matched to clinical indication); or iterative reconstruction. Contrast material: ISO; Contrast volume: 100 ml; Contrast route: INTRAVENOUS (IV); COMPARISON: CT ABD PELVIS W/O FOL BY WIT 06/11/2018 7:46 AM FINDINGS: Mediastinal space: Small hiatal hernia. The esophagus is dilated. Liver: Hepatic steatosis. No liver masses. Gallbladder and bile ducts: Normal. No calcified stones. No ductal dilation. Pancreas: Normal. No ductal dilation. Spleen: Normal. No splenomegaly. Adrenal glands: Normal. No mass. Kidneys and ureters: Normal. No hydronephrosis. Stomach and bowel: The stomach is dilated with fluid. There are multiple enhancing polyps in the gastric lumen. The largest in the gastric cardia measure up to 3.0 cm. At least 8 polyps are visualized in the stomach. No gastric perforation or ulcers. The duodenum and small bowel are diffusely dilated with fluid with an abrupt transition point in the left upper quadrant (images 60-66 of series 201 and images 29-31 of series 202). There is twisting of small bowel with 2 adjacent points of narrowing concerning for a closed loop obstruction. Mild mesenteric edema in the region of the obstruction. Small bowel distal to this point is completely decompressed. The colon is nondilated. No pneumatosis or portal venous gas. Appendix: No evidence of appendicitis. Intraperitoneal space: Mild free fluid in the pelvis. Vasculature: Unremarkable. No abdominal aortic aneurysm. Lymph nodes: Unremarkable. No enlarged lymph nodes. Urinary bladder: Unremarkable as visualized. Reproductive: Unremarkable as visualized. Bones/joints: There are advanced degenerative changes in the spine and pelvis. Soft tissues: Unremarkable. IMPRESSION: 1. Small-bowel obstruction with suspected closed loop obstruction and transition point in the left upper quadrant. 2. Multiple enhancing polyps in the stomach. 3. Hepatic steatosis. Electronically signed by: Konrad Krishna On 11/08/2020 01:58:18 AM
[2020-11-08] MEDS ORDERED: DOXA4TAB2 PO (02:29)
[2020-11-08] MEDS ORDERED: TRAZ150T90 PO (02:30)
[2020-11-08] MEDS ORDERED: NS 1,000 ML IV SCH (02:30)
[2020-11-08] MEDS ORDERED: DULO1CAP5 PO (02:30)
[2020-11-08] MEDS ORDERED: LOSA100T50 PO (02:30)
[2020-11-08 03:22] LABS: RSV AMPLIFICATION NEGATIVE (NEGATIVE)
--- NOTE | 2020-11-08 03:41 | HPEPDOC ---
[facility] Medical History & Physical Date of Admission Nov 08, 2020 Date of Service: Nov 08, 2020 Primary Care Physician: Sergio Cortez Attending Physician: STARLA REES MD History and Physical CHIEF COMPLAINT: Abdominal pain, Nausea, Vomiting HISTORY OF PRESENT ILLNESS: Patient is a 75-year-old male, past medical history significant for HTN, GERD, OA, HLD, alcohol dependence who presented to the emergency department the evening of 11/07/20 with chief complaints of 24 history of abdominal pain. Patient reports that he awoke at approximately 0300 the morning of 11/08/20. At that time, patient reported 8 out of 10 generalized abdominal pain. He states that he dealt with the pain until approximately 7:00 in the morning at which time he did have a single bowel movement, well formed. Reports that his pain persisted throughout the day. He did have a another well-formed bowel movement at approximately 1500. Thereafter, patient reports being unable to pass gas, increasing abdominal pain, and a single episode of coffee-ground emesis carlos mated to be approximately 300 mL in volume. Patient reports that he did attempt to drink water but continued to vomit. Denies previous episode of SBO or similar symptoms. Upon presentation to the emergency department, patient was found to be afebrile, tachycardic at 109, blood pressure 145/88 and oxygen saturation 96% on room air. CBC significant for a leukocytosis of 16.6, neutrophil predominance. Patient is on a treatment with a sodium of 134, BUN/CR 21/1.05, lactic of 2.4, mild elevation in indirect bilirubin, 0.3. Remaining liver enzymes, card shannon, coags and lipase within normal limits. x did not indicate any acute findings, abdomen/pelvis CT did show small bowel obstruction in the upper left quadrant. Patient was given morphine for his pain, Zofran for his nausea. An NG tube was i nserted and attached to LIS. S/P removal of roughly 1500 cc of dark-colored fluid. General surgery was consulted from the emergency department, scans were reviewed. Per their recommendation, patient to be admitted to the medicine service. Surgery to follow along closely. PAST MEDICAL HISTORY: Hypertension GERD Hypercholesterolemia Osteoarthritis Prostate cancer S/P prostatectomy Fatty liver Alcohol dependence History of malignant melanoma, SCC, BCC Right hip arthritis PAST SURGICAL HISTORY: Spinal fusion, age 21 Right shoulder surgery Carpal tunnel release Right total knee replacement, 1998 Right inguinal hernia repair, 2000 Total left knee replacement and revised right knee, 2001 Robotic prostatectomy, 2010 Umbilical hernia repair, 2010 [place] excision of right cheek, 2014 Excision of basal cell carcinoma and squamous cell carcinoma from back, 2018 ventral hernia repair, 2019 SOCIAL HISTORY: Marital status: 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 REVIEW OF SYSTEMS: CONSTITUTIONAL: As any recent fevers or chills, no changes in weight or appetite. Denies generalized fatigue HEENT: As any headaches, changes in vision, changes in hearing. Patient does use corrective lenses. No difficulty swallowing. CARDIOVASCULAR: Denies any chest pain, palpitations or inappropriate tachycardia RESPIRATORY: Denies any shortness of breath, new cough or wheeze. GASTROINTESTINAL: As mentioned in the HPI, patient reports a 24-hour history of generalized abdominal pain, worsening until presentation. Reports coffee-ground emesis, 1, proximately 2-300 mL. Denies any recent constipation or diarrhea. No history of bloody or dark tarry stools. GENITOURINARY: Ports frequent urination secondary to prostatectomy, no hematuria SKIN: Has any new changing skin lesions, no bruising, rashes MUSCULOSKELETAL: Patient has chronic bilateral knee pain, sometimes requiring narcotics for sleep. Reports pain is poorly controlled. NEUROLOGICAL: Patient does report a history of memory problems, denies any numbness or tingling in his hands and feet or legs, denies weakness or unsteady gait PSYCHIATRIC: No history of anxiety or depression HOME MEDICATIONS: Please see below. PHYSICAL EXAMINATION: VITAL SIGNS: Please see below GENERAL APPEARANCE: Patient was interviewed and examined in the emergency department. Patient was found to be lying flat in bed, resting comfortably. He did not appear to be in any acute distress. Patient was a fair historian, cooperative with examination. HEENT: Normocephalic, atraumatic, bearded, sclera nonicteric, EOMI, NG tube in left nare air, right nare patent, poor oral hygiene, mucous membranes are moist, no JVD or cervical lymphadenopathy, scar noted on left neck CARDIOVASCULAR: Regular rate and rhythm without any murmur appreciated LUNGS: Clear to auscultation, fair air movement ABDOMEN: Soft, nontender, nondistended, multiple hernia repair scars appreciated without any protrusion. No masses. No bowel sounds. MUSCULOSKELETAL: Patient is able to move his upper and lower extremities without any difficulty. Strength 5 out of 5 EXTREMITIES: Scars representing patient's prior knee replacements appreciated bilaterally, no lower extremity edema or calf tenderness bilaterally. Bilateral radial and posterior tibial pulses 2+ NEUROLOGICAL: No focal weakness, sensation intact, no aphasia or dysarthria, no facial droop. PSYCHIATRIC: Affect are appropriate LABORATORY DATA: See below. IMAGING: Chest x-ray (11/08/20): No acute findings. Abdomen/pelvis CT (11/08/20): Small bowel obstruction with suspected closed loop obstruction and transition point in the upper left quadrant. Multiple enhancing polyps in the stomach. Hepatic steatosis. MICROBIOLOGY: Please see below. ASSESSMENT: Patient is a 75-year-old male with a fairly extensive medical history who presented to the emergency department the evening of 11/07/20 with approximately 24 hours of worsening generalized abdominal pain. Patient reports he was able to have 2 bowel movements earlier in the day but since 1500, has been unable to pass gas. Also reported single bout of coffee-ground emesis of approximately 200 mL. In the emergency department, patient was noted to have an SBO per abdomen pelvis CT. Case was discussed with surgery who felt a candidate did not need immediate surgical intervention. NG tube was placed to LIS with removal of approximately 1500 mL of dark-colored fluid. Patient will be admitted for further monitoring. PLAN: #Small bowel obstruction with coffee-ground emesis -NG, LIS, NPO, IVF, Morphine for pain control. Zofran for nausea. -Protonix for CGE, type and screen, suspect PUD. Vitals stable, FOB, monitoring of H/H, endoscopic evaluation. -Close monitoring for flatus and/or BM. Careful monitoring of NG output -Follow am labs, ltyes, replete as necessary -Surgery to follow and we appreciate their assistance in caring for this patient. #Alcohol dependence -5-6 12 oz cans of light beer per day, no history of withdrawl -CIWA protocol #Isolated T.bili elevation -possible Gilbert's, continue to monitor. DVT PROPHYLAXIS: Mechanical CODE STATUS: Full code Vital Signs Vital Signs Date Time Temp Pulse Resp B/P (MAP) Pulse Ox O2 Delivery O2 Flow Rate FiO2 11/08/20 02:59 11/08/20 01:27 20 97 Nasal Cannula 2.0 11/07/20 23:53 97.5 117 Laboratory Data Labs 24H Laboratory Tests 2 11/08/20 00:41: Immature Granulocyte % (Auto) 0.5, Neutrophils (%) (Auto) 88.7H, Lymphocytes (%) (Auto) 2.4L, Monocytes (%) (Auto) 8.2H, Eosinophils (%) (Auto) 0.0, Basophils (%) (Auto) 0.2, Neutrophils # (Auto) 14.8H, Lymphocytes # (Auto) 0.4L, Monocytes # (Auto) 1.4H, Eosinophils # (Auto) 0.0, Basophils # (Auto) 0.0, Nucleated Red Blood Cells % (auto) 0.0, Prothrombin Time 12.8, Prothromb Time International Ratio 0.94, Activated Partial Thromboplast Time 29.2, Anion Gap 9, Glomerular Filtration Rate > 60.0, Lactic Acid Level 2.4*H, Calcium Level 9.3, Total Bilirubin 0.8, Direct Bilirubin 0.3H, Aspartate Amino Transf (AST/SGOT) 15, Alanine Aminotransferase (ALT/SGPT) 29, Alkaline Phosphatase 96, Total Creatine Kinase 78, Creatine Kinase MB 2.6, Creatine Kinase MB Relative Index 3.33, Troponin I < 0.02, Total Protein 6.8, Albumin 3.5, Albumin/Globulin Ratio 1.1, Lipase 91 11/08/20 01:00: POC Glucose (Misc Panel) 226H, POC Sodium (Misc Panel) 134L, POC Potassium (Misc Panel) 3.9, POC Chloride (Misc Panel) 97L, POC Total CO2 (Misc Panel) 25.0, POC Blood Urea Nitrogen (Misc Panel 21, POC Ionized Calcium (Misc Panel) 4.6, POC Creatinine (Misc Panel) 0.8, POC Hematocrit (Misc Panel) 46.0 11/08/20 02:29: Coronavirus (COVID-19)(PCR) NEGATIVE, Influenza Type A (RT-PCR) NEGATIVE, Influe nza Type B (RT-PCR) NEGATIVE, Respiratory Syncytial Virus (PCR) NEGATIVE CBC/BMP Laboratory Tests 11/08/20 00:41 Home Medications Scheduled Allopurinol (Zyloprim) 300 Mg Tab, 300 MG PO DAILY Amlodipine Besylate (Amlodipine Besylate) 10 Mg Tab, 10 MG PO DAILY Doxazosin Mesylate (Doxazosin Mesylate) 4 Mg Tablet, 2 MG PO DAILY Duloxetine Hcl (Duloxetine HCl) 30 Mg Capsule.dr, 30 MG PO DAILY Losartan Potassium (Losartan Potassium) 100 Mg Tablet, 100 MG PO QHS Omeprazole (Omeprazole) 20 Mg Capsule.dr, 40 MG PO QHS Paroxetine HCl (Paroxetine HCl) 20 Mg Tab, 20 MG PO DAILY Trazodone HCl (Trazodone HCl) 150 Mg Tablet, 150 MG PO QHS Scheduled PRN Hydrocodone/Acetaminophen (Hydrocodone-Acetamin 5-325 mg) 1 Tab Tab, 0.5 TAB PO Q6H PRN for PAIN Allergies Coded Allergies: No Known Allergies (Unverified , 06/28/19) A-FIB/CHADSVASC A-FIB History Current/History of A-Fib/PAF?: No Current PO Anticoag Therapy: No GME ATTESTATION GME ATTESTATION My faculty preceptor for this patient encounter was physically present during t he encounter and was fully available. All aspects of the patient interview, examination, medical decision making process, and medical care plan development were reviewed and approved by the faculty preceptor. The faculty preceptor is aware and concurs with the plan as stated in the body of this note and will attest to such by his/her cosignature. ATTENDING NOTE time of service 400am is a 75 yr old M w a hx of abdominal surgeries, gout and HTN who presented w c/o abdominal pain, obstipation and coffee ground emesis; CT showed SBO. He will be admitted for #Sepsis likely GI source - Zosyn & IVF / f/u blood cx # SBO - NPO, IVF, c/w 's evaluation # Upper GI bleed - IV PPI, f/u serial Hg and iron studies rest per 's H&P CHARLEY RAMOS DO Nov 08, 2020 03:41 STARLA REES MD Nov 08, 2020 07:14
[2020-11-08] MEDS: NS 1,000 ML IV SCH ×3 (03:48→23:30)
[2020-11-08] MEDS: PANTOPRAZOLE SODIUM 40 MG in D5W 50 ML IV SCH ×5 (03:48→23:30)
--- OUTSIDE RECORDS SUMMARY | 2020-11-08 04:10 | CCD ---
Author Author [facility] Organization [facility] Address Unknown Phone Unavailable Care Team Providers Care Salt Miner Name Role Phone NAYANOL, Karson HERNANDEZ MD [...] is protected by Article 27-F of the [facility] Public Health law. If you continue you may have access to information: Regarding HIV / AIDS; Provided by facilities licensed or operated by the [facility] Office of Mental Health; or Provided by the [facility] Office for People With Developmental Disabilities. If such information is present, then the following [facility] mandated warning applies: This information has [...] law may result in a fine or group home sentence or both. A general authorization for the release of medical or other information is NOT sufficient authorization for further disc losure. Family History Family Member Name Family Member Gender Family Member Status Date o f Status Description Data Source(s) Unknown Unknown Problem [facility]ENT ([facility]) 3 BROTHERS Unknown Male Problem MEDENT ([facility]) Unknown Male Problem [facility] ([facility]) Unknown Male Problem [facility] ([facility]) Unknown Male Problem MED[facility] ([facility] ) Encounters Encounter Providers Location Date Indications Data Source(s ) Outpatient Attender: DAVID SANCHEZ MD Main Office 10/10/2020 08:00:00 AM EST [facility] ([facility]) [place] [address] [facility] [address] 10/10/2020 12:00:00 AM EST eCW1 ([facility]) Unknown [address] [place] [address] 08/28/2020 12:00:00 AM EST eCW1 ([facility]) Unknown [address] [place] [address] 08/27/2020 12:00:00 AM EST eCW1 ([facility]) Outpatient Attender: Tosha Villareal MD Physical Therap y 08/16/2020 07:30:00 AM EST MEDENT ([facility]) Unknown [address] [place] [address] 06/25/2020 12:00:00 AM EDT eCW1 ([facility]) Outpatient Attender: Robert Otoole MD [facility] 06/20 10:40:00 AM EDT [facility] [place] [address] [facility] [facility] [address] 06/13/2020 12:00:00 AM EDT eCW1 ([facility]) Outpatient Attender: Ryan Potts MD Physical Therapy 04/24/2020 1 0:30:00 AM EDT MED[facility] ([facility] ) [place] [address] [facility] [address] 03/27/2020 12:00:00 AM EDT eCW1 ([facility]) Outpatient Attender: Robert Coleman/ [facility] 03/02 11:50:00 AM EDT MED[facility] ([facility]) Outpatient Referrer: Robert Otoole MD 02/28/2020 09:50:00 AM EDT [facility] Outpatient Referrer: Robetr Otoole MD 02/28/2020 09:50:00 AM EDT [facility] Outpatient Referrer: Robert Otoole MD 02/17/2020 10:28:00 AM EDT [facility] Outpatient Referrer: Robert Otoole MD 02/15/2020 04:02:00 PM EDT [facility] Outpatient Attender: Robert Coleman/ [facility] 02/14 02:30:00 PM EDT MEDENT ([facility] [place] [address] [facility] [address] 10/11/2019 12:00:00 AM EST eCW1 ([facility]) Immunizations Vaccine Date Status Description Data Source(s) INFLUENZA VIRUS VACCINE QUADRIVAL SPLIT 2020-(65 YR UP)/PF 06/28/2020 12:00:00 AM EDT completed [facility] IIV3. This is one of two codes replacing CVX 15, which is being retired. 06/25/2020 03:39:00 PM EDT completed eCW1 (Count includes the [facility]) Medications Medication Brand Name Start Date [...] 12:00:00 AM EST ORAL active [facility]) 10 mg 09/10/2020 12:00:00 AM EST [...] active Hydrocodone -Acetaminophen 5-325 MG eCW1 ([facility]) Acetaminophen 325 MG / Hydrocodone Coleman trate 5 MG Oral Tablet Hydrocodone- Acetaminophen 5-325 MG Hydrocodone-Acetaminophen 5-325 MG 08/27/2020 12:00:00 AM EST 1.0 {tablet} active Hydrocodone -Acetaminophen 5-325 MG eCW1 ([facility]) Acetaminophen 325 MG / Hydrocodone Coleman trate 5 MG Oral Tablet Hydrocodone- Acetaminophen 5-325 MG Hydrocodone-Acetaminophen 5-325 MG 08/27/2020 12:00:00 AM EST 1.0 {tablet} active Hydrocodone -Acetaminophen 5-325 MG eCW1 ([facility]) 100 mg 08/01/2020 12:00:00 AM EST tablet [...] active Hydrocodone -Acetaminophen 5-325 MG eCW1 ([facility]) 5-325 mg 03/27/2020 12:00:00 AM EDT tablet [...] active Hydrocodone -Acetaminophen 5-325 MG eCW1 ([facility]) Acetaminophen 325 MG / Hydrocodone Coleman trate 5 MG Oral Tablet Hydrocodone- Acetaminophen 5-325 MG Hydrocodone-Acetaminophen 5-325 MG 03/27/2020 12:00:00 AM EDT 1.0 {tablet} active Hydrocodone -Acetaminophen 5-325 MG eCW1 ([facility]) 5-325 mg 03/20/2020 12:00:00 AM EDT tablet 28 TAKE ONE TABLET BY MOUTH EVERY 6 HOURS NEEDED FOR PAIN , MAXIMUM DAILY DOSE = 4 TABLETS TAKE ONE TABLET BY MOUTH EVERY 6 HOURS NEEDED FOR PAIN , MAXIMUM DAILY DOSE = 4 TABLETS SOLD: 03/22/2020 [facility] Ciprofloxacin 250 MG Oral Tablet [Cipro] Cipro 03/02/2020 12:00: 00 AM EDT ORAL completed [facility] ([facility]) 300 mg 03/01/2020 12:00:00 AM EDT tablet [...] toribio Policy Toribio Plan Information MEDICARE COMPLETE [id number] SP [id number] MEDICARE COMPLETE [id number] SP [id number] SELF PAY ONLY [id number] SP [id number] SELF PAY ONLY [id number] SP [id number] MEDICARE COMPLETE-UHC O [id number] S [id number] MEDICARE COMPLETE [id number] SP [id number] MEDICARE COMPLETE-UHC O [id number] S [id number] MEDICARE COMPLETE [id number] SP [id number] ANS-Medicare Part B [id number] ANSI-Medicare Part B [id number] Unitedhealthcare Medicare Commercial [id number] Self [id number] ANS-Medicare Part B [id number] ANSI-Medicare Part B [id number] [facility] MEDICARE COMPLETE G [id number] Self [id number] ANSI-Medicare Part B [id number] ANSI-Medicare Part B [id number] ANSI-Medicare Part B [id number] UHC UNITED MEDICARE COMPLETE G [id number] Self [id number] ANSI-Medicare Part B [id number] ANSI-Medicare Part B [id number] Secure Horizon Commercial [id number] Self [id number] [facility] Medicare Solutions Commercial [id number] Self [id number] Todays Options Medigap Part B [id number] Self [id number] Travelers ([place]) Workers Compensation [id number] Self [id number] Aetna Insurance Medigap Part B [id number] Self [id number] [facility] ([facility]) Medigap Part B [id number] Self [id number] Travelers Ins (WC) Workers Compensation [id number] Self [id number] Todays Options Medigap Part B [id number] Self [id number] Travelers Ins ([place]) Workers Compensation Self MEDICARE COMPLETE [id number] SP [id number] [facility] M[employer] Commercial Self Secure Horizon Commercial Self Unitedhealthcare Medicare Commercial [id number] Self [id number] Aetna Insurance Medigap Part B Self Todays Options Medigap Part B Self United [employer] ([facility]) Commercial [id number] Self [id number] MEDICARE COMPLETE-[facility] O [id number] S [id number] [facility] Medicare Solutions Commercial Self [facility] P [id number] S [id number] Problems, Conditions, and Diagnoses Code Display Name Description Problem Type Effective Dates Data Source(s) 977466348 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 Problem 06/20/2020 12:00:00 AM EDT [facility] ([facility]) [id number] Urge incontinence of urine Urge incontinence of urine Problem 06/20/2020 12:00:00 AM EDT MED[facility] ([facility]) Ventral hernia without obstruction or ga ngrene Ventral hernia without obstruction or gangrene Problem 02/15/2020 12:00:00 AM EDT MED[facility] ([facility]) 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 12: 00:00 AM EST eCW1 ([facility]) Surgeries/Procedures Procedure Description Date Indications Data Source(s) ECG ROUTINE ECG W/LEAST 12 LDS W/I&R 10/10/2020 12:00: 00 AM EST MEDENT ([facility]) RADIOLOGIC EXAMINATION KNEE 3 VIEWS 08/16/2020 12:00:0 0 AM EST MEDENT ([facility] RADIOLOGIC EXAMINATION KNEE 3 VIEWS 08/16/2020 12:00:0 0 AM EST MEDENT ([facility] ) THERAPEUTIC PX 1/> AREAS EACH 15 MIN EXERCISES 12:00:00 AM EDT MEDENT ([facility] ) MANUAL THERAPY TQS 1/> REGIONS EACH 15 MINUTES 12:00:00 AM EDT MEDENT ([facility]) THERAPEUTIC PX 1/> AREAS EACH 15 MIN EXERCISES 12:00:00 AM EDT MEDENT ([facility] ) MANUAL THERAPY TQS 1/> REGIONS EACH 15 MINUTES 12:00:00 AM EDT MEDENT ([facility]) THERAPEUTIC PX 1/> AREAS EACH 15 MIN EXERCISES 12:00:00 AM EDT MEDENT ([facility] ) MANUAL THERAPY TQS 1/> REGIONS EACH 15 MINUTES 12:00:00 AM EDT MEDENT ([facility] ) THERAPEUTIC PX 1/> AREAS EACH 15 MIN EXERCISES 12:00:00 AM EDT MED[facility] ([facility]) THERAPEUTIC PX 1/> AREAS EACH 15 MIN EXERCISES 12:00:00 AM EDT MEDENT ([facility] ) THERAPEUTIC PX 1/> AREAS EACH 15 MIN EXERCISES 12:00:00 AM EDT MEDENT ([facility] ) MANUAL THERAPY TQS 1/> REGIONS EACH 15 MINUTES 12:00:00 AM EDT MEDENT ([facility] ) THERAPEUTIC PX 1/> AREAS EACH 15 MIN EXERCISES 12:00:00 AM EDT MED[facility] ([facility]) THERAPEUTIC PX 1/> AREAS EACH 15 MIN EXERCISES 12:00:00 AM EDT MED[facility] ([facility] ) MANUAL THERAPY TQS 1/> REGIONS EACH 15 MINUTES 12:00:00 AM EDT MED[facility] ([facility] ) THERAPEUTIC PX 1/> AREAS EACH 15 MIN EXERCISES 12:00:00 AM EDT MEDENT ([facility] ) Physical Therapy Eval - Low Complexity 05/04/2020 12:0 0:00 AM EDT MEDENT ([facility] ) X-Ray Spine Lumbosacral Complete Inc Bending Views Min Of 6 04/24/2020 12:00:00 AM EDT MED[facility] ([facility] CYSTOURETHROSCOPY 03/02/2020 12:00:00 AM EDT [facility] ([facility]) ELIZABET POST-VOIDING RESIDUAL URINE&/BLDR CAP 02/15/2020 12:00:00 AM EDT [facility] ([facility]) Results ID Date Data Source [id number] 10/05/2020 09:24:00 AM EST MEDENT ([facility]) Name Value Range Interpretation Code Description Data Mariel rce(s) Supporting Document(s) Cholesterol 158 MEDENT ([facility]) Triglycerides 36 [facility] ([facility]) HDL 99 MED[facility] ([facility]) Cholesterol in LDL [Mass/volume] in Serum or Plasma by calculation 52 MEDENT ([facility]) Chol/HDL Ratio 1.595 MEDENT ([facility]) ID Date Data Source [id number] 10/05/2020 09:24:00 AM EST MEDENT ([facility]) Name Value Range Interpretation Code Description Data Mariel rce(s) Supporting Document(s) White Blood Count 7.6 MEDENT ([facility]) Hemoglobin 12.8 MEDENT ([facility]) Red Blood Count 4.09 MEDENT ([facility]) Platelets 259 [facility] Hematocrit 37.4 MEDENT ([facility]) ID Date Data Source [id number] 10/05/2020 09:24:00 AM EST MEDENT ([facility]) Name Value Range Interpretation Code Description Data Mariel rce(s) Supporting Document(s) Magnesium Level 1.9 MEDENT ([facility]) ID Date Data Source [id number] 10/05/2020 09:24:00 AM EST MEDENT ([facility]) Name Value Range Interpretation Code Description Data Mariel rce(s) Supporting Document(s) Albumin [Mass/volume] in Serum or Plasma 3.3 MEDENT ([facility]) Calcium [Mass/volume] in Serum or Plasma 9.1 MEDENT ([facility]) Alanine aminotransferase [Enzymatic activity/volume] in Serum or Pl asma 25 MEDENT ([facility]) Chloride [Moles/volume] in Serum or Plasma 101 MEDENT ([facility]) Alkaline phosphatase [Enzymatic activity/volume] in Serum or Plasma 8 3 MEDENT ([facility]) Carbon dioxide, total [Moles/volume] in Serum or Plasma 30 MEDENT ([facility]) Sodium 139 [facility] Potassium [Moles/volume] in Serum or Plasma 4.4 MEDENT ([facility]) Protein [Mass/volume] in Serum or Plasma 6.1 MEDENT ([facility]) Aspartate aminotransferase [Enzymatic activity/volume] in Serum or Plasma 14 MEDENT ([facility]) Urea nitrogen [Mass/volume] in Serum or Plasma 14 MEDENT ([facility]) Glucose 138 MEDENT ([facility]) Creatinine For GFR 0.84 MEDENT ([facility]) ID Date Data Source [id number] 08/04/2020 12:00:00 AM EST [facility] Name Value Range Interpretation Code Description Data Mariel rce(s) Supporting Document(s) nCoV RNA XXX CYNTHIA+probe-Imp [facility] This lab was ordered by [facility] and reported by [employer] ID Date Data Source [id number] 07/10/2020 12:00:00 AM EDT [facility] Name Value Range Interpretation Code Description Data Mariel rce(s) Supporting Document(s) nCoV RNA XXX CYNTHIA+probe-Imp [facility] and reported by [employer] ID Date Data Source [id number] 06/20/2020 10:53:00 AM EDT [facility] ([facility]) Name Value Range Interpretation Code Description Data Mariel rce(s) Supporting Document(s) Protein [Presence] in Urine by Test strip Laboratory test result [facility] ([facility]) Glucose [Presence] in Urine Laboratory test result [facility] ([facility]) Ua Nitrite Laboratory test result ME DENT ([facility]) Ua Leuko Laboratory test result [facility] ([facility]) Blood [Presence] in Urine by Visual Laboratory test result [facility] ([facility]) Ketones [Presence] in Urine by Test strip Laboratory test result [facility] ([facility]) Clarity of Urine Laboratory test result [facility] ([facility]) Color of Urine Laboratory test result [facility] ([facility]) Bilirubin.total [Presence] in Urine by Test strip Laboratory test res ult MEDENT ([facility]) Ua Specific Erin 1.025 1.003-1.030 MEDE NT ([facility]) pH of Urine by Test strip 6.5 5.0-7.5 [facility] ([facility]) Urobilinogen [Mass/volume] in Urine by Test strip 0.2 E.U./dL 0.0-1.0 [facility] ([facility]) ID Date Data Source [id number] 06/14/2020 09:08:00 AM EDT [facility] ([facility]) Name Value Range Interpretation Code Description Data Mariel rce(s) Supporting Document(s) Prostate specific Ag [Mass/volume] in Serum or Plasma Laboratory test result [facility] ([facility]) ID Date Data Source [id number] 03/02/2020 02:46:00 PM EDT [facility] ([facility]) Name Value Range Interpretation Code Description Data Mariel rce(s) Supporting Document(s) Specimen Adequacy Laboratory test result [facility] ([facility]) Satisfactory for evaluation. Clinical History Laboratory test result [facility] ([facility]) R31.0 Gross Description Laboratory test result [facility] ([facility]) Received in a specimen container, labele d with the patients name and , is Clear Yellow fluid consistent with urine, measuring approximately 80 ml. Microscopic Description Laboratory test result [facility] ([facility]) BodySite Laboratory test result [facility] ([facility]) Voided - Clean Catch CPTCode 17321 MEDENT ([facility]) [id number] Laboratory test result [facility] ([facility] Final Diagnosis Laboratory test result [facility] ([facility]) NEGATIVE FOR HIGH-GRADE UROTHELIAL CARCI NOMA. PDF Report Laboratory test result ME D[facility] ([facility]) ID Date Data Source [id number] 03/02/2020 02:46:00 PM EDT [facility] ([facility]) Name Value Range Interpretation Code Description Data Mariel rce(s) Supporting Document(s) Cytology report of Urine Cyto stain Laboratory test result [facility] ([facility]) ID Date Data Source [id number] 03/02/2020 12:03:00 PM EDT [facility] ([facility]) Name Value Range Interpretation Code Description Data Mariel rce(s) Supporting Document(s) Glucose [Presence] in Urine Laboratory test result [facility] ([facility]) Protein [Presence] in Urine by Test strip Laboratory test result [facility] ([facility]) Ua Leuko Laboratory test result ME [facility] ([facility]) Ua Nitrite Laboratory test result [facility] ([facility]) Ketones [Presence] in Urine by Test strip Laboratory test result [facility] ([facility]) Blood [Presence] in Urine by Visual Laboratory test result [facility] ([facility]) Color of Urine Laboratory test result [facility] ([facility]) Clarity of Urine Laboratory test result [facility] ([facility]) Ua Specific Erin 1.025 1.003-1.030 MEDE NT ([facility]) Urobilinogen [Mass/volume] in Urine by Test strip 0.2 E.U./dL 0.0-1.0 [facility] ([facility]) pH of Urine by Test strip 5.5 5.0-7.5 [facility] ([facility]) Bilirubin.total [Presence] in Urine by Test strip Laboratory test res ult MED[facility] ([facility]) ID Date Data Source [id number] 02/28/2020 12:00:00 AM EDT [facility] Robert Otoole MD Patient Name: MODESTA [id number] Date of : 1945[place] [id number] Date of Exam: 02/28/2020PH#: Fax: [phone] EXAM: [...] I simple left renal cyst.Accredited by the [employer] in [place].LIZ Montiel/Meenakshi russell for referring MODESTA GERMAN to our office.Electronically Signed - LANDON LEGGETT DO 02/29/20 13:25 Name Value Range Interpretation Code Description Data Mariel rce(s) Supporting Document(s) ID Date Data Source [id number] 02/15/2020 03:49:00 PM EDT [facility] ([facility]) Name Value Range Interpretation Code Description Data Mariel rce(s) Supporting Document(s) Clinical History Laboratory test result [facility] ([facility]) R31.0 Specimen Adequacy Laboratory test result [facility] ([facility]) Satisfactory for evaluation. BodySite Laboratory test result [facility] ([facility]) Voided - Clean Catch Final Diagnosis Laboratory test result [facility] ([facility]) NEGATIVE FOR HIGH-GRADE UROTHELIAL CARCI NOMA. Gross Description Laboratory test result [facility] ([facility]) Received in a specimen container, labele d with the patients name and , is Cloudy Yellow fluid consistent with urine, measuring approximately 60 ml. Microscopic Description Laboratory test result [facility] ([facility]) PDF Report Laboratory test result [facility] ([facility]) [id number] Laboratory test result [facility] ([facility]) CPTCode 75289 [facility] ID Date Data Source [id number] 02/15/2020 03:06:00 PM EDT [facility] ([facility]) Name Value Range Interpretation Code Description Data Mariel rce(s) Supporting Document(s) Glucose [Mass/volume] in Serum or Plasma 91.0 mg/dL 70.0-99.0 [facility] ([facility]) Creatinine [Mass/volume] in Serum or Plasma 0.96 mg/dL 0.72-1.25 [facility] ([facility]) Carbon dioxide, total [Moles/volume] in Serum or Plasma 26.0 mmol/L 22.0-31.0 [facility] ([facility]) BUN/Creat Ratio 10.4 MEDENT ([facility]) Calcium [Mass/volume] in Serum or Plasma 9.1 mg/dL 8.4-10.2 [facility] ([facility]) Urea nitrogen [Mass/volume] in Serum or Plasma 10.0 mg/dL 7.0-24.0 [facility] ([facility]) K 4.4 mmol/L 3.6-5.2 [facility] ([facility]) Sodium [Moles/volume] in Serum or Plasma 140.0 mmol/L 136.0-145.0 [facility] ([facility]) Anion gap in Serum or Plasma 16.4 [facility] ([facility]) Chloride [Moles/volume] in Serum or Plasma 102.0 mmol/L 98.0-108.0 [facility] ([facility]) eGFR - Descent 90.1 [facility] ([facility]) eGFR -- Non- Descent 74.4 [facility] ([facility]) ID Date Data Source [id number] 02/15/2020 03:06:00 PM EDT [facility] ([facility]) Name Value Range Interpretation Code Description Data Mariel rce(s) Supporting Document(s) WBC 7.3 X10*3/uL 4.1-11.0 [facility] ([facility]) RBC 4.4 x10*6/Ul 4.6-6.1 MED[facility] ([facility]ate d [facility]) Hemoglobin [Mass/volume] in Blood 14.0 g/dL 13.5-18.0 [facility] ([facility]) Hematocrit [Volume Fraction] of Blood by Automated count 42.7 % 4 1.0-53.0 [facility] ([facility]) MCV 96.9 fL 79.9-95.1 [facility] ([facility]) MCHC 32.9 g/dL 32.0-36.0 [facility] ([facility]) RDW 13.4 % 10.5-14.5 [facility] ([facility]) MCH 31.8 pg 27.0-32.0 [facility] ([facility]) %N 64.1 % 35.0-75.0 [facility] ([facility]) MPV 6.7 fL 7.1-10.7 [facility] ([facility]) PLT 221.4 10*3/uL 150.0-450.0 [facility] ([facility] [place]) %L 18.7 % 16.0-52.0 [facility] ([facility]) %E 1.8 % 0.0-5.0 [facility] ([facility]) %M 13.8 % 0.0-8.0 [facility] ([facility]) Siddharth 4.7 10*3/uL 1.8-7.7 [facility] ([facility]) %B 1.6 % 0.0-4.0 [facility] ([facility]) Lym 1.4 10*3/uL 1.2-4.8 [facility] ([facility]) Eos 0.1 10*3/uL 0.0-0.4 [facility] ([facility]) Pender 1.0 10*3/uL 0.0-0.8 [facility] ([facility]) Baso 0.1 10*3/uL 0.0-0.2 [facility] ([facility]) ID Date Data Source [id number] 02/15/2020 02:35:00 PM EDT [facility] ([facility]) Name Value Range Interpretation Code Description Data Mariel rce(s) Supporting Document(s) Protein [Presence] in Urine by Test strip Laboratory test result [facility] ([facility]) Glucose [Presence] in Urine Laboratory test result [facility] ([facility]) Ua Nitrite Laboratory test result ME DENT ([facility]) Color of Urine Laboratory test result [facility] ([facility]) Blood [Presence] in Urine by Visual Laboratory test result [facility] ([facility]) Ua Leuko Laboratory test result ME DENT ([facility]) Ketones [Presence] in Urine by Test strip Laboratory test result [facility] ([facility]) Clarity of Urine Laboratory test result [facility] ([facility]) Ua Specific Erin 1.020 1.003-1.030 MEDE NT ([facility]) Bilirubin.total [Presence] in Urine by Test strip Laboratory test res ult [facility] ([facility] [place]) pH of Urine by Test strip 5.5 5.0-7.5 [facility] ([facility] [place]) Urobilinogen [Mass/volume] in Urine by Test strip 0.2 E.U./dL 0.0-1.0 [facility] ([facility] [place]) ID Date Data Source [id number] 01/19/2020 12:55:00 PM EDT [facility] Name Value Range Interpretation Code Description Data Mariel rce(s) Supporting Document(s) SARS CORONAVIRUS 2 RNA [facility] This lab was ordered by [facility] and reported by [facility]. Procedure Social History Code Duration Value Status Description Data Source(s ) Smoking 10/10/2020 12:00:00 AM EST Never Smoker completed Never S moker eCW1 (Formerly [facility]) Smoking 10/10/2020 12:00:00 AM EST Patient has never smoked co mpleted Patient has never smoked [facility] ([facility]) Smoking 06/20/2020 12:00:00 AM EDT chewed for 5-6 years/quit 2 005 completed chewed for 5-6 years/quit 2004 [facility] ([facility]) Smoking 06/20/2020 12:00:00 AM EDT Former Cigarette Smoker com pleted Former Cigarette Smoker [facility] ([facility]) Smoking 10/11/2019 12:00:00 AM EST Never Smoker completed Never S moker eCW1 (Formerly [facility]) Smoking 10/11/2019 12:00:00 AM EST Never Smoker completed Never S moker eCW1 (Formerly [facility]) Smoking 10/11/2019 12:00:00 AM EST Never Smoker completed Never S moker eCW1 (Formerly [facility]) Smoking 10/11/2019 12:00:00 AM EST Never Smoker completed Never S moker eCW1 (Formerly [facility]) Smoking 10/11/2019 12:00:00 AM EST Never Smoker completed Never S moker eCW1 (Formerly [facility]) Vital Signs ID Date Data Source UNK Name Value Range Interpretation Code Description Data Source(s) Diastolic blood pressure 62 mm[Hg] 62 mm[Hg] eCW1 (Formerly [facility]) Systolic blood pressure 112 mm[Hg] 112 mm[Hg] e CW1 (Formerly [facility]) Body temperature 97.8 [degF] 97.8 [degF] eCW1 ( Formerly [facility]) Respiratory rate 18 /min 18 /min eCW1 ([facility]) Heart rate 79 /min 79 /min eCW1 ([facility]) Body mass index (BMI) [Ratio] 26.99 kg/m2 26.99 kg/m2 eCW1 (Formerly [facility]) Body height 72 [in_i] 72 [in_i] eCW1 (Count includes the [facility]) Body weight 199.0 [lb_av] 199.0 [lb_av] eCW1 ([facility]) Diastolic blood pressure--sitting 66 mm[Hg] 66 mm[Hg] MED[facility] ([facility]) Omron, adult cuff/Ra Systolic blood pressure--sitting 146 mm[Hg] 146 mm[Hg] [facility] ([facility]) Omron, adult cuff/Ra Heart rate 81 /min 81 /min [facility] ([facility]) Body mass index (BMI) [Ratio] 27.0 kg/m2 27.0 k g/m2 [facility] ([facility]) Body height 71.5 [in_i] 71.5 [in_i] [facility] ([facility]) 5'11.50" Body weight 196.00 [lb_av] 196.00 [lb_av] MEDEN T ([facility]) Body mass index (BMI) [Ratio] 27.1 kg/m2 27.1 k g/m2 [facility] ([facility] ) Body weight 194.19 [lb_av] 194.19 [lb_av] MEDEN T ([facility]) Body height 71 [in_i] 71 [in_i] [facility] ([facility]) 5'11" Body temperature 96.8 [degF] 96.8 [degF] [facility] ([facility] ) Body mass index (BMI) [Ratio] 26.2 kg/m2 26.2 k g/m2 [facility] ([facility]) Body weight 185.00 [lb_av] 185.00 [lb_av] MEDEN T ([facility]) Body height 70.5 [in_i] 70.5 [in_i] [facility] ([facility]) 5'10.50" Body temperature 97.5 [degF] 97.5 [degF] [facility] ([facility]) Body temperature 97.8 [degF] 97.8 [degF] [facility] ([facility]) Heart rate 73 /min 73 /min [facility] ([facility]) Diastolic blood pressure 86 mm[Hg] 86 mm[Hg] [facility] ([facility]) Systolic blood pressure 169 mm[Hg] 169 mm[Hg] M EDANTON ([facility]) Body mass index (BMI) [Ratio] 27.1 kg/m2 27.1 k g/m2 [facility] ([facility]) Body weight 90.720 kg 90.720 kg [facility] ([facility]) Body weight 200.00 [lb_av] 200.00 [lb_av] MEDEN T ([facility]) Body height 72 [in_i] 72 [in_i] [facility] ([facility] [place]) 6'0" Body height 72 [in_i] 72 [in_i] [facility] ([facility]) 6'0" Body temperature 97.7 [degF] 97.7 [degF] [facility] ([facility]) Heart rate 72 /min 72 /min [facility] ([facility]) Diastolic blood pressure 84 mm[Hg] 84 mm[Hg] [facility] ([facility]) Systolic blood pressure 141 mm[Hg] 141 mm[Hg] M EDENT ([facility]) Patient Treatment Plan of Care Planned Activity Planned Date Details Description Data Source (s) Acetaminophen 325 MG / Hydrocodone Bitartrate 5 MG Ora l Tablet 08/27/2020 12:00:00 AM EST eCW1 ([facility]) Acetaminophen 325 MG / Hydrocodone Bitartrate 5 MG Ora l Tablet 08/27/2020 12:00:00 AM EST eCW1 ([facility]) Acetaminophen 325 MG / Hydrocodone Bitartrate 5 MG Ora l Tablet 03/27/2020 12:00:00 AM EDT eCW1 ([facility]) Acetaminophen 325 MG / Hydrocodone Bitartrate 5 MG Ora l Tablet 03/27/2020 12:00:00 AM EDT eCW1 ([facility]) Acetaminophen 325 MG / Hydrocodone Bitartrate 5 MG Ora l Tablet 03/27/2020 12:00:00 AM EDT eCW1 ([facility])
[2020-11-08] MEDS ORDERED: LORazepam 2 MG/ML VIAL IV PRN (04:50)
[2020-11-08 05:33] VITALS: BP 151/78
[2020-11-08] MEDS: MORPHINE 2 MG/ML 1ML VIAL (J2270) IV PRN ×4 (06:11→20:38)
[2020-11-08 06:14] LABS: HEMATOCRIT 38.5 % (42.0-52.0); HEMOGLOBIN 13.1 g/dl (13.5-17.5); MEAN CORPUSCULAR HEMOGLOBIN 30.3 pg (27.0-33.0); MEAN CORPUSCULAR VOLUME 88.9 fl (80.0-96.0); PLATELET COUNT, AUTOMATED 284 10^3/uL (150-450); RED BLOOD COUNT 4.33 10^6/uL (4.30-6.10); WHITE BLOOD COUNT 17.5 10^3/uL (4.0-10.0)
[2020-11-08 06:33] LABS: ALBUMIN 3.2 GM/DL (3.2-5.2); ALT/SGPT 28 U/L (12-78); BILIRUBIN,TOTAL 0.8 MG/DL (0.2-1.0); BLOOD UREA NITROGEN 25 MG/DL (7-18); CALCIUM LEVEL 8.6 MG/DL (8.8-10.2); CARBON DIOXIDE LEVEL 28 MEQ/L (21-32); CHLORIDE LEVEL 101 MEQ/L (98-107); CREATININE FOR GFR 1.01 MG/DL (0.70-1.30); GLOMERULAR FILTRATION RATE > 60.0 (>42); GLUCOSE, FASTING 170 MG/DL (70-100); POTASSIUM SERUM 4.6 MEQ/L (3.5-5.1); SODIUM LEVEL 136 MEQ/L (136-145); TOTAL PROTEIN 6.1 GM/DL (6.4-8.2)
[2020-11-08 07:15] VITALS: BP 155/73
[2020-11-08] MEDS: PIPERACILLIN/TAZOBACTAM SOD 3.375 GM in D5W MINI-BAG PLUS 50 ML IV SCH ×3 (08:56→18:50)
[2020-11-08 09:00] VITALS: BP 154/71
--- NOTE | 2020-11-08 09:04 | IPNPDOC ---
Text Note Date of Service The patient was seen on 11/08/20. NOTE Patient seen and examined this morning. Full consult to follow. Essentially [age]-year-old male presenting with 1 day history of abdominal pain and vomiting. He has 3 midline abdominal hernia repairs that was done through the years as well as prior laparoscopic/robotic prostatectomy as well as radiation for prostate cancer. He reports this is his first bout of small bowel obstruction. He was seen in the emergency room at midnight had an NG tube placed and reports feeling much better this morning. Essentially he told me that the pain started abruptly at about 3 in the morning, cramping nature about the mid abdomen though through this he was able to have 2 normal bowel movements though he reports that he is not passing flatus in between. He tried to drink liquids but would throw them up throughout the day and thus he went to the emergency room during the evening. On placement of nasogastric tube looks to be maroon/coffee-ground output and discontinuous overnight. He feels much better this morning. He has passed some flatus, reports no crampy abdominal discomfort just mild soreness. He denies any nausea at this time. On examination his abdomen is mildly distended but relatively decompressed. Hypoactive bowel sounds, minimal discomfort over the midline without any rebound or guarding. He has several midline incisions as well as laparoscopic port sites laterally. There is some weakness/bulging the right about the umbilicus unclear if this is bowing of the mesh that was placed or a hernia recurrence I favor the former on examination. Impression and plan Small bowel obstruction on a patient with prior intra-abdominal surgeries seems to be the transition point is at the left lower quadrant area. The radiologist read this as a closed loop obstruction or possible closed loop obstruction though clearly the proximal small intestine and stomach is dilated and distended which argues against that. I think he is probably referred to a possible complete obstruction though clinically he is not. He seems to be better and the nasogastric tube has adequately decompressed him though it is not clear why he has coffee-ground output. We will continue to monitor the NG tube output today. I'll repeat an abdominal x-ray for follow-up. If he continues to get better then he may not need surgical intervention at this time. I suspect the area of obstruction is close to the margin of the mesh in the left side or were the ports are. No signs of bowel ischemia or threatened bowel at this time. I encouraged the patient to ambulate the hallways. VS,Sumanbone, I+O VS, Sumanbone, I+O Laboratory Tests 11/08/20 00:41 11/08/20 05:52 Vital Signs Date Time Temp Pulse Resp B/P (MAP) Pulse Ox O2 Delivery O2 Flow Rate FiO2 11/08/20 06:21 16 Room Air 11/08/20 06:00 98.8 101 96 11/08/20 05:33 151/78 11/08/20 04:40 2.0 I&O- Last 24 Hours up to 6 AM 11/08/20 06:00 Intake Total 360 ml Output Total 175 ml Balance 185 ml JASSI MATTHEWS MD Nov 08, 2020 08:57
[2020-11-08 14:00] VITALS: BP 154/71
[2020-11-08] MEDS: ONDANSETRON 4MG/2ML VIAL IV PRN (14:06)
[2020-11-08 14:15] VITALS: BP 153/69
--- NOTE | 2020-11-08 14:30 | REP ---
INDICATION: ffup sbo. COMPARISON: CT abdomen pelvis at 1:36 AM today TECHNIQUE: Supine abdomen, two views FINDINGS: Distended small bowel loops in the upper abdomen to mid lower pelvis with some stool and gas in the transverse colon and splenic flexure in the left upper quadrant. Stool in the hepatic flexure is well. A nasogastric tube is coiled in the fundus of the stomach. The huge distended stomach on the CT is the greatly reduced in overall size. IMPRESSION: The dilated small bowel loops are in a pattern consistent with persistent obstruction. The nasogastric tube has a largely emptied the previously distended stomach but the diameter of the small bowel loops and their appearance is largely unchanged compared to CT 12 hours ago. <Electronically signed by Orlando Sapp > 11/08/20 [id number]
--- NOTE | 2020-11-08 17:50 | IPNPDOC ---
Date Seen The patient was seen on 11/08/20. Progress Note SUBJECTIVE: Minimal o/p from NG tube, encouraging ambulation today. Surgery following, holding off on surgery currently. Not passing gas or bowel movement since admission. Denies worsening abdominal pain, fevers, chills, n/v, shortness of breath, chest pain. OBJECTIVE: PHYSICAL EXAMINATION: VITAL SIGNS: Please see below GENERAL APPEARANCE: resting in bed, NAD. AAOx3 HEENT: AT/NC, EOMI, NG tube in in place Neck: No JVD CARDIOVASCULAR: Regular rate and rhythm without any murmur appreciated LUNGS: Clear to auscultation, fair air movement ABDOMEN: Slightly distended, tympanic, nontender, multiple hernia repair scars appreciated without any protrusion. No masses. Hyperactive bowel sounds MUSCULOSKELETAL: ROM wnl in all ext. no cyanosis or clubbing EXTREMITIES: Scars representing patient's prior knee replacements appreciated bilaterally, no lower extremity edema or calf tenderness bilaterally. Bilateral radial and posterior tibial pulses 2+ NEUROLOGICAL: No focal weakness, sensation intact, no aphasia or dysarthria, no facial droop. PSYCHIATRIC: Mood and affect appropriate LABORATORY DATA: See below. IMAGING: F/u repeat AbXR today Chest x-ray (11/08/20): No acute findings. Abdomen/pelvis CT (11/08/20): Small bowel obstruction with suspected closed loop obstruction and transition point in the upper left quadrant. Multiple enhancing polyps in the stomach. Hepatic steatosis. MICROBIOLOGY: Please see below. ASSESSMENT: Patient is a 75-year-old male with history of multiple abdominal surgeries, hx of SBO in past, alcohol abuse, HLD, osteoarthritis, GERD admitted for SBO, r/o GI bleed. PLAN: Small bowel obstruction -Pain slightly improved, WBC still elevatd at 17K, afebrile, LA now wnl -NG to LIS, NPO with sips/ice chips, IVF, Morphine for pain control. Zofran for nausea. -Follow am labs, ltyes, replete as necessary -F/u ab XR today -General surgery following closely ? GI bleed, coffee ground emesis -HD stable -Type and screen -Monitor closely, H/H Q8H -Protonix gtt, NPO Alcohol dependence -No s/s of withdrawl -5-6 12 oz cans of light beer per day -CIWA protocol DVT Px -heparin SC DISPOSITION: General surgery following closely. Will need PT/OT when further medically improved. VS, I&O, 24H, Fishbone Vital Signs/I&O Vital Signs Date Time Temp Pulse Resp B/P (MAP) Pulse Ox O2 Delivery O2 Flow Rate FiO2 11/08/20 16:19 18 Room Air 11/08/20 14:15 97.9 89 153/69 (97) 91 11/08/20 04:40 2.0 I&O- Last 24 Hours up to 6 AM 11/08/20 06:00 Intake Total 360 ml Output Total 175 ml Balance 185 ml Laboratory Data 24H LABS Laboratory Tests 2 11/08/20 00:41: Immature Granulocyte % (Auto) 0.5, Neutrophils (%) (Auto) 88.7H, Lymphocytes (%) (Auto) 2.4L, Monocytes (%) (Auto) 8.2H, Eosinophils (%) (Auto) 0.0, Basophils (%) (Auto) 0.2, Neutrophils # (Auto) 14.8H, Lymphocytes # (Auto) 0.4L, Monocytes # (Auto) 1.4H, Eosinophils # (Auto) 0.0, Basophils # (Auto) 0.0, Nucleated Red Blood Cells % (auto) 0.0, Prothrombin Time 12.8, Prothromb Time International Ratio 0.94, Activated Partial Thromboplast Time 29.2, Anion Gap 9, Glomerular Filtration Rate > 60.0, Lactic Acid Level 2.4*H, Calcium Level 9.3, Total Bilirubin 0.8, Direct Bilirubin 0.3H, Aspartate Amino Transf (AST/SGOT) 15, Alanine Aminotransferase (ALT/SGPT) 29, Alkaline Phosphatase 96, Total Creatine Kinase 78, Creatine Kinase MB 2.6, Creatine Kinase MB Relative Index 3.33, Troponin I < 0.02, Total Protein 6.8, Albumin 3.5, Albumin/Globulin Ratio 1.1, Lipase 91 11/08/20 01:00: POC Glucose (Misc Panel) 226H, POC Sodium (Misc Panel) 134L, POC Potassium (Misc Panel) 3.9, POC Chloride (Misc Panel) 97L, POC Total CO2 (Misc Panel) 25.0, POC Blood Urea Nitrogen (Misc Panel 21, POC Ionized Calcium (Misc Panel) 4.6, POC Creatinine (Misc Panel) 0.8, POC Hematocrit (Misc Panel) 46.0 11/08/20 02:29: Coronavirus (COVID-19)(PCR) NEGATIVE, Influenza Type A (RT-PCR) NEGATIVE, Influenza Type B (RT-PCR) NEGATIVE, Respiratory Syncytial Virus (PCR) NEGATIVE 11/08/20 05:52: Nucleated Red Blood Cells % (auto) 0.0, Anion Gap 7L, Glomerular Filtration Rate > 60.0, Calcium Level 8.6L, Total Bilirubin 0.8, Aspartate Amino Transf (AST/SGOT) 11, Alanine Aminotransferase (ALT/SGPT) 28, Alkaline Phosphatase 83, Total Protein 6.1L, Albumin 3.2, Albumin/Globulin Ratio 1.1, Lactic Acid Followup at 4 Hours 1.4 11/08/20 14:21: Urine Color YELLOW, Urine Appearance CLEAR, Urine pH 5.0, Urine Specific [place] 1.045, Urine Protein NEGATIVE, Urine Glucose (UA) NEGATIVE, Urine Ketones TRACEH, Urine Blood NEGATIVE, Urine Nitrite NEGATIVE, Urine Bilirubin NEGATIVE, Urine Urobilinogen 0.2, Urine Leukocyte Esterase NEGATIVE, Urine WBC (Auto) 0, Urine RBC (Auto) 0, Urine Hyaline Casts (Auto) 0, Urine Bacteria (Auto) NEGATIVE, Urine Squamous Epithelial Cells 0, Urine Sperm (Auto) CBC/BMP Laboratory Tests 11/08/20 00:41 11/08/20 05:52 11/08/20 11:50 Current Medications Current Medications Medications (Trade) Dose Ordered Sig/Kelechi Route PRN Reason Start Time Stop Time Status Last Admin Dose Admin Home Med (Med Rec Complete!) ASDIRECTED XX 11/08/20 02:30 11/08/20 02:32 DC Lorazepam (Ativan) 1 mg ASDIRECTED PRN IV SEE PROTOCOL 11/08/20 04:50 Morphine Sulfate (Morphine Sulfate Inj) 2 mg Q4H PRN IV MODERATE PAIN (PS 5-7) 11/08/20 04:55 11/08/20 16:19 Ondansetron HCl (ZOFRAN INJection) 4 mg Q8HP PRN IV NAUSEA OR VOMITING 11/08/20 05:00 11/08/20 14:06 Pantoprazole Sodium 40 mg/ Dextrose 50 ml @ 10 mls/hr Q5H IV 11/08/20 03:20 11/08/20 14:06 Piperacillin Sod/ Tazobactam Sod 3.375 gm/Dextrose 50 ml @ 50 mls/hr Q6H IV 11/08/20 07:00 11/08/20 14:06 Sodium Chloride 1,000 ml @ 100 mls/hr Q10H IV 11/08/20 02:30 11/08/20 04:05 DC 11/08/20 02:30 Sodium Chloride 1,000 ml @ 120 mls/hr Q8H20M IV 11/08/20 03:31 11/08/20 11:51 Allergies Coded Allergies: No Known Allergies (Unverified , 06/28/19) Clara Lovett MD Nov 08, 2020 17:50
[2020-11-08] MEDS: HEPARIN SOD (PORCINE) 5000UNITS/ML 1ML VIAL/SYRINGE SQ SCH (20:01)
[2020-11-08 20:28] LABS: HEMATOCRIT 35.8 % (42.0-52.0); HEMOGLOBIN 11.8 g/dl (13.5-17.5); MEAN CORPUSCULAR HEMOGLOBIN 29.9 pg (27.0-33.0); MEAN CORPUSCULAR VOLUME 90.9 fl (80.0-96.0); PLATELET COUNT, AUTOMATED 232 10^3/uL (150-450); RED BLOOD COUNT 3.94 10^6/uL (4.30-6.10); WHITE BLOOD COUNT 13.3 10^3/uL (4.0-10.0)
[2020-11-08 22:00] VITALS: BP 158/82
[2020-11-09] VITALS (7 sets, daily range): BP systolic 133–160; BP diastolic 72–82
[2020-11-09] MEDS: PIPERACILLIN/TAZOBACTAM SOD 3.375 GM in D5W MINI-BAG PLUS 50 ML IV SCH ×4 (00:46→18:27)
[2020-11-09] MEDS: MORPHINE 2 MG/ML 1ML VIAL (J2270) IV PRN ×4 (00:47→21:56)
--- NOTE | 2020-11-09 02:22 | ECGEPIP ---
[facility] - ED Test Date: 2020-11-08 Pat Name: MODESTA GERMAN Department: Room: [place] [address] Gender: Male Internal Medicine Doctor: ED : 1945 Requested By: JOE Mcbride Order Number: [id number] Reading MD: Joe Reyes Measurements Intervals [place] Rate: 110 P: HI: 174 QRS: -58 QRSD: 116 T: 70 QT: 314 QTc: 424 Interpretive Statements Sinus tachycardia LAD INCOMPLETE LEFT BUNDLE BRANCH BLOCK Consistent with pulmonary disease Similar to tracing done 09-29-18 but with increased rate Electronically Signed on 11-09-2020 2:22:17 EST by Joe Reyes
[2020-11-09 04:05] LABS: HEMATOCRIT 34.7 % (42.0-52.0); HEMOGLOBIN 11.6 g/dl (13.5-17.5); MEAN CORPUSCULAR HEMOGLOBIN 30.4 pg (27.0-33.0); MEAN CORPUSCULAR HGB CONC 33.4 g/dl (32.0-36.5); MEAN CORPUSCULAR VOLUME 91.1 fl (80.0-96.0); PLATELET COUNT, AUTOMATED 215 10^3/uL (150-450); RED BLOOD COUNT 3.81 10^6/uL (4.30-6.10); WHITE BLOOD COUNT 9.4 10^3/uL (4.0-10.0)
[2020-11-09] MEDS: ONDANSETRON 4MG/2ML VIAL IV PRN ×3 (04:25→21:55)
[2020-11-09] MEDS: PANTOPRAZOLE SODIUM 40 MG in D5W 50 ML IV SCH ×2 (04:26→08:14)
[2020-11-09 04:28] LABS: ALT/SGPT 24 U/L (12-78); BILIRUBIN,TOTAL 0.5 MG/DL (0.2-1.0); BLOOD UREA NITROGEN 23 MG/DL (7-18); CALCIUM LEVEL 8.7 MG/DL (8.8-10.2); CARBON DIOXIDE LEVEL 31 MEQ/L (21-32); CHLORIDE LEVEL 106 MEQ/L (98-107); CREATININE FOR GFR 1.03 MG/DL (0.70-1.30); GLOMERULAR FILTRATION RATE > 60.0 (>42); GLUCOSE, FASTING 147 MG/DL (70-100); SODIUM LEVEL 139 MEQ/L (136-145)
[2020-11-09 05:10] LABS: PERCENT SATURATION 16.9 % (19.7-50.0)
[2020-11-09 08:08] LABS: FOLATE 6.8 NG/ML (>5.4)
[2020-11-09] MEDS: HEPARIN SOD (PORCINE) 5000UNITS/ML 1ML VIAL/SYRINGE SQ SCH ×2 (08:14→21:50)
[2020-11-09] MEDS: NS 1,000 ML IV SCH (08:14)
[2020-11-09] MEDS ORDERED: KETOROLAC 60MG 2ML VIAL As Ordered ONE (12:38)
[2020-11-09] MEDS ORDERED: SUGAMMADEX SODIUM 500 MG/5 ML VIAL (BRIDION) As Ordered ONE (12:38)
[2020-11-09] MEDS ORDERED: propofoL 200 MG/20 ML VIAL As Ordered ONE (12:38)
[2020-11-09] MEDS ORDERED: ACETAMINOPHEN 1000MG 100ML IV BTL (OFIRMEV) (J0131 PER 10MG) As Ordered ONE (12:38)
[2020-11-09] MEDS ORDERED: ONDANSETRON 4MG/2ML VIAL As Ordered ONE (12:38)
[2020-11-09] MEDS ORDERED: dexameTHASONE 4 MG/ML 1ML VIAL (J1100 PER 1MG) As Ordered ONE (12:38)
[2020-11-09] MEDS ORDERED: LIDOCAINE 2% 100MG/5ML SDV (FOR ANES.) As Ordered ONE (12:38)
[2020-11-09] MEDS ORDERED: ROCURONIUM BROMIDE 50 MG/5 ML VIAL As Ordered ONE ×2 (12:38→14:47)
[2020-11-09] MEDS ORDERED: HYDROmorphone HCL 2 MG/ML 1ML VIAL (J1170) As Ordered ONE (12:38)
[2020-11-09] MEDS ORDERED: fentaNYL 100 MCG/2 ML INJECTION (J3010) As Ordered ONE ×2 (12:39→16:03)
[2020-11-09] MEDS ORDERED: MIDAZOLAM INJ 2MG/2ML VIAL (J2250 PER 1MG) As Ordered ONE (12:39)
[2020-11-09] MEDS ORDERED: LIDOCAINE 1% SDV 30ML VIAL As Ordered ONE (12:44)
[2020-11-09] MEDS ORDERED: BUPIVACAINE HCL 0.25% 30ML VIAL As Ordered ONE (12:44)
--- NOTE | 2020-11-09 12:46 | IPNPDOC ---
Text Note Date of Service The patient was seen on 11/09/20. NOTE Patient continues to have bowel obstruction. He transiently improved yesterday morning, but again got distended and had emesis x 3 last night. He says he is passing flatus once in awhile but still feels distended. mild abdominal discomfort, cramping VS stable He is afebrile nontachycardic Examination Awake, alert, oriented lungs clear regular heart rate and rhythm abdomen moderately distended, soft, mild periumbilical tenderness without rebound or guarding. Impression and plan small bowel obstruction Patient will be brought to the OR today for diagnostic laparoscopy and attempt to release the bowel obstruction I spoke to his on the phone to explain to her the need for surgery. He remains on antibiotics per the hospitalist service, his leukocytosis as well as MARY JO has improved. VS,Fishbone, I+O VS, Fishbone, I+O Laboratory Tests 11/08/20 19:54 11/09/20 03:51 Vital Signs Date Time Temp Pulse Resp B/P (MAP) Pulse Ox O2 Delivery O2 Flow Rate FiO2 11/09/20 10:00 160/82 (108) 11/09/20 10:00 97.5 82 18 94 Room Air 11/08/20 04:40 2.0 I&O- Last 24 Hours up to 6 AM 11/09/20 06:00 Intake Total 1730 ml Output Total 1225 ml Balance 505 ml JASSI MATTHEWS MD Nov 09, 2020 12:46
[2020-11-09] MEDS ORDERED: ZOSYN 3.375GM VIAL (J2543) As Ordered ONE (13:13)
--- NOTE | 2020-11-09 14:04 | REP ---
INDICATION: ffup sbo. COMPARISON: 11/08/2020. TECHNIQUE: AP views abdomen and pelvis. FINDINGS: There is a nasogastric tube with side port in the fundus of the stomach. Multiple moderately dilated small bowel loops persist unchanged. Phleboliths are seen in the left pelvis. There are degenerative changes of the spine and hips. IMPRESSION: Persistent moderate small bowel dilatation and small-bowel obstruction. <Electronically signed by Percy Sheppard > 11/09/20 1400
[2020-11-09] MEDS ORDERED: METOCLOPRAMIDE INJ 10MG/2ML VIAL (J2765 PER 1) IV PRN (16:10)
[2020-11-09] MEDS ORDERED: ONDANSETRON 4MG/2ML VIAL IV PRN (16:10)
[2020-11-09] MEDS ORDERED: fentaNYL 100 MCG/2 ML INJECTION (J3010) IV PRN (16:10)
[2020-11-09] MEDS ORDERED: PERCOCET 5MG/325MG TAB PO PRN (16:10)
[2020-11-09] MEDS ORDERED: LR 1,000 ML IV SCH (16:10)
--- NOTE | 2020-11-09 16:45 | IPNPDOC ---
Date Seen The patient was seen on 11/09/20. Progress Note SUBJECTIVE: N/V several times over the evening despite NG tube, antinausea meds. Still coffee ground colored fluid in NG tube to intermittent suction to bedside cannister. Abd remains distended, tender to palpation, not passing gas or bowel movement. OR today per surgey for diagnostic laproscopy and attempt to release bowel obstruction. OBJECTIVE: PHYSICAL EXAMINATION: VITAL SIGNS: Please see below GENERAL APPEARANCE: resting in bed, appears slightly uncomfortable. AAOx3 HEENT: AT/NC, EOMI, NG tube in in place Neck: No JVD CARDIOVASCULAR: Regular rate and rhythm without any murmur appreciated LUNGS: Clear to auscultation, fair air movement ABDOMEN: distended, tympanic, nontender, multiple hernia repair scars appreciated without any protrusion. No masses. hypoactive bowel sounds MUSCULOSKELETAL: ROM wnl in all ext. no cyanosis or clubbing EXTREMITIES: Scars representing patient's prior knee replacements appreciated bilaterally, no lower extremity edema or calf tenderness bilaterally. Bilateral radial and posterior tibial pulses 2+ NEUROLOGICAL: No focal weakness, sensation intact, no aphasia or dysarthria, no facial droop. PSYCHIATRIC: Mood and affect appropriate LABORATORY DATA: See below. IMAGING: AbXR 11/09/20: Persistent moderate small bowel dilatation and small-bowel obstruction. Chest x-ray (11/08/20): No acute findings. Abdomen/pelvis CT (11/08/20): Small bowel obstruction with suspected closed loop obstruction and transition point in the upper left quadrant. Multiple enhancing polyps in the stomach. Hepatic steatosis. MICROBIOLOGY: Please see below. ASSESSMENT: Patient is a 75-year-old male with history of multiple abdominal surgeries, hx of SBO in past, alcohol abuse, HLD, osteoarthritis, GERD admitted for SBO, r/o GI bleed. PLAN: Small bowel obstruction -Persistent on abxr, distended abd, no gas or having BM since admission despite bowel rest -WBC wnl, afebrile, LA wnl -NG to LIS, NPO with sips/ice chips, IVF, Morphine for pain control. Zofran for nausea. -Follow am labs, ltyes, replete as necessary -OR today -General surgery following closely ? GI bleed, coffee ground emesis -HD stable -Type and screen -Monitor closely, H/H Q8H -Protonix gtt, NPO Alcohol dependence -No s/s of withdrawl -5-6 12 oz cans of light beer per day -[facility] protocol DVT Px -heparin SC DISPOSITION: OR today. Will need PT/OT when further medically improved. VS, I&O, 24H, Fishbone Vital Signs/I&O Vital Signs Date Time Temp Pulse Resp B/P (MAP) Pulse Ox O2 Delivery O2 Flow Rate FiO2 11/09/20 16:20 98.3 91 16 135/67 (89) 95 Nasal Cannula 2 11/09/20 15:35 100 I&O- Last 24 Hours up to 6 AM 11/09/20 05:59 Intake Total 1200 ml Output Total 1400 ml Balance -200 ml Laboratory Data 24H LABS Laboratory Tests 2 11/08/20 19:54: Nucleated Red Blood Cells % (auto) 0.0 11/09/20 03:51: Nucleated Red Blood Cells % (auto) 0.0, Anion Gap 2L, Glomerular Filtration Rate > 60.0, Calcium Level 8.7L, Iron Level 55L, Total Iron Binding Capacity 325, Transferrin % Saturation 16.9L, Ferritin 32, Total Bilirubin 0.5, Aspartate Amino Transf (AST/SGOT) 15, Alanine Aminotransferase (ALT/SGPT) 24, Alkaline Phosphatase 68, Total Protein 6.0L, Albumin 3.0L, Albumin/Globulin Ratio 1.0, Vitamin B12 Level 960H, Folate 6.8 CBC/BMP Laboratory Tests 11/08/20 19:54 11/09/20 03:51 Current Medications Current Medications Medications (Trade) Dose Ordered Sig/Kelechi Route PRN Reason Start Time Stop Time Status Last Admin Dose Admin Alvimopan (Entereg) 12 mg BID PO 11/09/20 21:00 11/16/20 20:59 Fentanyl Citrate (Sublimaze) 25 mcg Q5MP PRN IV PAIN LEVEL 5-10 11/09/20 16:10 11/09/20 17:10 11/09/20 16:05 Heparin Sodium (Porcine) (Heparin) 5,000 units Q12H SQ 11/08/20 21:00 11/08/20 20:01 Home Med (Med Rec Complete!) ASDIRECTED XX 11/08/20 02:30 11/08/20 02:32 DC Lactated Ringer's 1,000 ml @ 100 mls/hr Q10H IV 11/09/20 16:10 11/09/20 17:10 Lorazepam (Ativan) 1 mg ASDIRECTED PRN IV SEE PROTOCOL 11/08/20 04:50 Metoclopramide HCl (REGLAN INJection) 10 mg Q6HP PRN IV NAUSEA OR VOMITING 11/09/20 16:10 11/09/20 17:10 Morphine Sulfate (Morphine Sulfate Inj) 2 mg Q2H PRN IV BREAKTHROUGH PAIN 11/09/20 04:25 11/09/20 08:15 Morphine Sulfate (Morphine Sulfate Inj) 2 mg Q4H PRN IV MODERATE PAIN (PS 5-7) 11/08/20 04:55 11/09/20 04:27 DC 11/09/20 00:47 Ondansetron HCl (ZOFRAN INJection) 4 mg Q4HP PRN IV NAUSEA OR VOMITING 11/09/20 04:25 11/09/20 08:14 Ondansetron HCl (ZOFRAN INJection) 4 mg Q4HP PRN IV NAUSEA OR VOMITING 11/09/20 16:10 11/09/20 17:10 Ondansetron HCl (ZOFRAN INJection) 4 mg Q8HP PRN IV NAUSEA OR VOMITING 11/08/20 05:00 11/09/20 04:27 DC 11/09/20 04:25 Oxycodone/ Acetaminophen (Percocet 5mg/ 325mg Tablet) 1 tab ASDIRECTED PRN PO PAIN LEVEL 1-4 11/09/20 16:10 11/09/20 17:10 Pantoprazole Sodium 40 mg/ Dextrose 50 ml @ 10 mls/hr Q5H IV 11/08/20 03:20 11/09/20 15:42 DC 11/09/20 08:14 Piperacillin Sod/ Tazobactam Sod 3.375 gm/Dextrose 50 ml @ 50 mls/hr Q6H IV 11/08/20 07:00 11/09/20 06:03 Potassium Chloride/Dextrose/ Sod Cl 1,000 ml @ 100 mls/hr Q10H IV 11/09/20 15:35 Sodium Chloride 1,000 ml @ 100 mls/hr Q10H IV 11/08/20 02:30 11/08/20 04:05 DC 11/08/20 02:30 Sodium Chloride 1,000 ml @ 120 mls/hr Q8H20M IV 11/08/20 03:31 11/09/20 15:42 DC 11/09/20 08:14 Allergies Coded Allergies: No Known Allergies (Unverified , 06/28/19) Clara Lovett MD Nov 09, 2020 16:45
[2020-11-09 17:18] LABS: HEMATOCRIT 31.8 % (42.0-52.0); HEMOGLOBIN 10.5 g/dl (13.5-17.5); MEAN CORPUSCULAR HEMOGLOBIN 30.3 pg (27.0-33.0); MEAN CORPUSCULAR VOLUME 91.9 fl (80.0-96.0); PLATELET COUNT, AUTOMATED 189 10^3/uL (150-450); RED BLOOD COUNT 3.46 10^6/uL (4.30-6.10); WHITE BLOOD COUNT 7.1 10^3/uL (4.0-10.0)
[2020-11-09] MEDS: KCL 20MEQ IN D5/0.45NS 1000ML 1,000 ML IV SCH (18:27)
[2020-11-09] MEDS: ALVIMOPAN 12 MG CAPSULE (ENTEREG) PO SCH (21:50)
[2020-11-10] MEDS: PIPERACILLIN/TAZOBACTAM SOD 3.375 GM in D5W MINI-BAG PLUS 50 ML IV SCH ×4 (01:16→18:14)
[2020-11-10 02:00] VITALS: BP 150/70
[2020-11-10 05:25] LABS: HEMATOCRIT 31.8 % (42.0-52.0); HEMOGLOBIN 10.4 g/dl (13.5-17.5); MEAN CORPUSCULAR HEMOGLOBIN 30.1 pg (27.0-33.0); MEAN CORPUSCULAR HGB CONC 32.7 g/dl (32.0-36.5); MEAN CORPUSCULAR VOLUME 92.2 fl (80.0-96.0); PLATELET COUNT, AUTOMATED 204 10^3/uL (150-450); RED BLOOD COUNT 3.45 10^6/uL (4.30-6.10); WHITE BLOOD COUNT 6.8 10^3/uL (4.0-10.0)
[2020-11-10 05:35] LABS: ALBUMIN 2.7 GM/DL (3.2-5.2); ALT/SGPT 35 U/L (12-78); BILIRUBIN,TOTAL 0.3 MG/DL (0.2-1.0); BLOOD UREA NITROGEN 21 MG/DL (7-18); CALCIUM LEVEL 8.2 MG/DL (8.8-10.2); CARBON DIOXIDE LEVEL 28 MEQ/L (21-32); CHLORIDE LEVEL 110 MEQ/L (98-107); CREATININE FOR GFR 0.82 MG/DL (0.70-1.30); GLOMERULAR FILTRATION RATE > 60.0 (>42); GLUCOSE, FASTING 135 MG/DL (70-100); POTASSIUM SERUM 4.3 MEQ/L (3.5-5.1); SODIUM LEVEL 142 MEQ/L (136-145); TOTAL PROTEIN 5.3 GM/DL (6.4-8.2)
[2020-11-10 06:00] VITALS: BP 157/81
[2020-11-10] MEDS: MORPHINE 2 MG/ML 1ML VIAL (J2270) IV PRN (06:40)
[2020-11-10] MEDS: KCL 20MEQ IN D5/0.45NS 1000ML 1,000 ML IV SCH ×2 (06:56→11:35)
[2020-11-10] MEDS: ALVIMOPAN 12 MG CAPSULE (ENTEREG) PO SCH ×2 (09:15→20:25)
[2020-11-10] MEDS: HEPARIN SOD (PORCINE) 5000UNITS/ML 1ML VIAL/SYRINGE SQ SCH ×2 (09:15→20:25)
--- NOTE | 2020-11-10 13:29 | IPN ---
PROGRESS NOTE DATE: 11/10/2020 SUBJECTIVE: The patient is status post lysis of adhesions for a small bowel obstruction and was found to have an internal hernia and this was reduced and the patient has been doing well overnight. He did state that he had some flatus, has not had the same pain or discomfort as he had preoperatively and overall no vomiting. However, still has a significant amount of bilious output. He has been afebrile overnight. I and O's reveal still a significant amount of bilious drainage, this morning 300 ml and it is dark bile. His abdomen is softly distended but tympanitic throughout without guarding, without rebound and his incisions are clean and dry without erythema, drainage or discharge. IMPRESSION/PLAN: The patient is status post operative intervention for small bowel obstruction and seems to be making some slow but progressive improvement. However, he is not ready for the NG-tube to be removed at this time. He can have some ice chips and sips of water but otherwise I would not recommend discontinuing his NG-tube and progressing his diet until we see a little bit further activity from a GI standpoint. Patient understands our plan. I have discussed this with Dr. Lovett and we will see how he does overnight with continued supportive care.
[2020-11-10 14:00] VITALS: BP 160/81
[2020-11-10 14:01] LABS: HEMATOCRIT 31.7 % (42.0-52.0); HEMOGLOBIN 10.3 g/dl (13.5-17.5); MEAN CORPUSCULAR HEMOGLOBIN 29.9 pg (27.0-33.0); MEAN CORPUSCULAR HGB CONC 32.5 g/dl (32.0-36.5); MEAN CORPUSCULAR VOLUME 92.2 fl (80.0-96.0); PLATELET COUNT, AUTOMATED 188 10^3/uL (150-450); RED BLOOD COUNT 3.44 10^6/uL (4.30-6.10)
--- NOTE | 2020-11-10 16:29 | IPNPDOC ---
Date Seen The patient was seen on 11/10/20. Progress Note SUBJECTIVE: POD 1 lysis of adhesion for SBO, reduction of internal hernia. Passing gas but no BM, abd still distended with dark green bile coming for NG tube. Keeping NG tube, ice chips and sips of water per surgery, encouraging ambulation. Denies chest pain, sob, fevers, chills. OBJECTIVE: PHYSICAL EXAMINATION: VITAL SIGNS: Please see below GENERAL APPEARANCE: resting in bed, appears slightly uncomfortable. AAOx3 HEENT: AT/NC, EOMI, NG tube in in place Neck: No JVD CARDIOVASCULAR: Regular rate and rhythm without any murmur appreciated LUNGS: Clear to auscultation, fair air movement ABDOMEN: abdomen mildly tender to palpation, mildly distended, tympanic, new incisions appear clean, nonsuppurative. Decreased BS. multiple hernia repair scars appreciated without any protrusion. No masses. hypoactive bowel sounds MUSCULOSKELETAL: ROM wnl in all ext. no cyanosis or clubbing EXTREMITIES: Scars representing patient's prior knee replacements appreciated bilaterally, no lower extremity edema or calf tenderness bilaterally. Bilateral radial and posterior tibial pulses 2+ NEUROLOGICAL: No focal weakness, sensation intact, no aphasia or dysarthria, no facial droop. PSYCHIATRIC: Mood and affect appropriate LABORATORY DATA: See below. IMAGING: AbXR 11/09/20: Persistent moderate small bowel dilatation and small-bowel obstruction. Chest x-ray (11/08/20): No acute findings. Abdomen/pelvis CT (11/08/20): Small bowel obstruction with suspected closed loop obstruction and transition point in the upper left quadrant. Multiple enhancing polyps in the stomach. Hepatic steatosis. MICROBIOLOGY: Please see below. ASSESSMENT: Patient is a 75-year-old male with history of multiple abdominal surgeries, hx of SBO in past, alcohol abuse, HLD, osteoarthritis, GERD admitted for SBO, POD 1 lysis of adhesion for SBO, reduction of internal hernia. PLAN: Small bowel obstruction likely 2/2 to adhesions, internal hernia -POD 1 lysis of adhesion for SBO, reduction of internal hernia -Persistent mildly distended abd, passing gas, no BM -WBC wnl, afebrile, LA wnl -Keeping NG to LIS, NPO with sips/ice chips, IVF, Morphine for pain control. Zofran for nausea. -Follow am labs, ltyes, replete as necessary -Encourage ambulation -General surgery following closely Dark green/black colored bile in NG tube -No necrosis seen during surgery, unlikely GI bleed -HD stable -Monitor closely, cbc -Protonix daily, NPO Alcohol dependence -No s/s of withdrawl -5-6 12 oz cans of light beer per day -[facility] protocol DVT Px -heparin SC DISPOSITION: General surgery following closely . Will need PT/OT when further medically improved. VS, I&O, 24H, Fishbone Vital Signs/I&O Vital Signs Date Time Temp Pulse Resp B/P (MAP) Pulse Ox O2 Delivery O2 Flow Rate FiO2 11/10/20 14:00 99.1 76 18 160/81 (107) 97 Nasal Cannula 2.0 11/09/20 15:35 100 I&O- Last 24 Hours up to 6 AM 11/10/20 06:00 Intake Total 3440 ml Output Total 1880 ml Balance 1560 ml Laboratory Data 24H LABS Laboratory Tests 2 11/09/20 17:05: Nucleated Red Blood Cells % (auto) 0.0 11/10/20 04:38: Nucleated Red Blood Cells % (auto) 0.0, Anion Gap 4L, Glomerular Filtration Rate > 60.0, Calcium Level 8.2L, Total Bilirubin 0.3, Aspartate Amino Transf (AST/SGOT) 23, Alanine Aminotransferase (ALT/SGPT) 35, Alkaline Phosphatase 55, Total Protein 5.3L, Albumin 2.7L, Albumin/Globulin Ratio 1.0 11/10/20 12:00: Nucleated Red Blood Cells % (auto) 0.0 CBC/BMP Laboratory Tests 11/09/20 17:05 11/10/20 04:38 11/10/20 12:00 Current Medications Current Medications Medications (Trade) Dose Ordered Sig/Kelechi Route PRN Reason Start Time Stop Time Status Last Admin Dose Admin Alvimopan (Entereg) 12 mg BID PO 11/09/20 21:00 11/16/20 20:59 11/10/20 09:15 Fentanyl Citrate (Sublimaze) 25 mcg Q5MP PRN IV PAIN LEVEL 5-10 11/09/20 16:10 11/09/20 17:10 DC 11/09/20 16:05 Heparin Sodium (Porcine) (Heparin) 5,000 units Q12H SQ 11/08/20 21:00 11/10/20 09:15 Home Med (Med Rec Complete!) ASDIRECTED XX 11/08/20 02:30 11/08/20 02:32 DC Lactated Ringer's 1,000 ml @ 100 mls/hr Q10H IV 11/09/20 16:10 11/09/20 17:10 DC Lorazepam (Ativan) 1 mg ASDIRECTED PRN IV SEE PROTOCOL 11/08/20 04:50 11/10/20 03:44 DC Metoclopramide HCl (REGLAN INJection) 10 mg Q6HP PRN IV NAUSEA OR VOMITING 11/09/20 16:10 11/09/20 17:10 DC Morphine Sulfate (Morphine Sulfate Inj) 2 mg Q2H PRN IV BREAKTHROUGH PAIN 11/09/20 04:25 11/10/20 06:40 Morphine Sulfate (Morphine Sulfate Inj) 2 mg Q4H PRN IV MODERATE PAIN (PS 5-7) 11/08/20 04:55 11/09/20 04:27 DC 11/09/20 00:47 Ondansetron HCl (ZOFRAN INJection) 4 mg Q4HP PRN IV NAUSEA OR VOMITING 11/09/20 04:25 11/09/20 21:55 Ondansetron HCl (ZOFRAN INJection) 4 mg Q4HP PRN IV NAUSEA OR VOMITING 11/09/20 16:10 11/09/20 17:10 DC Ondansetron HCl (ZOFRAN INJection) 4 mg Q8HP PRN IV NAUSEA OR VOMITING 11/08/20 05:00 11/09/20 04:27 DC 11/09/20 04:25 Oxycodone/ Acetaminophen (Percocet 5mg/ 325mg Tablet) 1 tab ASDIRECTED PRN PO PAIN LEVEL 1-4 11/09/20 16:10 11/09/20 17:10 DC Pantoprazole Sodium 40 mg/ Dextrose 50 ml @ 10 mls/hr Q5H IV 11/08/20 03:20 11/09/20 15:42 DC 11/09/20 08:14 Piperacillin Sod/ Tazobactam Sod 3.375 gm/Dextrose 50 ml @ 50 mls/hr Q6H IV 11/08/20 07:00 11/10/20 13:00 Potassium Chloride/Dextrose/ Sod Cl 1,000 ml @ 100 mls/hr Q10H IV 11/09/20 15:35 11/10/20 11:35 Sodium Chloride 1,000 ml @ 100 mls/hr Q10H IV 11/08/20 02:30 11/08/20 04:05 DC 11/08/20 02:30 Sodium Chloride 1,000 ml @ 120 mls/hr Q8H20M IV 11/08/20 03:31 11/09/20 15:42 DC 11/09/20 08:14 Allergies Coded Allergies: No Known Allergies (Unverified , 06/28/19) Clara Lovett MD Nov 10, 2020 16:29
[2020-11-10] MEDS: PANTOPRAZOLE 40MG VIAL (C9113 PER 1) IV SCH (17:40)
[2020-11-10 20:05] LABS: HEMATOCRIT 31.4 % (42.0-52.0); HEMOGLOBIN 10.2 g/dl (13.5-17.5); MEAN CORPUSCULAR HEMOGLOBIN 29.9 pg (27.0-33.0); MEAN CORPUSCULAR HGB CONC 32.5 g/dl (32.0-36.5); MEAN CORPUSCULAR VOLUME 92.1 fl (80.0-96.0); PLATELET COUNT, AUTOMATED 205 10^3/uL (150-450); RED BLOOD COUNT 3.41 10^6/uL (4.30-6.10); WHITE BLOOD COUNT 5.8 10^3/uL (4.0-10.0)
[2020-11-10 22:00] VITALS: BP 152/90
[2020-11-11] MEDS: KCL 20MEQ IN D5/0.45NS 1000ML 1,000 ML IV SCH ×3 (00:20→17:29)
[2020-11-11] MEDS ORDERED: RAMELTEON 8 MG TAB (ROZEREM) PO ONE (00:25)
[2020-11-11] MEDS: PIPERACILLIN/TAZOBACTAM SOD 3.375 GM in D5W MINI-BAG PLUS 50 ML IV SCH ×4 (01:21→18:16)
[2020-11-11 02:00] VITALS: BP 150/88
[2020-11-11 06:00] VITALS: BP 154/82
[2020-11-11 07:03] LABS: HEMATOCRIT 30.9 % (42.0-52.0); HEMOGLOBIN 10.1 g/dl (13.5-17.5); MEAN CORPUSCULAR HEMOGLOBIN 30.1 pg (27.0-33.0); MEAN CORPUSCULAR HGB CONC 32.7 g/dl (32.0-36.5); PLATELET COUNT, AUTOMATED 203 10^3/uL (150-450); RED BLOOD COUNT 3.36 10^6/uL (4.30-6.10); WHITE BLOOD COUNT 6.2 10^3/uL (4.0-10.0)
[2020-11-11 07:33] LABS: ALBUMIN 2.7 GM/DL (3.2-5.2); ALT/SGPT 35 U/L (12-78); BILIRUBIN,TOTAL 0.3 MG/DL (0.2-1.0); BLOOD UREA NITROGEN 16 MG/DL (7-18); CALCIUM LEVEL 8.4 MG/DL (8.8-10.2); CARBON DIOXIDE LEVEL 29 MEQ/L (21-32); CHLORIDE LEVEL 106 MEQ/L (98-107); CREATININE FOR GFR 0.81 MG/DL (0.70-1.30); GLOMERULAR FILTRATION RATE > 60.0 (>42); GLUCOSE, FASTING 139 MG/DL (70-100); POTASSIUM SERUM 3.9 MEQ/L (3.5-5.1); SODIUM LEVEL 140 MEQ/L (136-145); TOTAL PROTEIN 5.2 GM/DL (6.4-8.2)
[2020-11-11] MEDS: ALVIMOPAN 12 MG CAPSULE (ENTEREG) PO SCH ×2 (08:46→21:00)
[2020-11-11] MEDS: HEPARIN SOD (PORCINE) 5000UNITS/ML 1ML VIAL/SYRINGE SQ SCH ×2 (08:47→21:22)
[2020-11-11] MEDS: DOCUSATE SODIUM 100MG CAPSULE PO SCH ×2 (09:00→21:00)
[2020-11-11] MEDS: FERROUS SULFATE 325MG TAB PO SCH ×2 (09:00→21:00)
--- NOTE | 2020-11-11 11:32 | IPN ---
PROGRESS NOTE DATE: 11/11/2020 SUBJECTIVE: Patient overall has been doing better, had a couple of bowel movements yesterday and actually one bowel movement this morning, but it is very liquid. He still feels distended, but much better than he did yesterday. His nasogastric (NG) tube, though, is still putting out a significant amount of bilious fluid. He has had no nausea, no vomiting. He has been afebrile this morning and his white count is within normal limits. His abdomen is less distended, but still significantly tympanitic. No guarding, no rebound is appreciated. IMPRESSION/PLAN: Patient seems to be making some progress; however, he still has not completely resolved his small bowel obstruction at this time. My recommendation is that we clamp his NG tube, we see how he does with this over the next several hours and, if he tolerates this without any nausea and no significant residual, then we will discontinue his NG tube. I still would like to slowly go forward with his diet, just given that he is relatively significantly distended compared to normal. However, once again, he has made significant improvement since yesterday.
--- NOTE | 2020-11-11 12:36 | IPNPDOC ---
Date Seen The patient was seen on 11/11/20. Progress Note SUBJECTIVE: Several bowel movements since 11/10/20, NG tube clamped and to see how he does with this over first part of today. If does well per surgery, then likely can d/c NG tube. No abdominal pain on exam and also denies chest pain, sob, fevers, chills. OBJECTIVE: PHYSICAL EXAMINATION: VITAL SIGNS: Please see below GENERAL APPEARANCE: resting in bed, appears slightly uncomfortable. AAOx3 HEENT: AT/NC, EOMI, NG tube in in place Neck: No JVD CARDIOVASCULAR: Regular rate and rhythm without any murmur appreciated LUNGS: Clear to auscultation, fair air movement ABDOMEN: abdomen nontender to palpation, mildly distended, tympanic, new incisions appear clean and healing, nonsuppurative. Decreased BS. multiple hernia repair scars appreciated without any protrusion. No masses. hypoactive bowel sounds MUSCULOSKELETAL: ROM wnl in all ext. no cyanosis or clubbing EXTREMITIES: Scars representing patient's prior knee replacements appreciated bilaterally, no lower extremity edema or calf tenderness bilaterally. Bilateral radial and posterior tibial pulses 2+ NEUROLOGICAL: No focal weakness, sensation intact, no aphasia or dysarthria, no facial droop. PSYCHIATRIC: Mood and affect appropriate LABORATORY DATA: See below. IMAGING: AbXR 11/09/20: Persistent moderate small bowel dilatation and small-bowel obstruction. Chest x-ray (11/08/20): No acute findings. Abdomen/pelvis CT (11/08/20): Small bowel obstruction with suspected closed loop obstruction and transition point in the upper left quadrant. Multiple enhancing polyps in the stomach. Hepatic steatosis. MICROBIOLOGY: Please see below. ASSESSMENT: Patient is a 75-year-old male with history of multiple abdominal surgeries, hx of SBO in past, alcohol abuse, HLD, osteoarthritis, GERD admitted for SBO, POD 2 lysis of adhesion for SBO, reduction of internal hernia. PLAN: Small bowel obstruction likely 2/2 to adhesions, internal hernia- improving slowly -POD 2 lysis of adhesion for SBO, reduction of internal hernia -Persistent mildly distended abd, passing gas, with several BM since 11/10/20 -WBC wnl, afebrile, LA wnl -Clamping NG today, NPO with sips/ice chips, IVF, Morphine for pain control. Zofran for nausea. -If no issues with clamping NG, can likely d/c later today -Follow am labs, lytes, replete as necessary -Encourage ambulation -General surgery following closely Alcohol dependence -No s/s of withdrawl -[facility] protocol Iron deficiency anemia -Occult blood neg -H/H stable at 10./30 -Iron low -Starting on ferrous sulfate BID, colace BID, miralax PRN -Daily CBC GI px -PPI DVT Px -Heparin SC DISPOSITION: General surgery following closely. Will need PT/OT when further medically improved. VS, I&O, 24H, Fishbone Vital Signs/I&O Vital Signs Date Time Temp Pulse Resp B/P (MAP) Pulse Ox O2 Delivery O2 Flow Rate FiO2 11/11/20 06:00 97.9 81 18 154/82 (106) 95 Room Air 11/10/20 22:00 11/09/20 15:35 100 I&O- Last 24 Hours up to 6 AM 11/11/20 06:00 Intake Total 2540 ml Output Total 2545 ml Balance -5 ml Laboratory Data 24H LABS Laboratory Tests 2 11/10/20 19:54: Nucleated Red Blood Cells % (auto) 0.0 11/11/20 06:22: Nucleated Red Blood Cells % (auto) 0.0, Anion Gap 5L, Glomerular Filtration Rate > 60.0, Calcium Level 8.4L, Total Bilirubin 0.3, Aspartate Amino Transf (AST/SGOT) 22, Alanine Aminotransferase (ALT/SGPT) 35, Alkaline Phosphatase 52, Total Protein 5.2L, Albumin 2.7L, Albumin/Globulin Ratio 1.1 CBC/BMP Laboratory Tests 11/10/20 19:54 11/11/20 06:22 Microbiology Microbiology 11/10/20 Stool Occult Blood (ALVIN) - Final, Complete Current Medications Current Medications Medications (Trade) Dose Ordered Sig/Kelechi Route PRN Reason Start Time Stop Time Status Last Admin Dose Admin Alvimopan (Entereg) 12 mg BID PO 11/09/20 21:00 11/16/20 20:59 11/11/20 08:46 Fentanyl Citrate (Sublimaze) 25 mcg Q5MP PRN IV PAIN LEVEL 5-10 11/09/20 16:10 11/09/20 17:10 DC 11/09/20 16:05 Heparin Sodium (Porcine) (Heparin) 5,000 units Q12H SQ 11/08/20 21:00 11/11/20 08:47 Home Med (Med Rec Complete!) ASDIRECTED XX 11/08/20 02:30 11/08/20 02:32 DC Lactated Ringer's 1,000 ml @ 100 mls/hr Q10H IV 11/09/20 16:10 11/09/20 17:10 DC Lorazepam (Ativan) 1 mg ASDIRECTED PRN IV SEE PROTOCOL 11/08/20 04:50 11/10/20 03:44 DC Metoclopramide HCl (REGLAN INJection) 10 mg Q6HP PRN IV NAUSEA OR VOMITING 11/09/20 16:10 11/09/20 17:10 DC Morphine Sulfate (Morphine Sulfate Inj) 2 mg Q2H PRN IV BREAKTHROUGH PAIN 11/09/20 04:25 11/10/20 06:40 Morphine Sulfate (Morphine Sulfate Inj) 2 mg Q4H PRN IV MODERATE PAIN (PS 5-7) 11/08/20 04:55 11/09/20 04:27 DC 11/09/20 00:47 Ondansetron HCl (ZOFRAN INJection) 4 mg Q4HP PRN IV NAUSEA OR VOMITING 11/09/20 04:25 11/09/20 21:55 Ondansetron HCl (ZOFRAN INJection) 4 mg Q4HP PRN IV NAUSEA OR VOMITING 11/09/20 16:10 11/09/20 17:10 DC Ondansetron HCl (ZOFRAN INJection) 4 mg Q8HP PRN IV NAUSEA OR VOMITING 11/08/20 05:00 11/09/20 04:27 DC 11/09/20 04:25 Oxycodone/ Acetaminophen (Percocet 5mg/ 325mg Tablet) 1 tab ASDIRECTED PRN PO PAIN LEVEL 1-4 11/09/20 16:10 11/09/20 17:10 DC Pantoprazole Sodium (Protonix) 40 mg Q24H IV 11/10/20 18:00 11/10/20 17:40 Pantoprazole Sodium 40 mg/ Dextrose 50 ml @ 10 mls/hr Q5H IV 11/08/20 03:20 11/09/20 15:42 DC 11/09/20 08:14 Piperacillin Sod/ Tazobactam Sod 3.375 gm/Dextrose 50 ml @ 50 mls/hr Q6H IV 11/08/20 07:00 11/11/20 08:47 Potassium Chloride/Dextrose/ Sod Cl 1,000 ml @ 100 mls/hr Q10H IV 11/09/20 15:35 11/11/20 08:47 Sodium Chloride 1,000 ml @ 100 mls/hr Q10H IV 11/08/20 02:30 11/08/20 04:05 DC 11/08/20 02:30 Sodium Chloride 1,000 ml @ 120 mls/hr Q8H20M IV 11/08/20 03:31 11/09/20 15:42 DC 11/09/20 08:14 Allergies Coded Allergies: No Known Allergies (Unverified , 06/28/19) Clara Lovett MD Nov 11, 2020 12:36
[2020-11-11] MEDS ORDERED: MIRALAX *UNIT DOSE* 17GM PACKET PO PRN (12:40)
[2020-11-11] MEDS: ONDANSETRON 4MG/2ML VIAL IV PRN ×2 (12:43→19:43)
[2020-11-11 14:00] VITALS: BP 162/81
[2020-11-11] MEDS: PANTOPRAZOLE 40MG VIAL (C9113 PER 1) IV SCH (17:28)
[2020-11-11 22:00] VITALS: BP 151/80
--- NOTE | 2020-11-12 00:16 | REPVR ---
PROCEDURE INFORMATION: Exam: XR Chest Exam date and time: 11/11/2020 11:54 PM Age: 75 years old Clinical indication: Ng tube placement TECHNIQUE: Imaging protocol: XR of the chest Views: 1 view. COMPARISON: 1. CR PORTABLE CHEST X-RAY 11/08/2020 12:[address] ABD/PEL W/IV CONTRAST ONLY 11/08/2020 1:32:48 AM FINDINGS: Limitations: The lung apices were not fully imaged. Tubes, catheters and devices: A nasogastric tube is seen terminating in the proximal body of the stomach. Lungs: There are linear densities in the right lung base that are similar in appearance compared to the prior chest x-ray on 11/08/2020, which may represent atelectasis or scarring. Pleural spaces: No pleural effusion or pneumothorax is identified. Heart/Mediastinum: Unremarkable. No cardiomegaly. Bones/joints: Endplate spurs are noted in the thoracic spine. Gastrointestinal tract: There are dilated loops of small bowel in the upper abdomen measuring up to 3.9 cm in diameter. IMPRESSION: 1. Nasogastric tube terminating in the proximal body of the stomach. 2. Dilated loops of small bowel in the upper abdomen, which can be seen with a small bowel obstruction. Electronically signed by: Galindo Arnett On 11/12/2020 00:16:24 AM
[2020-11-12] MEDS: PIPERACILLIN/TAZOBACTAM SOD 3.375 GM in D5W MINI-BAG PLUS 50 ML IV SCH ×2 (01:08→07:01)
[2020-11-12] MEDS: KCL 20MEQ IN D5/0.45NS 1000ML 1,000 ML IV SCH ×2 (04:46→15:50)
[2020-11-12 06:00] VITALS: BP 163/80
[2020-11-12 06:22] LABS: HEMATOCRIT 31.7 % (42.0-52.0); HEMOGLOBIN 10.3 g/dl (13.5-17.5); MEAN CORPUSCULAR HEMOGLOBIN 29.6 pg (27.0-33.0); MEAN CORPUSCULAR HGB CONC 32.5 g/dl (32.0-36.5); MEAN CORPUSCULAR VOLUME 91.1 fl (80.0-96.0); PLATELET COUNT, AUTOMATED 221 10^3/uL (150-450); RED BLOOD COUNT 3.48 10^6/uL (4.30-6.10); WHITE BLOOD COUNT 8.6 10^3/uL (4.0-10.0)
[2020-11-12 06:49] LABS: BLOOD UREA NITROGEN 15 MG/DL (7-18); CALCIUM LEVEL 8.4 MG/DL (8.8-10.2); CARBON DIOXIDE LEVEL 26 MEQ/L (21-32); CHLORIDE LEVEL 108 MEQ/L (98-107); CREATININE FOR GFR 0.88 MG/DL (0.70-1.30); GLOMERULAR FILTRATION RATE > 60.0 (>42); GLUCOSE, FASTING 114 MG/DL (70-100); POTASSIUM SERUM 3.7 MEQ/L (3.5-5.1); SODIUM LEVEL 142 MEQ/L (136-145)
[2020-11-12] MEDS: FERROUS SULFATE 325MG TAB PO SCH (09:00)
[2020-11-12] MEDS: DOCUSATE SODIUM 100MG CAPSULE PO SCH ×2 (09:00→20:22)
[2020-11-12] MEDS: ALVIMOPAN 12 MG CAPSULE (ENTEREG) PO SCH ×2 (09:19→20:22)
[2020-11-12] MEDS: HEPARIN SOD (PORCINE) 5000UNITS/ML 1ML VIAL/SYRINGE SQ SCH ×2 (09:19→20:22)
--- NOTE | 2020-11-12 10:02 | REP ---
INDICATION: ffup sbo, postop COMPARISON: 11/09/2020 TECHNIQUE: Supine view of the abdomen and pelvis. FINDINGS: Current examination demonstrates dilated air-filled loops of small and large bowel suggesting ileus with relatively improved appearance to the previous small-bowel obstruction. IMPRESSION: Ileus pattern without definite evidence for small bowel obstruction. <Electronically signed by Jorge Alberto Malone > 11/12/20 [id number]
--- NOTE | 2020-11-12 12:30 | IPNPDOC ---
Text Note Date of Service The patient was seen on 11/12/20. NOTE General Surgery Dr Manzano. The patient is a 75-year-old male with small bowel obstruction status post laparoscopy with lysis of adhesions 11/09/[address] Matthews. The patient did have emesis yesterday with trial of clamping the NG tube. The patient states he has had flatus and a small bowel movement today. Still with some abdominal distention, but the pt reports this is improved. He has been up out of bed walking in the halls. Denies nausea or vomiting today, denies abdominal pain. Afebrile, VSS. Comfortably resting in bed lungs CTA. S1S2 RRR Abdomen noted to still have some distention, tympanic with percussion, nontender, no guarding or rebound. Extremities well-perfused, no edema. 1920,2575, -635. NGT 1800cc past 24 hrs. No leukocytosis. AXR this am with dilated air-filled loops of small and large bowel suggesting ileus, relatively improved appearance compared with previous. A/P. SBO status post laparoscopy with lysis of adhesions. Patient is reviewed and examined as per Dr. Matthews. The patient's abdominal x-ray this morning is reviewed, there does appear to be some slow improvement. Plan to reduce IV fluids to 60 mL per hour. Continue NPO. Discontinue IV antibiotics. Discontinue iron supplement for now. Plan to retry clamping the NG tube every 4 hours and monitor if the patient is able to tolerate. Continue to encourage out of bed and ambulation. VS,Fishbone, I+O VS, Fishbone, I+O Laboratory Tests 11/12/20 05:26 Vital Signs Date Time Temp Pulse Resp B/P (MAP) Pulse Ox O2 Delivery O2 Flow Rate FiO2 11/12/20 06:00 97.8 73 20 163/80 (107) 94 11/11/20 14:00 Room Air 11/10/20 22:00 11/09/20 15:35 100 I&O- Last 24 Hours up to 6 AM 11/12/20 06:00 Intake Total 1220 ml Output Total 2125 ml Balance -905 ml Briana Laws Nov 12, 2020 12:30 JASSI MATTHEWS MD Dec 09, 2020 16:00
[2020-11-12 14:00] VITALS: BP 158/86
--- NOTE | 2020-11-12 15:50 | IPNPDOC ---
Date Seen The patient was seen on 11/12/20. Progress Note SUBJECTIVE: Patient states to have had BM this AM. Per surgery, abxr shows slow improvements so will continue with intermittent clamping to see how he tolerates it. D/cing Abx. Still denies chest pain, sob, fevers, chills. OBJECTIVE: PHYSICAL EXAMINATION: VITAL SIGNS: Please see below GENERAL APPEARANCE: resting in bed, NAD. AAOx3 HEENT: AT/NC, EOMI, NG tube in in place Neck: No JVD CARDIOVASCULAR: Regular rate and rhythm , No M/r/g LUNGS: Clear to auscultation, fair air movement ABDOMEN: abdomen nontender to palpation, mildly distended, incisions appear clean and healing/scabbed over. Decreased BS. multiple hernia repair scars appreciated without any protrusion. No masses. MUSCULOSKELETAL: ROM wnl in all ext. no cyanosis or clubbing EXTREMITIES: Scars representing patient's prior knee replacements appreciated bilaterally, no lower extremity edema or calf tenderness bilaterally. Bilateral radial and posterior tibial pulses 2+ NEUROLOGICAL: No focal weakness, sensation intact, no aphasia or dysarthria, no facial droop. PSYCHIATRIC: Mood and affect appropriate LABORATORY DATA: See below. IMAGING: AbdXR 11/12/20: Ileus pattern without definite evidence for small bowel obstruction. AbXR 11/09/20: Persistent moderate small bowel dilatation and small-bowel obstruction. Chest x-ray (11/08/20): No acute findings. Abdomen/pelvis CT (11/08/20): Small bowel obstruction with suspected closed loop obstruction and transition point in the upper left quadrant. Multiple enhancing polyps in the stomach. Hepatic steatosis. MICROBIOLOGY: Please see below. ASSESSMENT: Patient is a 75-year-old male with history of multiple abdominal surgeries, hx of SBO in past, alcohol abuse, HLD, osteoarthritis, GERD admitted for SBO, POD 3 lysis of adhesion for SBO, reduction of internal hernia. PLAN: Small bowel obstruction likely 2/2 to adhesions, internal hernia- improving slowly -POD 3 lysis of adhesion for SBO, reduction of internal hernia -Repeat Abd XR shows ileus pattern, slowly improving. -Passing gas, with several BM since 11/10/20 -WBC wnl, afebrile, LA wnl -Intermittent clamping NG , NPO with sips/ice chips, IVF decreased, Morphine for pain control. Zofran for nausea. -Follow am labs, lytes, replete as necessary -Encourage ambulation -General surgery following closely Alcohol dependence -No s/s of withdrawl -CIWA protocol Iron deficiency anemia -Occult blood neg -H/H stable -Holding PO ferrous sulfate BID per surgery. C/w Bowel regimen -Daily CBC GI px -PPI DVT Px -Heparin SC DISPOSITION: General surgery following closely. Plan is home when medically improved. Updated patient's Tejal over the phone today at approx 3:50 PM VS, I&O, 24H, Fishbone Vital Signs/I&O Vital Signs Date Time Temp Pulse Resp B/P (MAP) Pulse Ox O2 Delivery O2 Flow Rate FiO2 11/12/20 14:00 96.2 75 18 158/86 (110) 97 Room Air 11/10/20 22:00 11/09/20 15:35 100 I&O- Last 24 Hours up to 6 AM 11/12/20 06:00 Intake Total 1220 ml Output Total 2125 ml Balance -905 ml Laboratory Data 24H LABS Laboratory Tests 2 11/12/20 05:26: Nucleated Red Blood Cells % (auto) 0.0, Anion Gap 8, Glomerular Filtration Rate > 60.0, Calcium Level 8.4L CBC/BMP Laboratory Tests 11/12/20 05:26 Microbiology Microbiology 11/10/20 Stool Occult Blood (ALVIN) - Final, Complete Current Medications Current Medications Medications (Trade) Dose Ordered Sig/Kelechi Route PRN Reason Start Time Stop Time Status Last Admin Dose Admin Alvimopan (Entereg) 12 mg BID PO 11/09/20 21:00 11/16/20 20:59 11/12/20 09:19 Docusate Sodium (Colace) 100 mg BID PO 11/11/20 09:00 Fentanyl Citrate (Sublimaze) 25 mcg Q5MP PRN IV PAIN LEVEL 5-10 11/09/20 16:10 11/09/20 17:10 DC 11/09/20 16:05 Ferrous Sulfate (Ferrous Sulfate) 325 mg BID PO 11/11/20 09:00 11/12/20 09:51 DC Heparin Sodium (Porcine) (Heparin) 5,000 units Q12H SQ 11/08/20 21:00 11/12/20 09:19 Home Med (Med Rec Complete!) ASDIRECTED XX 11/08/20 02:30 11/08/20 02:32 DC Lactated Ringer's 1,000 ml @ 100 mls/hr Q10H IV 11/09/20 16:10 11/09/20 17:10 DC Lorazepam (Ativan) 1 mg ASDIRECTED PRN IV SEE PROTOCOL 11/08/20 04:50 11/10/20 03:44 DC Metoclopramide HCl (REGLAN INJection) 10 mg Q6HP PRN IV NAUSEA OR VOMITING 11/09/20 16:10 11/09/20 17:10 DC Morphine Sulfate (Morphine Sulfate Inj) 2 mg Q2H PRN IV BREAKTHROUGH PAIN 11/09/20 04:25 11/10/20 06:40 Morphine Sulfate (Morphine Sulfate Inj) 2 mg Q4H PRN IV MODERATE PAIN (PS 5-7) 11/08/20 04:55 11/09/20 04:27 DC 11/09/20 00:47 Ondansetron HCl (ZOFRAN INJection) 4 mg Q4HP PRN IV NAUSEA OR VOMITING 11/09/20 04:25 11/11/20 19:43 Ondansetron HCl (ZOFRAN INJection) 4 mg Q4HP PRN IV NAUSEA OR VOMITING 11/09/20 16:10 11/09/20 17:10 DC Ondansetron HCl (ZOFRAN INJection) 4 mg Q8HP PRN IV NAUSEA OR VOMITING 11/08/20 05:00 11/09/20 04:27 DC 11/09/20 04:25 Oxycodone/ Acetaminophen (Percocet 5mg/ 325mg Tablet) 1 tab ASDIRECTED PRN PO PAIN LEVEL 1-4 11/09/20 16:10 11/09/20 17:10 DC Pantoprazole Sodium (Protonix) 40 mg Q24H IV 11/10/20 18:00 11/11/20 17:28 Pantoprazole Sodium 40 mg/ Dextrose 50 ml @ 10 mls/hr Q5H IV 11/08/20 03:20 11/09/20 15:42 DC 11/09/20 08:14 Piperacillin Sod/ Tazobactam Sod 3.375 gm/Dextrose 50 ml @ 50 mls/hr Q6H IV 11/08/20 07:00 11/12/20 09:51 DC 11/12/20 07:01 Polyethylene Glycol (Miralax) 1 pkt DAILYPRN PRN PO CONSTIPATION 11/11/20 12:40 Potassium Chloride/Dextrose/ Sod Cl 1,000 ml @ 60 mls/hr [id number] IV 11/09/20 15:35 11/12/20 15:50 Sodium Chloride 1,000 ml @ 100 mls/hr Q10H IV 11/08/20 02:30 11/08/20 04:05 DC 11/08/20 02:30 Sodium Chloride 1,000 ml @ 120 mls/hr Q8H20M IV 11/08/20 03:31 11/09/20 15:42 DC 11/09/20 08:14 Allergies Coded Allergies: No Known Allergies (Unverified , 06/28/19) Clara Lovett MD Nov 12, 2020 15:50
[2020-11-12] MEDS: PANTOPRAZOLE 40MG VIAL (C9113 PER 1) IV SCH (18:11)
[2020-11-12 22:00] VITALS: BP 196/70
[2020-11-13 06:00] VITALS: BP 174/84
[2020-11-13 06:21] LABS: MEAN CORPUSCULAR HEMOGLOBIN 30.1 pg (27.0-33.0); MEAN CORPUSCULAR HGB CONC 33.3 g/dl (32.0-36.5); MEAN CORPUSCULAR VOLUME 90.4 fl (80.0-96.0); PLATELET COUNT, AUTOMATED 200 10^3/uL (150-450); RED BLOOD COUNT 3.32 10^6/uL (4.30-6.10); WHITE BLOOD COUNT 9.1 10^3/uL (4.0-10.0)
[2020-11-13 06:48] LABS: BLOOD UREA NITROGEN 10 MG/DL (7-18); CALCIUM LEVEL 7.9 MG/DL (8.8-10.2); CARBON DIOXIDE LEVEL 28 MEQ/L (21-32); CHLORIDE LEVEL 105 MEQ/L (98-107); CREATININE FOR GFR 0.73 MG/DL (0.70-1.30); GLOMERULAR FILTRATION RATE > 60.0 (>42); GLUCOSE, FASTING 108 MG/DL (70-100); POTASSIUM SERUM 3.6 MEQ/L (3.5-5.1); SODIUM LEVEL 140 MEQ/L (136-145)
[2020-11-13] MEDS: ALVIMOPAN 12 MG CAPSULE (ENTEREG) PO SCH ×2 (08:43→21:23)
[2020-11-13] MEDS: DOCUSATE SODIUM 100MG CAPSULE PO SCH ×2 (08:43→21:23)
[2020-11-13] MEDS: HEPARIN SOD (PORCINE) 5000UNITS/ML 1ML VIAL/SYRINGE SQ SCH ×2 (08:44→21:23)
--- NOTE | 2020-11-13 09:00 | IPNPDOC ---
Text Note Date of Service The patient was seen on 11/13/20. NOTE General Surgery Dr Manzano. The patient is a 75-year-old male with small bowel obstruction status post laparoscopy with lysis of adhesions 11/09/[address] Matthews. The patient eats he tolerated clamping of the NG tube yesterday. Overnight, the patient inadvertently removed the NG tube. The patient states he has had flatus and a few small bowel movements. Still with some abdominal distention, but the pt reports this has continued to improve. He has been up out of bed walking in the halls. Denies nausea or vomiting today, denies abdominal pain. The patient is sitting up in bed and tolerating full liquid diet for breakfast this morning. Afebrile, VSS. Comfortably resting in bed lungs CTA. S1S2 RRR Abdomen noted to still have some distention, but nontender, BS present, less tympanic, no guarding or rebound. Extremities well-perfused, no edema. 540/1400 No leukocytosis. AXR 11/12 with dilated air-filled loops of small and large bowel suggesting ileus, relatively improved appearance compared with previous. A/P. SBO status post laparoscopy with lysis of adhesions. Patient is reviewed and examined as per Dr. Matthews. The patient's abdominal x-ray 11/[address] Matthews and there did appear to be some slow improvement. Trial of full liquids, the patient is tolerating this morning at breakfast. Protonix IV Colace, MiraLAX as needed. Continue to encourage out of bed and ambulation. Continue to monitor. VS,Fishbone, I+O VS, Fishbone, I+O Laboratory Tests 11/13/20 06:02 Vital Signs Date Time Temp Pulse Resp B/P (MAP) Pulse Ox O2 Delivery O2 Flow Rate FiO2 11/13/20 06:00 98.2 73 20 174/84 (114) 96 11/12/20 14:00 Room Air 11/10/20 22:00 11/09/20 15:35 100 I&O- Last 24 Hours up to 6 AM 11/13/20 05:59 Intake Total 840 ml Output Total 1400 ml Balance -560 ml Briana Laws Nov 13, 2020 09:00 JASSI MATTHEWS MD Dec 09, 2020 16:00
--- NOTE | 2020-11-13 13:05 | ROOPDOC ---
[facility] Report Of Operation Report of Operation DATE OF PROCEDURE: 11/09/20 PREPROCEDURE DIAGNOSES: small bowel obstruction. POSTPROCEDURE DIAGNOSES: small bowel obstruction, adhesive band with incarcerated internal hernia. PROCEDURE: Robotic assisted laparoscopic lysis of adhesion. SURGEON: Jamshid Graham MD INTRAOPERATIVE NEURO TECH: ANESTHESIA: General Anesthesia. ESTIMATED BLOOD LOSS: Approximately 30 mL. COMPLICATIONS: none. REMARKS: 75 M presenting to the ER with a sudden onset severe left sided abdominal pain and vomiting, was found to have small bowel obstruction with features suggestive of complete obstruction/closed loop obstruction thus even though his pain is getting better, I decided to bring him to the operating room for laparoscopic evaluation.. . PROCEDURE NOTE: Patient is noted to have a closed loop obstruction secondary to a part of the omentum that has encased in loop of the mid jejunal small bowel over the left upper quadrant area quite tightly causing some venous congestion of the small bowel. After release of small bowel I observed the bowel for a while and noted this to have some improvement in its color, active peristalsis as well as adequate opacification on ICG with firefly. DESCRIPTION OF PROCEDURE: Patient received a dose of Zosyn 3.375 g IV which was started in the emergency room. He was promptly brought to the operating room, placed supine on the table. TEDs and bilateral sequential compression devices were placed for DVT prophylaxis. He already has a nasogastric tube placed in the emergency room to decompress his abdomen. Gen. endotracheal anesthesia was started. A Perez catheter was placed for urine output monitoring. She remained hemodynamically stable both pre-and post intubation. Both arms were tucked. His abdomen widely prepped and draped in the usual sterile fashion. We paused for a surgical timeout using both pre-incision safety checklist to verify correct patient, procedure site and additional clinical information prior to beginning the pro cedure Entered the abdomen through the right upper quadrant area. A Veress needle was inserted. Intra-abdominal placement confirmed with saline drop technique. CO2 insufflation started to pressure 15 mmHg. Using the same incision an 8 mm robotic optical trocar was placed under direct vision of laparoscope. Insertion site and underneath was inspected for injury and none was found. He was placed on the mild Trendelenburg tilted towards the right side as the CT scan was suggesting obstruction over at the left upper quadrant area. 2 other working ports were established was along the same line at the right midclavicular about 10 cm apart under direct vision. The robot was then positioned in place over the patient's left side and the trochars duct to the robotic arms. I used a 8 mm 30 robotic, with a combination of a small grasping retractor, reports bipolar forceps and robotic scissors during the surgery. I then scrubbed in to control of the robotic camera and instruments at the surgeon's console. On diagnostic laparoscopy, there is normal to mildly decompressed loops of small bowel over the right lower quadrant area. I identified the insertion of the terminal ileum to the cecum, as well as of the appendix which appears normal. The cecum is rotated more medially with a very floppy lateral attachments. The cecum itself appears normal. I followed the course of the ascending colon and transverse colon and they appear normal in caliber. The omentum was tacked to the upper abdomen to review the small bowel over the left upper quadrant area. There is a fairly long well-defined loop of bowel that appears mildly purplish separate from all the rest of the healthy pink bowel laterally over the left upper quadrant area. I followed its course and found the site stricture created by a piece of the omentum that seems to encase this piece of bowel. This was lifted off the bowel and trimmed with a robotic similar releasing the bowel. I continued to run the bowel to define the extent of its involvement tenderness relatively well a 30 cm loop of bowel that was like this. I asked anesthesia to give the patient ICG (1 mg with 10 mL normal saline flush) to visualize its perfusion under firefly. Initially there was sluggish appearance of the green opacification of the vessels. I waited for another 15-20 minutes to see if this will improve. For the meantime I ran the rest of the bowel from the ligament of Treitz back to the terminal ileum and no other pieces of bowel seems to be involved in all the small bowel is free and not adhered to anything. There is a small amount of hemorrhagic ascites over the liver which I suctioned off also in the pelvis. I then returned to again look at the affected loop of bowel. I could see active peristalsis at this time with the initial purplish appearance turning into more erythematous appearance. There is no clear full thickness necrotic perforation. I again asked anesthesia to give the patient ICG and this time around there is a more brisk appearance of the green dye in the arterial face with persistence of the green dye at the venous face. Thus I was more confident that the affected loop of bowel may be able to recover fully without need for resection. At this point I terminated the procedure. Abdomen was deflated, all ports were removed. The incisions were closed with 4-0 Monocryl in subcuticular fashion and Dermabond was then used for dressing. Patient remained stable throughout the procedure. He was promptly awakened, extubated and brought to recovery room in stable condition. JAMSHID GRAHAM MD Nov 13, 2020 13:05
--- NOTE | 2020-11-13 13:18 | IPNPDOC ---
Text Note Date of Service The patient was seen on 11/13/20. NOTE SUBJECTIVE: -No chest pain, sob, fevers, chills. dc'd, now having BMs, latest was this AM, improving post-op ileus OBJECTIVE: PHYSICAL EXAMINATION: VITAL SIGNS: Please see below GENERAL APPEARANCE: resting in bed, NAD. AAOx3 HEENT: AT/NC, EOMI, NG tube now out Neck: No JVD CARDIOVASCULAR: Regular rate and rhythm , No M/r/g LUNGS: Clear to auscultation, fair air movement ABDOMEN: abdomen nontender to palpation, no distention, incisions appear clean and healing/scabbed over. multiple hernia repair scars appreciated without any protrusion. No masses. MUSCULOSKELETAL: ROM wnl in all ext. no cyanosis or clubbing EXTREMITIES: Scars representing patient's prior knee replacements appreciated bilaterally, no lower extremity edema or calf tenderness bilaterally. Bilateral radial and posterior tibial pulses 2+ NEUROLOGICAL: No focal weakness, sensation intact, no aphasia or dysarthria, no facial droop. PSYCHIATRIC: Mood and affect appropriate LABORATORY DATA: Reviewed IMAGING: AbdXR 11/12/20: Ileus pattern without definite evidence for small bowel obstruction. AbXR 11/09/20: Persistent moderate small bowel dilatation and small-bowel obstruction. Chest x-ray (11/08/20): No acute findings. Abdomen/pelvis CT (11/08/20): Small bowel obstruction with suspected closed loop obstruction and transition point in the upper left quadrant. Multiple enhancing polyps in the stomach. Hepatic steatosis. MICROBIOLOGY: Please see below. ASSESSMENT: Patient is a 75-year-old M with history of multiple abdominal surgeries, hx of SBO in past, alcohol abuse, HLD, osteoarthritis, GERD admitted for SBO, POD 4 lysis of adhesion for SBO, reduction of internal hernia. PLAN: Small bowel obstruction likely 2/2 to adhesions, internal hernia- improving -POD 4 lysis of adhesion for SBO, reduction of internal hernia -Passing gas and having BMs -WBC wnl, afebrile -Now on full liquid diet. Morphine for pain control. Zofran for nausea. -Follow am labs, lytes, replete as necessary -Encourage ambulation -General surgery following closely Alcohol dependence -No s/s of withdrawl -CIWA protocol Iron deficiency anemia -Occult blood neg -H/H stable -Holding PO ferrous sulfate BID per surgery. C/w Bowel regimen -Daily CBC GI px -PPI DVT Px -Heparin SC DISPOSITION: General surgery following closely. Plan is home when medically improved. VS,Fishbone, I+O VS, Fishbone, I+O Laboratory Tests 11/13/20 06:02 Vital Signs Date Time Temp Pulse Resp B/P (MAP) Pulse Ox O2 Delivery O2 Flow Rate FiO2 11/13/20 08:44 87 158/84 11/13/20 06:00 98.2 20 96 11/12/20 14:00 Room Air 11/10/20 22:00 11/09/20 15:35 100 I&O- Last 24 Hours up to 6 AM 11/13/20 06:00 Intake Total 1200 ml Output Total 1700 ml Balance -500 ml ANITA SERVIN MD Nov 13, 2020 09:00
[2020-11-13 14:00] VITALS: BP 169/79
[2020-11-13] MEDS: PANTOPRAZOLE 40MG VIAL (C9113 PER 1) IV SCH (18:03)
[2020-11-13] MEDS: ACETAMINOPHEN TAB 650MG DOSE (2X325MG) PO PRN (18:03)
[2020-11-13] MEDS: traZODone 50 MG TAB PO PRN (21:24)
[2020-11-13 22:00] VITALS: BP 170/81
--- NOTE | 2020-11-13 22:58 | REPVR ---
PROCEDURE INFORMATION: Exam: US Duplex Left Upper Extremity Veins, Limited Exam date and time: 11/13/2020 10:26 PM Age: 75 years old Clinical indication: Edema, localized; Upper extremity, left; Additional info: Lue swelling and erythema TECHNIQUE: Imaging protocol: Real-time Duplex ultrasound of the Left Upper Extremity with 2-D león scale, color Doppler flow and spectral waveform analysis with image documentation. Limited exam focused on the left upper extremity veins. COMPARISON: No relevant prior studies available. FINDINGS: Left deep veins: Unremarkable. Axillary and brachial veins are patent throughout without thrombus. Normal Doppler waveforms. Normal compressibility and/or augmentation response. Visualized internal jugular and subclavian veins are patent. Left superficial veins: There is thrombosis of the left basilic vein in the left arm, which partially occludes this vessel and this vein is not fully compressible. The left cephalic vein is patent as visualized. IMPRESSION: Thrombosis of the left basilic vein, which is a superficial vein that is partially occluded. Electronically signed by: Galindo Arnett On 11/13/2020 22:58:23 PM
[2020-11-14 06:00] VITALS: BP 166/72
[2020-11-14] MEDS: DOCUSATE SODIUM 100MG CAPSULE PO SCH ×2 (09:00→20:01)
[2020-11-14] MEDS: HEPARIN SOD (PORCINE) 5000UNITS/ML 1ML VIAL/SYRINGE SQ SCH ×2 (09:11→20:02)
[2020-11-14] MEDS: DULoxetine 30 MG CAP (CYMBALTA) PO SCH (09:11)
[2020-11-14] MEDS: ALVIMOPAN 12 MG CAPSULE (ENTEREG) PO SCH (09:11)
[2020-11-14] MEDS: ACETAMINOPHEN TAB 650MG DOSE (2X325MG) PO PRN (09:15)
--- NOTE | 2020-11-14 10:36 | IPNPDOC ---
Text Note Date of Service The patient was seen on 11/14/20. NOTE General Surgery Dr Manzano. The patient is a 75-year-old male with small bowel obstruction status post laparoscopy with lysis of adhesions 11/09/[address] Matthews. The patient states he has had flatus and 2 formed bowel movements yesterday and diarrhea x 2 thus far today. He has been up out of bed walking in the halls. Reports abdominal distention has been improved. Denies nausea or vomiting today, denies abdominal pain. The patient is sitting up in bed and tolerating soft diet for breakfast this morning. Tmax 99.7, VSS. Comfortably resting in bed lungs CTA. S1S2 RRR Abdomen noted to still have some distention, but is soft and nontender, BS present, less tympanic, no guarding or rebound. Extremities well-perfused, no edema. 2460/1400, +1060 No leukocytosis. Hemoglobin is 10.0 A/P. SBO status post laparoscopy with lysis of adhesions. Patient is reviewed and examined as per Dr. Matthews. The patient is currently tolerating soft diet. Protonix IV Colace, held today related to diarrhea. Continue to encourage out of bed and ambulation. Continue to monitor. Possibly consider D/C tomorrow if pt continues to tolerate diet. VS,Fishbone, I+O VS, Fishbone, I+O Vital Signs Date Time Temp Pulse Resp B/P (MAP) Pulse Ox O2 Delivery O2 Flow Rate FiO2 11/14/20 09:12 109 142/70 11/14/20 06:00 99.6 20 96 11/13/20 14:00 Room Air 11/10/20 22:00 11/09/20 15:35 100 I&O- Last 24 Hours up to 6 AM 11/14/20 06:00 Intake Total 1980 ml Output Total 1150 ml Balance 830 ml Briana Laws Nov 14, 2020 10:36 JASSI MATTHEWS MD Dec 09, 2020 16:01
[2020-11-14] MEDS: PANTOPRAZOLE 40MG TAB (PROTONIX) PO SCH (11:31)
--- NOTE | 2020-11-14 12:26 | IPNPDOC ---
Text Note Date of Service The patient was seen on 11/14/20. NOTE SUBJECTIVE: -No chest pain, sob, fevers, chills. Having daily BMs, now on a soft diet -Swollen LUE --> Had LUE doppler venous US OBJECTIVE: VITAL SIGNS: Please see below GENERAL APPEARANCE: resting in bed, NAD. AAOx3 HEENT: NCAT, EOMI, MMM, poor dentition Neck: No JVD CARDIOVASCULAR: Regular rate and rhythm , No M/r/g LUNGS: Clear to auscultation, fair air movement ABDOMEN: abdomen nontender to palpation, no distention, incisions appear clean and healing/scabbed over. multiple hernia repair scars appreciated without any protrusion. No masses. MUSCULOSKELETAL: ROM wnl in all ext. no cyanosis or clubbing EXTREMITIES: Scars representing patient's prior knee replacements appreciated bilaterally, no lower extremity edema or calf tenderness bilaterally. Bilateral radial and posterior tibial pulses 2+. LUE is swollen, no erythema or warmth NEUROLOGICAL: No focal weakness, sensation intact, no aphasia or dysarthria, no facial droop. PSYCHIATRIC: Mood and affect appropriate LABORATORY DATA: Reviewed IMAGING: AbdXR 11/12/20: Ileus pattern without definite evidence for small bowel obstruction. AbXR 11/09/20: Persistent moderate small bowel dilatation and small-bowel obstruction. Chest x-ray (11/08/20): No acute findings. Abdomen/pelvis CT (11/08/20): Small bowel obstruction with suspected closed loop obstruction and transition point in the upper left quadrant. Multiple enhancing polyps in the stomach. Hepatic steatosis. LUE doppler venous US: Left deep veins: Unremarkable. Axillary and brachial veins are patent throughout without thrombus. Normal Doppler waveforms. Normal compressibility and/or augmentation response. Visualized internal jugular and subclavian veins are patent. Left superficial veins: There is thrombosis of the left basilic vein in the left arm, which partially occludes this vessel and this vein is not fully compressible. The left cephalic vein is patent as visualized. IMPRESSION: Thrombosis of the left basilic vein, which is a superficial vein that is partially occluded. MICROBIOLOGY: Please see below. ASSESSMENT: Patient is a 75-year-old M with history of multiple abdominal surgeries, hx of SBO in past, alcohol abuse, HLD, osteoarthritis, GERD admitted for SBO, POD 5 lysis of adhesion for SBO, reduction of internal hernia. PLAN: Small bowel obstruction likely 2/2 to adhesions, internal hernia- improving -POD 5 lysis of adhesion for SBO, reduction of internal hernia -Passing gas and having BMs daily now, actually some diarrhea, so colace was held -WBC wnl, afebrile -Now on soft diet. Morphine for pain control. Zofran for nausea. -Follow am labs, lytes, replete as necessary -Encourage ambulation -General surgery following closely, like home dc tomorrow L arm swelling: Noted partial occlusion of left basilic vein on doppler US -elevate arm above level of heart. -No use arm for IVs Alcohol dependence -No s/s of withdrawl -CIWA protocol Iron deficiency anemia -Occult blood neg -H/H stable -Resume PO ferrous sulfate BID -Daily CBC GI px -PPI DVT Px -Heparin SC DISPOSITION: General surgery following closely, likely home tomorrow VS,Fishbone, I+O VS, Fishbone, I+O Vital Signs Date Time Temp Pulse Resp B/P (MAP) Pulse Ox O2 Delivery O2 Flow Rate FiO2 11/14/20 06:00 99.6 84 20 166/72 (103) 96 11/13/20 14:00 Room Air 11/10/20 22:00 11/09/20 15:35 100 I&O- Last 24 Hours up to 6 AM 11/14/20 05:59 Intake Total 2160 ml Output Total 1400 ml Balance 760 ml ANITA SERVIN MD Nov 14, 2020 08:26
[2020-11-14 14:00] VITALS: BP 118/64
[2020-11-14] MEDS: traZODone 50 MG TAB PO PRN (20:02)
[2020-11-14 22:00] VITALS: BP 153/76
[2020-11-14] MEDS ORDERED: ONDANSETRON 4 MG ORAL DISINTEGRATING TAB PO PRN (22:40)
[2020-11-14] MEDS: ONDANSETRON 4MG/2ML VIAL IV PRN (22:56)
[2020-11-15] MEDS: ONDANSETRON 4MG/2ML VIAL IV PRN (05:40)
[2020-11-15 06:00] VITALS: BP 144/66
[2020-11-15] MEDS ORDERED: DOK1CAP7 PO (07:40)
[2020-11-15] MEDS ORDERED: FERR325T3 PO (07:40)
--- NOTE | 2020-11-15 08:28 | REP ---
INDICATION: ffup sbo COMPARISON: 11/12/2020 TECHNIQUE: Supine view of the abdomen and pelvis. FINDINGS: Dilated air-filled small and large bowel. Findings most compatible with small bowel obstruction along with ileus. IMPRESSION: Findings compatible with small bowel obstruction and secondary ileus. <Electronically signed by Jorge Alberto Malone > 11/15/20 [id number]
[2020-11-15] MEDS: DOCUSATE SODIUM 100MG CAPSULE PO SCH ×2 (08:34→21:23)
[2020-11-15] MEDS: PANTOPRAZOLE 40MG TAB (PROTONIX) PO SCH (08:34)
[2020-11-15] MEDS: DULoxetine 30 MG CAP (CYMBALTA) PO SCH (08:34)
[2020-11-15] MEDS: HEPARIN SOD (PORCINE) 5000UNITS/ML 1ML VIAL/SYRINGE SQ SCH ×2 (08:35→21:23)
[2020-11-15] MEDS ORDERED: FLEET ENEMA PR ONE (10:00)
[2020-11-15] MEDS: METOCLOPRAMIDE INJ 10MG/2ML VIAL (J2765 PER 1) IV SCH ×3 (10:36→21:23)
--- NOTE | 2020-11-15 12:13 | IPNPDOC ---
Text Note Date of Service The patient was seen on 11/15/20. NOTE General Surgery Dr Manzano. The patient is a 75-year-old male with small bowel obstruction status post laparoscopy with lysis of adhesions 11/09/[address] Matthews. The patient states he is not feeling as well as he did yesterday. Last evening he states he felt nauseated and vomited 1. This morning he felt nauseated. He has taken Zofran IV last evening and this morning which helped. He has been up out of bed walking in the halls. Reports still feels distended this morning, about the same, not at his baseline. States he has been passing less gas and reports diarrhea 2 this morning. Tmax 99.6, VSS. Comfortably resting in bed lungs CTA. S1S2 RRR Abdomen with distention noted, but soft and nontender, BS present, no guarding or rebound. Extremities well-perfused, no edema. 2460/1400, +1060 No leukocytosis. Hemoglobin is 10.0 A/P. SBO status post laparoscopy with lysis of adhesions. Patient is reviewed and examined as per Dr. Matthews this morning. The patient's abdominal x-ray is reviewed by Dr. Matthews and discussed with the patient. Still with air filled small bowel and large bowel, similar to last study as reviewed by Dr Matthews. Continue Zofran if needed for nausea. Add Reglan 5 mg every 6 hours IV. Continue Colace. Trial of Fleet's enema 1. Continue to encourage out of bed and ambulation. Continue to monitor. . VS,Fishbone, I+O VS, Fishbone, I+O Vital Signs Date Time Temp Pulse Resp B/P (MAP) Pulse Ox O2 Delivery O2 Flow Rate FiO2 11/15/20 08:34 98 151/77 11/15/20 06:00 98.8 19 94 Room Air 11/10/20 22:00 11/09/20 15:35 100 I&O- Last 24 Hours up to 6 AM 11/15/20 06:00 Intake Total 1770 ml Output Total 1655 ml Balance 115 ml Briana Laws Nov 15, 2020 12:13 JASSI MATTHEWS MD Dec 09, 2020 16:01
--- NOTE | 2020-11-15 12:18 | IPNPDOC ---
Text Note Date of Service The patient was seen on 11/15/20. NOTE SUBJECTIVE: -Had a bout of emesis overnight, non-bloody, mildly bilious stomach contents -No abdominal pain OBJECTIVE: VITAL SIGNS: Please see below GENERAL APPEARANCE: resting in bed, NAD. AAOx3 HEENT: NCAT, EOMI, MMM, poor dentition Neck: No JVD CARDIOVASCULAR: Regular rate and rhythm , No M/r/g LUNGS: Clear to auscultation, fair air movement ABDOMEN: abdomen nontender to palpation, slightly distended this morning, tympanic, incisions appear clean and healing/scabbed over. multiple hernia repair scars appreciated without any protrusion. No masses. MUSCULOSKELETAL: ROM wnl in all ext. no cyanosis or clubbing EXTREMITIES: Scars representing patient's prior knee replacements appreciated bilaterally, no lower extremity edema or calf tenderness bilaterally. Bilateral radial and posterior tibial pulses 2+. LUE is swollen, no erythema or warmth NEUROLOGICAL: No focal weakness, sensation intact, no aphasia or dysarthria, no facial droop. PSYCHIATRIC: Mood and affect appropriate LABORATORY DATA: Reviewed IMAGING: AbdXR 11/12/20: Ileus pattern without definite evidence for small bowel obstruction. AbXR 11/09/20: Persistent moderate small bowel dilatation and small-bowel obstruction. Chest x-ray (11/08/20): No acute findings. Abdomen/pelvis CT (11/08/20): Small bowel obstruction with suspected closed loop obstruction and transition point in the upper left quadrant. Multiple enhancing polyps in the stomach. Hepatic steatosis. LUE doppler venous US: Left deep veins: Unremarkable. Axillary and brachial veins are patent throughout without thrombus. Normal Doppler waveforms. Normal compressibility and/or augmentation response. Visualized internal jugular and subclavian veins are patent. Left superficial veins: There is thrombosis of the left basilic vein in the left arm, which partially occludes this vessel and this vein is not fully compressible. The left cephalic vein is patent as visualized. IMPRESSION: Thrombosis of the left basilic vein, which is a superficial vein that is partially occluded. 11/15/2020 AXR: FINDINGS: Dilated air-filled small and large bowel. Findings most compatible with small bowel obstruction along with ileus. IMPRESSION: Findings compatible with small bowel obstruction and secondary ileus. MICROBIOLOGY: Please see below. ASSESSMENT: 75-year-old M with history of multiple abdominal surgeries, hx of SBO in past, alcohol abuse, HLD, osteoarthritis, GERD admitted for SBO, POD 6 lysis of adhesion for SBO, reduction of internal hernia with course now c/b emesis and imaging showing re-developing SBO. PLAN: Small bowel obstruction likely 2/2 to adhesions, internal hernia: had been improving, but now c/f worsening -POD 6 lysis of adhesion for SBO, reduction of internal hernia -Passing flatus -WBC wnl, afebrile -continues on soft diet per surgery team. -Morphine for pain control. -Zofran for nausea. -Follow am labs, lytes, replete as necessary -Encourage ambulation -General surgery following closely L arm swelling: Noted partial occlusion of left basilic vein on doppler US -elevate arm above level of heart. -No use arm for IVs Alcohol dependence -No s/s of withdrawl -[facility] protocol Iron deficiency anemia -Occult blood neg -H/H stable -Resume PO ferrous sulfate BID -Daily CBC GI px -PPI DVT Px -Heparin SC DISPOSITION: General surgery following closely VS,Fishbone, I+O VS, Fishbone, I+O Vital Signs Date Time Temp Pulse Resp B/P (MAP) Pulse Ox O2 Delivery O2 Flow Rate FiO2 11/15/20 08:34 98 151/77 11/15/20 06:00 98.8 19 94 Room Air 11/10/20 22:00 11/09/20 15:35 100 I&O- Last 24 Hours up to 6 AM 11/15/20 06:00 Intake Total 1770 ml Output Total 1655 ml Balance 115 ml ANITA SERVIN MD Nov 15, 2020 12:18
[2020-11-15 14:00] VITALS: BP 151/72
[2020-11-15 22:00] VITALS: BP 151/83
[2020-11-15] MEDS: traZODone 50 MG TAB PO PRN (22:41)
[2020-11-16] MEDS: METOCLOPRAMIDE INJ 10MG/2ML VIAL (J2765 PER 1) IV SCH ×4 (03:23→21:00)
[2020-11-16 06:00] VITALS: BP 153/83
[2020-11-16] MEDS: GASTROGRAFIN SOLUTION 30ML PO SCH ×2 (06:48→07:31)
[2020-11-16] MEDS ORDERED: ISOVUE-370 76% 100ML VIAL As Ordered ONE (07:35)
[2020-11-16] MEDS: HEPARIN SOD (PORCINE) 5000UNITS/ML 1ML VIAL/SYRINGE SQ SCH ×2 (08:53→20:58)
[2020-11-16] MEDS: DOCUSATE SODIUM 100MG CAPSULE PO SCH ×2 (08:53→20:58)
[2020-11-16] MEDS: PANTOPRAZOLE 40MG TAB (PROTONIX) PO SCH (08:53)
[2020-11-16] MEDS: DULoxetine 30 MG CAP (CYMBALTA) PO SCH (08:54)
--- NOTE | 2020-11-16 09:37 | REP ---
INDICATION: sbo. COMPARISON: 11/08/2020 TECHNIQUE: Axial contrast-enhanced images from the lung bases to the pubic symphysis using 100 cc Isovue 370 intravenous contrast material. . This CT examination was performed using the following dose reduction techniques: Automated exposure control, adjustment of mA and/or kv according to the patient's size, and the use of iterative reconstruction technique. FINDINGS: The large bowel demonstrates fluid/air-filled dilated loops to 4.4 cm diameter along with fluid-filled nonobstructed nondilated loops in the right lower quadrant without a discrete focal short segment transition zone identified. The large bowel is moderately dilated and fluid-filled. Differential diagnosis includes a partial small-bowel obstruction in the region of the right lower quadrant and associated ileus. Sigmoid diverticulosis noted without acute diverticulitis. No free air or ascites. Liver, spleen, pancreas, gallbladder, right kidney and bilateral adrenal glands are relatively normal. Left kidney again includes 2.3 cm simple appearing cyst. Mild hepatosteatosis cannot be excluded. Pelvis demonstrates collapsed bladder and evidence for prior prostatectomy. Small fat containing left inguinal hernia noted. No ascites. No free air. No intraperitoneal or retroperitoneal adenopathy. Abdominal aorta demonstrates atherosclerotic changes without aneurysm or dissection. Surrounding musculoskeletal structures demonstrate degenerative changes without acute osseous abnormality. IMPRESSION: 1. Continue to suggest at least partial small bowel obstruction somewhere in the right lower quadrant along with ileus. No free air or free fluid to suggest perforation. <Electronically signed by Jorge Alberto Malone > 11/16/20 0996
--- NOTE | 2020-11-16 11:50 | IPNPDOC ---
Text Note Date of Service The patient was seen on 11/16/20. NOTE General Surgery Dr Manzano. The patient is a 75-year-old male with small bowel obstruction status post laparoscopy with lysis of adhesions 11/09/[address] Matthews. The patient reports nausea and vomiting last evening, states he had diarrhea last evening and twice this morning. Reports he still feels distended, about the same as yesterday. Tmax 99.3, VSS. Comfortably resting in bed lungs CTA. S1S2 RRR Abdomen with distention noted to be about the same as yesterday, but soft and nontender, no guarding or rebound. Extremities well-perfused, no edema. 1530/1040/1400, +490 No new labs A/P. SBO status post laparoscopy with lysis of adhesions. Patient is reviewed and examined as per Dr. Matthews this morning. The patient's CT A/P from this am is reviewed by Dr. Matthews and discussed with the patient. Stomach with air, still with air filled small bowel and large bowel. He does state that he is having flatus and diarrhea x 2 this AM, but emesis last evening. Dr. Matthews discussed with the patient that would recommend NPO and to re place NG tube for decompression. The patient has not been eating very much over the last week, discussed with hospitalist regarding beginning PPN. Continue Zofran if needed for nausea. Continue Reglan 5 mg every 6 hours IV. Continue Colace. Continue to encourage out of bed and ambulation. Update AXR Continue to monitor. . VS,Fishbone, I+O VS, Fishbone, I+O Vital Signs Date Time Temp Pulse Resp B/P (MAP) Pulse Ox O2 Delivery O2 Flow Rate FiO2 11/16/20 08:55 93 149/80 11/16/20 06:00 99.3 18 97 Room Air 11/10/20 22:00 I&O- Last 24 Hours up to 6 AM 11/16/20 06:00 Intake Total 1380 ml Output Total 800 ml Balance 580 ml Briana Laws Nov 16, 2020 11:50 JASSI MATTHEWS MD Dec 09, 2020 16:01
--- NOTE | 2020-11-16 11:53 | IPNPDOC ---
Text Note Date of Service The patient was seen on 11/16/20. NOTE SUBJECTIVE: -Had more episodes of emesis yesterday evening and overnight as well. Surgery kept him on soft diet. Had abdominal imaging this AM -No significant abdominal pain OBJECTIVE: VITAL SIGNS: Please see below GENERAL APPEARANCE: resting in bed, NAD. AAOx3 HEENT: NCAT, EOMI, MMM, poor dentition Neck: No JVD CARDIOVASCULAR: Regular rate and rhythm , No M/r/g LUNGS: Clear to auscultation, fair air movement ABDOMEN: abdomen nontender to palpation, distended this morning, tympanic, incisions appear clean and healing/scabbed over. multiple hernia repair scars appreciated without any protrusion. No masses. MUSCULOSKELETAL: ROM wnl in all ext. no cyanosis or clubbing EXTREMITIES: Scars representing patient's prior knee replacements appreciated bilaterally, no lower extremity edema or calf tenderness bilaterally. Bilateral radial and posterior tibial pulses 2+. LUE is swollen, no erythema or warmth NEUROLOGICAL: No focal weakness, sensation intact, no aphasia or dysarthria, no facial droop. PSYCHIATRIC: Mood and affect appropriate LABORATORY DATA: Reviewed IMAGING: AbdXR 11/12/20: Ileus pattern without definite evidence for small bowel obstruction. AbXR 11/09/20: Persistent moderate small bowel dilatation and small-bowel obstruction. Chest x-ray (11/08/20): No acute findings. Abdomen/pelvis CT (11/08/20): Small bowel obstruction with suspected closed loop obstruction and transition point in the upper left quadrant. Multiple enhancing polyps in the stomach. Hepatic steatosis. LUE doppler venous US: Left deep veins: Unremarkable. Axillary and brachial veins are patent throughout without thrombus. Normal Doppler waveforms. Normal compressibility and/or augmentation response. Visualized internal jugular and subclavian veins are patent. Left superficial veins: There is thrombosis of the left basilic vein in the left arm, which partially occludes this vessel and this vein is not fully compressible. The left cephalic vein is patent as visualized. IMPRESSION: Thrombosis of the left basilic vein, which is a superficial vein that is partially occluded. 11/15/2020 AXR: FINDINGS: Dilated air-filled small and large bowel. Findings most compatible with small bowel obstruction along with ileus. IMPRESSION: Findings compatible with small bowel obstruction and secondary ileus. MICROBIOLOGY: Please see below. ASSESSMENT: 75-year-old M with history of multiple abdominal surgeries, hx of SBO in past, alcohol abuse, HLD, osteoarthritis, GERD admitted for SBO, POD 6 lysis of adhesion for SBO, reduction of internal hernia with course now c/b emesis and imaging showing re-developing SBO. PLAN: Small bowel obstruction likely 2/2 to adhesions, internal hernia: had been improving, but now c/f worsening -POD 7 lysis of adhesion for SBO, reduction of internal hernia -Passing flatus -WBC wnl, afebrile -NPO, place NGT, start PPN per surgery team -Morphine for pain control. -Zofran for nausea. -Follow am labs, lytes, replete as necessary -Encourage ambulation -General surgery following closely. Had a CT A/P this AM, pending read L arm swelling: Noted partial occlusion of left basilic vein on doppler US -elevate arm above level of heart. -No use arm for IVs Alcohol dependence -No s/s of withdrawl -[facility] protocol Iron deficiency anemia -Occult blood neg -H/H stable -Resume PO ferrous sulfate BID -Daily CBC GI px -PPI DVT Px -Heparin SC DISPOSITION: General surgery following closely, re-developing an SBO VS,Fishbone, I+O VS, Fishbone, I+O Vital Signs Date Time Temp Pulse Resp B/P (MAP) Pulse Ox O2 Delivery O2 Flow Rate FiO2 11/16/20 06:00 99.3 98 18 153/83 (106) 97 Room Air 11/10/20 22:00 I&O- Last 24 Hours up to 6 AM 11/16/20 06:00 Intake Total 1380 ml Output Total 800 ml Balance 580 ml ANITA SERVIN MD Nov 16, 2020 08:49
--- NOTE | 2020-11-16 12:53 | REP ---
INDICATION: check NG tube placement COMPARISON: None. TECHNIQUE: Portable supine views of the abdomen and pelvis FINDINGS: Findings again compatible with small bowel obstruction. IMPRESSION: Findings consistent with small-bowel obstruction and similar to CT dated 11/16/2020 at 8:23 a.m. <Electronically signed by Jorge Alberto Malone > 11/16/20 1246
[2020-11-16 14:00] VITALS: BP 147/78
--- NOTE | 2020-11-16 14:23 | REP ---
INDICATION: Check NG tube placement COMPARISON: 11/16/2020 at 12:41 TECHNIQUE: Portable supine view of the abdomen and pelvis. FINDINGS: Nasogastric tube barely extends below the left hemidiaphragm and may warrant advancement to ensure its placement. Bowel gas pattern again demonstrates small bowel obstruction. No obvious free air. IMPRESSION: Nasogastric tube just barely distends below the left hemidiaphragm. Consider advancement to secure position over time. Small bowel obstruction. <Electronically signed by Jorge Alberto Malone > 11/16/20 [id number]
[2020-11-16] MEDS ORDERED: FAT EMULSION IV 20% 500 ML IV SCH (18:00)
[2020-11-16] MEDS: HumaLOG INSULIN (NovoLOG) PER UNIT SC SCH (18:00)
[2020-11-16] MEDS: AMINO AC/ELECTROLYTE/DEX/CALC 1,000 ML IV SCH (18:51)
[2020-11-16] MEDS: traZODone 50 MG TAB PO PRN (20:58)
[2020-11-16 22:00] VITALS: BP 148/77
[2020-11-17] MEDS: AMINO AC/ELECTROLYTE/DEX/CALC 1,000 ML IV SCH ×2 (04:11→15:18)
[2020-11-17] MEDS: METOCLOPRAMIDE INJ 10MG/2ML VIAL (J2765 PER 1) IV SCH ×4 (04:11→21:50)
[2020-11-17 06:00] VITALS: BP 144/68
[2020-11-17] MEDS: HumaLOG INSULIN (NovoLOG) PER UNIT SC SCH ×3 (06:00→13:11)
[2020-11-17] MEDS: DOCUSATE SODIUM 100MG CAPSULE PO SCH ×2 (09:00→21:56)
[2020-11-17] MEDS: HEPARIN SOD (PORCINE) 5000UNITS/ML 1ML VIAL/SYRINGE SQ SCH ×2 (09:06→21:56)
[2020-11-17] MEDS: PANTOPRAZOLE 40MG TAB (PROTONIX) PO SCH (09:06)
[2020-11-17] MEDS: DULoxetine 30 MG CAP (CYMBALTA) PO SCH (09:09)
--- NOTE | 2020-11-17 11:36 | REP ---
INDICATION: ffup sb distention COMPARISON: 11/16/2020 TECHNIQUE: Supine view of the abdomen and pelvis. FINDINGS: Dilated air-filled loops of small bowel are again noted but appear somewhat improved and contrast is identified within the descending colon suggesting the possibility of partial/improving/ small-bowel obstruction. Correlation is recommended. IMPRESSION: Bowel gas pattern suggests improved decreased dilatation to the small bowel. <Electronically signed by Jorge Alberto Malone > 11/17/20 [id number]
--- NOTE | 2020-11-17 12:02 | IPNPDOC ---
Text Note Date of Service The patient was seen on 11/17/20. NOTE We placed the NG tube back in yesterday has he is not progressing forward. He still has this distended loops of small bowel extending to the right side of the colon very minimal amount of air in the left signs: Though he is passing flatus and is having some loose stools. This is limits, she is able to tolerate orally and would have episodes of nausea and vomiting. We NG tube in, his abdomen is softer and less distended today. He is still passing flatus but no bowel movements since yesterday. He is denying any nausea, vomiting or sensation of bloating. He is ambulating the hallways. He has been afebrile. Vital signs stable and afebrile On examination he is sitting up on the bed. Looks very comfortable. He has a nasogastric tube through the right naris at about 65 cm. 200 mL strained overnight. Abdomen is much softer than it was yesterday still looks mildly distended, protuberant. Hypoactive bowel sounds. He is nontender on palpation. Review of the abdominal x-ray shows still some dilated loops of small bowel but there is more gas in the colon and the contrast seems to have passed towards the left side of the colon at the splenic flexure. The cecum and ascending colon still looks moderately distended. There is more air in the rectum now. Impression and plan: He is postop day 8 initial Lysis of adhesions and release of bowel obstruction from an internal hernia. There was some bruising/venous congestion of the involved small bowel but no severe ischemia noted so I left this in place without any resection. Postop he has persistent small bowel dilation and what looks to be an ileus pattern with a distended right colon. This seems to be continued to improve. We'll continue nasogastric tube drainage today. Once this fully decompressed visible retry feeding him. VS,Fishbone, I+O VS, Fishbone, I+O Vital Signs Date Time Temp Pulse Resp B/P (MAP) Pulse Ox O2 Delivery O2 Flow Rate FiO2 11/17/20 09:09 87 162/69 11/17/20 06:00 98.2 18 96 Room Air I&O- Last 24 Hours up to 6 AM 11/17/20 06:00 Intake Total 30 ml Output Total 650 ml Balance -620 ml JASSI MATTHEWS MD 6, 2021 12:02
--- NOTE | 2020-11-17 12:19 | IPNPDOC ---
Text Note Date of Service The patient was seen on 11/17/20. NOTE SUBJECTIVE: -Had NGT placed again yesterday and was started on PPN for recurrent SBO -No significant abdominal pain OBJECTIVE: VITAL SIGNS: Please see below GENERAL APPEARANCE: resting in bed, NAD. AAOx3 HEENT: NCAT, EOMI, MMM, poor dentition Neck: No JVD CARDIOVASCULAR: Regular rate and rhythm , No M/r/g LUNGS: Clear to auscultation, fair air movement ABDOMEN: abdomen nontender to palpation, distention is much improved, NGT in place, incisions appear clean and healing/scabbed over. multiple hernia repair scars appreciated without any protrusion. No masses. MUSCULOSKELETAL: ROM wnl in all ext. no cyanosis or clubbing EXTREMITIES: Scars representing patient's prior knee replacements appreciated bilaterally, no lower extremity edema or calf tenderness bilaterally. Bilateral radial and posterior tibial pulses 2+. LUE is swollen, no erythema or warmth NEUROLOGICAL: No focal weakness, sensation intact, no aphasia or dysarthria, no facial droop. PSYCHIATRIC: Mood and affect appropriate LABORATORY DATA: Reviewed, with stable anemia. IMAGIN11/16/2020: AXR: Nasogastric tube barely extends below the left hemidiaphragm and may warrant advancement to ensure its placement. Bowel gas pattern again demonstrates small bowel obstruction. No obvious free air. IMPRESSION: Nasogastric tube just barely distends below the left hemidiaphragm. Consider advancement to secure position over time. Small bowel obstruction. 11/16/2020: AXR: Findings consistent with small-bowel obstruction and similar to CT dated 11/16/2020 at 8:23 a.m. 11/16/2020: CT A/P: The large bowel demonstrates fluid/air-filled dilated loops to 4.4 cm diameter along with fluid-filled nonobstructed nondilated loops in the right lower quadrant without a discrete focal short segment transition zone identified. The large bowel is moderately dilated and fluid-filled. Differential diagnosis includes a partial small-bowel obstruction in the region of the right lower quadrant and associated ileus. Sigmoid diverticulosis noted without acute diverticulitis. No free air or ascites. Liver, spleen, pancreas, gallbladder, right kidney and bilateral adrenal glands are relatively normal. Left kidney again includes 2.3 cm simple appearing cyst. Mild hepatosteatosis cannot be excluded. Pelvis demonstrates collapsed bladder and evidence for prior prostatectomy. Small fat containing left inguinal hernia noted. No ascites. No free air. No intraperi toneal or retroperitoneal adenopathy. Abdominal aorta demonstrates atherosclerotic changes without aneurysm or dissection. Surrounding musculoskeletal structures demonstrate degenerative changes without acute osseous abnormality. IMPRESSION: 1. Continue to suggest at least partial small bowel obstruction somewhere in the right lower quadrant along with ileus. No free air or free fluid to suggest perforation. 11/15/2020: AXR Findings compatible with small bowel obstruction and secondary ileus. 11/13/2020 duplex venous US LUE: Left deep veins: Unremarkable. Axillary and brachial veins are patent throughout without thrombus. Normal Doppler waveforms. Normal compressibility and/or augmentation response. Visualized internal jugular and subclavian veins are patent. Left superficial veins: There is thrombosis of the left basilic vein in the left arm, which partially occludes this vessel and this vein is not fully compressible. The left cephalic vein is patent as visualized. IMPRESSION: Thrombosis of the left basilic vein, which is a superficial vein that is partially occluded. AbdXR 11/12/20: Ileus pattern without definite evidence for small bowel obstruction. AbXR 11/09/20: Persistent moderate small bowel dilatation and small-bowel obstruction. Chest x-ray (11/08/20): No acute findings. Abdomen/pelvis CT (11/08/20): Small bowel obstruction with suspected closed loop obstruction and transition point in the upper left quadrant. Multiple enhancing polyps in the stomach. Hepatic steatosis. LUE doppler venous US: Left deep veins: Unremarkable. Axillary and brachial veins are patent throughout without thrombus. Normal Doppler waveforms. Normal compressibility and/or augmentation response. Visualized internal jugular and subclavian veins are patent. Left superficial veins: There is thrombosis of the left basilic vein in the left arm, which partially occludes this vessel and this vein is not fully compressible. The left cephalic vein is patent as visualized. IMPRESSION: Thrombosis of the left basilic vein, which is a superficial vein that is partially occluded. 11/15/2020 AXR: FINDINGS: Dilated air-filled small and large bowel. Findings most compatible with small bowel obstruction along with ileus. IMPRESSION: Findings compatible with small bowel obstruction and secondary ileus. MICROBIOLOGY: Please see below. ASSESSMENT: 75-year-old M with history of multiple abdominal surgeries, hx of SBO in past, alcohol abuse, HLD, osteoarthritis, GERD admitted for SBO, POD 6 lysis of adhesion for SBO, reduction of internal hernia with course now c/b emesis and imaging showing re-developing SBO. PLAN: Small bowel obstruction 2/2 to adhesions, internal hernia: had been improving, but now recurrent SBO -POD 8 lysis of adhesion for SBO, reduction of internal hernia -WBC wnl, afebrile -NPO, with NGT, on PPN per surgery team -Morphine for pain control. -Zofran for nausea. -Follow am labs, lytes, replete as necessary -Encourage ambulation -General surgery following closely. L arm swelling: Noted partial occlusion of left basilic vein on doppler US -elevate arm above level of heart. -No use arm for IVs Alcohol dependence -No s/s of withdrawl -[facility] protocol Iron deficiency anemia -Occult blood neg -H/H stable -Resume PO ferrous sulfate BID -Daily CBC GI px -PPI DVT Px -Heparin SC DISPOSITION: General surgery following closely, re-developing an SBO VS,Fishbone, I+O VS, Fishbone, I+O Vital Signs Date Time Temp Pulse Resp B/P (MAP) Pulse Ox O2 Delivery O2 Flow Rate FiO2 11/17/20 09:09 87 162/69 11/17/20 06:00 98.2 18 96 Room Air I&O- Last 24 Hours up to 6 AM 11/17/20 06:00 Intake Total 30 ml Output Total 650 ml Balance -620 ml ANITA SERVIN MD Nov 17, 2020 09:24
[2020-11-17 14:00] VITALS: BP 149/71
[2020-11-17] MEDS ORDERED: FAT EMULSION IV 20% 500 ML IV SCH (18:00)
[2020-11-17 22:00] VITALS: BP 159/74
[2020-11-17] MEDS: traZODone 50 MG TAB PO PRN (22:13)
[2020-11-18] MEDS: AMINO AC/ELECTROLYTE/DEX/CALC 1,000 ML IV SCH ×2 (00:09→10:03)
[2020-11-18] MEDS: METOCLOPRAMIDE INJ 10MG/2ML VIAL (J2765 PER 1) IV SCH ×4 (04:12→21:20)
[2020-11-18 06:00] VITALS: BP 158/64
[2020-11-18 06:05] LABS: HEMATOCRIT 28.3 % (42.0-52.0); HEMOGLOBIN 9.3 g/dl (13.5-17.5); MEAN CORPUSCULAR HEMOGLOBIN 29.5 pg (27.0-33.0); MEAN CORPUSCULAR HGB CONC 32.9 g/dl (32.0-36.5); MEAN CORPUSCULAR VOLUME 89.8 fl (80.0-96.0); PLATELET COUNT, AUTOMATED 302 10^3/uL (150-450); RED BLOOD COUNT 3.15 10^6/uL (4.30-6.10); WHITE BLOOD COUNT 10.8 10^3/uL (4.0-10.0)
[2020-11-18 06:29] LABS: BLOOD UREA NITROGEN 13 MG/DL (7-18); CALCIUM LEVEL 8.5 MG/DL (8.8-10.2); CARBON DIOXIDE LEVEL 29 MEQ/L (21-32); CHLORIDE LEVEL 104 MEQ/L (98-107); GLOMERULAR FILTRATION RATE > 60.0 (>42); GLUCOSE, FASTING 115 MG/DL (70-100); POTASSIUM SERUM 3.9 MEQ/L (3.5-5.1); SODIUM LEVEL 138 MEQ/L (136-145)
[2020-11-18] MEDS: HEPARIN SOD (PORCINE) 5000UNITS/ML 1ML VIAL/SYRINGE SQ SCH ×2 (09:08→21:20)
[2020-11-18] MEDS: DOCUSATE SODIUM 100MG CAPSULE PO SCH ×2 (09:08→21:20)
[2020-11-18] MEDS: PANTOPRAZOLE 40MG TAB (PROTONIX) PO SCH (09:09)
[2020-11-18] MEDS: DULoxetine 30 MG CAP (CYMBALTA) PO SCH (09:09)
--- NOTE | 2020-11-18 10:41 | IPNPDOC ---
Text Note Date of Service The patient was seen on 11/18/20. NOTE SUBJECTIVE: -No significant abdominal pain -Had 1 BM -NGT still in place and on PPN OBJECTIVE: VITAL SIGNS: Please see below GENERAL APPEARANCE: resting in bed, NAD. AAOx3 HEENT: NCAT, EOMI, MMM, poor dentition Neck: No JVD CARDIOVASCULAR: Regular rate and rhythm , No M/r/g LUNGS: Clear to auscultation, fair air movement ABDOMEN: abdomen nontender to palpation, distention continues to improve, NGT in place, incisions appear clean and healing/scabbed over. multiple hernia repair scars appreciated without any protrusion. No masses. MUSCULOSKELETAL: ROM wnl in all ext. no cyanosis or clubbing EXTREMITIES: Scars representing patient's prior knee replacements appreciated bilaterally, no lower extremity edema or calf tenderness bilaterally. Bilateral radial and posterior tibial pulses 2+. LUE is swollen, no erythema or warmth NEUROLOGICAL: No focal weakness, sensation intact, no aphasia or dysarthria, no facial droop. PSYCHIATRIC: Mood and affect appropriate LABORATORY DATA: Reviewed Hgb 9.3 IMAGIN11/16/2020: AXR: Nasogastric tube barely extends below the left hemidiaphragm and may warrant advancement to ensure its placement. Bowel gas pattern again demonstrates small bowel obstruction. No obvious free air. IMPRESSION: Nasogastric tube just barely distends below the left hemidiaphragm. Consider advancement to secure position over time. Small bowel obstruction. 11/16/2020: AXR: Findings consistent with small-bowel obstruction and similar to CT dated 11/16/2020 at 8:23 a.m. 11/16/2020: CT A/P: The large bowel demonstrates fluid/air-filled dilated loops to 4.4 cm diameter along with fluid-filled nonobstructed nondilated loops in the right lower quadrant without a discrete focal short segment transition zone identified. The large bowel is moderately dilated and fluid-filled. Differential diagnosis includes a partial small-bowel obstruction in the region of the right lower quadrant and associated ileus. Sigmoid diverticulosis noted without acute diverticulitis. No free air or ascites. Liver, spleen, pancreas, gallbladder, right kidney and bilateral adrenal glands are relatively normal. Left kidney again includes 2.3 cm simple appearing cyst. Mild hepatosteatosis cannot be excluded. Pelvis demonstrates collapsed bladder and evidence for prior prostatectomy. Small fat containing left inguinal hernia noted. No ascites. No free air. No intraperitoneal or retroperitoneal adenopathy. Abdominal aorta demonstrates atherosclerotic changes without aneurysm or dissection. Surrounding musculoskeletal structures demonstrate degenerative changes without acute osseous abnormality. IMPRESSION: 1. Continue to suggest at least partial small bowel obstruction somewhere in the right lower quadrant along with ileus. No free air or free fluid to suggest perforation. 11/15/2020: AXR Findings compatible with small bowel obstruction and secondary ileus. 11/13/2020 duplex venous US LUE: Left deep veins: Unremarkable. Axillary and brachial veins are patent throughout without thrombus. Normal Doppler waveforms. Normal compressibility and/or augmentation response. Visualized internal jugular and subclavian veins are patent. Left superficial veins: There is thrombosis of the left basilic vein in the left arm, which partially occludes this vessel and this vein is not fully compressible. The left cephalic vein is patent as visualized. IMPRESSION: Thrombosis of the left basilic vein, which is a superficial vein that is partially occluded. AbdXR 11/12/20: Ileus pattern without definite evidence for small bowel obstruction. AbXR 11/09/20: Persistent moderate small bowel dilatation and small-bowel obstruction. Chest x-ray (11/08/20): No acute findings. Abdomen/pelvis CT (11/08/20): Small bowel obstruction with suspected closed loop obstruction and transition point in the upper left quadrant. Multiple enhancing polyps in the stomach. Hepatic steatosis. LUE doppler venous US: Left deep veins: Unremarkable. Axillary and brachial veins are patent throughout without thrombus. Normal Doppler waveforms. Normal compressibility and/or augmentation response. Visualized internal jugular and subclavian veins are patent. Left superficial veins: There is thrombosis of the left basilic vein in the left arm, which partially occludes this vessel and this vein is not fully compressible. The left cephalic vein is patent as visualized. IMPRESSION: Thrombosis of the left basilic vein, which is a superficial vein that is partially occluded. 11/15/2020 AXR: FINDINGS: Dilated air-filled small and large bowel. Findings most compatible with small bowel obstruction along with ileus. IMPRESSION: Findings compatible with small bowel obstruction and secondary ileus. MICROBIOLOGY: Please see below. ASSESSMENT: 75-year-old M with history of multiple abdominal surgeries, hx of SBO in past, alcohol abuse, HLD, osteoarthritis, GERD admitted for SBO, POD 6 lysis of adhesion for SBO, reduction of internal hernia with course now c/b emesis and imaging showing re-developing SBO. PLAN: Small bowel obstruction 2/2 to adhesions, internal hernia: had been improving, but now recurrent SBO -POD 9 lysis of adhesion for SBO, reduction of internal hernia -WBC wnl, afebrile -NPO, with NGT, on PPN per surgery team -Morphine for pain control. -Zofran for nausea. -Follow am labs, lytes, replete as necessary -Encourage ambulation -General surgery following closely. L arm swelling: Noted partial occlusion of left basilic vein on doppler US -elevate arm above level of heart. -No use arm for IVs Alcohol dependence -No s/s of withdrawl -[facility] protocol Iron deficiency anemia -Occult blood neg -PO ferrous sulfate BID -Daily CBC GI px -PPI DVT Px -Heparin SC DISPOSITION: General surgery following closely, re-developing an SBO VS,Fishbone, I+O VS, Fishbone, I+O Laboratory Tests 11/18/20 05:17 Vital Signs Date Time Temp Pulse Resp B/P (MAP) Pulse Ox O2 Delivery O2 Flow Rate FiO2 11/18/20 06:00 98.0 76 18 158/64 (95) 98 11/17/20 14:00 Room Air I&O- Last 24 Hours up to 6 AM 11/18/20 06:00 Intake Total 180 ml Output Total 1600 ml Balance -1420 ml ANITA SERVIN MD Nov 18, 2020 08:01
--- NOTE | 2020-11-18 12:28 | IPNPDOC ---
Text Note Date of Service The patient was seen on 11/18/20. NOTE Patient reports feeling much better today. He reports he is passing a lot more flatus. He has a moderate-sized bowel movement this morning. He is ambulating the hallways. He denies any abdominal discomfort. His nasogastric tube has not been putting out much. He denies any nausea or vomiting. Vital signs stable. On examination he looks very comfortable. He is nasogastric tube looks to be pulled out only at 35 cm to the nostril His abdomen is much less distended still slightly round. Soft, nontender on palpation. His port sites are well healed at this point. No drainage or erythema. Impression and plan Postoperative ileus seems to be resolving Small bowel obstruction status post laparoscopic lysis of adhesion and release of bowel obstruction Discontinue nasogastric tube Clear liquids May advance as tolerated Continue ambulation VS,Fishbone, I+O VS, Fishbone, I+O Laboratory Tests 11/18/20 05:17 Vital Signs Date Time Temp Pulse Resp B/P (MAP) Pulse Ox O2 Delivery O2 Flow Rate FiO2 11/18/20 09:11 76 160/72 11/18/20 06:00 98.0 18 98 11/17/20 14:00 Room Air I&O- Last 24 Hours up to 6 AM 11/18/20 06:00 Intake Total 180 ml Output Total 1600 ml Balance -1420 ml JASSI MATTHEWS MD Nov 18, 2020 12:28
[2020-11-18 14:00] VITALS: BP 158/72
[2020-11-18] MEDS: traZODone 50 MG TAB PO PRN (21:20)
[2020-11-18 22:00] VITALS: BP 159/75
[2020-11-19] MEDS: METOCLOPRAMIDE INJ 10MG/2ML VIAL (J2765 PER 1) IV SCH ×4 (04:19→21:55)
[2020-11-19 06:00] VITALS: BP 169/82
[2020-11-19 06:12] LABS: HEMATOCRIT 28.1 % (42.0-52.0); HEMOGLOBIN 9.2 g/dl (13.5-17.5); MEAN CORPUSCULAR HEMOGLOBIN 29.5 pg (27.0-33.0); MEAN CORPUSCULAR HGB CONC 32.7 g/dl (32.0-36.5); MEAN CORPUSCULAR VOLUME 90.1 fl (80.0-96.0); PLATELET COUNT, AUTOMATED 314 10^3/uL (150-450); RED BLOOD COUNT 3.12 10^6/uL (4.30-6.10); WHITE BLOOD COUNT 11.2 10^3/uL (4.0-10.0)
[2020-11-19 06:56] LABS: BLOOD UREA NITROGEN 12 MG/DL (7-18); CALCIUM LEVEL 8.2 MG/DL (8.8-10.2); CARBON DIOXIDE LEVEL 30 MEQ/L (21-32); CHLORIDE LEVEL 103 MEQ/L (98-107); CREATININE FOR GFR 0.74 MG/DL (0.70-1.30); GLOMERULAR FILTRATION RATE > 60.0 (>42); GLUCOSE, FASTING 107 MG/DL (70-100); POTASSIUM SERUM 3.8 MEQ/L (3.5-5.1); SODIUM LEVEL 137 MEQ/L (136-145)
[2020-11-19] MEDS: DOCUSATE SODIUM 100MG CAPSULE PO SCH ×2 (08:39→21:55)
[2020-11-19] MEDS: DULoxetine 30 MG CAP (CYMBALTA) PO SCH (08:39)
[2020-11-19] MEDS: HEPARIN SOD (PORCINE) 5000UNITS/ML 1ML VIAL/SYRINGE SQ SCH ×2 (08:41→21:55)
[2020-11-19] MEDS: PANTOPRAZOLE 40MG TAB (PROTONIX) PO SCH (08:41)
--- NOTE | 2020-11-19 10:16 | IPNPDOC ---
Text Note Date of Service The patient was seen on 11/19/20. NOTE General Surgery Dr Manzano. The patient is a 75-year-old male with small bowel obstruction status post laparoscopy with lysis of adhesions 11/09/[address] Matthews. The patient reports no nausea or vomiting. No abdominal pain. Abdominal distention has been improved. Reports he is passing a lot of gas. BM 1. Afebrile, VSS. Resting Comfortably resting in bed lungs CTA. S1S2 RRR Abdomen soft, slightly rounded but much less distended, nontender. No guarding or rebound. Extremities well-perfused, no edema. , -220. BM 1. WBC 11.2, hemoglobin 9.2, platelets 314. A/P. SBO status post laparoscopy with lysis of adhesions. Patient is reviewed and examined as per Dr. Matthews this morning. NG tube has been removed, the patient is currently tolerating clear liquids. Continue to encourage out of bed and ambulation. Plan is to advance to a low residue diet this morning, if the patient is able to tolerate, from a surgical standpoint the patient would be able to be discharged later this afternoon. Relayed this to the hospitalist. Continue to monitor. VS,Fishbone, I+O VS, Fishbone, I+O Laboratory Tests 11/19/20 05:54 Vital Signs Date Time Temp Pulse Resp B/P (MAP) Pulse Ox O2 Delivery O2 Flow Rate FiO2 11/19/20 08:41 81 155/69 11/19/20 06:00 98.4 20 95 11/18/20 14:00 Room Air I&O- Last 24 Hours up to 6 AM 11/19/20 06:00 Intake Total 2340 ml Output Total 2400 ml Balance -60 ml rBiana Laws Nov 19, 2020 10:08 JASSI MATTHEWS MD Dec 09, 2020 16:02
--- NOTE | 2020-11-19 11:56 | IPNPDOC ---
Text Note Date of Service The patient was seen on 11/19/20. NOTE SUBJECTIVE: -No significant abdominal pain -Had 1 BM yesterday, none yet today, passing flatus -Tolerated clears, advanced to soft this AM by surgery OBJECTIVE: VITAL SIGNS: Please see below GENERAL APPEARANCE: resting in bed, NAD. AAOx3 HEENT: NCAT, EOMI, MMM, poor dentition Neck: No JVD CARDIOVASCULAR: Regular rate and rhythm , No M/r/g LUNGS: Clear to auscultation, fair air movement ABDOMEN: abdomen nontender to palpation, no distention, soft, incisions appear clean and healing/scabbed over. multiple hernia repair scars appreciated without any protrusion. No masses. MUSCULOSKELETAL: ROM wnl in all ext. no cyanosis or clubbing EXTREMITIES: Scars representing patient's prior knee replacements appreciated bilaterally, no lower extremity edema or calf tenderness bilaterally. Bilateral radial and posterior tibial pulses 2+. LUE is swollen, no erythema or warmth NEUROLOGICAL: No focal weakness, sensation intact, no aphasia or dysarthria, no facial droop. PSYCHIATRIC: Mood and affect appropriate LABORATORY DATA: Reviewed WBC 11.2 Hgb 9.2 Cr 0.74 IMAGIN11/16/2020: AXR: Nasogastric tube barely extends below the left hemidiaphragm and may warrant advancement to ensure its placement. Bowel gas pattern again demonstrates small bowel obstruction. No obvious free air. IMPRESSION: Nasogastric tube just barely distends below the left hemidiaphragm. Consider advancement to secure position over time. Small bowel obstruction. 11/16/2020: AXR: Findings consistent with small-bowel obstruction and similar to CT dated 11/16/2020 at 8:23 a.m. 11/16/2020: CT A/P: The large bowel demonstrates fluid/air-filled dilated loops to 4.4 cm diameter along with fluid-filled nonobstructed nondilated loops in the right lower quadrant without a discrete focal short segment transition zone identified. The large bowel is moderately dilated and fluid-filled. Differential diagnosis includes a partial small-bowel obstruction in the region of the right lower quadrant and associated ileus. Sigmoid diverticulosis noted without acute diverticulitis. No free air or ascites. Liver, spleen, pancreas, gallbladder, right kidney and bilateral adrenal glands are relatively normal. Left kidney again includes 2.3 cm simple appearing cyst. Mild hepatosteatosis cannot be excluded. Pelvis demonstrates collapsed bladder and evidence for prior prostatectomy. Small fat containing left inguinal hernia noted. No ascites. No free air. No intraperitoneal or retroperitoneal adenopathy. Abdominal aorta demonstrates atherosclerotic changes without aneurysm or dissection. Surrounding musculoskeletal structures demonstrate degenerative changes without acute osseous abnormality. IMPRESSION: 1. Continue to suggest at least partial small bowel obstruction somewhere in the right lower quadrant along with ileus. No free air or free fluid to suggest perforation. 11/15/2020: AXR Findings compatible with small bowel obstruction and secondary ileus. 11/13/2020 duplex venous US LUE: Left deep veins: Unremarkable. Axillary and brachial veins are patent throughout without thrombus. Normal Doppler waveforms. Normal compressibility and/or augmentation response. Visualized internal jugular and subclavian veins are patent. Left superficial veins: There is thrombosis of the left basilic vein in the left arm, which partially occludes this vessel and this vein is not fully compressible. The left cephalic vein is patent as visualized. IMPRESSION: Thrombosis of the left basilic vein, which is a superficial vein that is partially occluded. AbdXR 11/12/20: Ileus pattern without definite evidence for small bowel obstruction. AbXR 11/09/20: Persistent moderate small bowel dilatation and small-bowel obstruction. Chest x-ray (11/08/20): No acute findings. Abdomen/pelvis CT (11/08/20): Small bowel obstruction with suspected closed loop obstruction and transition point in the upper left quadrant. Multiple enhancing polyps in the stomach. Hepatic steatosis. LUE doppler venous US: Left deep veins: Unremarkable. Axillary and brachial veins are patent throughout without thrombus. Normal Doppler waveforms. Normal compressibility and/or augmentation response. Visualized internal jugular and subclavian veins are patent. Left superficial veins: There is thrombosis of the left basilic vein in the left arm, which partially occludes this vessel and this vein is not fully compressible. The left cephalic vein is patent as visualized. IMPRESSION: Thrombosis of the left basilic vein, which is a superficial vein that is partially occluded. 11/15/2020 AXR: FINDINGS: Dilated air-filled small and large bowel. Findings most compatible with small bowel obstruction along with ileus. IMPRESSION: Findings compatible with small bowel obstruction and secondary ileus. MICROBIOLOGY: Please see below. ASSESSMENT: 75-year-old M with history of multiple abdominal surgeries, hx of SBO in past, alcohol abuse, HLD, osteoarthritis, GERD admitted for SBO, POD 6 lysis of adhesion for SBO, reduction of internal hernia with course c/b worsening obstructive symptoms and redeveopment of SBO that is now improving after bowel rest, now slowly introducing PO and likely to be discharged home soon. PLAN: Small bowel obstruction 2/2 to adhesions, internal hernia: had been improving, reoccurred, now improving. -POD 10 lysis of adhesion for SBO, reduction of internal hernia -WBC with mild leukocytosis likely reactive to recent reoccurring SBO, monitori ng daily, afebrile -Now on soft diet per surgery team -Morphine for pain control. -Zofran for nausea. -Follow daily CBC, BMP -Encourage ambulation -General surgery following closely L arm swelling: Noted partial occlusion of left basilic vein on doppler US: Resolved. -No use arm for IVs Alcohol dependence -No s/s of withdrawl -[facility] protocol Iron deficiency anemia -Occult blood neg -PO ferrous sulfate BID -Daily CBC GI px -PPI DVT Px -Heparin SC DISPOSITION: General surgery following closely, hoping for home discharge later today if he tolerates soft diet VS,Fishbone, I+O VS, Fishbone, I+O Laboratory Tests 11/19/20 05:54 Vital Signs Date Time Temp Pulse Resp B/P (MAP) Pulse Ox O2 Delivery O2 Flow Rate FiO2 11/19/20 06:00 98.4 82 20 169/82 (111) 95 11/18/20 14:00 Room Air I&O- Last 24 Hours up to 6 AM 11/19/20 06:00 Intake Total 2340 ml Output Total 2400 ml Balance -60 ml ANITA SERVIN MD Nov 19, 2020 08:06
[2020-11-19 14:00] VITALS: BP 151/72
[2020-11-19] MEDS: traZODone 50 MG TAB PO PRN (21:55)
[2020-11-19 22:00] VITALS: BP 155/72
[2020-11-19] MEDS: ACETAMINOPHEN TAB 650MG DOSE (2X325MG) PO PRN (22:00)
[2020-11-20] MEDS: METOCLOPRAMIDE INJ 10MG/2ML VIAL (J2765 PER 1) IV SCH ×4 (03:28→21:07)
[2020-11-20 06:00] VITALS: BP 152/71
[2020-11-20 06:07] LABS: HEMATOCRIT 27.5 % (42.0-52.0); HEMOGLOBIN 9.1 g/dl (13.5-17.5); MEAN CORPUSCULAR HEMOGLOBIN 29.5 pg (27.0-33.0); MEAN CORPUSCULAR HGB CONC 33.1 g/dl (32.0-36.5); MEAN CORPUSCULAR VOLUME 89.3 fl (80.0-96.0); PLATELET COUNT, AUTOMATED 340 10^3/uL (150-450); RED BLOOD COUNT 3.08 10^6/uL (4.30-6.10); WHITE BLOOD COUNT 13.4 10^3/uL (4.0-10.0)
[2020-11-20 06:24] LABS: BLOOD UREA NITROGEN 9 MG/DL (7-18); CALCIUM LEVEL 8.2 MG/DL (8.8-10.2); CARBON DIOXIDE LEVEL 29 MEQ/L (21-32); CHLORIDE LEVEL 102 MEQ/L (98-107); CREATININE FOR GFR 0.75 MG/DL (0.70-1.30); GLOMERULAR FILTRATION RATE > 60.0 (>42); GLUCOSE, FASTING 119 MG/DL (70-100); POTASSIUM SERUM 3.7 MEQ/L (3.5-5.1); SODIUM LEVEL 137 MEQ/L (136-145)
[2020-11-20] MEDS: HEPARIN SOD (PORCINE) 5000UNITS/ML 1ML VIAL/SYRINGE SQ SCH ×2 (08:45→21:07)
[2020-11-20] MEDS: PANTOPRAZOLE 40MG TAB (PROTONIX) PO SCH (08:46)
[2020-11-20] MEDS: DOCUSATE SODIUM 100MG CAPSULE PO SCH ×2 (08:46→21:06)
[2020-11-20] MEDS: DULoxetine 30 MG CAP (CYMBALTA) PO SCH (08:46)
--- NOTE | 2020-11-20 09:04 | IPNPDOC ---
Text Note Date of Service The patient was seen on 11/20/20. NOTE General Surgery Dr Manzano. The patient is a 75-year-old male with small bowel obstruction status post laparoscopy with lysis of adhesions 11/09/[address] Graham. The patient reports no nausea or vomiting. No abdominal pain. Abdominal distention has been improved, not increased today. Still reports he is passing a lot of gas. Last BM was yesterday morning. The patient was noted to have a temperature of 101.1 last evening at 10 PM. This morning 99.1. Blood cell count is also noted to be 13.4 this morning compared with 11.2 yesterday and 10.8 the day prior. The patient denies any upper respiratory symptoms, cough, chest congestion, shortness of breath, dysuria. Abdominal surgical sites are healing well, there are no signs of infection, no drainage. 99.1, Heart rate 89, respiratory rate 18, blood pressure 155/71, 94% room air Resting Comfortably resting in bed HEENT MMM, no facial TTP. lungs CTA. S1S2 RRR Abdomen soft, slightly rounded but much less distended than previous, nontender. No guarding or rebound. No peritoneal signs. Previous surgical Incisions are healing well. There is no surrounding erythema, no drainage. Extremities well-perfused, no edema. 2280/2700-420 BM 1 yesterday morning per patient, this was not documented. Hemoglobin 9.1 A/P. SBO status post laparoscopy with lysis of adhesions. Patient is reviewed and examined as per Dr. Graham this morning. The patient is noted to have had a fever last evening with leukocytosis however no source of infection is identified on exam. Surgical sites appear to be healing well with no sign of infection. Dr. Graham plans to discuss further with hospitalist, Dr. Cabrera. The patient is currently tolerating low residue diet. Continue to encourage out of bed and ambulation. Continue to closely monitor. VS,Fishbone, I+O VS, Fishbone, I+O Laboratory Tests 11/20/20 05:47 Vital Signs Date Time Temp Pulse Resp B/P (MAP) Pulse Ox O2 Delivery O2 Flow Rate FiO2 11/20/20 08:46 89 155/71 11/20/20 06:00 99.1 18 94 Room Air I&O- Last 24 Hours up to 6 AM 11/20/20 05:59 Intake Total 2580 ml Output Total 2900 ml Balance -320 ml Briana Laws Nov 20, 2020 09:04 JASSI GRAHAM MD Dec 09, 2020 16:02
--- NOTE | 2020-11-20 09:37 | REP ---
INDICATION: fever, recent emesis c/f aspiration PNA COMPARISON: 11/11/2020 TECHNIQUE: Portable AP view of the chest FINDINGS: The mediastinum and cardiac silhouette are stable and within normal limits for portable technique. The lung nielsen demonstrate chronic changes without acute consolidation, effusion, or pneumothorax. Skeletal structures are intact. IMPRESSION: No acute cardiopulmonary process appreciated. <Electronically signed by Jorge Alberto Malone > 11/20/20 0933
--- NOTE | 2020-11-20 10:26 | REP ---
INDICATION: fever, s/p lysis of adhesions for SBO COMPARISON: 11/16/2020 TECHNIQUE: Axial noncontrast images from the lung bases to the pubic symphysis with coronal and sagittal reformations. This CT examination was performed using the following dose reduction techniques: Automated exposure control, adjustment of mA and/or kv according to the patient's size, and use of iterative reconstruction technique. FINDINGS: Lung bases demonstrate very minimal linear fibro atelectatic changes. Cardiomegaly noted. Liver, spleen, pancreas, gallbladder, bilateral adrenal glands and kidneys are essentially stable/normal for noncontrast evaluation. 2.3 cm left renal cyst again noted. Relatively symmetric and presumed chronic perinephric stranding is appreciated. The enteric system is without obstruction or obvious acute inflammatory process. However, mild small bowel wall thickening cannot be excluded and may reflect a mild enteritis. Previously noted bowel obstruction has resolved. The colon is collapsed and scattered diverticula are appreciated without acute diverticulitis. Pelvis demonstrates normal bladder and presumed prior prostate surgery. Small amount of free fluid in the pelvis is nonspecific and small amounts of gas in the right anterior abdominopelvic wall are likely consistent with recent surgery. No free air. No adenopathy. No drainable collection/abscess. Atherosclerotic changes to the aorta without aneurysm. Osseous structures demonstrate stable degenerative changes. IMPRESSION: 1. Presumed postsurgical changes with small amount of free fluid in the pelvis and small amounts of gas in the subcutaneous tissues along the right anterolateral lower abdominal wall. 2. Cannot exclude a mild enteritis. Previously noted small bowel obstruction has resolved. 3. Further nonacute findings as described above including stable left renal cyst and diverticulosis. <Electronically signed by Jorge Alberto Malone > 11/20/20 1029
[2020-11-20] MEDS: PIPERACILLIN/TAZOBACTAM SOD 3.375 GM in D5W MINI-BAG PLUS 50 ML IV SCH ×3 (11:18→21:07)
--- NOTE | 2020-11-20 12:14 | IPNPDOC ---
Text Note Date of Service The patient was seen on 11/20/20. NOTE SUBJECTIVE: -No significant abdominal pain -had new fever last night to 101.1 -No new complaints, no new SOB, abdominal pain, diarrhea, N/V, chest pain, palpitation, dysuria OBJECTIVE: VITAL SIGNS: Please see below GENERAL APPEARANCE: resting in bed, NAD. AAOx3 HEENT: NCAT, EOMI, MMM, poor dentition Neck: No JVD CARDIOVASCULAR: Regular rate and rhythm , No M/r/g LUNGS: Clear to auscultation, fair air movement ABDOMEN: abdomen nontender to palpation, no distention, soft, incisions appear clean and healing/scabbed over. multiple hernia repair scars appreciated without any protrusion. No masses. MUSCULOSKELETAL: ROM wnl in all ext. no cyanosis or clubbing EXTREMITIES: Scars representing patient's prior knee replacements appreciated bilaterally, no lower extremity edema or calf tenderness bilaterally. Bilateral radial and posterior tibial pulses 2+. LUE is swollen, no erythema or warmth NEUROLOGICAL: No focal weakness, sensation intact, no aphasia or dysarthria, no facial droop. PSYCHIATRIC: Mood and affect appropriate LABORATORY DATA: Reviewed WBC 13.4 Hgb 9.1 Cr 0.75 IMAGIN11/16/2020: AXR: Nasogastric tube barely extends below the left hemidiaphragm and may warrant advancement to ensure its placement. Bowel gas pattern again demonstrates small bowel obstruction. No obvious free air. IMPRESSION: Nasogastric tube just barely distends below the left hemidiaphragm. Consider advancement to secure position over time. Small bowel obstruction. 11/16/2020: AXR: Findings consistent with small-bowel obstruction and similar to CT dated 11/16/2020 at 8:23 a.m. 11/16/2020: CT A/P: The large bowel demonstrates fluid/air-filled dilated loops to 4.4 cm diameter along with fluid-filled nonobstructed nondilated loops in the right lower quadrant without a discrete focal short segment transition zone identified. The large bowel is moderately dilated and fluid-filled. Differential diagnosis includes a partial small-bowel obstruction in the region of the right lower quadrant and associated ileus. Sigmoid diverticulosis noted without acute diverticulitis. No free air or ascites. Liver, spleen, pancreas, gallbladder, right kidney and bilateral adrenal glands are relatively normal. Left kidney again includes 2.3 cm simple appearing cyst. Mild hepatosteatosis cannot be excluded. Pelvis demonstrates collapsed bladder and evidence for prior prostatectomy. Small fat containing left inguinal hernia noted. No ascites. No free air. No intraperi toneal or retroperitoneal adenopathy. Abdominal aorta demonstrates atherosclerotic changes without aneurysm or dissection. Surrounding musculoskeletal structures demonstrate degenerative changes without acute osseous abnormality. IMPRESSION: 1. Continue to suggest at least partial small bowel obstruction somewhere in the right lower quadrant along with ileus. No free air or free fluid to suggest perforation. 11/15/2020: AXR Findings compatible with small bowel obstruction and secondary ileus. 11/13/2020 duplex venous US LUE: Left deep veins: Unremarkable. Axillary and brachial veins are patent throughout without thrombus. Normal Doppler waveforms. Normal compressibility and/or augmentation response. Visualized internal jugular and subclavian veins are patent. Left superficial veins: There is thrombosis of the left basilic vein in the left arm, which partially occludes this vessel and this vein is not fully compressible. The left cephalic vein is patent as visualized. IMPRESSION: Thrombosis of the left basilic vein, which is a superficial vein that is partially occluded. AbdXR 11/12/20: Ileus pattern without definite evidence for small bowel obstruction. AbXR 11/09/20: Persistent moderate small bowel dilatation and small-bowel obstruction. Chest x-ray (11/08/20): No acute findings. Abdomen/pelvis CT (11/08/20): Small bowel obstruction with suspected closed loop obstruction and transition point in the upper left quadrant. Multiple enhancing polyps in the stomach. Hepatic steatosis. LUE doppler venous US: Left deep veins: Unremarkable. Axillary and brachial veins are patent throughout without thrombus. Normal Doppler waveforms. Normal compressibility and/or augmentation response. Visualized internal jugular and subclavian veins are patent. Left superficial veins: There is thrombosis of the left basilic vein in the left arm, which partially occludes this vessel and this vein is not fully compressible. The left cephalic vein is patent as visualized. IMPRESSION: Thrombosis of the left basilic vein, which is a superficial vein that is partially occluded. 11/15/2020 AXR: FINDINGS: Dilated air-filled small and large bowel. Findings most compatible with small bowel obstruction along with ileus. IMPRESSION: Findings compatible with small bowel obstruction and secondary ileus. MICROBIOLOGY: Please see below. ASSESSMENT: 75-year-old M with history of multiple abdominal surgeries, hx of SBO in past, alcohol abuse, HLD, osteoarthritis, GERD admitted for SBO, POD 6 lysis of adhesion for SBO, reduction of internal hernia with course c/b worsening obstructive symptoms and redeveopment of SBO that now resolved after bowel rest, with course now c/b fever and leukocytosis with thus far stable nonfocal examination. PLAN: +SIRS with c/f ongoing infection with fever and leukocytosis with thus far nonfocal examination -Given recent history of N/V/NGT --> check CXR -UA w/ reflex to UCx -BCx x 2 -empiric zosyn given recent GI surgery -will hold off discharge with c/f brewing infection Small bowel obstruction 2/2 to adhesions, internal hernia: had been improving, reoccurred, now resolved. -POD 12 lysis of adhesion for SBO, reduction of internal hernia -WBC worsening leukocytosis and now febrile --> c/f infection, possible gut translocation, will cover with empiric zosyn and infectious workup as above -Now on regular diet per surgery team -Morphine for pain control. -Zofran for nausea. -Follow daily CBC, BMP -Encourage ambulation L arm swelling: Noted partial occlusion of left basilic vein on doppler US: Resolved. -No use arm for IVs Alcohol dependence -No s/s of withdrawl -CIWA protocol Iron deficiency anemia -Occult blood neg -PO ferrous sulfate BID -Daily CBC GI px -PPI DVT Px -Heparin SC DISPOSITION: General surgery following, now working up potential infection, will hold off home discharge. VS,Fishbone, I+O VS, Fishbone, I+O Laboratory Tests 11/20/20 05:47 Vital Signs Date Time Temp Pulse Resp B/P (MAP) Pulse Ox O2 Delivery O2 Flow Rate FiO2 11/20/20 08:46 89 155/71 11/20/20 06:00 99.1 18 94 Room Air I&O- Last 24 Hours up to 6 AM 11/20/20 06:00 Intake Total 2220 ml Output Total 2250 ml Balance -30 ml ANITA SERVIN MD Nov 20, 2020 09:20
--- NOTE | 2020-11-20 12:51 | IPNPDOC ---
Text Note Date of Service The patient was seen on 11/20/20. NOTE I saw the patient this morning and he was looking well. He continues to show b owel function, reports passing a lot of flatus. Last night he had febrile episodes and he has gradually increasing leukocytosis up to 13,000 this morning. He had a febrile workup including CT abdomen and pelvis was done today. His last CT abdomen and pelvis was done about 5 days ago. I compare the images. There is a significant improvement on the bowel distention and he has no further evidence for ileus or bowel obstruction. No abscesses. The radiologist read a possible mild enteritis. Clinically he is not having any abdominal pain or any diarrhea. I checked his CRP and this is elevated to 11. Comparing the 2 CT scans to her is a new focus of small amount of subcutaneous air the right anterolateral abdominal wall without any drainable collection or abscess. I visited him again and looked at that area and there is no signs of any induration, no cellulitis and he is nontender over that area. There are 2 right-sided 5 mm ports over that area and none of them are having any drainage or inflammation. I started him on cephalexin to cover for possible skin and soft tissue infection. He has not been febrile this morning we'll continue to observe the course. VS,Cindye, I+O VS, Cindye, I+O Laboratory Tests 11/20/20 05:47 Vital Signs Date Time Temp Pulse Resp B/P (MAP) Pulse Ox O2 Delivery O2 Flow Rate FiO2 11/20/20 08:46 89 155/71 11/20/20 06:00 99.1 18 94 Room Air I&O- Last 24 Hours up to 6 AM 11/20/20 06:00 Intake Total 2220 ml Output Total 2250 ml Balance -30 ml JASSI MATTHEWS MD Nov 20, 2020 12:51
[2020-11-20 14:00] VITALS: BP 153/79
[2020-11-20] MEDS ORDERED: CEPHALEXIN 500 MG CAP PO SCH (14:00)
[2020-11-20] MEDS: traZODone 50 MG TAB PO PRN (21:06)
[2020-11-20 22:00] VITALS: BP 153/77
[2020-11-21] MEDS: METOCLOPRAMIDE INJ 10MG/2ML VIAL (J2765 PER 1) IV SCH ×2 (03:36→10:00)
[2020-11-21] MEDS: PIPERACILLIN/TAZOBACTAM SOD 3.375 GM in D5W MINI-BAG PLUS 50 ML IV SCH ×2 (03:36→10:07)
[2020-11-21 06:00] VITALS: BP 148/90
[2020-11-21 06:22] LABS: HEMATOCRIT 27.6 % (42.0-52.0); MEAN CORPUSCULAR HGB CONC 32.6 g/dl (32.0-36.5); PLATELET COUNT, AUTOMATED 350 10^3/uL (150-450); WHITE BLOOD COUNT 12.6 10^3/uL (4.0-10.0)
[2020-11-21 06:45] LABS: BLOOD UREA NITROGEN 8 MG/DL (7-18); CALCIUM LEVEL 8.1 MG/DL (8.8-10.2); CARBON DIOXIDE LEVEL 28 MEQ/L (21-32); CHLORIDE LEVEL 102 MEQ/L (98-107); GLOMERULAR FILTRATION RATE > 60.0 (>42); GLUCOSE, FASTING 125 MG/DL (70-100); POTASSIUM SERUM 3.8 MEQ/L (3.5-5.1); SODIUM LEVEL 136 MEQ/L (136-145)
[2020-11-21] MEDS ORDERED: MOM 30ML SUSPENSION UDC PO ONE (10:00)
[2020-11-21] MEDS: DOCUSATE SODIUM 100MG CAPSULE PO SCH (10:07)
[2020-11-21] MEDS: HEPARIN SOD (PORCINE) 5000UNITS/ML 1ML VIAL/SYRINGE SQ SCH (10:08)
[2020-11-21] MEDS: DULoxetine 30 MG CAP (CYMBALTA) PO SCH (10:08)
[2020-11-21] MEDS: PANTOPRAZOLE 40MG TAB (PROTONIX) PO SCH (10:08)
[2020-11-21 10:11] VITALS: BP 165/87
[2020-11-21] MEDS: ACETAMINOPHEN TAB 650MG DOSE (2X325MG) PO PRN (10:12)
[2020-11-21] MEDS ORDERED: CEFD300CAP PO (10:22)
[2020-11-21] MEDS ORDERED: FLAG500T PO (10:22)
--- NOTE | 2020-11-21 13:11 | IPNPDOC ---
Text Note Date of Service The patient was seen on 11/21/20. NOTE General Surgery Dr Manzano. The patient is a 75-year-old male with small bowel obstruction status post laparoscopy with lysis of adhesions 11/09/[address] Graham. The patient reports no nausea or vomiting. He is eating and drinking. No abdominal pain. Still reports he is passing a lot of gas. Last BM 11/18. MAXIMUM TEMPERATURE 99.1 6 AM 11/20 VSS Resting Comfortably resting in bed HEENT MMM, no facial TTP. lungs CTA. S1S2 RRR Abdomen soft, slightly rounded but much less distended than previously, nontender. No guarding or rebound. No peritoneal signs. Previous surgical Incisions are healing well. There is still no surrounding erythema, no drainage. Extremities well-perfused, no edema. 1400/575 +825. Hemoglobin 9.0 A/P. SBO status post laparoscopy with lysis of adhesions. Patient is reviewed and examined as per Dr. Graham this morning. The patient's was also on the phone while Dr. Graham was in the room. This was also discussed with Dr. Shetty, hospitalist, at the bedside. The patient has had no further fever over the past 24 hours. The patient was started on Keflex yesterday for possible soft tissue infection, there is no skin erythema, no drainage from previous surgical sites, no tenderness with palpation. The patient is currently tolerating low residue diet. He is eating and drinking with no nausea or vomiting. WBC is decreased compared with yesterday. CRP is 13.8, which is up slightly compared with 11/20. This has been extensively r eviewed with the patient and the patient's . The patient does seem to be improving with the addition of Keflex which was added empirically for possible soft tissue infection. White blood cell count is down slightly but CRP is 13.8. We have discussed with the patient and his that he could be discharged today but to continue to monitor for any signs of infection, fevers or chills, any drainage from surgical sites, or any worsening symptoms. He should have close follow-up with Dr. Graham as an outpatient with follow-up in the office next week but otherwise if he feels he is having any changes he can call the office or come back to the hospital for reevaluation. The patient and his verbalized understanding and agreement. VS,Fishbone, I+O VS, Fishbone, I+O Laboratory Tests 11/21/20 06:04 Vital Signs Date Time Temp Pulse Resp B/P (MAP) Pulse Ox O2 Delivery O2 Flow Rate FiO2 11/21/20 10:11 97 165/87 11/21/20 06:00 98.6 18 97 11/20/20 06:00 Room Air I&O- Last 24 Hours up to 6 AM 11/21/20 06:00 Intake Total 1400 ml Output Total 1295 ml Balance 105 ml Briana Laws Nov 21, 2020 13:11 JASSI GRAHAM MD Dec 09, 2020 16:03
--- NOTE | 2020-11-23 12:44 | DS.PDOC ---
Discharge Summary General Date of Admission Nov 08, 2020 at 03:18 Date of Discharge 11/22/20 Discharge Summary PROCEDURES PERFORMED DURING STAY: Robotic assisted laparoscopic lysis of adhesion. DISCHARGE DIAGNOSES: SBO due to adhesion and incarcerated internal hernia Persistent prolonged partial SBO even after surgery Prolonged Post operative Ileus Fever with possible skin and soft tissue infection around the port site Possible Enteritis. Alcohol dependence iron def anemia Left Basilic vein thrombosis COMPLICATIONS/CHIEF COMPLAINT: SBO. HOSPITAL COURSE: 75-year-old M with history of multiple abdominal surgeries, hx of SBO in past, alcohol abuse, HLD, osteoarthritis, GERD admitted for SBO on 11/08/20, went to OR on 11/09/20 and found to have small bowel obstruction, adhesive band with incarcerated internal hernia. Had robotic assisted lysis of adhesion and reduction of internal hernia. Hospital course was complicated by development of post operative ileus and persistent Partial SBO even after surgery needing prolonged bowel rest and NG tube suction. There was slow recovery of bowel function and post operative Ileus resolved on 11/18/20. He has been tolerating soft diet with out any abdominal pain or distension. Course was further complicated by fever and leukocytosis with nonfocal examina tion on 11/19/20. CT abdomen repeated showed possible enteritis without any clinical abdominal symptoms and a small amounts of gas in the subcutaneous tissues along the right anterolateral lower abdominal wall at the site of laparoscopy port. It was felt the fever and leucocytosis was probably due to enteritis or a developing subcutaneous tissue infection. He was started on zosyn then changed to cefdinir and flagyl to cover for both with resolution of fever and improvement of WBC. He was also noted to have Left arm swelling: Noted partial occlusion of left basilic vein on doppler US: Resolved. Alcohol dependence No s/s of withdrawal during hospitalization Iron deficiency anemia Occult blood neg ferrous sulfate BID DISCHARGE MEDICATIONS: Please see below. ALLERGIES: Please see below. PHYSICAL EXAMINATION ON DISCHARGE: VITAL SIGNS: Please see below. GENERAL APPEARANCE: resting in bed, NAD. AAOx3 HEENT: NCAT, EOMI, MMM, poor dentition Neck: No JVD CARDIOVASCULAR: Regular rate and rhythm , No M/r/g LUNGS: Clear to auscultation, fair air movement ABDOMEN: abdomen nontender to palpation, no distention, soft, incisions appear clean and healing/scabbed over. multiple hernia repair scars appreciated without any protrusion. No masses. MUSCULOSKELETAL: ROM wnl in all ext. no cyanosis or clubbing EXTREMITIES: Scars representing patient's prior knee replacements appreciated bilaterally, no lower extremity edema or calf tenderness bilaterally. Bilateral radial and posterior tibial pulses 2+. LUE is swollen, no erythema or warmth NEUROLOGICAL: No focal weakness, sensation intact, no aphasia or dysarthria, no facial droop. PSYCHIATRIC: Mood and affect appropriate LABORATORY DATA: Please see below. IMAGIN11/20/20: CT abd and pelvis IMPRESSION: 1. Presumed postsurgical changes with small amount of free fluid in the pelvis and small amounts of gas in the subcutaneous tissues along the right anterolateral lower abdominal wall. 2. Cannot exclude a mild enteritis. Previously noted small bowel obstruction has resolved. 3. Further nonacute findings as described above including stable left renal cyst and diverticulosis. 11/16/2020: AXR: Nasogastric tube barely extends below the left hemidiaphragm and may warrant advancement to ensure its placement. Bowel gas pattern again demonstrates small bowel obstruction. No obvious free air. IMPRESSION: Nasogastric tube just barely distends below the left hemidiaphragm. Consider advancement to secure position over time. Small bowel obstruction. 11/16/2020: AXR: Findings consistent with small-bowel obstruction and similar to CT dated 11/16/2020 at 8:23 a.m. 11/16/2020: CT A/P: The large bowel demonstrates fluid/air-filled dilated loops to 4.4 cm diameter along with fluid-filled nonobstructed nondilated loops in the right lower quadrant without a discrete focal short segment transition zone identified. The large bowel is moderately dilated and fluid-filled. Differential diagnosis includes a partial small-bowel obstruction in the region of the right lower quadrant and associated ileus. Sigmoid diverticulosis noted without acute diverticulitis. No free air or ascites. Liver, spleen, pancreas, gallbladder, right kidney and bilateral adrenal glands are relatively normal. Left kidney again includes 2.3 cm simple appearing cyst. Mild hepatosteatosis cannot be excluded. Pelvis demonstrates collapsed bladder and evidence for prior prostatectomy. Small fat containing left inguinal hernia noted. No ascites. No free air. No intraperitoneal or retroperitoneal adenopathy. Abdominal aorta demonstrates atherosclerotic changes without aneurysm or dissection. Surrounding musculoskeletal structures demonstrate degenerative changes without acute osseous abnormality. IMPRESSION: Continue to suggest at least partial small bowel obstruction somewhere in the right lower quadrant along with ileus. No free air or free fluid to suggest perforation. 11/15/2020: AXR Findings compatible with small bowel obstruction and secondary ileus. 11/13/2020 duplex venous US LUE: Left deep veins: Unremarkable. Axillary and brachial veins are patent throughout without thrombus. Normal Doppler waveforms. Normal compressibility and/or augmentation response. Visualized internal jugular and subclavian veins are patent. Left superficial veins: There is thrombosis of the left basilic vein in the left arm, which partially occludes this vessel and this vein is not fully compressible. The left cephalic vein is patent as visualized. IMPRESSION: Thrombosis of the left basilic vein, which is a superficial vein that is partially occluded. AbdXR 11/12/20: Ileus pattern without definite evidence for small bowel obstruction. AbXR 11/09/20: Persistent moderate small bowel dilatation and small-bowel obstruction. Chest x-ray (11/08/20): No acute findings. Abdomen/pelvis CT (11/08/20): Small bowel obstruction with suspected closed loop obstruction and transition point in the upper left quadrant. Multiple enhancing polyps in the stomach. Hepatic steatosis. ACTIVITY: [As tolerated]. DIET: Mechanical soft DISPOSITION: 01 Home, Self-Care. DISCHARGE INSTRUCTIONS: Dr Graham in 1 week PMD in 2 weeks DISCHARGE CONDITION: [Stable]. TIME SPENT ON DISCHARGE: 35 minutes. Vital Signs/I&Os Vital Signs Date Time Temp Pulse Resp B/P (MAP) Pulse Ox O2 Delivery O2 Flow Rate FiO2 11/21/20 10:11 97 165/87 11/21/20 06:00 98.6 18 97 11/20/20 06:00 Room Air I&O- Last 24 Hours up to 6 AM 11/22/20 07:00 Intake Total 320 ml Output Total 0 ml Balance 320 ml Microbiology Microbiology 11/20/20 Blood Culture - Preliminary, Resulted No Growth after 48 hours. All Specime... 11/20/20 Blood Culture - Preliminary, Resulted No Growth after 48 hours. All Specime... 11/13/20 Blood Culture - Final, Complete NO GROWTH AFTER 5 DAYS 11/13/20 Blood Culture - Final, Complete NO GROWTH AFTER 5 DAYS Discharge Medications Scheduled Allopurinol (Zyloprim) 300 Mg Tab, 300 MG PO DAILY, (Reported) Amlodipine Besylate (Amlodipine Besylate) 10 Mg Tab, 10 MG PO DAILY, (Reported) Cefdinir (Cefdinir) 300 Mg Capsule, 300 MG PO BID Docusate Sodium (Dok) 100 Mg Capsule, 100 MG PO BID Doxazosin Mesylate (Doxazosin Mesylate) 4 Mg Tablet, 2 MG PO DAILY, (Reported) Duloxetine Hcl (Duloxetine HCl) 30 Mg Capsule.dr, 30 MG PO DAILY, (Reported) Ferrous Sulfate (Ferrous Sulfate) 325 Mg Tablet.dr, 1 TAB PO DAILY Losartan Potassium (Losartan Potassium) 100 Mg Tablet, 100 MG PO QHS, (Reported) Metronidazole (Flagyl) 500 Mg Tablet, 500 MG PO Q8H Omeprazole (Omeprazole) 20 Mg Capsule.dr, 40 MG PO QHS, (Reported) Paroxetine HCl (Paroxetine HCl) 20 Mg Tab, 20 MG PO DAILY, (Reported) Trazodone HCl (Trazodone HCl) 150 Mg Tablet, 150 MG PO QHS, (Reported) Scheduled PRN Hydrocodone/Acetaminophen (Hydrocodone-Acetamin 5-325 mg) 1 Tab Tab, 0.5 TAB PO Q6H PRN for PAIN, (Reported) Allergies Coded Allergies: No Known Allergies (Unverified , 06/28/19) HAYES MEZA MD Nov 22, 2020 18:18
== END 2020-11-21 12:40 | disposition home or self-care (01) | DRG 336 ==
LOC: M ED 23:52 → M ED INP 11-08 03:18 → M MSPAV 11-08 04:55
PROVIDERS: ADMIT Internal Medicine; ATTEND Internal Medicine Nephrology
PROC: 8E0W4CZ Robotic Assisted Procedure of Trunk Region, Percutaneous Endoscopic Approach (ICD-10-PCS; 2020-11-09)
PROC: 0DN84ZZ Release Small Intestine, Percutaneous Endoscopic Approach (ICD-10-PCS; principal; 2020-11-09 12:30)
DX: K46.0 Unspecified abdominal hernia with obstruction, without gangrene (principal); K91.89 Other postprocedural complications and disorders of digestive system; I82.612 Acute embolism and thrombosis of superficial veins of left upper extremity; F10.20 Alcohol dependence, uncomplicated; D50.9 Iron deficiency anemia, unspecified; K52.9 Noninfective gastroenteritis and colitis, unspecified; M19.90 Unspecified osteoarthritis, unspecified site; K21.9 Gastro-esophageal reflux disease without esophagitis; Z79.899 Other long term (current) drug therapy; E78.00 Pure hypercholesterolemia, unspecified; Z85.46 Personal history of malignant neoplasm of prostate; K76.0 Fatty (change of) liver, not elsewhere classified; Z85.820 Personal history of malignant melanoma of skin; Z96.651 Presence of right artificial knee joint

== ENCOUNTER → 2020-11-26 | Outpatient (CLI) | payer MEDICARE ==
[~2020-11-26] MED LIST changes: +CEFD300CAP PO; +DOK1CAP7 PO; +DOXA4TAB2 PO; +DULO1CAP5; +DULO1CAP5 PO; +FERR325T3 PO; +FLAG500T PO; +LOSA100T50; +LOSA100T50 PO; +TRAZ150T90 PO
[2020-11-26 16:37] LABS: BASO # 0.1 10^3/uL (0.0-0.2); BASO % 0.8 % (0.0-1.0); EOS # 0.3 10^3/uL (0.0-0.5); EOS % 4.2 % (0.0-3.0); HEMATOCRIT 29.7 % (42.0-52.0); HEMOGLOBIN 9.4 g/dl (13.5-17.5); LYMPH # 1.5 10^3/uL (1.5-5.0); LYMPH % 24.3 % (24.0-44.0); MEAN CORPUSCULAR HEMOGLOBIN 28.5 pg (27.0-33.0); MEAN CORPUSCULAR HGB CONC 31.6 g/dl (32.0-36.5); MONO # 0.8 10^3/uL (0.0-0.8); MONO % 12.7 % (2.0-8.0); NEUTROPHILS # 3.6 10^3/uL (1.5-8.5); NEUTROPHILS % 57.7 % (36.0-66.0); PLATELET COUNT, AUTOMATED 497 10^3/uL (150-450); WHITE BLOOD COUNT 6.2 10^3/uL (4.0-10.0)
[2020-11-26 17:04] LABS: BLOOD UREA NITROGEN 12 MG/DL (7-18); C REACTIVE PROTEIN QUANTITATIV 1.44 MG/DL (0.00-0.30); CALCIUM LEVEL 8.5 MG/DL (8.8-10.2); CARBON DIOXIDE LEVEL 32 MEQ/L (21-32); CHLORIDE LEVEL 105 MEQ/L (98-107); CREATININE FOR GFR 0.66 MG/DL (0.70-1.30); GLOMERULAR FILTRATION RATE > 60.0 (>42); GLUCOSE, FASTING 130 MG/DL (70-100); POTASSIUM SERUM 4.2 MEQ/L (3.5-5.1); SODIUM LEVEL 139 MEQ/L (136-145)
== END ==
LOC: M LAB 15:53
PROVIDERS: ATTEND Internal Medicine Nephrology
DX: K52.9 Noninfective gastroenteritis and colitis, unspecified (principal); L03.311 Cellulitis of abdominal wall

== ENCOUNTER → 2020-12-11 | Outpatient (CLI) | payer MEDICARE ==
[2020-12-11 11:07] LABS: BASO % 0.2 % (0.0-1.0); EOS # 0.2 10^3/uL (0.0-0.5); EOS % 2.1 % (0.0-3.0); HEMATOCRIT 33.5 % (42.0-52.0); HEMOGLOBIN 10.5 g/dl (13.5-17.5); LYMPH # 1.1 10^3/uL (1.5-5.0); LYMPH % 10.5 % (24.0-44.0); MEAN CORPUSCULAR HEMOGLOBIN 27.5 pg (27.0-33.0); MEAN CORPUSCULAR HGB CONC 31.3 g/dl (32.0-36.5); MEAN CORPUSCULAR VOLUME 87.7 fl (80.0-96.0); MONO # 1.4 10^3/uL (0.0-0.8); MONO % 12.6 % (2.0-8.0); NEUTROPHILS % 74.3 % (36.0-66.0); PLATELET COUNT, AUTOMATED 327 10^3/uL (150-450); RED BLOOD COUNT 3.82 10^6/uL (4.30-6.10); WHITE BLOOD COUNT 10.8 10^3/uL (4.0-10.0)
== END ==
LOC: M LAB 10:18
PROVIDERS: ATTEND Internal Medicine
DX: Z86.2 Personal history of diseases of the blood and blood-forming organs and certain disorders involving the immune mechanism (principal)

== ENCOUNTER → 2021-01-01 | Outpatient (CLI) | payer MEDICARE ==
[2021-01-01 12:34] LABS: BASO # 0.1 10^3/uL (0.0-0.2); BASO % 1.2 % (0.0-1.0); EOS # 0.2 10^3/uL (0.0-0.5); EOS % 3.5 % (0.0-3.0); HEMATOCRIT 33.9 % (42.0-52.0); HEMOGLOBIN 10.6 g/dl (13.5-17.5); LYMPH # 1.5 10^3/uL (1.5-5.0); LYMPH % 21.8 % (24.0-44.0); MEAN CORPUSCULAR HEMOGLOBIN 26.1 pg (27.0-33.0); MEAN CORPUSCULAR HGB CONC 31.3 g/dl (32.0-36.5); MEAN CORPUSCULAR VOLUME 83.5 fl (80.0-96.0); MONO % 15.2 % (2.0-8.0); NEUTROPHILS # 3.9 10^3/uL (1.5-8.5); NEUTROPHILS % 57.9 % (36.0-66.0); PLATELET COUNT, AUTOMATED 313 10^3/uL (150-450); RED BLOOD COUNT 4.06 10^6/uL (4.30-6.10); WHITE BLOOD COUNT 6.8 10^3/uL (4.0-10.0)
[2021-01-01 13:09] LABS: PERCENT SATURATION 5.9 % (19.7-50.0)
== END ==
LOC: M LAB 11:47
PROVIDERS: ATTEND Internal Medicine
DX: Z86.2 Personal history of diseases of the blood and blood-forming organs and certain disorders involving the immune mechanism (principal)

== ENCOUNTER → 2021-02-20 | Outpatient (CLI) | payer MEDICARE | LOC: M LAB 11:02 | PROVIDERS: ATTEND Internal Medicine Gastroenterology | DX: D50.9 Iron deficiency anemia, unspecified (principal) ==

== ENCOUNTER → 2021-03-12 | Outpatient (CLI) | payer MEDICARE ==
[2021-03-12 16:25] LABS: BASO # 0.1 10^3/uL (0.0-0.2); EOS # 0.1 10^3/uL (0.0-0.5); EOS % 0.8 % (0.0-3.0); HEMATOCRIT 39.4 % (42.0-52.0); HEMOGLOBIN 12.3 g/dl (13.5-17.5); LYMPH # 1.3 10^3/uL (1.5-5.0); LYMPH % 16.5 % (24.0-44.0); MEAN CORPUSCULAR HEMOGLOBIN 25.2 pg (27.0-33.0); MEAN CORPUSCULAR HGB CONC 31.2 g/dl (32.0-36.5); MEAN CORPUSCULAR VOLUME 80.6 fl (80.0-96.0); MONO # 1.4 10^3/uL (0.0-0.8); MONO % 17.6 % (2.0-8.0); NEUTROPHILS # 4.9 10^3/uL (1.5-8.5); NEUTROPHILS % 63.7 % (36.0-66.0); PLATELET COUNT, AUTOMATED 315 10^3/uL (150-450); RED BLOOD COUNT 4.89 10^6/uL (4.30-6.10); WHITE BLOOD COUNT 7.7 10^3/uL (4.0-10.0)
[2021-03-12 16:55] LABS: ALBUMIN 3.4 GM/DL (3.2-5.2); ALT/SGPT 20 U/L (12-78); BILIRUBIN,TOTAL 0.4 MG/DL (0.2-1.0); BLOOD UREA NITROGEN 7 MG/DL (7-18); CALCIUM LEVEL 8.8 MG/DL (8.8-10.2); CARBON DIOXIDE LEVEL 29 MEQ/L (21-32); CHLORIDE LEVEL 102 MEQ/L (98-107); CREATININE FOR GFR 0.68 MG/DL (0.70-1.30); FREE T4 1.13 NG/DL (0.76-1.46); GLOMERULAR FILTRATION RATE > 60.0 (>42); GLUCOSE, FASTING 79 MG/DL (70-100); POTASSIUM SERUM 4.3 MEQ/L (3.5-5.1); SODIUM LEVEL 138 MEQ/L (136-145); TOTAL PROTEIN 6.7 GM/DL (6.4-8.2)
== END ==
LOC: M WUC 14:57
PROVIDERS: ATTEND Physician Assistant
DX: R53.83 Other fatigue (principal); J20.9 Acute bronchitis, unspecified; Z20.828 Contact with and (suspected) exposure to other viral communicable diseases

== ENCOUNTER → 2021-04-03 | Outpatient (CLI) | payer MEDICARE ==
[2021-04-03 12:07] LABS: BASO # 0.1 10^3/uL (0.0-0.2); BASO % 1.1 % (0.0-1.0); EOS # 0.2 10^3/uL (0.0-0.5); EOS % 2.8 % (0.0-3.0); HEMATOCRIT 40.5 % (42.0-52.0); LYMPH # 1.2 10^3/uL (1.5-5.0); LYMPH % 18.3 % (24.0-44.0); MEAN CORPUSCULAR HEMOGLOBIN 26.3 pg (27.0-33.0); MEAN CORPUSCULAR HGB CONC 32.1 g/dl (32.0-36.5); MEAN CORPUSCULAR VOLUME 81.8 fl (80.0-96.0); MONO % 14.9 % (2.0-8.0); NEUTROPHILS # 4.1 10^3/uL (1.5-8.5); NEUTROPHILS % 62.3 % (36.0-66.0); PLATELET COUNT, AUTOMATED 230 10^3/uL (150-450); RED BLOOD COUNT 4.95 10^6/uL (4.30-6.10); WHITE BLOOD COUNT 6.5 10^3/uL (4.0-10.0)
[2021-04-03 12:54] LABS: ALBUMIN 3.5 GM/DL (3.2-5.2); ALT/SGPT 21 U/L (12-78); BILIRUBIN,TOTAL 0.5 MG/DL (0.2-1.0); BLOOD UREA NITROGEN 12 MG/DL (7-18); CALCIUM LEVEL 8.5 MG/DL (8.8-10.2); CARBON DIOXIDE LEVEL 30 MEQ/L (21-32); CHLORIDE LEVEL 106 MEQ/L (98-107); CREATININE FOR GFR 0.73 MG/DL (0.70-1.30); GLOMERULAR FILTRATION RATE > 60.0 (>42); GLUCOSE, FASTING 111 MG/DL (70-100); MAGNESIUM LEVEL 2.2 MG/DL (1.8-2.4); POTASSIUM SERUM 4.6 MEQ/L (3.5-5.1); SODIUM LEVEL 140 MEQ/L (136-145); TOTAL PROTEIN 6.5 GM/DL (6.4-8.2)
== END ==
LOC: M LAB 11:09
PROVIDERS: ATTEND Internal Medicine
DX: I44.1 Atrioventricular block, second degree (principal); I10 Essential (primary) hypertension; Z85.820 Personal history of malignant melanoma of skin

== ENCOUNTER → 2021-05-11 | Outpatient (CLI) | payer MEDICARE ==
[~2021-05-11] MED LIST changes: +DOK1CAP4 PO; -DOK1CAP7 PO
== END ==
LOC: M LABSMTC 10:03
PROVIDERS: ATTEND Anesthesiology
DX: Z01.812 Encounter for preprocedural laboratory examination (principal); Z20.822 Contact with and (suspected) exposure to COVID-19

== ENCOUNTER 2021-05-16 11:33 | Day surgery (SDC) | payer MEDICARE ==
[~2021-05-16] VITALS: Ht 182.9 cm; Wt 81.1 kg
[~2021-05-16 11:33] MED LIST changes: +LIDOCAINE 2% 100MG/5ML SDV (FOR ANES.) As Ordered ONE; +NS 1,000 ML IV ONE; +propofoL 200 MG/20 ML VIAL As Ordered ONE
[2021-05-16] MEDS ORDERED: GLYCOPYRROLATE INJ 0.2 MG/ML 2 ML VIAL As Ordered ONE ×2 (12:24→13:08)
--- NOTE | 2021-05-16 13:53 | ROOR ---
Patient Name: Darrell Jones Procedure Date: 05/16/2021 12:20 PM Date of : 1945 Age: 75 Room: [facility] Gender: Male Note Status: Finalized Procedure: Upper GI endoscopy Indications: Iron deficiency anemia Providers: Joe Mark MD Referring MD: Sergio Cortez MD Requesting Provider: Medicines: Monitored Anesthesia Care Complications: No immediate complications. Procedure: Pre-Anesthesia Assessment: - The heart rate, respiratory rate, oxygen saturations, blood pressure, adequacy of pulmonary ventilation, and response to care were monitored throughout the procedure. The Endoscope was introduced through the mouth, and advanced to the second part of duodenum. The upper GI endoscopy was accomplished without difficulty. The patient tolerated the procedure well. Findings: The examined esophagus was normal. Multiple large semi-sessile hemorrhagic appearing polyps were found in the gastric fundus and in the gastric body. The polyps were removed with a hot snare. Polyp resection was incomplete, and the resected tissue was partially retrieved. Three ligatures were successfully placed. An endoclip was placed. This was done to prevent bleeding. Small Hiatal Hernia. The second portion of the duodenum shows a 2- 3 cm lipoma. The duodenum is otherwise normal. Impression: - Normal esophagus. - Multiple hemorrhagic appearing gastric polyps: Several medium sized polyps (<1cm) were removed with Hot snare polypectomy,(partial retrieval). Three very large (~2cm) hemorrhagic appearing polyps were treated with three endoloops/ligatures and left in place (not retrieved). Endoclip was placed. - Small Hiatal Hernia. 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 - Otherwise normal examined duodenum. Recommendation: - Repeat upper endoscopy in 1 month for retreatment. - Use Prilosec (omeprazole) 40 mg PO BID. - (the script was sent to your pharmacy on file) Procedure Code(s): --- Professional --- 72260, Esophagogastroduodenoscopy, flexible, transoral; with removal of tumor(s), polyp(s), or other lesion(s) by snare technique Diagnosis Code(s): --- Professional --- D50.9, Iron deficiency anemia, unspecified K31.7, Polyp of stomach and duodenum CPT copyright 2019 [employer]. All rights reserved. The codes documented in this report are preliminary and upon it investment/portfolio manager review may be revised to meet current compliance requirements. Joe Mark MD Joe Mark MD 05/16/2021 1:53:24 PM Electronically signed by Joe Mark MD Number of Addenda: 0 Note Initiated On: 05/16/2021 12:20 PM Estimated Blood Loss: Estimated blood loss: none.
--- NOTE | 2021-05-16 13:59 | ROOR ---
Patient Name: Darrell Jones Procedure Date: 05/16/2021 12:21 PM Date of : 1945 Age: 75 Room: [facility] Gender: Male Note Status: Finalized Procedure: Colonoscopy Indications: Iron deficiency anemia Providers: Joe Mark MD Referring MD: Sergio Cortez MD Requesting Provider: Medicines: Monitored Anesthesia Care Complications: No immediate complications. Procedure: Pre-Anesthesia Assessment: - The heart rate, respiratory rate, oxygen saturations, blood pressure, adequacy of pulmonary ventilation, and response to care were monitored throughout the procedure. The Colonoscope was introduced through the anus and advanced to the cecum, identified by appendiceal orifice and ileocecal valve. The colonoscopy was performed without difficulty. The patient tolerated the procedure well. The quality of the bowel preparation was adequate. Findings: The perianal and digital rectal examinations were normal. A 5 mm polyp was found in the cecum. The polyp was sessile. The polyp was removed with a cold snare. Resection and retrieval were complete. Two multi-lobulated polyps were found in the hepatic flexure and ascending colon. The polyps were 8 to 12 mm in size. These polyps were removed with a piecemeal technique using a cold snare. Resection and retrieval were complete. Three sessile polyps were found in the sigmoid colon and descending colon. The polyps were 5 to 12 mm in size. These polyps were removed with a piecemeal technique using a cold snare. Resection and retrieval were complete. Internal hemorrhoids were found during retroflexion. The hemorrhoids were moderate. Multiple small and large-mouthed diverticula were found in the sigmoid colon. Impression: - One 5 mm polyp in the cecum, removed with a cold snare. Resected and retrieved. - Two 8 to 12 mm polyps at the hepatic flexure and in the ascending colon, removed piecemeal using a cold snare. Resected and retrieved. - Three 5 to 12 mm polyps in the sigmoid colon and in the descending colon, removed piecemeal using a cold snare. Resected and retrieved. - Internal hemorrhoids. - Moderate diverticulosis in the sigmoid colon. - The exam was otherwise normal to the cecum. Recommendation: - Await pathology results. - Repeat colonoscopy for surveillance based on pathology results. - If the pathology report reveals adenomatous tissue, then repeat the colonoscopy for surveillance in 4 months. (assess for complete resection) - If the pathology report indicates hyperplastic polyp, then repeat colonoscopy for surveillance in 1- 2 years (large right sided). Procedure Code(s): --- Professional --- 61366, Colonoscopy, flexible; with removal of tumor(s), polyp(s), or other lesion(s) by snare technique Diagnosis Code(s): --- Professional --- K57.30, Diverticulosis of large intestine without perforation or abscess without bleeding D50.9, Iron deficiency anemia, unspecified K64.8, Other hemorrhoids K63.5, Polyp of colon CPT copyright 2019 [employer]. All rights reserved. The codes documented in this report are preliminary and upon assistant sales director review may be revised to meet current compliance requirements. Joe Mark MD Joe Mark MD 05/16/2021 1:59:47 PM Electronically signed by Joe Mark MD Number of Addenda: 0 Note Initiated On: 05/16/2021 12:21 PM Estimated Blood Loss: Estimated blood loss: none.
[2021-05-16 14:25] VITALS: BP 162/72
== END 2021-05-16 15:18 | disposition home or self-care (01) ==
LOC: M OPP 11:33
PROVIDERS: ATTEND Internal Medicine Gastroenterology
DX: D50.9 Iron deficiency anemia, unspecified (principal); K57.30 Diverticulosis of large intestine without perforation or abscess without bleeding; K64.8 Other hemorrhoids; D12.0 Benign neoplasm of cecum; D12.2 Benign neoplasm of ascending colon; D12.3 Benign neoplasm of transverse colon; D12.4 Benign neoplasm of descending colon; K44.9 Diaphragmatic hernia without obstruction or gangrene; K31.7 Polyp of stomach and duodenum; Z79.891 Long term (current) use of opiate analgesic; Z79.899 Other long term (current) drug therapy; Z85.46 Personal history of malignant neoplasm of prostate; Z92.3 Personal history of irradiation; F17.220 Nicotine dependence, chewing tobacco, uncomplicated

== ENCOUNTER → 2021-08-16 | Outpatient (CLI) | payer MEDICARE ==
[~2021-08-16] MED LIST changes: -LIDOCAINE 2% 100MG/5ML SDV (FOR ANES.) As Ordered ONE; -NS 1,000 ML IV ONE; -propofoL 200 MG/20 ML VIAL As Ordered ONE
== END ==
LOC: M LAB 12:47
PROVIDERS: ATTEND Urology
DX: Z85.46 Personal history of malignant neoplasm of prostate (principal)

== ENCOUNTER → 2021-10-01 | Outpatient (REF) | payer MEDICARE ==
[~2021-10-01] MED LIST changes: +LOSA100T45; +LOSA100T45 PO; -LOSA100T50; -LOSA100T50 PO; +OMEP-173 PO; -OMEP-218 PO
== END ==
LOC: M LAB REF 11:28
PROVIDERS: ATTEND Physician Assistant
DX: R42 Dizziness and giddiness (principal)

== ENCOUNTER → 2021-10-01 | Outpatient (CLI) | payer MEDICARE ==
[2021-10-01 13:23] LABS: BASO # 0.1 10^3/uL (0.0-0.2); BASO % 0.7 % (0.0-1.0); EOS # 0.2 10^3/uL (0.0-0.5); EOS % 2.5 % (0.0-3.0); HEMATOCRIT 40.2 % (42.0-52.0); HEMOGLOBIN 13.5 g/dl (13.5-17.5); LYMPH # 1.1 10^3/uL (1.5-5.0); LYMPH % 15.5 % (24.0-44.0); MEAN CORPUSCULAR HEMOGLOBIN 30.1 pg (27.0-33.0); MEAN CORPUSCULAR HGB CONC 33.6 g/dl (32.0-36.5); MEAN CORPUSCULAR VOLUME 89.5 fl (80.0-96.0); MONO # 1.2 10^3/uL (0.0-0.8); MONO % 17.6 % (2.0-8.0); NEUTROPHILS # 4.3 10^3/uL (1.5-8.5); NEUTROPHILS % 63.6 % (36.0-66.0); PLATELET COUNT, AUTOMATED 210 10^3/uL (150-450); RED BLOOD COUNT 4.49 10^6/uL (4.30-6.10); WHITE BLOOD COUNT 6.8 10^3/uL (4.0-10.0)
[2021-10-01 14:41] LABS: ALBUMIN 3.8 GM/DL (3.2-5.2); ALT/SGPT 24 U/L (12-78); BILIRUBIN,TOTAL 0.6 MG/DL (0.2-1.0); BLOOD UREA NITROGEN 14 MG/DL (7-18); CALCIUM LEVEL 8.9 MG/DL (8.8-10.2); CARBON DIOXIDE LEVEL 30 MEQ/L (21-32); CHLORIDE LEVEL 102 MEQ/L (98-107); CHOLESTEROL LEVEL 159 MG/DL (<200); CHOLESTEROL RISK RATIO 1.458 (<5); CREATININE FOR GFR 0.79 MG/DL (0.70-1.30); GLOMERULAR FILTRATION RATE > 60.0 (>42); GLUCOSE, FASTING 111 MG/DL (70-100); HDL CHOLESTEROL 109 MG/DL (>40); LDL CHOLESTEROL 43 MG/DL (<100); MAGNESIUM LEVEL 1.9 MG/DL (1.8-2.4); NON-HDL-C 50 MG/DL; POTASSIUM SERUM 4.6 MEQ/L (3.5-5.1); PROSTATIC SPECIFIC AG MONITOR < 0.01 NG/ML (< 4.00); SODIUM LEVEL 137 MEQ/L (136-145); TOTAL PROTEIN 6.8 GM/DL (6.4-8.2); TRIGLYCERIDES LEVEL 35 MG/DL (<150); URIC ACID 3.2 MG/DL (3.5-7.2)
== END ==
LOC: M PLALAB 10:36
PROVIDERS: ATTEND Internal Medicine
DX: I10 Essential (primary) hypertension (principal); E78.00 Pure hypercholesterolemia, unspecified; M10.9 Gout, unspecified; D50.9 Iron deficiency anemia, unspecified; Z85.820 Personal history of malignant melanoma of skin; Z85.46 Personal history of malignant neoplasm of prostate

== ENCOUNTER → 2022-02-24 | Outpatient (CLI) | payer MEDICARE ==
[~2022-02-24] MED LIST changes: +ALLO300T2 PO; +DOXA1TAB40 PO; +DOXA8TAB2 PO; +DULO1CAP6 PO; +TRAZ1TAB14 PO
== END ==
LOC: M LABSMTC 10:23
PROVIDERS: ATTEND Anesthesiology
DX: Z01.812 Encounter for preprocedural laboratory examination (principal); Z20.822 Contact with and (suspected) exposure to COVID-19

== ENCOUNTER 2022-02-27 10:37 | Day surgery (SDC) | payer MEDICARE ==
[~2022-02-27] VITALS: Ht 179.1 cm; Wt 81.1 kg
[2022-02-27] MEDS ORDERED: propofoL 200 MG/20 ML VIAL As Ordered ONE ×3 (12:06→12:55)
[2022-02-27] MEDS ORDERED: LIDOCAINE 2% 100MG/5ML SDV (FOR ANES.) As Ordered ONE (12:06)
[2022-02-27 14:10] VITALS: BP 158/81
== END 2022-02-27 14:25 | disposition home or self-care (01) ==
LOC: M OPP 10:37
PROVIDERS: ATTEND Internal Medicine Gastroenterology
DX: Z86.010 Personal history of colon polyps (principal); Z09 Encounter for follow-up examination after completed treatment for conditions other than malignant neoplasm; D12.4 Benign neoplasm of descending colon; D12.5 Benign neoplasm of sigmoid colon; K57.30 Diverticulosis of large intestine without perforation or abscess without bleeding; K31.7 Polyp of stomach and duodenum; K44.9 Diaphragmatic hernia without obstruction or gangrene; D50.9 Iron deficiency anemia, unspecified; Z85.46 Personal history of malignant neoplasm of prostate; Z92.3 Personal history of irradiation; Z79.1 Long term (current) use of non-steroidal anti-inflammatories (NSAID); Z79.891 Long term (current) use of opiate analgesic; Z79.899 Other long term (current) drug therapy; F17.220 Nicotine dependence, chewing tobacco, uncomplicated

== ENCOUNTER → 2022-03-28 | Outpatient (CLI) | payer MEDICARE ==
[~2022-03-28] MED LIST changes: +ISOVUE-300 61% 50ML VIAL As Ordered ONE; +LIDOCAINE 1% MDV 20ML VIAL As Ordered ONE; +TRIAMCINOLONE ACETONIDE SUSP 40 MG/ML VIAL (J3301) As Ordered ONE
== END ==
LOC: M RADPRO 10:58
PROVIDERS: ATTEND Orthopaedic Surgery
DX: M16.12 Unilateral primary osteoarthritis, left hip (principal)
CPT/HCPCS: 20610; 76000; J3301; Q9967

== ENCOUNTER → 2022-04-01 | Outpatient (CLI) | payer MEDICARE ==
[~2022-04-01] MED LIST changes: -ISOVUE-300 61% 50ML VIAL As Ordered ONE; -LIDOCAINE 1% MDV 20ML VIAL As Ordered ONE; -TRIAMCINOLONE ACETONIDE SUSP 40 MG/ML VIAL (J3301) As Ordered ONE
[2022-04-01 13:21] LABS: BASO # 0.1 10^3/uL (0.0-0.2); BASO % 0.6 % (0.0-1.0); EOS # 0.1 10^3/uL (0.0-0.5); EOS % 1.1 % (0.0-3.0); HEMATOCRIT 46.5 % (42.0-52.0); HEMOGLOBIN 15.9 g/dl (13.5-17.5); LYMPH # 1.5 10^3/uL (1.5-5.0); LYMPH % 19.3 % (24.0-44.0); MEAN CORPUSCULAR HEMOGLOBIN 31.5 pg (27.0-33.0); MEAN CORPUSCULAR HGB CONC 34.2 g/dl (32.0-36.5); MEAN CORPUSCULAR VOLUME 92.1 fl (80.0-96.0); MONO # 1.4 10^3/uL (0.0-0.8); MONO % 17.9 % (2.0-8.0); NEUTROPHILS # 4.7 10^3/uL (1.5-8.5); NEUTROPHILS % 60.6 % (36.0-66.0); PLATELET COUNT, AUTOMATED 256 10^3/uL (150-450); RED BLOOD COUNT 5.05 10^6/uL (4.30-6.10); WHITE BLOOD COUNT 7.8 10^3/uL (4.0-10.0)
[2022-04-01 14:06] LABS: ALBUMIN 3.9 GM/DL (3.2-5.2); ALT/SGPT 31 U/L (12-78); BILIRUBIN,TOTAL 0.8 MG/DL (0.2-1.0); BLOOD UREA NITROGEN 13 MG/DL (7-18); CALCIUM LEVEL 9.7 MG/DL (8.8-10.2); CARBON DIOXIDE LEVEL 29 MEQ/L (21-32); CHLORIDE LEVEL 101 MEQ/L (98-107); GLOMERULAR FILTRATION RATE > 60.0 (>42); GLUCOSE, FASTING 118 MG/DL (70-100); MAGNESIUM LEVEL 2.2 MG/DL (1.8-2.4); SODIUM LEVEL 135 MEQ/L (136-145); TOTAL PROTEIN 7.4 GM/DL (6.4-8.2)
== END ==
LOC: M LAB 11:41
PROVIDERS: ATTEND Internal Medicine
DX: I10 Essential (primary) hypertension (principal); Z85.46 Personal history of malignant neoplasm of prostate

== ENCOUNTER 2022-04-10 10:24 | Emergency (ER) | payer MEDICARE ==
[~2022-04-10] VITALS: Ht 180.3 cm; Wt 83.5 kg
[2022-04-10 10:25] VITALS: BP 154/74
== END 2022-04-10 11:35 | disposition left against medical advice (07) ==
LOC: M ED 10:24
DX: Z53.21 Procedure and treatment not carried out due to patient leaving prior to being seen by health care provider (principal)

== ENCOUNTER → 2022-04-14 | Outpatient (CLI) | payer MEDICARE | LOC: M RAD 12:10 | PROVIDERS: ATTEND Physician Assistant Surgical | DX: Z96.651 Presence of right artificial knee joint (principal); R93.6 Abnormal findings on diagnostic imaging of limbs ==

== ENCOUNTER → 2022-07-11 | Outpatient (CLI) | payer MEDICARE ==
[2022-07-11 12:14] LABS: HEMATOCRIT 45.5 % (42.0-52.0); HEMOGLOBIN 15.1 g/dl (13.5-17.5); MEAN CORPUSCULAR HEMOGLOBIN 30.6 pg (27.0-33.0); MEAN CORPUSCULAR HGB CONC 33.2 g/dl (32.0-36.5); MEAN CORPUSCULAR VOLUME 92.3 fl (80.0-96.0); PLATELET COUNT, AUTOMATED 241 10^3/uL (150-450); RED BLOOD COUNT 4.93 10^6/uL (4.30-6.10); WHITE BLOOD COUNT 4.8 10^3/uL (4.0-10.0)
[2022-07-11 13:04] LABS: BLOOD UREA NITROGEN 12 MG/DL (7-18); CALCIUM LEVEL 9.4 MG/DL (8.8-10.2); CARBON DIOXIDE LEVEL 33 MEQ/L (21-32); CHLORIDE LEVEL 100 MEQ/L (98-107); CREATININE FOR GFR 0.89 MG/DL (0.70-1.30); GLOMERULAR FILTRATION RATE > 60.0 (>42); GLUCOSE, FASTING 161 MG/DL (70-100); NT-PRO BNP 234 PG/ML (<450); SODIUM LEVEL 134 MEQ/L (136-145)
== END ==
LOC: M LAB 10:56
PROVIDERS: ATTEND Physician Assistant
DX: R06.02 Shortness of breath (principal)

== ENCOUNTER → 2022-07-31 | Outpatient (CLI) | payer MEDICARE | LOC: M RAD 12:10 | PROVIDERS: ATTEND Physician Assistant | DX: R09.89 Other specified symptoms and signs involving the circulatory and respiratory systems (principal); R42 Dizziness and giddiness; I65.23 Occlusion and stenosis of bilateral carotid arteries ==

== ENCOUNTER → 2022-09-10 | Outpatient (CLI) | payer MEDICARE ==
[~2022-09-10] MED LIST changes: +CHLO125TA PO
[2022-09-10 14:26] LABS: BLOOD UREA NITROGEN 14 MG/DL (9-23); CALCIUM LEVEL 9.3 MG/DL (8.3-10.6); CARBON DIOXIDE LEVEL 31 MMOL/L (20-31); CHLORIDE LEVEL 94 MMOL/L (98-107); CREATININE FOR GFR 0.85 MG/DL (0.70-1.30); GLOMERULAR FILTRATION RATE > 60.0 (>42); GLUCOSE, FASTING 126 MG/DL (74-106); POTASSIUM SERUM 4.6 MMOL/L (3.5-5.1); SODIUM LEVEL 131 MMOL/L (136-145)
== END ==
LOC: M PLALAB 10:37
PROVIDERS: ATTEND Physician Assistant
DX: I11.9 Hypertensive heart disease without heart failure (principal)

== ENCOUNTER → 2022-09-10 | Outpatient (CLI) | payer MEDICARE | LOC: M LABSMTC 10:23 | PROVIDERS: ATTEND Anesthesiology | DX: Z01.818 Encounter for other preprocedural examination (principal) ==

== ENCOUNTER 2022-09-11 12:28 | Day surgery (SDC) | payer MEDICARE ==
[~2022-09-11] VITALS: Ht 182.9 cm; Wt 87.5 kg
[~2022-09-11 12:28] MED LIST changes: +KETAMINE HCL 200MG/20ML VIAL As Ordered ONE; +LIDOCAINE 2% 100MG/5ML SDV (FOR ANES.) As Ordered ONE; +ONDANSETRON 4MG 2ML VIAL As Ordered ONE; +ceFAZolin SOD 2 GM in IV 1 EA IV ONE; +propofoL 200 MG/20 ML VIAL As Ordered ONE
[2022-09-11] MEDS ORDERED: LR 1,000 ML IV SCH ×2 (12:55→15:45)
[2022-09-11] MEDS ORDERED: LIDOCAINE 1% SDV 30ML VIAL As Ordered ONE (13:41)
[2022-09-11] MEDS ORDERED: MIDAZOLAM INJ 2MG/2ML VIAL As Ordered ONE (13:53)
[2022-09-11] MEDS ORDERED: propofoL 200 MG/20 ML VIAL As Ordered ONE (15:12)
[2022-09-11] MEDS ORDERED: fentaNYL 100 MCG/2 ML INJECTION As Ordered ONE (15:21)
[2022-09-11] MEDS ORDERED: ACETAMINOPHEN 1000MG 100ML IV BAG As Ordered ONE (15:45)
[2022-09-11] MEDS ORDERED: oxyCODONE 5MG TAB PO PRN (15:45)
[2022-09-11] MEDS ORDERED: ONDANSETRON 4MG 2ML VIAL IV PRN (15:45)
[2022-09-11] MEDS ORDERED: traMADol 50 MG TAB PO PRN (16:05)
[2022-09-11] MEDS ORDERED: ACETAMINOPHEN TAB 650MG DOSE (2X325MG) PO PRN (16:05)
[2022-09-11 18:05] VITALS: BP 165/78
[2022-09-11 18:35] VITALS: BP 142/68
[2022-09-11 19:05] VITALS: BP 166/76
[2022-09-11 20:05] VITALS: BP 116/61
[2022-09-11] MEDS ORDERED: traZODone 50 MG TAB PO SCH (21:00)
[2022-09-11] MEDS ORDERED: LOSARTAN 50MG TABLET PO SCH (21:00)
[2022-09-11] MEDS ORDERED: OMEPRAZOLE 20MG CAP PO SCH (21:00)
[2022-09-11 21:05] VITALS: BP 122/60
[2022-09-11 21:27] VITALS: BP 122/60
[2022-09-11] MEDS: ceFAZolin SOD 1 GM in D5W MINI-BAG PLUS 50 ML IV SCH (23:24)
[2022-09-12 00:26] VITALS: BP 158/70
[2022-09-12 04:29] VITALS: BP 146/70
[2022-09-12] MEDS: ceFAZolin SOD 1 GM in D5W MINI-BAG PLUS 50 ML IV SCH ×2 (06:31→13:12)
[2022-09-12 08:00] VITALS: BP 148/68
[2022-09-12] MEDS ORDERED: allopurinoL 300 MG TAB PO SCH (09:00)
[2022-09-12] MEDS ORDERED: DULoxetine 30MG CAPSULE (CYMBALTA) PO SCH (09:00)
[2022-09-12] MEDS ORDERED: PREVNAR-20 VACCINE 0.5ML SYRINGE IM.IMMUN ONE (10:00)
[2022-09-12 12:00] VITALS: BP 157/56
[2022-09-12 16:00] VITALS: BP 156/54
== END 2022-09-12 18:10 | disposition home or self-care (01) ==
LOC: M SDC 12:28 → M PCU 17:58 → M SDC 09-12 18:10
PROVIDERS: ATTEND Internal Medicine Cardiovascular Disease
DX: I44.2 Atrioventricular block, complete (principal); I34.9 Nonrheumatic mitral valve disorder, unspecified; I10 Essential (primary) hypertension; M10.9 Gout, unspecified; Z79.899 Other long term (current) drug therapy; K21.9 Gastro-esophageal reflux disease without esophagitis; F17.220 Nicotine dependence, chewing tobacco, uncomplicated; Z85.46 Personal history of malignant neoplasm of prostate; Z92.3 Personal history of irradiation; Z23 Encounter for immunization
CPT/HCPCS: 33208; 71045; 71046; 76000; 90677; 93005; 96365; 96366; C1785; C1898; G0009; J0131; J0690; J1100; J2250; J2405; J3010

== ENCOUNTER → 2022-10-21 | Outpatient (CLI) | payer MEDICARE ==
[~2022-10-21] MED LIST changes: -KETAMINE HCL 200MG/20ML VIAL As Ordered ONE; -LIDOCAINE 2% 100MG/5ML SDV (FOR ANES.) As Ordered ONE; -ONDANSETRON 4MG 2ML VIAL As Ordered ONE; -ceFAZolin SOD 2 GM in IV 1 EA IV ONE; -propofoL 200 MG/20 ML VIAL As Ordered ONE
[2022-10-21 13:23] LABS: HEMATOCRIT 42.4 % (42.0-52.0); HEMOGLOBIN 14.8 g/dl (13.5-17.5); MEAN CORPUSCULAR HEMOGLOBIN 31.3 pg (27.0-33.0); MEAN CORPUSCULAR HGB CONC 34.9 g/dl (32.0-36.5); MEAN CORPUSCULAR VOLUME 89.6 fl (80.0-96.0); PLATELET COUNT, AUTOMATED 232 10^3/uL (150-450); RED BLOOD COUNT 4.73 10^6/uL (4.30-6.10); WHITE BLOOD COUNT 6.8 10^3/uL (4.0-10.0)
[2022-10-21 13:45] LABS: CREATININE, URINE 57.4 MG/DL; MALB URINE SIEMENS < 3.0 MG/DL; MAU/CREAT RATIO 5.2 MCG/MG (0.0-30.0)
[2022-10-21 14:09] LABS: HEMOGLOBIN A1c 5.1 % (4.0-6.0)
[2022-10-21 14:45] LABS: ALBUMIN 3.9 G/DL (3.2-5.2); ALKALINE PHOSPHATASE 109 U/L (46-116); ALT/SGPT 15 U/L (7.0-40); AST/SGOT 20 U/L (<34); BILIRUBIN,TOTAL 0.9 MG/DL (0.3-1.2); BLOOD UREA NITROGEN 12 MG/DL (9-23); CALCIUM LEVEL 9.1 MG/DL (8.3-10.6); CARBON DIOXIDE LEVEL 30 MMOL/L (20-31); CHLORIDE LEVEL 92 MMOL/L (98-107); CHOLESTEROL LEVEL 167 MG/DL (<200); CHOLESTEROL RISK RATIO 1.72 (<5); CREATININE FOR GFR 0.78 MG/DL (0.70-1.30); GLOMERULAR FILTRATION RATE > 60.0 (>42); GLUCOSE, FASTING 96 MG/DL (74-106); HDL CHOLESTEROL 96.6 MG/DL (>40); LDL CHOLESTEROL 62.8 MG/DL (<100); NON-HDL-C 70 MG/DL; POTASSIUM SERUM 4.2 MMOL/L (3.5-5.1); SODIUM LEVEL 131 MMOL/L (136-145); TOTAL PROTEIN 7.2 G/DL (5.7-8.2); TRIGLYCERIDES LEVEL 38 MG/DL (<150)
[2022-10-21 14:47] LABS: FREE T4 1.49 NG/DL (0.89-1.76); THYROID STIMULATING HORMONE 2.393 uIU/ML (0.55-4.78); TOTAL 25(OH) VITAMIN D 53.3 NG/ML (20.0-100.0)
[2022-10-21 14:48] LABS: VITAMIN B12 LEVEL 488 PG/ML (211-911)
== END ==
LOC: M LAB 12:01
PROVIDERS: ATTEND Internal Medicine Hematology
DX: E78.00 Pure hypercholesterolemia, unspecified (principal); I10 Essential (primary) hypertension; M10.9 Gout, unspecified; K76.0 Fatty (change of) liver, not elsewhere classified; F34.1 Dysthymic disorder; R73.01 Impaired fasting glucose; M16.12 Unilateral primary osteoarthritis, left hip

== ENCOUNTER → 2022-10-31 | Outpatient (CLI) | payer MEDICARE | LOC: M PLAIMG 14:34 | PROVIDERS: ATTEND Orthopaedic Surgery | DX: M16.12 Unilateral primary osteoarthritis, left hip (principal) ==

== ENCOUNTER → 2023-02-10 | Outpatient (CLI) | payer MEDICARE ==
[~2023-02-10] MED LIST changes: +ISOVUE-300 61% 100ML VIAL As Ordered ONE; +LIDOCAINE 1% MDV 20ML VIAL As Ordered ONE; -LOSA100T45; -LOSA100T45 PO; +LOSA100T46; +LOSA100T46 PO; +TRIAMCINOLONE ACETONIDE SUSP 40MG/ML 1ML VIAL As Ordered ONE
== END ==
LOC: M RAD 10:59
PROVIDERS: ATTEND Orthopaedic Surgery
DX: M16.12 Unilateral primary osteoarthritis, left hip (principal)
CPT/HCPCS: 20610; 77002; J3301; Q9967

== ENCOUNTER → 2023-04-10 | Outpatient (CLI) | payer MEDICARE ==
[~2023-04-10] MED LIST changes: -DOXA4TAB2 PO; +DOXA4TAB77 PO; -DOXA8TAB2 PO; +DOXA8TAB65 PO; -ISOVUE-300 61% 100ML VIAL As Ordered ONE; -LIDOCAINE 1% MDV 20ML VIAL As Ordered ONE; -TRIAMCINOLONE ACETONIDE SUSP 40MG/ML 1ML VIAL As Ordered ONE
[2023-04-10 15:31] LABS: BLOOD UREA NITROGEN 8 MG/DL (9-23); CALCIUM LEVEL 9.2 MG/DL (8.3-10.6); CARBON DIOXIDE LEVEL 28 MMOL/L (20-31); CHLORIDE LEVEL 95 MMOL/L (98-107); CREATININE FOR GFR 0.64 MG/DL (0.70-1.30); GLOMERULAR FILTRATION RATE > 60.0 (>42); GLUCOSE, FASTING 94 MG/DL (74-106); POTASSIUM SERUM 4.3 MMOL/L (3.5-5.1); SODIUM LEVEL 133 MMOL/L (136-145)
== END ==
LOC: M LAB 13:54
PROVIDERS: ATTEND Physician Assistant
DX: I11.9 Hypertensive heart disease without heart failure (principal)

== ENCOUNTER → 2023-06-28 | Outpatient (CLI) | payer MEDICARE ==
[2023-06-28 13:49] LABS: HEMATOCRIT 41.4 % (42.0-52.0); HEMOGLOBIN 14.9 g/dl (13.5-17.5); MEAN CORPUSCULAR VOLUME 88.8 fl (80.0-96.0); PLATELET COUNT, AUTOMATED 271 10^3/uL (150-450); RED BLOOD COUNT 4.66 10^6/uL (4.30-6.10); WHITE BLOOD COUNT 4.8 10^3/uL (4.0-10.0)
[2023-06-28 13:55] LABS: ERYTHROCYTE SEDIMENTATION RATE 12 mm/hr (0-20)
[2023-06-28 14:02] LABS: INR 1.09; PROTHROMBIN TIME 13.8 SECONDS (12.5-14.5)
[2023-06-28 14:18] LABS: ALBUMIN 3.9 G/DL (3.2-5.2); ALKALINE PHOSPHATASE 103 U/L (46-116); ALT/SGPT 17 U/L (7.0-40); AST/SGOT 20 U/L (<34); BILIRUBIN,TOTAL 0.5 MG/DL (0.3-1.2); BLOOD UREA NITROGEN 7 MG/DL (9-23); CARBON DIOXIDE LEVEL 32 MMOL/L (20-31); CHLORIDE LEVEL 93 MMOL/L (98-107); CREATININE FOR GFR 0.68 MG/DL (0.70-1.30); GLOMERULAR FILTRATION RATE > 60.0 (>42); GLUCOSE, FASTING 116 MG/DL (74-106); POTASSIUM SERUM 3.5 MMOL/L (3.5-5.1); SODIUM LEVEL 132 MMOL/L (136-145); TOTAL PROTEIN 7.1 G/DL (5.7-8.2)
== END ==
LOC: M RAD 13:15
PROVIDERS: ATTEND Orthopaedic Surgery
DX: Z01.818 Encounter for other preprocedural examination (principal); M16.12 Unilateral primary osteoarthritis, left hip; Z95.0 Presence of cardiac pacemaker; I70.0 Atherosclerosis of aorta

== ENCOUNTER → 2023-09-16 | Outpatient (CLI) | payer MEDICARE ==
[2023-09-16 16:00] LABS: BLOOD UREA NITROGEN 10 MG/DL (9-23); CARBON DIOXIDE LEVEL 31 MMOL/L (20-31); CHLORIDE LEVEL 98 MMOL/L (98-107); CREATININE FOR GFR 0.82 MG/DL (0.70-1.30); GLOMERULAR FILTRATION RATE > 60.0 (>42); GLUCOSE, FASTING 113 MG/DL (74-106); POTASSIUM SERUM 4.3 MMOL/L (3.5-5.1); SODIUM LEVEL 133 MMOL/L (136-145)
== END ==
LOC: M LAB 14:39
PROVIDERS: ATTEND Physician Assistant
DX: I11.9 Hypertensive heart disease without heart failure (principal)

== ENCOUNTER → 2023-09-16 | Outpatient (CLI) | payer MEDICARE ==
[2023-09-18 14:09] LABS: PSA TOTAL <0.1 ng/mL (0.0-4.0)
== END ==
LOC: M LAB 14:43
PROVIDERS: ATTEND Physician Assistant
DX: Z85.46 Personal history of malignant neoplasm of prostate (principal); I11.9 Hypertensive heart disease without heart failure; Z12.5 Encounter for screening for malignant neoplasm of prostate

== ENCOUNTER → 2023-10-13 | Outpatient (CLI) | payer MEDICARE ==
[2023-10-13 13:50] LABS: HEMATOCRIT 40.4 % (42.0-52.0); HEMOGLOBIN 14.2 g/dl (13.5-17.5); MEAN CORPUSCULAR HEMOGLOBIN 30.7 pg (27.0-33.0); MEAN CORPUSCULAR HGB CONC 35.1 g/dl (32.0-36.5); MEAN CORPUSCULAR VOLUME 87.4 fl (80.0-96.0); PLATELET COUNT, AUTOMATED 223 10^3/uL (150-450); RED BLOOD COUNT 4.62 10^6/uL (4.30-6.10); WHITE BLOOD COUNT 4.2 10^3/uL (4.0-10.0)
[2023-10-13 14:02] LABS: HEMOGLOBIN A1c 5.1 % (4.0-6.0)
[2023-10-13 14:23] LABS: CREATININE, URINE 87.9 MG/DL
[2023-10-13 14:24] LABS: C REACTIVE PROTEIN QUANTITATIV < 0.40 MG/DL (<1.0); MAU/CREAT RATIO 12.5 MCG/MG (0.0-30.0)
[2023-10-13 14:27] LABS: ALBUMIN 3.6 G/DL (3.2-5.2); ALKALINE PHOSPHATASE 74 U/L (46-116); ALT/SGPT 13 U/L (7.0-40); AST/SGOT 18 U/L (<34); BILIRUBIN,TOTAL 0.7 MG/DL (0.3-1.2); BLOOD UREA NITROGEN 8 MG/DL (9-23); CALCIUM LEVEL 9.2 MG/DL (8.3-10.6); CARBON DIOXIDE LEVEL 31 MMOL/L (20-31); CHLORIDE LEVEL 96 MMOL/L (98-107); CHOLESTEROL LEVEL 180 MG/DL (<200); CHOLESTEROL RISK RATIO 1.57 (<5); CREATININE FOR GFR 0.73 MG/DL (0.70-1.30); FERRITIN 29.6 NG/ML (10.5-307.3); GLOMERULAR FILTRATION RATE > 60.0 (>42); GLUCOSE, FASTING 100 MG/DL (74-106); LDL CHOLESTEROL 57.6 MG/DL (<100); POTASSIUM SERUM 4.5 MMOL/L (3.5-5.1); SODIUM LEVEL 130 MMOL/L (136-145); TOTAL 25(OH) VITAMIN D 57.3 NG/ML (20.0-100.0); TOTAL PROTEIN 6.8 G/DL (5.7-8.2); TRIGLYCERIDES LEVEL 42 MG/DL (<150)
[2023-10-13 14:28] LABS: FREE T4 1.36 NG/DL (0.89-1.76); VITAMIN B12 LEVEL 449 PG/ML (211-911)
[2023-10-13 14:29] LABS: THYROID STIMULATING HORMONE 2.161 uIU/ML (0.55-4.78)
== END ==
LOC: M PLALAB 11:40
PROVIDERS: ATTEND Internal Medicine Hematology
DX: R73.01 Impaired fasting glucose (principal); I10 Essential (primary) hypertension; M10.9 Gout, unspecified; K76.0 Fatty (change of) liver, not elsewhere classified; E78.00 Pure hypercholesterolemia, unspecified; F10.20 Alcohol dependence, uncomplicated; Z85.820 Personal history of malignant melanoma of skin; Z85.46 Personal history of malignant neoplasm of prostate; Z79.899 Other long term (current) drug therapy

== ENCOUNTER → 2024-01-25 | Outpatient (CLI) | payer MEDICARE | LOC: M PLAIMG 09:55 | PROVIDERS: ATTEND Physician Assistant | DX: I42.8 Other cardiomyopathies (principal) ==

== ENCOUNTER → 2024-04-07 | Outpatient (CLI) | payer MEDICARE ==
[2024-04-07 12:01] LABS: INR 1.02; PARTIAL THROMBOPLASTIN TIME 33.5 SECONDS (24.8-34.2); PROTHROMBIN TIME 13.1 SECONDS (12.5-14.5)
== END ==
LOC: M LAB 11:22
PROVIDERS: ATTEND Orthopaedic Surgery
DX: M43.16 Spondylolisthesis, lumbar region (principal)

== ENCOUNTER → 2024-04-16 | Outpatient (CLI) | payer MEDICARE ==
[2024-04-16 11:41] LABS: BASO # 0.1 10^3/uL (0.0-0.2); BASO % 1.1 % (0.0-1.0); EOS # 0.2 10^3/uL (0.0-0.5); EOS % 3.5 % (0.0-3.0); HEMATOCRIT 41.4 % (42.0-52.0); HEMOGLOBIN 14.7 g/dl (13.5-17.5); LYMPH # 1.4 10^3/uL (1.5-5.0); MEAN CORPUSCULAR HGB CONC 35.5 g/dl (32.0-36.5); MEAN CORPUSCULAR VOLUME 90.2 fl (80.0-96.0); MONO % 15.6 % (2.0-8.0); NEUTROPHILS # 3.8 10^3/uL (1.5-8.5); NEUTROPHILS % 58.5 % (36.0-66.0); PLATELET COUNT, AUTOMATED 265 10^3/uL (150-450); RED BLOOD COUNT 4.59 10^6/uL (4.30-6.10); WHITE BLOOD COUNT 6.5 10^3/uL (4.0-10.0)
[2024-04-16 11:52] LABS: HEMOGLOBIN A1c 5.1 % (4.0-6.0)
[2024-04-16 12:10] LABS: CREATININE, URINE 102.6 MG/DL; MALB URINE SIEMENS < 3.0 MG/L; MAU/CREAT RATIO 2.9 MCG/MG (0.0-30.0)
[2024-04-16 12:36] LABS: C REACTIVE PROTEIN QUANTITATIV < 0.40 MG/DL (<1.0)
[2024-04-16 12:38] LABS: ALBUMIN 3.9 G/DL (3.2-5.2); ALKALINE PHOSPHATASE 104 U/L (46-116); ALT/SGPT 21 U/L (7.0-40); AST/SGOT 16 U/L (<34); BILIRUBIN,TOTAL 0.7 MG/DL (0.3-1.2); BLOOD UREA NITROGEN 12 MG/DL (9-23); CALCIUM LEVEL 9.1 MG/DL (8.3-10.6); CARBON DIOXIDE LEVEL 30 MMOL/L (20-31); CHLORIDE LEVEL 99 MMOL/L (98-107); CHOLESTEROL LEVEL 171 MG/DL (<200); CHOLESTEROL RISK RATIO 1.85 (<5); CREATININE FOR GFR 0.69 MG/DL (0.70-1.30); GLOMERULAR FILTRATION RATE > 60.0 (>42); GLUCOSE, FASTING 104 MG/DL (74-106); HDL CHOLESTEROL 92.3 MG/DL (>40); LDL CHOLESTEROL 71.3 MG/DL (<100); NON-HDL-C 78.7 MG/DL; POTASSIUM SERUM 4.6 MMOL/L (3.5-5.1); SODIUM LEVEL 134 MMOL/L (136-145); TOTAL PROTEIN 6.6 G/DL (5.7-8.2); TRIGLYCERIDES LEVEL 37 MG/DL (<150)
[2024-04-16 12:39] LABS: FREE T4 1.26 NG/DL (0.89-1.76)
[2024-04-16 12:40] LABS: TOTAL 25(OH) VITAMIN D 60.6 NG/ML (20.0-100.0); VITAMIN B12 LEVEL 446 PG/ML (211-911)
== END ==
LOC: M LAB 10:13
PROVIDERS: ATTEND Internal Medicine Hematology
DX: I11.0 Hypertensive heart disease with heart failure (principal); F10.20 Alcohol dependence, uncomplicated; M15.0 Primary generalized (osteo)arthritis; C61 Malignant neoplasm of prostate; I50.32 Chronic diastolic (congestive) heart failure; Z79.899 Other long term (current) drug therapy

== ENCOUNTER → 2024-05-02 | Outpatient (CLI) | payer MEDICARE ==
[~2024-05-02] MED LIST changes: +ISOVUE-M 300 61% 15ML VIAL As Ordered ONE; +LIDOCAINE 1% MDV 20ML VIAL As Ordered ONE
[2024-05-02 08:30] VITALS: TEMP 97
[2024-05-02 10:10] VITALS: BP 141/66; O2SAT 95
== END ==
LOC: M IRPRO 07:59
PROVIDERS: ATTEND Orthopaedic Surgery
DX: M43.16 Spondylolisthesis, lumbar region (principal)
CPT/HCPCS: 62284; 72131; Q9967

== ENCOUNTER → 2024-06-24 | Outpatient (CLI) | payer MEDICARE ==
[~2024-06-24] MED LIST changes: -ISOVUE-M 300 61% 15ML VIAL As Ordered ONE; -LIDOCAINE 1% MDV 20ML VIAL As Ordered ONE
== END ==
LOC: M RAD 09:59
PROVIDERS: ATTEND Physical Medicine & Rehabilitation
DX: M54.50 Low back pain, unspecified (principal); Z96.653 Presence of artificial knee joint, bilateral; Z96.641 Presence of right artificial hip joint; M47.817 Spondylosis without myelopathy or radiculopathy, lumbosacral region; M47.816 Spondylosis without myelopathy or radiculopathy, lumbar region
CPT/HCPCS: 78306; A9503

== ENCOUNTER → 2024-07-28 | Outpatient (CLI) | payer MEDICARE ==
[2024-07-28 13:43] LABS: PLATELET COUNT, AUTOMATED 196 10^3/uL (150-450)
[2024-07-28 13:54] LABS: INR 0.96; PARTIAL THROMBOPLASTIN TIME 33.4 SECONDS (24.8-34.2); PROTHROMBIN TIME 13.1 SECONDS (12.5-14.5)
== END ==
LOC: M LAB 13:20
PROVIDERS: ATTEND Physical Medicine & Rehabilitation
DX: Z01.812 Encounter for preprocedural laboratory examination (principal); Z79.899 Other long term (current) drug therapy

== ENCOUNTER → 2024-09-30 | Outpatient (CLI) | payer MEDICARE | LOC: M LAB 13:29 | PROVIDERS: ATTEND Urology | DX: Z85.46 Personal history of malignant neoplasm of prostate (principal) ==

== ENCOUNTER → 2025-01-25 | Outpatient (CLI) | payer MEDICARE ==
[2025-01-25 14:05] LABS: BASO # 0.1 10^3/uL (0.0-0.2); BASO % 1.3 % (0.0-1.0); EOS # 0.1 10^3/uL (0.0-0.5); EOS % 1.5 % (0.0-3.0); HEMATOCRIT 39.6 % (42.0-52.0); HEMATOCRIT 40.4 % (42.0-52.0); HEMOGLOBIN 14.3 g/dl (13.5-17.5); MEAN CORPUSCULAR HGB CONC 36.1 g/dl (32.0-36.5); MEAN CORPUSCULAR VOLUME 88.6 fl (80.0-96.0); MONO # 0.9 10^3/uL (0.0-0.8); MONO % 18.4 % (2.0-8.0); NEUTROPHILS # 2.8 10^3/uL (1.5-8.5); NEUTROPHILS % 58.6 % (36.0-66.0); PLATELET COUNT, AUTOMATED 220 10^3/uL (150-450); RED BLOOD COUNT 4.47 10^6/uL (4.30-6.10); WHITE BLOOD COUNT 4.8 10^3/uL (4.0-10.0)
[2025-01-25 14:27] LABS: PROSTATIC SPECIFIC AG MONITOR 0.04 NG/ML (< 4.00)
[2025-01-25 14:28] LABS: URIC ACID 2.9 MG/DL (3.7-9.2)
[2025-01-25 14:29] LABS: TOTAL IRON BINDING CAPACITY 305 UG/DL (250-425)
[2025-01-25 14:30] LABS: CREATININE, URINE 19.7 MG/DL; MALB URINE SIEMENS < 3.0 MG/L
[2025-01-25 14:31] LABS: ALKALINE PHOSPHATASE 103 U/L (40-129); ALT/SGPT 26 U/L (7.0-40); AST/SGOT 26 U/L (<34); BILIRUBIN,TOTAL 1.1 MG/DL (0.3-1.2); BLOOD UREA NITROGEN 12 MG/DL (9-23); CALCIUM LEVEL 9.3 MG/DL (8.3-10.6); CARBON DIOXIDE LEVEL 31 MMOL/L (20-31); CHLORIDE LEVEL 94 MMOL/L (98-107); CHOLESTEROL LEVEL 181 MG/DL (<200); CHOLESTEROL RISK RATIO 1.47 (<5); CREATININE FOR GFR 0.66 MG/DL (0.70-1.30); FREE T4 1.44 NG/DL (0.89-1.76); GLOMERULAR FILTRATION RATE > 90.0 (>42); GLUCOSE, FASTING 118 MG/DL (74-106); IRON (FE) 161 UG/DL (65-175); LDL CHOLESTEROL 51.4 MG/DL (<100); PERCENT SATURATION 52.8 % (19.7-50.0); POTASSIUM SERUM 4.3 MMOL/L (3.5-5.1); SODIUM LEVEL 132 MMOL/L (136-145); TOTAL PROTEIN 7.1 G/DL (5.7-8.2); TRIGLYCERIDES LEVEL 33 MG/DL (<150); VITAMIN B12 LEVEL 455 PG/ML (211-911)
== END ==
LOC: M LAB 12:44
PROVIDERS: ATTEND Student in an Organized Health Care Education/Training Program
DX: E78.00 Pure hypercholesterolemia, unspecified (principal); I10 Essential (primary) hypertension; D50.9 Iron deficiency anemia, unspecified; F10.20 Alcohol dependence, uncomplicated; R73.01 Impaired fasting glucose; R68.89 Other general symptoms and signs; Z85.46 Personal history of malignant neoplasm of prostate

== ENCOUNTER → 2025-06-14 | Outpatient (CLI) | payer MEDICARE ==
[2025-06-14 12:00] LABS: TESTOSTERONE 637.0 NG/DL (241-827)
[2025-06-14 12:05] LABS: PROSTATIC SPECIFIC AG MONITOR 0.04 NG/ML (< 4.00)
== END ==
LOC: M LAB 09:57
PROVIDERS: ATTEND Urology
DX: Z85.46 Personal history of malignant neoplasm of prostate (principal)

== ENCOUNTER 2025-08-14 08:22 | Day surgery (SDC) | payer MEDICARE ==
[~2025-08-14] VITALS: Ht 182.9 cm; Wt 74.8 kg
[~2025-08-14 08:22] MED LIST changes: +ALBU8.5H; +ECOT81TA5 PO
[2025-08-14] MEDS ORDERED: LIDOCAINE 2% 100 MG/5 ML SDV (FOR ANES.) As Ordered ONE (09:35)
[2025-08-14] MEDS ORDERED: GLYCOPYRROLATE INJ 0.2 MG/ML 2 ML VIAL As Ordered ONE (09:35)
[2025-08-14 10:09] VITALS: TEMP 97.8
[2025-08-14 10:30] VITALS: BP 148/72; O2SAT 97
== END 2025-08-14 10:32 | disposition home or self-care (01) ==
LOC: M OPP 08:22
PROVIDERS: ATTEND Internal Medicine Gastroenterology
DX: D12.4 Benign neoplasm of descending colon (principal); K57.30 Diverticulosis of large intestine without perforation or abscess without bleeding; K64.8 Other hemorrhoids; Z86.0100 Personal history of colon polyps, unspecified; Z95.0 Presence of cardiac pacemaker; Z79.82 Long term (current) use of aspirin; Z79.891 Long term (current) use of opiate analgesic; Z79.899 Other long term (current) drug therapy
CPT/HCPCS: 45385; 88305; J1596